=== PATIENT | male | born 1945 ===

== ENCOUNTER 2017-09-16 15:04 | Inpatient (IN) | payer MEDICARE, OTHER ==
--- NOTE | 2017-09-16 16:03 | C.PDOC ---
History Of Present Illness <Candy Gan - Last Filed: 09/16/17 19:55> <Aleksey Atkins DO - Last Filed: 09/16/17 21:03> CC: "I fell" HPI: 71 year old male with past medical history of HTN, HLD and CABG who present to the ED status post fall. Patient states he was walking out of work and felt his hands were trembling and he fell facing forward. He states he hit his head. He denies losing consciousness and states his co-workers witnessed the fall. He states he normally takes Valium everyday but has not taken it for about 4-5 days because he forgot to take it. He states he currently has a headache and would like Valium and would like to sleep. He denies dizziness, lightheadedness, nausea, vomiting, chest pain, or palpitations. PMD: Dr. 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; denies smoking; denies illicit drug use; states he stopped drinking scotch 5 years ago (Candy Gan) - HPI History Per: Patient History/Exam Limitations: clinical condition (patient having difficulty speaking ) Onset/Duration Of Symptoms: Hrs Injury Occurred (Timing): Just Before Arrival - Fall Fall:Prior To Injury: Lost Balance <Candy Gan - Last Filed: 09/16/17 19:55> <Aleksey Atkins DO - Last Filed: 09/16/17 21:03> - HPI Chief Complaint (Nursing): Trauma Past Medical History - Medical History PMH: HTN Surgical History: Back Surgery ( PER PATIENT) Family History: States: No Known Family Hx - Social History Hx Alcohol Use: No Hx Substance Use: No - Immunization History Hx Tetanus Toxoid Vaccination: No Hx Influenza Vaccination: No Hx Pneumococcal Vaccination: No <Candy Gan - Last Filed: 09/16/17 19:55> Vital Signs: Last Vital Signs Temp 97.1 F L 09/16/17 15:17 Pulse 71 09/16/17 20:54 Resp 16 09/16/17 20:54 BP 138/52 L 09/16/17 20:54 Pulse Ox 100 09/16/17 20:54 Review Of Systems Constitutional: Negative for: Fever, Chills Eyes: Negative for: Vision Change Cardiovascular: Negative for: Chest Pain, Palpitations, Edema, Light Headedness Gastrointestinal: Negative for: Nausea, Vomiting, Diarrhea, Constipation Genitourinary: Negative for: Dysuria Neurological: Positive for: Headache. Negative for: Weakness, Numbness, Dizziness <Candy Gan - Last Filed: 09/16/17 19:55> Physical Exam - Physical Exam Appears: No Acute Distress Skin: Normal Color Head: Abrasion Eye(s): bilateral: Normal Inspection, PERRL, EOMI Oral Mucosa: Moist Cardiovascular: Rhythm Regular, No Murmur Respiratory: Normal Breath Sounds, No Decreased Breath Sounds, No Stridor, No Wheezing Gastrointestinal/Abdominal: Normal Exam, Bowel Sounds, Soft, No Tenderness Extremity: No Tenderness, No Pedal Edema, No Calf Tenderness, Other (abrasion on the left knee ) Neurological/Psych: Oriented x3, Normal Speech, Normal Cognition, Normal Cranial Nerves, Other (tremor upper extremity bilateral ) <Candy Gan - Last Filed: 09/16/17 19:55> ED Course And Treatment - Laboratory Results Result Diagrams: 09/16/17 16:35 09/16/17 16:35 O2 Sat by Pulse Oximetry: 98 <Candy Gan - Last Filed: 09/16/17 19:55> - Laboratory Results Result Diagrams: 09/16/17 16:35 09/16/17 16:35 <Aleksey Atkins DO - Last Filed: 09/16/17 21:03> Medical Decision Making <Candy Gan - Last Filed: 09/16/17 19:55> <Aleksey Atkins DO - Last Filed: 09/16/17 21:03> Medical Decision Making: Head Trauma s/p fall - head CT w/o contrast: no acute intracranial hemorrhage. Mild localized scalp contusion/soft tissue swelling superior frontal scalp. There also appears to be a tiny radiopaque foreign body possibly representing glass or gravel within the right parasagittal frontal scalp just inferior to the constusion. - alcohol serum level: <10 - UDS: + Benzodiazepines - cmp: WNL - cbc: WNL - troponin: <0.0120 - UA: negative - urine culture - f/u chest xray - f/u EKG - Paged patient's PMD Dr. Cordova pending return phone call. - Spoke with Dr. Cordova who wants the patient to be admitted to the hospital - Called the medicine physican building performance consultant Dr. Tovar who accepts the patient. - per Dr. Tovar wants neurology consult - Spoke with Dr. Leary who would like the following ordered - f/u lipid panel, A1c - f/u MRA of head and neck - f/u MRI of brain w/o contrast (Candy Gan) Disposition Discussed With : Aleksey Atkins DO Doctor Will See Patient In The: ED - Disposition Disposition Time: 19:57 <Candy Gan - Last Filed: 09/16/17 19:55> - Disposition Disposition Time: 19:20 <Aleksey Atkins DO - Last Filed: 09/16/17 21:03> - Disposition Disposition: HOSPITALIZED Condition: IMPROVED - Clinical Impression Clinical Impression: Syncope Critical Care Time - PA / PASTRY BAKER / Resident Statement ALIREZA has reviewed & agrees with the documentation as recorded. ALIREZA has examined the patient and agrees with the treatment plan. <Candy Gan - Last Filed: 09/16/17 19:55>
[2017-09-16 16:41] LABS: BASO % 0.6 % (0.0-2.0); EOS # 0.2 K/uL (0.0-0.7); EOS % 2.3 % (0.0-4.0); HEMOGLOBIN 9.4 g/dL (12.0-18.0); LYMPH # 1.2 K/uL (1.0-4.3); LYMPH % 15.2 % (20.0-40.0); MEAN CELL VOLUME 87.1 fL (80.0-94.0); MEAN CORPUSCULAR HEMOGLOBIN 29.5 pg (27.0-31.0); MEAN CORPUSCULAR HGB CONC 33.9 g/dL (33.0-37.0); MEAN PLATELET VOLUME 8.8 fL (7.2-11.7); MONO # 0.5 K/uL (0.0-0.8); MONO % 6.9 % (0.0-10.0); NEUT # 5.8 K/uL (1.8-7.0); NRBC % 0.1 % (0.0-2.0); RBC 3.2 Mil/uL (4.40-5.90); RED CELL DISTRIBUTION WIDTH 14.3 % (11.5-14.5); WHITE BLOOD COUNT 7.8 K/uL (4.8-10.8)
[2017-09-16 16:54] LABS: ALB/GLOB RATIO 1.2 (1.0-2.1); ALBUMIN 3.6 g/dL (3.5-5.0); ALT/SGPT 18 U/L (21-72); AST/SGOT 14 U/L (17-59); BLOOD UREA NITROGEN 32 mg/dL (9-20); CALCIUM 8.7 mg/dl (8.6-10.4); GFR AFRICAN-AMERICAN > 60; GFR NON-AFRICAN AMERICAN 59
--- NOTE | 2017-09-16 17:07 | CT ---
PROCEDURE: CT CT scan of the brain dated 09/16/2017 HISTORY: Status post fall. Rule out acute intracranial hemorrhage or fracture. COMPARISON: Comparison made with prior CT scan of the brain dated 08/02/2012. TECHNIQUE: Contiguous helical/ transaxial ial computed tomography images were obtained through the head/brain without intravenous contrast. Radiation dose: Total exam DLP = 1141.1 mGy-cm. This CT exam was performed using one or more of the following dose reduction techniques: Automated exposure control, adjustment of the mA and/or kV according to patient size, and/or use of iterative reconstruction technique. FINDINGS: HEMORRHAGE: No acute parenchymal, subarachnoid or extra-axial hemorrhage. BRAIN: Re- demonstrated are moderate to fairly significant diffuse/confluent chronic white matter ischemic changes seen extending peripherally into the deep and subcortical white matter both cerebral hemispheres. Moderate to significant atrophy. Dense vascular calcifications of the carotid siphons. Vascular calcifications both vertebral arteries left greater than right. VENTRICLES: No obstructive hydrocephalus. CALVARIUM: No acute calvarial fractures so far as can be seen. Note made of small area of localized soft tissue swelling/scalp contusion mid superior frontal scalp apparently associated with a small laceration. . Additionally, there is a very tiny approximately 2 mm somewhat triangular-shaped radiopaque density within the right parasagittal frontal skin surface that could represent small focal area of glass or gravel best seen on axial series 3 and series 4 image number 43 (just inferior to the aforementioned scalp contusion) PARANASAL SINUSES: Mild mucosal thickening seen within the ethmoid air complex extending superiorly into the inferior margin of the frontal sinus. There is also minimal mucosal thickening in the sphenoid sinus. MASTOID AIR CELLS: Unremarkable as visualized. No inflammatory changes. OTHER FINDINGS: None. IMPRESSION: No acute intracranial hemorrhage. Moderate to fairly significant diffuse/confluent chronic white matter ischemic changes extending peripherally into the deep and subcortical white matter both cerebral hemispheres. Moderate to significant atrophy. Mild localized scalp contusion/soft tissue swelling superior frontal scalp. There also appears to be a tiny radiopaque foreign body possibly representing glass or gravel within the right parasagittal frontal scalp just inferior to the contusion.
[2017-09-16 18:16] LABS: SQUAMOUS EPITHIAL < 1 /hpf (0-5); URINE BACTERIA RARE (<OCC); URINE BILIRUBIN NEGATIVE (NEGATIVE); URINE BLOOD NEGATIVE (NEGATIVE); URINE CLARITY Clear (Clear); URINE COLOR Amber (YELLOW); URINE GLUCOSE (UA) 1+ mg/dL (Normal); URINE LEUKOCYTE ESTERASE NEG Leu/uL (Negative); URINE NITRATE NEGATIVE (NEGATIVE); URINE PROTEIN 1+ mg/dL (NEGATIVE); URINE UROBILINOGEN NORMAL mg/dL (0.2-1.0)
[2017-09-16 18:25] LABS: BARBITURATES, UR NEGATIVE (NEGATIVE); OPIATES, UR NEGATIVE (NEGATIVE); PHENCYCLIDINE, UR NEGATIVE (NEGATIVE)
[2017-09-16 18:40] LABS: BENZODIAZEPINES, UR POSITIVE (NEGATIVE)
[2017-09-16] MEDS ORDERED: Sodium Chloride 0.9% 1,000 ML IV SCH (20:00)
[2017-09-16 20:20] LABS: HDL CHOLESTEROL 45 mg/dL (30-70)
[2017-09-16 20:31] LABS: LDL CHOLESTEROL 46 mg/dL (0-129)
--- NOTE | 2017-09-17 08:29 | RAD ---
HISTORY: r/o infiltrate COMPARISON: No prior. FINDINGS: LUNGS: No evidence of focal infiltrate or consolidation in the lungs. PLEURA: No significant pleural effusion identified, no pneumothorax apparent. CARDIOVASCULAR: Normal. OSSEOUS STRUCTURES: No significant abnormalities. VISUALIZED UPPER ABDOMEN: Normal. OTHER FINDINGS: None. IMPRESSION: No active disease.
[2017-09-17 08:51] LABS: BLOOD UREA NITROGEN 23 mg/dL (9-20); CALCIUM 8.4 mg/dl (8.6-10.4); GFR AFRICAN-AMERICAN > 60; GFR NON-AFRICAN AMERICAN > 60
[2017-09-17 09:13] LABS: BASO % 0.4 % (0.0-2.0); EOS # 0.3 K/uL (0.0-0.7); EOS % 2.8 % (0.0-4.0); HEMOGLOBIN 10.2 g/dL (12.0-18.0); LYMPH # 1.7 K/uL (1.0-4.3); MEAN CELL VOLUME 86.5 fL (80.0-94.0); MEAN CORPUSCULAR HEMOGLOBIN 29.7 pg (27.0-31.0); MEAN CORPUSCULAR HGB CONC 34.3 g/dL (33.0-37.0); MEAN PLATELET VOLUME 8.8 fL (7.2-11.7); MONO # 0.6 K/uL (0.0-0.8); NEUT # 6.3 K/uL (1.8-7.0); NEUT % 70.8 % (50.0-75.0); RBC 3.44 Mil/uL (4.40-5.90); WHITE BLOOD COUNT 8.9 K/uL (4.8-10.8)
[2017-09-17] MEDS ORDERED: Influenza Vaccine 60 mcg/0.5 mL SYR (4YR UP) IM ONE (10:00)
[2017-09-17] MEDS ORDERED: Pneumococcal 23-Valent Vaccine IM ONE (10:00)
[2017-09-17] MEDS: Ranolazine 500 mg Extended Release Tablets PO SCH ×2 (10:40→18:15)
[2017-09-17] MEDS: Enoxaparin 40 mg Syringe SC SCH (10:41)
--- NOTE | 2017-09-17 12:25 | MRI ---
PROCEDURE: Magnetic Resonance Angiography Brain HISTORY: syncope COMPARISON: None available. TECHNIQUE: 3D time of flight MR angiography of the intracranial arteries was performed. Rotating maximum intensity projection images were generated. FINDINGS: INTERNAL CAROTID ARTERIES: The distal portio right internal carotid artery including the petrous and supraclinoid and terminus portions are not visualized. The distal portion of the left internal carotid artery is patent in has a normal caliber. ANTERIOR CEREBRAL ARTERIES: Unremarkable. A1 and A2 segments are widely patent. The left A1 is larger than the right. Smaller distal branches unremarkable, as visualized. MIDDLE CEREBRAL ARTERIES: There is a reconstitution of the right internal terminus / bifurcation. The right midgrade cerebral artery is smaller than the left. POSTERIOR CIRCULATION: Basilar Artery: Unremarkable. Distal Vertebral Arteries: The left distal vertebral artery is larger than the right. Unremarkable. Posterior Cerebral Arteries: Unremarkable. Posterior Inferior Cerebellar Arteries: Unremarkable. ANEURYSM/ VASCULAR MALFORMATIONS: None. OTHER FINDINGS: None. 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 The right middle cerebral artery and right A1 are smaller than the left. The distal left vertebral artery is larger than the right.
--- NOTE | 2017-09-17 12:35 | MRI ---
PROCEDURE: MRI BRAIN WITHOUT CONTRAST HISTORY: syncope COMPARISON: None. TECHNIQUE: Multiplanar, multisequence MR images of the brain were obtained without intravenous contrast enhancement. FINDINGS: HEMORRHAGE: None DWI: Suspicious for 5 millimeter focal diffusion restriction at the medial aspect of the left thalamus image 49 series 3 may represent lacunar infarction. BRAIN PARENCHYMA: No mass effect or edema. Moderate volume loss is noted. Moderate white matter changes are also noted suggestive of chronic microvascular ischemic disease. There is a small focal encephalomalacia at the left occipital lobe likely represent old small infarction. VENTRICLES: Unremarkable. No hydrocephalus. CRANIUM: Unremarkable. ORBITS: Grossly unremarkable. PARANASAL SINUSES/MASTOIDS: Clear VASCULAR SYSTEM: Skull base flow voids intact. OTHER FINDINGS: None. IMPRESSION: 5 millimeter diffusion restriction at the medial aspect of the left thalamus suspicious for acute lacunar infarction. Moderate atrophy and moderate white matter changes likely represent chronic microvascular ischemic disease.
--- NOTE | 2017-09-17 13:32 | MRI ---
PROCEDURE: MR Angiography of the neck without contrast HISTORY: syncope COMPARISON: None available. TECHNIQUE: 3D [id number] angiography of the neck was performed. Rotating maximum intensity projection images of the cervical carotid and vertebral arteries were generated. The origins of the common carotid arteries were not visualized, which is a limitation inherent to the non-contrast time of flight technique. FINDINGS: RIGHT CAROTID ARTERIES: Common Carotid Artery: The right common carotid artery is smaller than the left Carotid Bifurcation: Normal. Internal Carotid Artery:There is occlusion of the right internal carotid artery shortly after its origin External Carotid Artery (proximal branches): Normal. LEFT CAROTID ARTERIES: Common Carotid Artery: Normal. Carotid Bifurcation: Normal. Internal Carotid Artery:There is approximately 50 percent stenosis at the origin and proximal left internal carotid artery External Carotid Artery (proximal branches): Normal. VERTEBRAL ARTERIES: Right Vertebral Artery: The right vertebral artery is smaller than the left Normal. Left Vertebral Artery: Normal. OTHER FINDINGS: None. 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 50 percent focal stenosis at the origin and proximal left internal carotid artery.
--- NOTE | 2017-09-17 14:42 | CP.PCM.CON ---
History of Present Illness - History of Present Illness History of Present Illness: Neurology Consult Note: Mr. Simpson is a 71-year-old man with a past medical history of HTN, HLD and CABG who presented to the ED after having a witnessed fall. He was walking out of work and felt tremulous, his legs gave out and he fell face forward. There was no loss of consciousness, urinary/bowel incontinence, or any tongue biting. The patient uses Valium daily for headaches/insomnia, but has not taken it in 4 days because he forgot. CT scan showed the hematoma of the scalp and forehead with a possible glass/ gravel foreign body. MRI of the brain was suspicious for a 5 mm lacunar infarct in the left thalamus. There was also significant white matter disease. MRA of the head/neck showed multi-vessel stenosis in the intracranial and extra-cranial vessels, including complete occlusion of the right carotid artery. Clinically, the patient did not have any complaints except for head pain at the injury site. He is on aspirin, Plavix and Crestor for risk factor control and treatment of co-morbid medical conditions. Review of Systems - Review of Systems All systems: reviewed and no additional remarkable complaints except Past Patient History - Past Medical History & Family History Past Medical History?: Yes - Past Social History Smoking Status: Never Smoked - CARDIAC Hx Cardiac Disorders: Yes Hx Heart Attack: Yes Hx Hypertension: Yes Other/Comment: CAD - PULMONARY Hx Respiratory Disorders: No - NEUROLOGICAL Hx Neurological Disorder: No - HEENT Hx HEENT Problems: No - RENAL Hx Chronic Kidney Disease: No - ENDOCRINE/METABOLIC Hx Endocrine Disorders: Yes Hx Diabetes Mellitus Type 1: Yes - HEMATOLOGICAL/ONCOLOGICAL Hx Blood Disorders: No - INTEGUMENTARY Hx Dermatological Problems: No - MUSCULOSKELETAL/RHEUMATOLOGICAL Hx Musculoskeletal Disorders: Yes Hx Back Pain: Yes Hx Falls: Yes Hx Herniated Disk: Yes - GASTROINTESTINAL Hx Gastrointestinal Disorders: No - GENITOURINARY/GYNECOLOGICAL Hx Genitourinary Disorders: No - PSYCHIATRIC Hx Psychophysiologic Disorder: No Hx Substance Use: No - SURGICAL HISTORY Hx Surgeries: Yes Hx Coronary Artery Bypass Graft: Yes (2003) Hx Musculoskeletal Surgery: Yes (L4-L5 w/ "guillermo" 05/2017) - ANESTHESIA Hx Anesthesia: Yes Hx Anesthesia Reactions: No Hx Malignant Hyperthermia: No Has any member of the family had a problem w/ anesthesia?: No Meds Allergies/Adverse Reactions: Allergies Allergy/AdvReac Type Severity Reaction Status Date / Time No Known Allergies Allergy Verified 09/16/17 15:16 - Medications Medications: Current Medications Aspirin (Ecotrin) 81 mg PO DAILY [facility] Last Admin: 09/17/17 10:39 Dose: 81 mg Atenolol (Tenormin) 100 mg PO DAILY [facility] Last Admin: 09/17/17 10:40 Dose: 100 mg Clopidogrel Bisulfate (Plavix) 75 mg PO DAILY [facility] Last Admin: 09/17/17 10:39 Dose: 75 mg Diazepam (Valium) 5 mg PO HS [facility] Last Admin: 09/17/17 00:02 Dose: 5 mg Enoxaparin Sodium (Lovenox) 40 mg SC DAILY [facility] Last Admin: 09/17/17 10:41 Dose: 40 mg Gabapentin (Neurontin) 300 mg PO BID [facility] Last Admin: 09/17/17 10:42 Dose: 300 mg Hydralazine HCl (Apresoline) 10 mg IVP Q6 PRN PRN Reason: for SBP >180, hold if SBP <110 Sodium Chloride (Sodium Chloride 0.9%) 1,000 mls @ 60 mls/hr IV .[id number] [facility] Last Admin: 09/16/17 20:15 Dose: 60 mls/hr Sodium Chloride (Sodium Chloride 0.9%) 1,000 mls @ 80 mls/hr IV .[id number] [facility] Isosorbide Mononitrate (Imdur) 60 mg PO DAILY [facility] Metformin HCl (Glucophage) 500 mg PO BID [facility] Last Admin: 09/17/17 10:39 Dose: 500 mg Ranolazine (Ranexa) 1,000 mg PO BID [facility] Last Admin: 09/17/17 10:40 Dose: 1,000 mg Rosuvastatin Calcium (Crestor) 5 mg PO [facility] Sitagliptin Phosphate (Januvia) 100 mg PO DAILY [facility] Last Admin: 09/17/17 10:40 Dose: 100 mg Physical Exam - Constitutional Appears: Well - Head Exam Head Exam: ATRAUMATIC, NORMAL INSPECTION, NORMOCEPHALIC Additional comments: Dressing over frontal aspect of forehead, moderately saturated with blood. - Eye Exam Eye Exam: EOMI, Normal appearance, PERRL - ENT Exam ENT Exam: Mucous Membranes Moist, Normal Exam - Respiratory Exam Respiratory Exam: Clear to Auscultation Bilateral, NORMAL BREATHING PATTERN - Cardiovascular Exam Cardiovascular Exam: REGULAR RHYTHM, +S1, +S2 - GI/Abdominal Exam GI & Abdominal Exam: Normal Bowel Sounds, Soft. absent: Tenderness - Rectal Exam Rectal Exam: Deferred - Neurological Exam Neurological exam: Alert, CN II-XII Intact, Normal Gait, Oriented x3, Reflexes Normal Additional comments: Slight right side pronator drift in RUE. - Psychiatric Exam Psychiatric exam: Normal Affect, Normal Mood Results - Vital Signs Recent Vital Signs: Last Vital Signs Temp 97.7 F 09/17/17 08:17 Pulse 76 09/17/17 08:25 Resp 20 09/17/17 08:25 BP 165/72 H 09/17/17 08:25 Pulse Ox 98 09/17/17 08:17 - Labs Result Diagrams: 09/17/17 09:07 09/17/17 08:16 Labs: Laboratory Results - last 24 hr 09/16/17 09/16/17 09/16/17 16:35 16:35 18:05 WBC 7.8 RBC 3.20 L Hgb 9.4 L Hct 27.9 L MCV 87.1 MCH 29.5 MCHC 33.9 RDW 14.3 Plt Count 217 MPV 8.8 Neut % (Auto) 75.0 Lymph % (Auto) 15.2 L Banks % (Auto) 6.9 Eos % (Auto) 2.3 Baso % (Auto) 0.6 Neut # (Auto) 5.8 Lymph # (Auto) 1.2 Banks # (Auto) 0.5 Eos # (Auto) 0.2 Baso # (Auto) 0.0 Sodium 137 Potassium 4.5 Chloride 100 Carbon Dioxide 28 Anion Gap 14 BUN 32 H Creatinine 1.2 Est GFR ( Amer) > 60 Est GFR (Non-Af Amer) 59 POC Glucose (mg/dL) Random Glucose 126 H Hemoglobin A1c Calcium 8.7 Total Bilirubin 0.3 AST 14 L ALT 18 L Alkaline Phosphatase 53 Troponin I < 0.0120 Total Protein 6.5 Albumin 3.6 Globulin 2.9 Albumin/Globulin Ratio 1.2 Triglycerides Cholesterol LDL Cholesterol Direct HDL Cholesterol TSH 3rd Generation Urine Color Urine Clarity Urine pH Ur Specific [place] Urine Protein Urine Glucose (UA) Urine Ketones Urine Blood Urine Nitrate Urine Bilirubin Urine Urobilinogen Ur Leukocyte Esterase Urine WBC (Auto) Urine RBC (Auto) Ur Squamous Epith Cells Urine Bacteria Hyaline Casts Urine Opiates Screen Negative Urine Methadone Screen Negative Ur Barbiturates Screen Negative Ur Phencyclidine Scrn Negative Ur Amphetamines Screen Negative U Benzodiazepines Scrn Positive U Oth Cocaine Metabols Negative U Cannabinoids Screen Negative Alcohol, Quantitative < 10 09/16/17 09/16/17 09/16/17 18:05 20:10 20:10 WBC RBC Hgb Hct MCV MCH MCHC RDW Plt Count MPV Neut % (Auto) Lymph % (Auto) Banks % (Auto) Eos % (Auto) Baso % (Auto) Neut # (Auto) Lymph # (Auto) Banks # (Auto) Eos # (Auto) Baso # (Auto) Sodium Potassium Chloride Carbon Dioxide Anion Gap BUN Creatinine Est GFR ( Amer) Est GFR (Non-Af Amer) POC Glucose (mg/dL) Random Glucose Hemoglobin A1c 6.3 Calcium Total Bilirubin AST ALT Alkaline Phosphatase Troponin I Total Protein Albumin Globulin Albumin/Globulin Ratio Triglycerides 79 Cholesterol 109 LDL Cholesterol Direct 46 HDL Cholesterol 45 TSH 3rd Generation Urine Color [place] Urine Clarity Clear Urine pH 5.0 Ur Specific [place] 1.020 Urine Protein 1+ H Urine Glucose (UA) 1+ H Urine Ketones Negative Urine Blood Negative Urine Nitrate Negative Urine Bilirubin Negative Urine Urobilinogen Normal Ur Leukocyte Esterase Neg Urine WBC (Auto) 1 Urine RBC (Auto) 3 Ur Squamous Epith Cells < 1 Urine Bacteria Rare Hyaline Casts 6-10 H Urine Opiates Screen Urine Methadone Screen Ur Barbiturates Screen Ur Phencyclidine Scrn Ur Amphetamines Screen U Benzodiazepines Scrn U Oth Cocaine Metabols U Cannabinoids Screen Alcohol, Quantitative 09/17/17 09/17/17 09/17/17 01:49 08:16 08:16 WBC RBC Hgb Hct MCV MCH MCHC RDW Plt Count MPV Neut % (Auto) Lymph % (Auto) Banks % (Auto) Eos % (Auto) Baso % (Auto) Neut # (Auto) Lymph # (Auto) Banks # (Auto) Eos # (Auto) Baso # (Auto) Sodium 136 Potassium 4.2 Chloride 105 Carbon Dioxide 22 Anion Gap 13 BUN 23 H Creatinine 1.0 Est GFR ( Amer) > 60 Est GFR (Non-Af Amer) > 60 POC Glucose (mg/dL) Random Glucose 106 Hemoglobin A1c Calcium 8.4 L Total Bilirubin AST ALT Alkaline Phosphatase Troponin I < 0.0120 < 0.0120 Total Protein Albumin Globulin Albumin/Globulin Ratio Triglycerides Cholesterol LDL Cholesterol Direct HDL Cholesterol TSH 3rd Generation 1.26 Urine Color Urine Clarity Urine pH Ur Specific [place] Urine Protein Urine Glucose (UA) Urine Ketones Urine Blood Urine Nitrate Urine Bilirubin Urine Urobilinogen Ur Leukocyte Esterase Urine WBC (Auto) Urine RBC (Auto) Ur Squamous Epith Cells Urine Bacteria Hyaline Casts Urine Opiates Screen Urine Methadone Screen Ur Barbiturates Screen Ur Phencyclidine Scrn Ur Amphetamines Screen U Benzodiazepines Scrn U Oth Cocaine Metabols U Cannabinoids Screen Alcohol, Quantitative 09/17/17 09/17/17 09/17/17 09:07 09:07 11:20 WBC 8.9 RBC 3.44 L Hgb 10.2 L Hct 29.7 L MCV 86.5 MCH 29.7 MCHC 34.3 RDW 14.0 Plt Count 241 MPV 8.8 Neut % (Auto) 70.8 Lymph % (Auto) 19.0 L Banks % (Auto) 7.0 Eos % (Auto) 2.8 Baso % (Auto) 0.4 Neut # (Auto) 6.3 Lymph # (Auto) 1.7 Banks # (Auto) 0.6 Eos # (Auto) 0.3 Baso # (Auto) 0.0 Sodium Potassium Chloride Carbon Dioxide Anion Gap BUN Creatinine Est GFR ( Amer) Est GFR (Non-Af Amer) POC Glucose (mg/dL) 191 H Random Glucose Hemoglobin A1c 6.3 Calcium Total Bilirubin AST ALT Alkaline Phosphatase Troponin I Total Protein Albumin Globulin Albumin/Globulin Ratio Triglycerides Cholesterol LDL Cholesterol Direct HDL Cholesterol TSH 3rd Generation Urine Color Urine Clarity Urine pH Ur Specific [place] Urine Protein Urine Glucose (UA) Urine Ketones Urine Blood Urine Nitrate Urine Bilirubin Urine Urobilinogen Ur Leukocyte Esterase Urine WBC (Auto) Urine RBC (Auto) Ur Squamous Epith Cells Urine Bacteria Hyaline Casts Urine Opiates Screen Urine Methadone Screen Ur Barbiturates Screen Ur Phencyclidine Scrn Ur Amphetamines Screen U Benzodiazepines Scrn U Oth Cocaine Metabols U Cannabinoids Screen Alcohol, Quantitative Assessment & Plan (1) Ischemic stroke Assessment and Plan: The patient has multiple risk factors for stroke, and is on the appropriate medications. The infarct is likely small vessel due to chronic diabetes and hypertension. I recommend the followin. Telemetry 2. Echocardiogram with bubble study 3. PT/OT eval and treat 4. Fluids with NS at 100 mL/hr 5. Continue Aspirin/Plavix and Crestor 6. 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 Case management consult 9. Follow up with outpatient neurology Thank you for this consultation. Status: Acute
[2017-09-17] MEDS: Sodium Chloride 0.9% 1,000 ML IV SCH (21:22)
[2017-09-17] MEDS: (Novolog) Insulin Aspart, Recombinant 100 u/ml 10 ml vial SC SCH (21:50)
--- NOTE | 2017-09-18 01:02 | CP.PCM.HP ---
Past Patient History - Past Medical History & Family History Past Medical History?: Yes - Past Social History Smoking Status: Never Smoked - CARDIAC Hx Cardiac Disorders: Yes Hx Heart Attack: Yes Hx Hypertension: Yes Other/Comment: CAD - PULMONARY Hx Respiratory Disorders: No - NEUROLOGICAL Hx Neurological Disorder: No - HEENT Hx HEENT Problems: No - RENAL Hx Chronic Kidney Disease: No - ENDOCRINE/METABOLIC Hx Endocrine Disorders: Yes Hx Diabetes Mellitus Type 1: Yes - HEMATOLOGICAL/ONCOLOGICAL Hx Blood Disorders: No - INTEGUMENTARY Hx Dermatological Problems: No - MUSCULOSKELETAL/RHEUMATOLOGICAL Hx Musculoskeletal Disorders: Yes Hx Back Pain: Yes Hx Falls: Yes Hx Herniated Disk: Yes - GASTROINTESTINAL Hx Gastrointestinal Disorders: No - GENITOURINARY/GYNECOLOGICAL Hx Genitourinary Disorders: No - PSYCHIATRIC Hx Psychophysiologic Disorder: No Hx Substance Use: No - SURGICAL HISTORY Hx Surgeries: Yes Hx Coronary Artery Bypass Graft: Yes (2003) Hx Musculoskeletal Surgery: Yes (L4-L5 w/ "guillermo" 05/2017) - ANESTHESIA Hx Anesthesia: Yes Hx Anesthesia Reactions: No Hx Malignant Hyperthermia: No Has any member of the family had a problem w/ anesthesia?: No Meds Allergies/Adverse Reactions: Allergies Allergy/AdvReac Type Severity Reaction Status Date / Time No Known Allergies Allergy Verified 09/16/17 15:16 Results - Vital Signs Recent Vital Signs: Last Vital Signs Temp 98.3 F 09/17/17 23:27 Pulse 69 09/17/17 23:27 Resp 20 09/17/17 23:27 BP 129/53 L 09/17/17 23:27 Pulse Ox 96 09/17/17 23:27 - Labs Result Diagrams: 09/17/17 09:07 09/17/17 08:16 Labs: Laboratory Results - last 24 hr 09/17/17 09/17/17 09/17/17 01:49 08:16 08:16 WBC RBC Hgb Hct MCV MCH MCHC RDW Plt Count MPV Neut % (Auto) Lymph % (Auto) [place] % (Auto) Eos % (Auto) Baso % (Auto) Neut # (Auto) Lymph # (Auto) [place] # (Auto) Eos # (Auto) Baso # (Auto) Sodium 136 Potassium 4.2 Chloride 105 Carbon Dioxide 22 Anion Gap 13 BUN 23 H Creatinine 1.0 Est GFR ( Amer) > 60 Est GFR (Non-Af Amer) > 60 POC Glucose (mg/dL) Random Glucose 106 Hemoglobin A1c Calcium 8.4 L Troponin I < 0.0120 < 0.0120 TSH 3rd Generation 1.26 09/17/17 09/17/17 09/17/17 09:07 09:07 11:20 WBC 8.9 RBC 3.44 L Hgb 10.2 L Hct 29.7 L MCV 86.5 MCH 29.7 MCHC 34.3 RDW 14.0 Plt Count 241 MPV 8.8 Neut % (Auto) 70.8 Lymph % (Auto) 19.0 L [place] % (Auto) 7.0 Eos % (Auto) 2.8 Baso % (Auto) 0.4 Neut # (Auto) 6.3 Lymph # (Auto) 1.7 [place] # (Auto) 0.6 Eos # (Auto) 0.3 Baso # (Auto) 0.0 Sodium Potassium Chloride Carbon Dioxide Anion Gap BUN Creatinine Est GFR ( Amer) Est GFR (Non-Af Amer) POC Glucose (mg/dL) 191 H Random Glucose Hemoglobin A1c 6.3 Calcium Troponin I TSH 3rd Generation 09/17/17 09/17/17 16:43 21:30 WBC RBC Hgb Hct MCV MCH MCHC RDW Plt Count MPV Neut % (Auto) Lymph % (Auto) [place] % (Auto) Eos % (Auto) Baso % (Auto) Neut # (Auto) Lymph # (Auto) [place] # (Auto) Eos # (Auto) Baso # (Auto) Sodium Potassium Chloride Carbon Dioxide Anion Gap BUN Creatinine Est GFR ( Amer) Est GFR (Non-Af Amer) POC Glucose (mg/dL) 104 187 H Random Glucose Hemoglobin A1c Calcium Troponin I TSH 3rd Generation
[2017-09-18] MEDS: Sodium Chloride 0.9% 1,000 ML IV SCH ×4 (03:37→23:15)
[2017-09-18] MEDS: (Novolog) Insulin Aspart, Recombinant 100 u/ml 10 ml vial SC SCH ×4 (07:50→22:21)
--- NOTE | 2017-09-18 09:23 | CP.PCM.PN ---
Subjective - Date & Time of Evaluation Date of Evaluation: 09/18/17 Time of Evaluation: 09:00 Objective - Vital Signs/Intake and Output Vital Signs (last 24 hours): Temp Pulse Resp BP Pulse Ox 98.0 F 102 H 20 169/70 H 98 09/18/17 08:00 09/18/17 08:00 09/18/17 08:00 09/18/17 08:00 09/18/17 08:00 Intake and Output: 09/18/17 09/18/17 06:59 18:59 Intake Total 1520 Balance 1520 - Medications Medications: Current Medications Aspirin (Ecotrin) 81 mg PO DAILY [facility] Last Admin: 09/17/17 10:39 Dose: 81 mg Aspirin (Aspirin) 325 mg PO DAILY [facility] Atenolol (Tenormin) 100 mg PO DAILY [facility] Last Admin: 09/17/17 10:40 Dose: 100 mg Clopidogrel Bisulfate (Plavix) 75 mg PO DAILY [facility] Last Admin: 09/17/17 10:39 Dose: 75 mg Diazepam (Valium) 10 mg PO HS [facility] Last Admin: 09/17/17 21:17 Dose: 10 mg Enoxaparin Sodium (Lovenox) 40 mg SC DAILY [facility] Last Admin: 09/17/17 10:41 Dose: 40 mg Gabapentin (Neurontin) 300 mg PO BID [facility] Last Admin: 09/17/17 18:14 Dose: 300 mg Hydralazine HCl (Apresoline) 10 mg IVP Q6 PRN PRN Reason: for SBP >180, hold if SBP <110 Sodium Chloride (Sodium Chloride 0.9%) 1,000 mls @ 60 mls/hr IV .[id number] [facility] Last Admin: 09/16/17 20:15 Dose: 60 mls/hr Sodium Chloride (Sodium Chloride 0.9%) 1,000 mls @ 80 mls/hr IV .[id number] [facility] Last Admin: 09/18/17 03:37 Dose: 80 mls/hr Insulin Aspart (Novolog) 0 unit SC ACHS [facility] PRN Reason: Protocol Last Admin: 09/17/17 21:50 Dose: Not Given Isosorbide Mononitrate (Imdur) 60 mg PO DAILY [facility] Last Admin: 09/17/17 10:40 Dose: 60 mg Metformin HCl (Glucophage) 500 mg PO BID [facility] Last Admin: 09/17/17 18:14 Dose: 500 mg Ranolazine (Ranexa) 1,000 mg PO BID [facility] Last Admin: 09/17/17 18:15 Dose: 1,000 mg Rosuvastatin Calcium (Crestor) 5 mg PO HS [facility] Last Admin: 09/17/17 21:17 Dose: 5 mg Sitagliptin Phosphate (Januvia) 100 mg PO DAILY [facility] Last Admin: 09/17/17 10:40 Dose: 100 mg - Labs Labs: 09/17/17 09:07 09/17/17 08:16
[2017-09-18] MEDS: Ranolazine 500 mg Extended Release Tablets PO SCH ×2 (10:05→18:30)
[2017-09-18] MEDS: Enoxaparin 40 mg Syringe SC SCH (10:10)
--- NOTE | 2017-09-18 11:32 | CP.PCM.PN ---
Subjective - Date & Time of Evaluation Date of Evaluation: 09/18/17 Time of Evaluation: 11:29 - Subjective Subjective: Mr. Simpson was seen and examined at the bedside. He is alert, oriented in all spheres. He denies any headache, dizziness, lightheadedness, blurred vision, nausea, diplopia, or vomiting. He has the dry dressing on his forehead. He is able to follow simple commands. He is currently receiving IVF. There was no untoward events overnight. Objective - Vital Signs/Intake and Output Vital Signs (last 24 hours): Temp Pulse Resp BP Pulse Ox 98.0 F 67 20 169/70 H 98 09/18/17 08:00 09/18/17 08:00 09/18/17 08:00 09/18/17 08:00 09/18/17 08:00 Intake and Output: 09/18/17 09/18/17 06:59 18:59 Intake Total 1520 Balance 1520 - Medications Medications: Current Medications Aspirin (Ecotrin) 81 mg PO DAILY [facility] Last Admin: 09/17/17 10:39 Dose: 81 mg Aspirin (Aspirin) 325 mg PO DAILY [facility] Last Admin: 09/18/17 10:09 Dose: 325 mg Atenolol (Tenormin) 100 mg PO DAILY [facility] Last Admin: 09/18/17 10:09 Dose: 100 mg Clopidogrel Bisulfate (Plavix) 75 mg PO DAILY [facility] Last Admin: 09/18/17 10:09 Dose: 75 mg Diazepam (Valium) 10 mg PO HS [facility] Last Admin: 09/17/17 21:17 Dose: 10 mg Enoxaparin Sodium (Lovenox) 40 mg SC DAILY [facility] Last Admin: 09/18/17 10:10 Dose: 40 mg Gabapentin (Neurontin) 300 mg PO BID [facility] Last Admin: 09/18/17 10:10 Dose: 300 mg Hydralazine HCl (Apresoline) 10 mg IVP Q6 PRN PRN Reason: for SBP >180, hold if SBP <110 Sodium Chloride (Sodium Chloride 0.9%) 1,000 mls @ 60 mls/hr IV .[id number] [facility] Last Admin: 09/16/17 20:15 Dose: 60 mls/hr Sodium Chloride (Sodium Chloride 0.9%) 1,000 mls @ 80 mls/hr IV .[id number] [facility] Last Admin: 09/18/17 03:37 Dose: 80 mls/hr Insulin Aspart (Novolog) 0 unit SC ACHS [facility] PRN Reason: Protocol Last Admin: 09/18/17 07:50 Dose: Not Given Isosorbide Mononitrate (Imdur) 60 mg PO DAILY [facility] Last Admin: 09/18/17 10:09 Dose: 60 mg Metformin HCl (Glucophage) 500 mg PO BID [facility] Last Admin: 09/18/17 10:09 Dose: 500 mg Ranolazine (Ranexa) 1,000 mg PO BID [facility] Last Admin: 09/18/17 10:05 Dose: 1,000 mg Rosuvastatin Calcium (Crestor) 5 mg PO HS [facility] Last Admin: 09/17/17 21:17 Dose: 5 mg Sitagliptin Phosphate (Januvia) 100 mg PO DAILY [facility] Last Admin: 09/18/17 10:10 Dose: 100 mg - Labs Labs: 09/17/17 09:07 09/17/17 08:16 - Constitutional Appears: No Acute Distress - Head Exam Head Exam: NORMAL INSPECTION - Neurological Exam Neurological Exam: Alert, Awake, Oriented x3 Neuro motor strength exam: Left Upper Extremity: 5, Right Upper Extremity: 5, Left Lower Extremity: 5, Right Lower Extremity: 5 Additional comments: He is alert, oriented x 3. He is able to follow simple commands. Sensations remains intact. Assessment and Plan (1) Ischemic stroke Assessment & Plan: Case discussed with Dr. Leary, continue all current medical, physical, occupational therapies. Pending echocardiogram with bubble study and carotid ultrasound.Recommend blood pressure control and blood sugar control. Status: Acute
--- NOTE | 2017-09-18 12:29 | CP.PCM.CON ---
History of Present Illness - History of Present Illness History of Present Illness: Vascular Surgery Dr. Renee 71 y/o M w/ PMHx of HTN, HLD, CAD, DM2 presented to the after syncopal episode. Pt denies having similar episodes in the past. Per the pt, he suddenly became very lightheaded, dropped his briefcase and fell to the ground, hitting his R knee and head. Imaging done on admission revealed R ICA occlusion w/ distal revascularization and L ICA w/ 50% stenosis. Currently, pt denies headache, lightheadedness, dizziness, changes in vision, palpitations, CP, SOB. Vascular surgery consulted for possible intervention. PMhx: see above Meds: reviewed in chart NKDA PSHx: CABG, back surgery SHx: denies tobacco, EtOH, drug use FHx: noncontributory Review of Systems - Review of Systems All systems: reviewed and no additional remarkable complaints except (see HPI) Past Patient History - Past Medical History & Family History Past Medical History?: Yes - Past Social History Smoking Status: Never Smoked - CARDIAC Hx Cardiac Disorders: Yes Hx Heart Attack: Yes Hx Hypertension: Yes Other/Comment: CAD - PULMONARY Hx Respiratory Disorders: No - NEUROLOGICAL Hx Neurological Disorder: No - HEENT Hx HEENT Problems: No - RENAL Hx Chronic Kidney Disease: No - ENDOCRINE/METABOLIC Hx Endocrine Disorders: Yes Hx Diabetes Mellitus Type 1: Yes - HEMATOLOGICAL/ONCOLOGICAL Hx Blood Disorders: No - INTEGUMENTARY Hx Dermatological Problems: No - MUSCULOSKELETAL/RHEUMATOLOGICAL Hx Musculoskeletal Disorders: Yes Hx Back Pain: Yes Hx Falls: Yes Hx Herniated Disk: Yes - GASTROINTESTINAL Hx Gastrointestinal Disorders: No - GENITOURINARY/GYNECOLOGICAL Hx Genitourinary Disorders: No - PSYCHIATRIC Hx Psychophysiologic Disorder: No Hx Substance Use: No - SURGICAL HISTORY Hx Surgeries: Yes Hx Coronary Artery Bypass Graft: Yes (2003) Hx Musculoskeletal Surgery: Yes (L4-L5 w/ "guillermo" 05/2017) - ANESTHESIA Hx Anesthesia: Yes Hx Anesthesia Reactions: No Hx Malignant Hyperthermia: No Has any member of the family had a problem w/ anesthesia?: No Meds Allergies/Adverse Reactions: Allergies Allergy/AdvReac Type Severity Reaction Status Date / Time No Known Allergies Allergy Verified 09/16/17 15:16 - Medications Medications: Current Medications Aspirin (Ecotrin) 81 mg PO DAILY [facility] Last Admin: 09/17/17 10:39 Dose: 81 mg Aspirin (Aspirin) 325 mg PO DAILY [facility] Last Admin: 09/18/17 10:09 Dose: 325 mg Atenolol (Tenormin) 100 mg PO DAILY [facility] Last Admin: 09/18/17 10:09 Dose: 100 mg Clopidogrel Bisulfate (Plavix) 75 mg PO DAILY [facility] Last Admin: 09/18/17 10:09 Dose: 75 mg Diazepam (Valium) 10 mg PO HS [facility] Last Admin: 09/17/17 21:17 Dose: 10 mg Enoxaparin Sodium (Lovenox) 40 mg SC DAILY [facility] Last Admin: 09/18/17 10:10 Dose: 40 mg Gabapentin (Neurontin) 300 mg PO BID [facility] Last Admin: 09/18/17 10:10 Dose: 300 mg Hydralazine HCl (Apresoline) 10 mg IVP Q6 PRN PRN Reason: for SBP >180, hold if SBP <110 Sodium Chloride (Sodium Chloride 0.9%) 1,000 mls @ 60 mls/hr IV .[id number] [facility] Last Admin: 09/16/17 20:15 Dose: 60 mls/hr Sodium Chloride (Sodium Chloride 0.9%) 1,000 mls @ 80 mls/hr IV .[id number] [facility] Last Admin: 09/18/17 03:37 Dose: 80 mls/hr Insulin Aspart (Novolog) 0 unit SC ACHS [facility] PRN Reason: Protocol Last Admin: 09/18/17 07:50 Dose: Not Given Isosorbide Mononitrate (Imdur) 60 mg PO DAILY [facility] Last Admin: 09/18/17 10:09 Dose: 60 mg Metformin HCl (Glucophage) 500 mg PO BID [facility] Last Admin: 09/18/17 10:09 Dose: 500 mg Ranolazine (Ranexa) 1,000 mg PO BID [facility] Last Admin: 09/18/17 10:05 Dose: 1,000 mg Rosuvastatin Calcium (Crestor) 5 mg PO HS [facility] Last Admin: 09/17/17 21:17 Dose: 5 mg Sitagliptin Phosphate (Januvia) 100 mg PO DAILY [facility] Last Admin: 09/18/17 10:10 Dose: 100 mg Physical Exam - Constitutional Appears: Non-toxic, No Acute Distress - Head Exam Head Exam: absent: ATRAUMATIC Additional comments: dressing c/d/i - Eye Exam Eye Exam: Normal appearance - ENT Exam ENT Exam: Mucous Membranes Moist Additional comments: abrasion of nasal bridge - Respiratory Exam Respiratory Exam: NORMAL BREATHING PATTERN. absent: Accessory Muscle Use, Respiratory Distress - GI/Abdominal Exam GI & Abdominal Exam: Soft. absent: Distended - Extremities Exam Extremities exam: Positive for: normal inspection - Neurological Exam Neurological exam: Alert, Oriented x3 - Psychiatric Exam Psychiatric exam: Normal Affect, Normal Mood - Skin Skin Exam: Dry, Warm Results - Vital Signs Recent Vital Signs: Last Vital Signs Temp 98.0 F 09/18/17 08:00 Pulse 67 09/18/17 08:00 Resp 20 09/18/17 08:00 BP 169/70 H 09/18/17 08:00 Pulse Ox 98 09/18/17 08:00 - Labs Result Diagrams: 09/17/17 09:07 09/17/17 08:16 Labs: Laboratory Results - last 24 hr 09/17/17 09/17/17 09/18/17 16:43 21:30 06:21 POC Glucose (mg/dL) 104 187 H 94 - Imaging and Cardiology MRI - head Status: Image reviewed by me, Report reviewed by me Assessment & Plan - Assessment and Plan (Free Text) Assessment: 71 y/o M s/p syncopal episode w/ 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 Thelma Marquez DO PGY2
[2017-09-19] MEDS: Sodium Chloride 0.9% 1,000 ML IV SCH (03:00)
[2017-09-19] MEDS: (Novolog) Insulin Aspart, Recombinant 100 u/ml 10 ml vial SC SCH (08:22)
--- NOTE | 2017-09-19 08:40 | CP.PCM.PN ---
Subjective - Date & Time of Evaluation Date of Evaluation: 09/19/17 Time of Evaluation: 08:37 - Subjective Subjective: Mr. Simpson was seen and examined at the bedside. He is alert, oriented. He denies any headache, dizziness, lightheadedness, blurred vision, diplopia, nause , or vomiting. He is able to ambulate within his room in steady gait. He remains with dry dressing in his forehead. There is noted swelling of the right periorbital area with ecchymosis. He is able to follow simple commands. There was no untoward events overnight. Objective - Vital Signs/Intake and Output Vital Signs (last 24 hours): Temp Pulse Resp BP Pulse Ox 97.8 F 70 18 176/72 H 100 09/18/17 23:15 09/19/17 04:00 09/18/17 23:15 09/18/17 23:15 09/18/17 23:15 Intake and Output: 09/19/17 09/19/17 06:59 18:59 Intake Total 1630 Output Total 450 Balance 1180 - Medications Medications: Current Medications Aspirin (Aspirin) 325 mg PO DAILY [facility] Last Admin: 09/18/17 10:09 Dose: 325 mg Atenolol (Tenormin) 100 mg PO DAILY [facility] Last Admin: 09/18/17 10:09 Dose: 100 mg Clopidogrel Bisulfate (Plavix) 75 mg PO DAILY [facility] Last Admin: 09/18/17 10:09 Dose: 75 mg Diazepam (Valium) 10 mg PO HS [facility] Last Admin: 09/18/17 21:02 Dose: 10 mg Enoxaparin Sodium (Lovenox) 40 mg SC DAILY [facility] Gabapentin (Neurontin) 300 mg PO BID [facility] Last Admin: 09/18/17 18:30 Dose: 300 mg Hydralazine HCl (Apresoline) 10 mg IVP Q6 PRN PRN Reason: for SBP >180, hold if SBP <110 Sodium Chloride (Sodium Chloride 0.9%) 1,000 mls @ 60 mls/hr IV .[id number] [facility] Last Admin: 09/16/17 20:15 Dose: 60 mls/hr Sodium Chloride (Sodium Chloride 0.9%) 1,000 mls @ 80 mls/hr IV .[id number] [facility] Last Admin: 09/19/17 03:00 Dose: Not Given Insulin Aspart (Novolog) 0 unit SC ACHS [facility] PRN Reason: Protocol Last Admin: 09/19/17 08:22 Dose: Not Given Isosorbide Mononitrate (Imdur) 60 mg PO DAILY [facility] Last Admin: 09/18/17 10:09 Dose: 60 mg Metformin HCl (Glucophage) 500 mg PO BID [facility] Last Admin: 09/18/17 18:30 Dose: 500 mg Ranolazine (Ranexa) 1,000 mg PO BID [facility] Last Admin: 09/18/17 18:30 Dose: 1,000 mg Rosuvastatin Calcium (Crestor) 5 mg PO HS [facility] Last Admin: 09/18/17 21:02 Dose: 5 mg Sitagliptin Phosphate (Januvia) 100 mg PO DAILY [facility] Last Admin: 09/18/17 10:10 Dose: 100 mg - Labs Labs: 09/17/17 09:07 09/17/17 08:16 - Constitutional Appears: No Acute Distress - Head Exam Head Exam: NORMAL INSPECTION - Eye Exam Pupil Exam: PERRL Additional comments: swelling and ecchymosis around his right periorbital area. - Neurological Exam Neurological Exam: Alert, Awake, Oriented x3 Neuro motor strength exam: Left Upper Extremity: 4, Right Upper Extremity: 4, Left Lower Extremity: 4, Right Lower Extremity: 4 Additional comments: Neurological unchanged from previous examination. Assessment and Plan (1) Ischemic stroke Assessment & Plan: Case discussed with Dr. Marti, continue all current medical, physical, and occupational therapies. Pending echocardiogram with bubble study. Recommend to repeat CT of the head with the new onset of ecchymosis and swelling of the right periorbital. Status: Acute
[2017-09-19 08:47] VITALS: RESP 20
--- NOTE | 2017-09-19 09:44 | CP.PCM.PN ---
Subjective - Date & Time of Evaluation Date of Evaluation: 09/19/17 Time of Evaluation: 06:20 - Subjective Subjective: Vascular Surgery- Dr. Renee patient seen and examined at bedside this AM. no acute events overnight. No new complaints. nursing notes reviewed. Upper and lower extremiety strength 5/5 follows all commands GSC 15. Denies new weakness, slurred speech, numbness/ tinling in extremiteis, nausea, vomiting, diarrhea. Objective - Vital Signs/Intake and Output Vital Signs (last 24 hours): Temp Pulse Resp BP Pulse Ox 98.2 F 73 20 171/72 H 97 09/19/17 08:45 09/19/17 08:45 09/19/17 08:45 09/19/17 08:45 09/19/17 08:45 Intake and Output: 09/19/17 09/19/17 06:59 18:59 Intake Total 1630 Output Total 450 Balance 1180 - Medications Medications: Current Medications Aspirin (Aspirin) 325 mg PO DAILY [facility] Last Admin: 09/18/17 10:09 Dose: 325 mg Atenolol (Tenormin) 100 mg PO DAILY [facility] Last Admin: 09/18/17 10:09 Dose: 100 mg Clopidogrel Bisulfate (Plavix) 75 mg PO DAILY [facility] Last Admin: 09/18/17 10:09 Dose: 75 mg Diazepam (Valium) 10 mg PO HS [facility] Last Admin: 09/18/17 21:02 Dose: 10 mg Enoxaparin Sodium (Lovenox) 40 mg SC DAILY [facility] Gabapentin (Neurontin) 300 mg PO BID [facility] Last Admin: 09/18/17 18:30 Dose: 300 mg Hydralazine HCl (Apresoline) 10 mg IVP Q6 PRN PRN Reason: for SBP >180, hold if SBP <110 Sodium Chloride (Sodium Chloride 0.9%) 1,000 mls @ 60 mls/hr IV .[id number] [facility] Last Admin: 09/16/17 20:15 Dose: 60 mls/hr Sodium Chloride (Sodium Chloride 0.9%) 1,000 mls @ 80 mls/hr IV .[id number] [facility] Last Admin: 09/19/17 03:00 Dose: Not Given Insulin Aspart (Novolog) 0 unit SC ACHS [facility] PRN Reason: Protocol Last Admin: 09/19/17 08:22 Dose: Not Given Isosorbide Mononitrate (Imdur) 60 mg PO DAILY [facility] Last Admin: 09/18/17 10:09 Dose: 60 mg Metformin HCl (Glucophage) 500 mg PO BID [facility] Last Admin: 09/18/17 18:30 Dose: 500 mg Ranolazine (Ranexa) 1,000 mg PO BID [facility] Last Admin: 09/18/17 18:30 Dose: 1,000 mg Rosuvastatin Calcium (Crestor) 5 mg PO HS [facility] Last Admin: 09/18/17 21:02 Dose: 5 mg Sitagliptin Phosphate (Januvia) 100 mg PO DAILY [facility] Last Admin: 09/18/17 10:10 Dose: 100 mg - Labs Labs: 09/17/17 09:07 09/17/17 08:16 - Constitutional Appears: Non-toxic, No Acute Distress - Head Exam Head Exam: ATRAUMATIC - Eye Exam Eye Exam: EOMI. absent: Scleral icterus - ENT Exam ENT Exam: Mucous Membranes Moist - Respiratory Exam Respiratory Exam: NORMAL BREATHING PATTERN. absent: Accessory Muscle Use, Respiratory Distress - Cardiovascular Exam Cardiovascular Exam: +S1, +S2. absent: Bradycardia, Tachycardia - GI/Abdominal Exam GI & Abdominal Exam: Soft. absent: Distended, Firm, Guarding, Rigid, Tenderness - Extremities Exam Extremities Exam: Normal Inspection. absent: Calf Tenderness - Neurological Exam Neurological Exam: Alert, Awake, Oriented x3 Neuro motor strength exam: Left Upper Extremity: 5, Right Upper Extremity: 5, Left Lower Extremity: 5, Right Lower Extremity: 5 - Psychiatric Exam Psychiatric exam: Normal Affect - Skin Skin Exam: Warm. 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 Renee surgical attending PGY1
[2017-09-19] MEDS ORDERED: Enoxaparin 60 mg Syringe SC SCH (10:00)
--- NOTE | 2017-09-19 11:24 | CT ---
PROCEDURE: CT scan brain dated 09/19/2017. HISTORY: Swelling right periorbital area. COMPARISON: Comparison made with MRI of the brain dated 09/15/2017 TECHNIQUE: Axial computed tomography images were obtained through the head/brain without intravenous contrast. Radiation dose: Total exam DLP = 876.63 mGy-cm. This CT exam was performed using one or more of the following dose reduction techniques: Automated exposure control, adjustment of the mA and/or kV according to patient size, and/or use of iterative reconstruction technique. FINDINGS: HEMORRHAGE: No acute parenchymal, subarachnoid nor extra-axial hemorrhage. BRAIN: Previously described suspected acute tiny left thalamic infarct is not appreciated on this study Moderate to fairly significant diffuse/ confluent chronic white matter ischemic changes seen extending peripherally into the deep and subcortical white matter both cerebral hemispheres. There are a more discrete chronic appearing ischemic changes scattered about the deep and subcortical white matter. Multiple chronic bilateral basal nuclei lacunar type infarcts also felt be present. Note that the possibility of a hyperacute infarct not completely excluded on this study. Clinical correlation recommended. Moderate - significant volume loss. Vascular calcifications both carotid siphons. VENTRICLES: No obstructive hydrocephalus. CALVARIUM: There are no acute calvarial fractures. PARANASAL SINUSES: Minimal mucosal thickening noted within the ethmoid air complex extending superiorly into frontal sinus. There is also minimal mucosal thickening left both maxillary antra and sphenoid sinus. MASTOID AIR CELLS: Unremarkable as visualized. No inflammatory changes. OTHER FINDINGS: Changes of right cataract surgery again noted. IMPRESSION: No acute intracranial hemorrhage. Previously described suspected acute tiny left thalamic infarct is not appreciated on this study Moderate to fairly significant chronic white matter and basal nuclei ischemic changes. Moderate - significant volume loss
[2017-09-19] MEDS: Ranolazine 500 mg Extended Release Tablets PO SCH (12:02)
--- NOTE | 2017-09-19 12:51 | CARD ---
APPROVED REPORT EKG Measurement Heart [id number] <Conclusion> Sinus bradycardia Nonspecific T wave abnormality Abnormal ECG
[2017-09-19 17:20] VITALS: BP 190/86; PULSE 65; TEMP 98; O2SAT 99
--- NOTE | 2017-09-19 17:35 | CARD ---
APPROVED REPORT EXAM: Two-dimensional and M-mode echocardiogram with Doppler and color Doppler. Other Information Quality : GoodRhythm : INDICATION CVA/TIA Cardiac Disease: CAD Syncope Surgery/Intervention CABG: Date: 2003 RISK FACTORS Hypertension Diabetes 2D DIMENSIONS IVSd0.9 (0.7-1.1cm)LVDd4.8 (3.9-5.9cm) PWd0.9 (0.7-1.1cm)LVDs3.0 (2.5-4.0cm) FS (%) 37.7 %LVEF (%)67.8 (>50%) M-Mode DIMENSIONS Left Atrium (MM)3.13 (2.5-4.0cm)Aortic Root3.08 (2.2-3.7cm) Aortic Cusp Exc.1.80 (1.5-2.0cm) Mitral Valve MV E Ydbduomp584.4cm/sMV A Tyszqhay10.1cm/sE/A ratio2.4 TDI E/Lateral E'0.0E/Medial E'0.0 Tricuspid Valve TR Peak [id number]/sTR Peak Gr.[id number] LEFT VENTRICLE The left ventricle is normal size. There is normal left ventricular wall thickness. The left ventricular systolic function is normal. The left ventricular ejection fraction is within the normal range. There is borderline to mild hypokinesis in the basal anteroseptal wall. Elevated left atrial pressure by Tissue Doppler. RIGHT VENTRICLE The right ventricle is normal size. The right ventricular systolic function is normal. ATRIA The left atrial index is moderately increased. The right atrium size is normal. AORTIC VALVE The aortic valve is normal in structure. There is trace aortic regurgitation. MITRAL VALVE The mitral valve is normal in structure. Mild mitral regurgitation. TRICUSPID VALVE The tricuspid valve is normal in structure. There is moderate tricuspid regurgitation. Right ventricular systolic pressure is estimated at - 58 mmHg. There is moderate pulmonary hypertension. PULMONIC VALVE The pulmonary valve is normal in structure. GREAT VESSELS The aortic root is normal in size. The IVC is normal in size and collapses >50% with inspiration. PERICARDIAL EFFUSION There is no pericardial effusion. <Conclusion> The left ventricular systolic function is normal. There is borderline to mild hypokinesis in the basal anteroseptal wall. Elevated left atrial pressure by Tissue Doppler. The right ventricular systolic function is normal. The left atrial index is moderately increased. Mild mitral regurgitation. Moderate pulmonary hypertension. Right ventricular systolic pressure is estimated at - 58 mmHg. There is no pericardial effusion.
[2017-09-20] MEDS ORDERED: Enoxaparin 40 mg Syringe SC SCH (10:00)
--- NOTE | 2017-09-20 11:07 | VASCLAB ---
PROCEDURE: HISTORY: Acute CVA and Carotid stenosis COMPARISON: None available. TECHNIQUE: Grayscale and duplex Doppler evaluation of the cervical carotid and vertebral arteries were performed. The common carotid, carotid bifurcations and cervical Internal Carotid Artery (ICA) and proximal External Carotid Artery (ECA) were evaluated. The vertebral arteries were evaluated for gross patency and flow direction. Report prepared by KRISTEN Lacey FINDINGS: RIGHT CAROTID ARTERIES: 1. Common Carotid Artery: No significant focal plaque formation of the right common carotid artery. Maximum Peak Systolic velocity: 58 cm/sec: End-diastolic velocity 0 cm/sec. 2. Carotid Bifurcation: plaque formation. Maximum Peak Systolic velocity: 44 cm/sec: End-diastolic velocity 0 cm/sec. 3. Internal Carotid Artery: Plaque description: 3.1. Proximal Segment: Peak systolic velocity 0 cm/sec: End-diastolic velocity 0 cm/sec - % stenosis 3.2. Middle Segment: Unable to image further, narrow vessel 3.3. Distal Segment: 4. External Carotid Artery: No significant focal plaque formation. Peak systolic velocity 121 cm/sec 5. ICA/CCA Ratio: 1.3 LEFT CAROTID ARTERIES: 1. Common Carotid Artery: No significant focal plaque formation of the left common carotid artery. Maximum Peak Systolic velocity: 78 cm/sec: End-diastolic velocity 19 cm/sec. 2. Carotid Bifurcation: plaque formation. Maximum Peak Systolic velocity: 68 cm/sec: End-diastolic velocity 16 cm/sec. 3. Internal Carotid Artery: Plaque description: Calcific 3.1. Proximal Segment: Peak systolic velocity 94 cm/sec: End-diastolic velocity 18 cm/sec - % stenosis 3.2. Middle Segment: Peak systolic velocity 225 cm/sec: End-diastolic velocity 55 cm/sec - % stenosis 60-70% 3.3. Distal Segment: Peak systolic velocity 77 cm/sec: End-diastolic velocity 24 cm/sec - % stenosis 4. External Carotid Artery: No significant focal plaque formation. Peak systolic velocity 85 cm/sec 5. ICA/CCA Ratio: 3.7 VERTEBRAL ARTERIES: 1. Right Vertebral Artery: The right vertebral artery flow direction is antegrade. 2. Left Vertebral Artery: The left vertebral artery flow direction is antegrade. OTHER FINDINGS: 1. Right Brachial Blood pressure: 160 mmHg. 2. Left Brachial Blood pressure: 160 mmHg. IMPRESSION: RIGHT: Occluded right internal carotid artery. LEFT: 60-70% stenosis at the left mid internal carotid artery. Findings were reported by the ocular care technologist to Froilan Gutierrez at 10:23 a.m.
--- NOTE | 2017-09-21 12:15 | CP.PCM.DIS ---
Provider - Provider Date of Admission: 09/16/17 19:37 Attending physician: Gerber Tovar MD Time Spent in preparation of Discharge (in minutes): 25 Hospital Course - Lab Results Lab Results: Micro Results 09/16/17 17:57 Urine,Catheterized Urine Culture - Final No Growth (<1,000 CFU/ML) Most Recent Lab Values WBC 8.9 K/uL (4.8-10.8) 09/17/17 09:07 RBC 3.44 Mil/uL (4.40-5.90) L 09/17/17 09:07 Hgb 10.2 g/dL (12.0-18.0) L 09/17/17 09:07 Hct 29.7 % (35.0-51.0) L 09/17/17 09:07 MCV 86.5 fL (80.0-94.0) 09/17/17 09:07 MCH 29.7 pg (27.0-31.0) 09/17/17 09:07 MCHC 34.3 g/dL (33.0-37.0) 09/17/17 09:07 RDW 14.0 % (11.5-14.5) 09/17/17 09:07 Plt Count 241 K/uL (130-400) 09/17/17 09:07 MPV 8.8 fL (7.2-11.7) 09/17/17 09:07 Neut % (Auto) 70.8 % (50.0-75.0) 09/17/17 09:07 Lymph % (Auto) 19.0 % (20.0-40.0) L 09/17/17 09:07 Dimmit % (Auto) 7.0 % (0.0-10.0) 09/17/17 09:07 Eos % (Auto) 2.8 % (0.0-4.0) 09/17/17 09:07 Baso % (Auto) 0.4 % (0.0-2.0) 09/17/17 09:07 Neut # (Auto) 6.3 K/uL (1.8-7.0) 09/17/17 09:07 Lymph # (Auto) 1.7 K/uL (1.0-4.3) 09/17/17 09:07 Dimmit # (Auto) 0.6 K/uL (0.0-0.8) 09/17/17 09:07 Eos # (Auto) 0.3 K/uL (0.0-0.7) 09/17/17 09:07 Baso # (Auto) 0.0 K/uL (0.0-0.2) 09/17/17 09:07 Sodium 136 mmol/L (132-148) 09/17/17 08:16 Potassium 4.2 mmol/L (3.6-5.2) 09/17/17 08:16 Chloride 105 mmol/L (98-107) 09/17/17 08:16 Carbon Dioxide 22 mmol/L (22-30) 09/17/17 08:16 Anion Gap 13 (10-20) 09/17/17 08:16 BUN 23 mg/dL (9-20) H 09/17/17 08:16 Creatinine 1.0 mg/dL (0.8-1.5) 09/17/17 08:16 Est GFR ( Amer) > 60 09/17/17 08:16 Est GFR (Non-Af Amer) > 60 09/17/17 08:16 POC Glucose (mg/dL) 128 mg/dL (65-110) H 09/19/17 17:23 Random Glucose 106 mg/dL (75-110) 09/17/17 08:16 Hemoglobin A1c 6.3 % (4.2-6.5) 09/17/17 09:07 Calcium 8.4 mg/dl (8.6-10.4) L 09/17/17 08:16 Total Bilirubin 0.3 mg/dL (0.2-1.3) 09/16/17 16:35 AST 14 U/L (17-59) L 09/16/17 16:35 ALT 18 U/L (21-72) L 09/16/17 16:35 Alkaline Phosphatase 53 U/L (38-126) 09/16/17 16:35 Troponin I < 0.0120 ng/mL (0.00-0.120) 09/17/17 08:16 Total Protein 6.5 g/dL (6.3-8.3) 09/16/17 16:35 Albumin 3.6 g/dL (3.5-5.0) 09/16/17 16:35 Globulin 2.9 gm/dL (2.2-3.9) 09/16/17 16:35 Albumin/Globulin Ratio 1.2 (1.0-2.1) 09/16/17 16:35 Triglycerides 79 mg/dL (0-149) 09/16/17 20:10 Cholesterol 109 mg/dL (0-199) 09/16/17 20:10 LDL Cholesterol Direct 46 mg/dL (0-129) 09/16/17 20:10 HDL Cholesterol 45 mg/dL (30-70) 09/16/17 20:10 TSH 3rd Generation 1.26 mIU/L (0.46-4.68) 09/17/17 08:16 Urine Color Sulma (YELLOW) 09/16/17 18:05 Urine Clarity Clear (Clear) 09/16/17 18:05 Urine pH 5.0 (5.0-8.0) 09/16/17 18:05 Ur Specific Corwith 1.020 (1.003-1.030) 09/16/17 18:05 Urine Protein 1+ mg/dL (NEGATIVE) H 09/16/17 18:05 Urine Glucose (UA) 1+ mg/dL (Normal) H 09/16/17 18:05 Urine Ketones Negative mg/dL (NEGATIVE) 09/16/17 18:05 Urine Blood Negative (NEGATIVE) 09/16/17 18:05 Urine Nitrate Negative (NEGATIVE) 09/16/17 18:05 Urine Bilirubin Negative (NEGATIVE) 09/16/17 18:05 Urine Urobilinogen Normal mg/dL (0.2-1.0) 09/16/17 18:05 Ur Leukocyte Esterase Neg Monie/uL (Negative) 09/16/17 18:05 Urine WBC (Auto) 1 /hpf (0-5) 09/16/17 18:05 Urine RBC (Auto) 3 /hpf (0-3) 09/16/17 18:05 Ur Squamous Epith Cells < 1 /hpf (0-5) 09/16/17 18:05 Urine Bacteria Rare (<OCC) 09/16/17 18:05 Hyaline Casts 6-10 /lpf (0-2) H 09/16/17 18:05 Urine Opiates Screen Negative (NEGATIVE) 09/16/17 18:05 Urine Methadone Screen Negative (NEGATIVE) 09/16/17 18:05 Ur Barbiturates Screen Negative (NEGATIVE) 09/16/17 18:05 Ur Phencyclidine Scrn Negative (NEGATIVE) 09/16/17 18:05 Ur Amphetamines Screen Negative (NEGATIVE) 09/16/17 18:05 U Benzodiazepines Scrn Positive (NEGATIVE) 09/16/17 18:05 U Oth Cocaine Metabols Negative (NEGATIVE) 09/16/17 18:05 U Cannabinoids Screen Negative (NEGATIVE) 09/16/17 18:05 Alcohol, Quantitative < 10 mg/dl (0-10) 09/16/17 16:35 Discharge Exam - Head Exam Head Exam: ATRAUMATIC Discharge Plan - Follow Up Plan Condition: IMPROVED Disposition: HOME/ ROUTINE Instructions: Heart Healthy Diet, Stroke (DC), Syncope (Fainting) (DC) Referrals: Terell Leary MD [Staff Provider] - Gerber Tovar MD [Medical Doctor] -
== END 2017-09-19 17:55 | disposition home or self-care (01) | DRG 312 ==
LOC: C.ER 15:04 → C.9E 19:37 → C.6T 19:37
PROVIDERS: ADMIT Internal Medicine; ATTEND Internal Medicine
DX: R55 Syncope and collapse (principal); I65.21 Occlusion and stenosis of right carotid artery; E10.9 Type 1 diabetes mellitus without complications; S00.03XA Contusion of scalp, initial encounter; I10 Essential (primary) hypertension; I25.10 Atherosclerotic heart disease of native coronary artery without angina pectoris; W19.XXXA Unspecified fall, initial encounter; E78.5 Hyperlipidemia, unspecified; G47.00 Insomnia, unspecified; I25.2 Old myocardial infarction; Z79.02 Long term (current) use of antithrombotics/antiplatelets; Z79.4 Long term (current) use of insulin; Z79.82 Long term (current) use of aspirin; Z95.1 Presence of aortocoronary bypass graft

== ENCOUNTER 2017-09-25 14:38 | Inpatient (IN) | payer MEDICARE ==
[2017-09-25] MEDS ORDERED: Sodium Chloride 0.9% 1,000 ML IV ONE (15:24)
[2017-09-25 15:42] LABS: BASO % 0.3 % (0.0-2.0); EOS # 0.3 K/uL (0.0-0.7); EOS % 4.3 % (0.0-4.0); HEMOGLOBIN 8.7 g/dL (12.0-18.0); LYMPH # 1.9 K/uL (1.0-4.3); LYMPH % 27.1 % (20.0-40.0); MEAN CELL VOLUME 89.1 fL (80.0-94.0); MEAN CORPUSCULAR HEMOGLOBIN 29.8 pg (27.0-31.0); MEAN CORPUSCULAR HGB CONC 33.4 g/dL (33.0-37.0); MEAN PLATELET VOLUME 8.7 fL (7.2-11.7); MONO # 0.5 K/uL (0.0-0.8); MONO % 6.7 % (0.0-10.0); NEUT # 4.4 K/uL (1.8-7.0); NEUT % 61.6 % (50.0-75.0); RBC 2.91 Mil/uL (4.40-5.90); RED CELL DISTRIBUTION WIDTH 14.5 % (11.5-14.5); WHITE BLOOD COUNT 7.1 K/uL (4.8-10.8)
[2017-09-25 15:49] LABS: INR 1.2
--- NOTE | 2017-09-25 15:50 | RAD ---
Chest x-ray single frontal view History: Altered mental status. Comparison: None available. Findings: Mild venous congestion. Tortuous aorta with calcification at the aortic knob. Mild cardiomegaly. Degenerative changes in the spine. Impression: Mild venous congestion.
[2017-09-25 16:00] LABS: ALB/GLOB RATIO 1.2 (1.0-2.1); ALBUMIN 3.5 g/dL (3.5-5.0); ALT/SGPT 21 U/L (21-72); AST/SGOT 15 U/L (17-59); BLOOD UREA NITROGEN 27 mg/dL (9-20); CALCIUM 8.6 mg/dl (8.6-10.4); GFR AFRICAN-AMERICAN > 60; GFR NON-AFRICAN AMERICAN 50
--- NOTE | 2017-09-25 16:41 | C.PDOC ---
History Of Present Illness Patient is a 71 y/o male who presents to the ED with brother s/p syncopal episode with brief shaking at the store. Syncopal episode occurred without tonic -clonic seizure. In triage, patient was bradycardic, near-syncopal, prostrate, with brief shaking. Patient has a Hx of being admitted from 09/16 - 09/[address] 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 Patient was prescribed anticoagulants and was cleared by neurology, but not evaluated by cardiology. Patient also had a recent stress test that was negative. Hx of CABG in [place], unknown number of vessels. Patient is not compliant with medication due to many medications and is out of town. No other physical complaints at this time. 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 Tovar) Recent travel outside of the [place]: No Past Medical History Reviewed: Historical Data, Nursing Documentation, Vital Signs Vital Signs: Last Vital Signs Temp 98.2 F 09/26/17 20:00 Pulse 81 09/26/17 23:20 Resp 7 L 09/26/17 23:20 BP 141/51 L 09/26/17 23:15 Pulse Ox 100 09/26/17 23:20 - Medical History PMH: HTN Denies: Chronic Kidney Disease Surgical History: Back Surgery ( PER PATIENT), CABG (2003) Family History: States: No Known Family Hx - Social History Hx Tobacco Use: No Hx Alcohol Use: No Hx Substance Use: No - Immunization History Hx Tetanus Toxoid Vaccination: No Hx Influenza Vaccination: No Hx Pneumococcal Vaccination: No Review Of Systems Neurological: Positive for: Other (syncopal episode). Negative for: Seizures ( negative tonic-clonic ) Physical Exam - Physical Exam Appears: Other (obtunded) Skin: Normal Color, Warm, Dry Head: Atraumatic, Normacephalic Eye(s): bilateral: Normal Inspection, PERRL, EOMI Oral Mucosa: Moist Chest: Symmetrical, Other (midline sternotomy scar) Cardiovascular: Rhythm Regular, No Murmur, No JVD Respiratory: Normal Breath Sounds, No Rales, No Rhonchi, No Wheezing Extremity: No Pedal Edema, No Swelling ED Course And Treatment - Laboratory Results Result Diagrams: 09/26/17 06:30 09/26/17 06:31 ECG: Interpreted By Me, Viewed By Me ECG Rhythm: Sinus Rhythm Rate From EC (bpm) O2 Sat by Pulse Oximetry: 88 - Radiology CXR: Interpreted by Me, Viewed By Me CXR Interpretation: Yes: No Acute Disease, Other (mild venous congestion) - CT Scan/US CTA Other Rad Studies (CT/US): Interpreted By Me, Read By Radiologist CT/US Interpretation: IMPRESSION: Pneumonia with partial consolidation right upper, right middle and right lower lobes. with less extensive airspace disease in the left lower lobe and minimal left upper lobe airspace. disease; mild cardiomegaly and atherosclerotic disease, no aortic dissection or pulmonary embolus. Additional nonemergent findings as described above. Progress Note: Blood owkr, EKG, and UA ordered. Aspirin, plavix, lovenox, BiPAP , duoneb, novolin, vancomycin, and IV dluids administered. Heart rate initially noted at 43 bpm; improved to 60s. Blood pressure also improved. Initial finger stick at 134. Patient regained mental status back to baseline per brother at bedside. Former radiologist and patient's nephew Dr. Alvarez Simpson confirmed. Dr. Garrido at bedside at 5:00pm and agrees with BiPAP, ordering CTA and admission to ICU. Case discussed with Dr. Velasquez from pulmonology at 5: 00pm. Will consult. 1830: pt electively intubated by Dr. Perez. Pt stabilized in ED Reevaluation Time: 19:00 Reassessment Condition: Improved - Physician Consult Information Time Consulting Physician Contacted: 17:15 Physician Contacted: Gerber Tovar Outcome Of Conversation: agrees to admit patient to ICU. Recommends cardiology electrophysiology with Dr. Kiran. Disposition Doctor Will See Patient In The: Hospital Counseled Patient/Family Regarding: Studies Performed, Diagnosis - Disposition Disposition: HOSPITALIZED Disposition Time: 19:00 Condition: CRITICAL - Clinical Impression Clinical Impression: Pneumonia, Respiratory failure requiring intubation - Scribe Statement The provider has reviewed the documentation as recorded by the Scribe Alexsandra Hernandez All medical record entries made by the Scribe were at my direction and personally dictated by me. I have reviewed the chart and agree that the record accurately reflects my personal performance of the history, physical exam, medical decision making, and the department course for this patient. I have also personally directed, reviewed, and agree with the discharge instructions and disposition.
[2017-09-25 17:07] LABS: ABG ALLEN TEST POS; ARTERIAL BLOOD GAS HCO3 20.8 mmol/L (21-28); ARTERIAL BLOOD GAS O2 SAT 89.8 % (95-98); ARTERIAL BLOOD GAS PCO2 52 mm/Hg (35-45); ARTERIAL BLOOD GAS PH 7.25 (7.35-7.45); ARTERIAL BLOOD GAS PO2 59 mm/Hg (80-100); ARTERIAL BLOOD GAS TCO2 24.4 mmol/L (22-28)
[2017-09-25] MEDS ORDERED: Iodixanol 320 MG/ML 100 ML BOTTLE IV ONE (17:39)
[2017-09-25] MEDS ORDERED: Furosemide 100 MG in Sodium Chloride 0.9% 90 ML IVP SCH ×2 (18:00→19:30)
[2017-09-25] MEDS ORDERED: Vancomycin 1 gm/NS 200 ml 1 GM/200 ML BAG IVPB STA (18:10)
--- NOTE | 2017-09-25 18:20 | CP.PCM.CON ---
History of Present Illness - History of Present Illness History of Present Illness: Chief complaint: Shortness of breath HPI: 71-year-old male recently was hospitalized with a syncopal attack, evaluated recently Patient also had a fall at that time. Patient was brought to the emergency room by the family members after he was found to have a syncopal attack at home associated with the tonic-clonic seizure activities. Patient become bradycardic while he was evaluated in the triage, and also near syncopal attack noted. Patient was also having some shaking, and brought to the main emergency room. Patient was noted to have hypoxia. Patient is a very increasing weakness noted. He is also having some shortness of breath, complaining of no chest pain. Denies any nausea. No fever or chills noted. Patient was placed on BiPAP, and oxygenation slightly improved after that. Patient underwent a CT of the chest, showing evidence of diffuse infiltrative changes in the right lower lung, also in the left lower lung. Past medical history: Hypertension, coronary artery disease, heart surgery in the past. Allergies: No known drug allergies Personal history: Nonsmoker nonalcoholic Review of system: Currently on BiPAP. Patient is moving all 4 extremities. Some discomfort noted with the BiPAP. Vital signs reviewed No neck vein distention noted Diffuse bilateral rales noted CVS regular heart sound, no murmur noted Abdomen soft, nontender. 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 Mild elevation of the esophagus noted Hemoglobin 8.7, normal PT/PTT Blood gas analysis showing evidence of significant hypoxia. The chemistries nonspecific influenza negative Chest x-ray showing nonspecific changes, but a CT of the chest is showing evidence of diffuse bilateral infiltration Assessment and recognition: 70-year-old male now with a history of hypertension and diabetes heart disease. Admitted with a syncopal attack, secondary to possibly hypoxia. Patient is having significant pneumonia bilateral, probably aspiration pneumonitis, hospital-acquired pneumonia possible. We'll start the patient on vancomycin and Zosyn. Patient may need ventilatory support is very invasive, our noninvasive ventilation. DVT prophylaxis. Patient will need hemodynamic support. ICU care. Discussed with the patient's family members will follow the patient. Past Patient History - Infectious Disease Hx of Infectious Diseases: None - Past Medical History & Family History Past Medical History?: Yes - Past Social History Smoking Status: Never Smoked - CARDIAC Hx Hypertension: Yes - PULMONARY Hx Respiratory Disorders: No - NEUROLOGICAL Hx Neurological Disorder: No - HEENT Hx HEENT Problems: No - RENAL Hx Chronic Kidney Disease: No - ENDOCRINE/METABOLIC Hx Diabetes Mellitus Type 1: Yes - HEMATOLOGICAL/ONCOLOGICAL Hx Blood Disorders: No - INTEGUMENTARY Hx Dermatological Problems: No - MUSCULOSKELETAL/RHEUMATOLOGICAL Hx Musculoskeletal Disorders: Yes Hx Back Pain: Yes Hx Falls: Yes Hx Herniated Disk: Yes - GASTROINTESTINAL Hx Gastrointestinal Disorders: No - GENITOURINARY/GYNECOLOGICAL Hx Genitourinary Disorders: No - PSYCHIATRIC Hx Substance Use: No - SURGICAL HISTORY Hx Coronary Artery Bypass Graft: Yes (2003) - ANESTHESIA Hx Anesthesia: Yes Hx Anesthesia Reactions: No Hx Malignant Hyperthermia: No Meds Allergies/Adverse Reactions: Allergies Allergy/AdvReac Type Severity Reaction Status Date / Time No Known Allergies Allergy Verified 09/16/17 15:16 - Medications Medications: Current Medications Albuterol/Ipratropium (Duoneb 3 Mg/0.5 Mg (3 Ml) Ud) 3 ml INH RQ6 [facility] Aspirin (Aspirin) 325 mg PO DAILY [facility] Clopidogrel Bisulfate (Plavix) 75 mg PO DAILY [facility] Enoxaparin Sodium (Lovenox) 40 mg SC DAILY [facility] Furosemide 100 mg/ Sodium (Chloride) 100 mls @ 5 mls/hr IVP .Q20H [place] PRN Reason: 5 MG/HR Piperacillin Sod/Tazobactam Sod (Zosyn 2.25 Gm Iv Premix) 2.25 gm in 50 mls @ 100 mls/hr IVPB Q6H [place] Vancomycin HCl 1 gm/ Sodium (Chloride) 250 mls @ 166.7 mls/hr IVPB STAT STA Stop: 09/25/17 19:39 Insulin Human Regular (Novolin R) 0 unit SC ACHS [place] PRN Reason: Protocol Pantoprazole Sodium (Protonix Inj) 40 mg IVP DAILY [place] Results - Vital Signs Recent Vital Signs: Last Vital Signs Temp 98.1 F 09/25/17 15:03 Pulse 67 09/25/17 15:47 Resp 26 H 09/25/17 15:47 BP 113/53 L 09/25/17 15:47 Pulse Ox 88 L 09/25/17 17:38 - Labs Result Diagrams: 09/25/17 15:35 09/25/17 15:35 Labs: Laboratory Results - last 24 hr 09/25/17 09/25/17 09/25/17 15:23 15:35 15:35 WBC 7.1 RBC 2.91 L Hgb 8.7 L Hct 25.9 L MCV 89.1 D MCH 29.8 MCHC 33.4 RDW 14.5 Plt Count 220 MPV 8.7 Neut % (Auto) 61.6 Lymph % (Auto) 27.1 Armstrong % (Auto) 6.7 Eos % (Auto) 4.3 H Baso % (Auto) 0.3 Neut # (Auto) 4.4 Lymph # (Auto) 1.9 Armstrong # (Auto) 0.5 Eos # (Auto) 0.3 Baso # (Auto) 0.0 PT 13.0 H INR 1.2 APTT 33 Puncture Site pCO2 pO2 HCO3 ABG pH ABG Total CO2 ABG O2 Saturation ABG Base Excess Tre Test ABG Potassium A-a O2 Difference Respiratory Index Glucose Lactate FiO2 Sodium Potassium Chloride Carbon Dioxide Anion Gap BUN Creatinine Est GFR ( Amer) Est GFR (Non-Af Amer) POC Glucose (mg/dL) 134 H Random Glucose Calcium Total Bilirubin AST ALT Alkaline Phosphatase Total Protein Albumin Globulin Albumin/Globulin Ratio Arterial Blood Potassium Alcohol, Quantitative Influenza Typ A,B (EIA) 09/25/17 09/25/17 09/25/17 15:35 16:37 17:00 WBC RBC Hgb Hct MCV MCH MCHC RDW Plt Count MPV Neut % (Auto) Lymph % (Auto) Armstrong % (Auto) Eos % (Auto) Baso % (Auto) Neut # (Auto) Lymph # (Auto) Armstrong # (Auto) Eos # (Auto) Baso # (Auto) PT INR APTT Puncture Site Rradial pCO2 52 H pO2 59 L HCO3 20.8 L ABG pH 7.25 L ABG Total CO2 24.4 ABG O2 Saturation 89.8 L ABG Base Excess -4.9 L Tre Test Pos ABG Potassium 4.8 A-a O2 Difference 589.0 Respiratory Index 10.0 Glucose 163 H Lactate 1.4 FiO2 100.0 Sodium 138 136.0 Potassium 4.5 Chloride 100 106.0 Carbon Dioxide 23 Anion Gap 20 BUN 27 H Creatinine 1.4 Est GFR ( Amer) > 60 Est GFR (Non-Af Amer) 50 POC Glucose (mg/dL) Random Glucose 143 H Calcium 8.6 Total Bilirubin 0.3 AST 15 L ALT 21 Alkaline Phosphatase 51 Total Protein 6.5 Albumin 3.5 Globulin 3.0 Albumin/Globulin Ratio 1.2 Arterial Blood Potassium 4.8 Alcohol, Quantitative < 10 Influenza Typ A,B (EIA) Negative for flu a/b
--- NOTE | 2017-09-25 18:36 | CT ---
EXAM: CT Angiography Chest With Intravenous Contrast EXAM DATE/TIME: 09/25/2017 5:08 PM CLINICAL HISTORY: 71 years old, male; Condition or disease; Lung condition and disease; Respiratory distress; Additional info: Pe TECHNIQUE: Axial computed tomographic angiography images of the chest with intravenous contrast using pulmonary embolism protocol. All CT scans at this facility use one or more dose reduction techniques, viz.: automated exposure control; ma/kV adjustment per patient size (including targeted exams where dose is matched to indication; i.e. head); or iterative reconstruction technique. MIP reconstructed images were created and reviewed. Coronal and sagittal reformatted images were created and reviewed. CONTRAST: 100 mL of VISIPAQUE 320 administered intravenously. COMPARISON: There are no prior studies for comparison. FINDINGS: Artifacts: Motion artifact degrades image quality. Pulmonary arteries: The heart is enlarged. There is reflux of contrast into hepatic veins and in her vena cava. There are coronary artery calcifications. Aorta is normal in caliber. There calcifications in the arch and great vessels. There is calcified and noncalcified plaque in the aortic arch. Main pulmonary artery is normal in caliber.There are no pulmonary emboli. Lungs and pleural spaces: Trachea and main bronchi are patent. There is patchy airspace disease in the right upper lobe. There is consolidation in the posterior aspect of the right upper lobe. There is consolidation of almost the entire right lower lobe. There is partial consolidation of the right middle lobe. There are air bronchograms. There is less extensive consolidation in the posterior medial aspect of the left lower lobe. There is patchy airspace disease left upper lobe. There is a small right effusion. There is no left effusion. Thyroid: Thyroid is not optimally demonstrated. Bones/joints: Bony structures are osteopenic. There are degenerative changes. Soft tissues: unremarkable Mediastinum: The esophagus is unremarkable. There are mildly prominent mediastinal and left hilar nodes. Parenchymal lung disease limits evaluation of the right hilum. Upper abdomen: There are no acute abnormalities in the visualized portion of the abdomen. IMPRESSION: Pneumonia with partial consolidation right upper, right middle and right lower lobes with less extensive airspace disease in the left lower lobe and minimal left upper lobe airspace disease; mild cardiomegaly and atherosclerotic disease, no aortic dissection or pulmonary embolus Additional nonemergent findings as described above.
[2017-09-25] MEDS ORDERED: Propofol 10 mg/ml 1,000 MG/100 ML VIAL ONE (18:54)
[2017-09-25] MEDS: Propofol 10 mg/ml 1,000 MG/100 ML VIAL IV PRN (19:00)
[2017-09-25] MEDS ORDERED: Etomidate 20 mg/10ml Inj IV ONE (19:01)
[2017-09-25] MEDS ORDERED: Sodium Chloride 0.9% 500 ML IV ONE (19:01)
[2017-09-25] MEDS ORDERED: Sodium Chloride 0.9% 1,000 ML IV SCH ×3 (19:15→22:45)
[2017-09-25] MEDS: Piperacill/Tazo 2.25gm in Dex 2.25 GM/50 ML BAG IVPB SCH (20:12)
[2017-09-25 20:35] LABS: URINE BACTERIA RARE (<OCC); URINE BILIRUBIN NEGATIVE (NEGATIVE); URINE BLOOD NEGATIVE (NEGATIVE); URINE CLARITY Clear (Clear); URINE COLOR Amber (YELLOW); URINE GLUCOSE (UA) 1+ mg/dL (Normal); URINE LEUKOCYTE ESTERASE NEG Leu/uL (Negative); URINE PROTEIN 1+ mg/dL (NEGATIVE); URINE UROBILINOGEN NORMAL mg/dL (0.2-1.0)
[2017-09-25 20:51] LABS: BARBITURATES, UR NEGATIVE (NEGATIVE); OPIATES, UR NEGATIVE (NEGATIVE); PHENCYCLIDINE, UR NEGATIVE (NEGATIVE)
[2017-09-25 20:52] LABS: BENZODIAZEPINES, UR POSITIVE (NEGATIVE)
[2017-09-25] MEDS ORDERED: Enoxaparin 40 mg Syringe SC SCH (22:00)
[2017-09-25] MEDS ORDERED: (Novolin R) Insulin Human Regular 100 units/ml vial SC SCH (22:00)
[2017-09-25 22:02] LABS: ARTERIAL BLOOD GAS HCO3 20.2 mmol/L (21-28); ARTERIAL BLOOD GAS PCO2 42 mm/Hg (35-45); ARTERIAL BLOOD GAS PH 7.29 (7.35-7.45); ARTERIAL BLOOD GAS PO2 116 mm/Hg (80-100); ARTERIAL BLOOD GAS TCO2 21.5 mmol/L (22-28)
[2017-09-25 22:05] LABS: BASO % 0.5 % (0.0-2.0); EOS % 0.4 % (0.0-4.0); HEMOGLOBIN 9.6 g/dL (12.0-18.0); LYMPH # 0.9 K/uL (1.0-4.3); LYMPH % 14.3 % (20.0-40.0); MEAN CORPUSCULAR HGB CONC 33.8 g/dL (33.0-37.0); MEAN PLATELET VOLUME 8.7 fL (7.2-11.7); MONO # 0.2 K/uL (0.0-0.8); MONO % 2.5 % (0.0-10.0); NEUT # 5.3 K/uL (1.8-7.0); NEUT % 82.3 % (50.0-75.0); RBC 3.21 Mil/uL (4.40-5.90); RED CELL DISTRIBUTION WIDTH 14.3 % (11.5-14.5); WHITE BLOOD COUNT 6.5 K/uL (4.8-10.8)
[2017-09-25 22:19] LABS: ALBUMIN 3.3 g/dL (3.5-5.0); ALT/SGPT 29 U/L (21-72); AST/SGOT 22 U/L (17-59); BLOOD UREA NITROGEN 29 mg/dL (9-20); CALCIUM 7.7 mg/dl (8.6-10.4); GFR AFRICAN-AMERICAN > 60; GFR NON-AFRICAN AMERICAN 54
[2017-09-25] MEDS ORDERED: Furosemide 100 MG in Sodium Chloride 0.9% 90 ML IV SCH (22:45)
[2017-09-26] MEDS: Piperacill/Tazo 2.25gm in Dex 2.25 GM/50 ML BAG IVPB SCH (01:00)
[2017-09-26] MEDS: Albuterol-Ipratrop 3 mg / 0.5 (3 ml) UD INH SCH ×4 (01:18→20:38)
[2017-09-26] MEDS: Propofol 10 mg/ml 1,000 MG/100 ML VIAL IV PRN ×2 (01:40→18:09)
[2017-09-26 05:11] LABS: ARTERIAL BLOOD GAS HEMOGLOBIN 8.9 g/dL (11.7-17.4); ARTERIAL BLOOD GAS O2 SAT 97.3 % (95-98); ARTERIAL BLOOD GAS PCO2 39 mm/Hg (35-45); ARTERIAL BLOOD GAS PH 7.37 (7.35-7.45); ARTERIAL BLOOD GAS PO2 82 mm/Hg (80-100); ARTERIAL BLOOD GAS TCO2 23.7 mmol/L (22-28)
[2017-09-26] MEDS: (Novolin R) Insulin Human Regular 100 units/ml vial SC SCH ×4 (06:00→18:00)
[2017-09-26 06:39] LABS: BASO % 0.1 % (0.0-2.0); EOS % 0.1 % (0.0-4.0); HEMOGLOBIN 8.6 g/dL (12.0-18.0); LYMPH # 0.8 K/uL (1.0-4.3); MEAN CELL VOLUME 87.8 fL (80.0-94.0); MEAN CORPUSCULAR HEMOGLOBIN 29.4 pg (27.0-31.0); MEAN CORPUSCULAR HGB CONC 33.5 g/dL (33.0-37.0); MEAN PLATELET VOLUME 8.7 fL (7.2-11.7); MONO # 0.6 K/uL (0.0-0.8); NEUT % 73.8 % (50.0-75.0); NRBC % 0.1 % (0.0-2.0); RBC 2.93 Mil/uL (4.40-5.90); RED CELL DISTRIBUTION WIDTH 14.2 % (11.5-14.5); WHITE BLOOD COUNT 5.4 K/uL (4.8-10.8)
--- NOTE | 2017-09-26 08:24 | RAD ---
HISTORY: intubation COMPARISON: 09/25/2017. FINDINGS: The endotracheal tube terminates 1.5 cm proximal to the gian. The nasogastric tube terminates in the stomach. LUNGS: The lungs are well inflated. There is interval development of right perihilar opacity. There is persistent mild pulmonary venous congestion. PLEURA: Suspect right pleural effusion, no pneumothorax apparent. CARDIOVASCULAR: Normal. OSSEOUS STRUCTURES: No significant abnormalities. VISUALIZED UPPER ABDOMEN: Normal. OTHER FINDINGS: None. IMPRESSION: Endotracheal tube terminates 1.5 cm proximal to the gian. Interval development of right perihilar consolidation versus pulmonary edema and right pleural effusion.
--- NOTE | 2017-09-26 08:30 | RAD ---
Chest x-ray single frontal view History: Pulmonary infiltrates. Comparison: 09/25/2017 Findings: Lines and tubes in stable position. Prominent ill-defined consolidative opacity seen throughout the right lung most prominent in the right mid to lower lung zone. Additional milder consolidative changes at the left lung base. Scattered nodular densities in both lungs. Cardiomegaly. Calcification at the aortic knob. Degenerative changes in the spine and shoulders. Impression: Lines and tubes in stable position. Prominent ill-defined consolidative opacity seen throughout the right lung most prominent in the right mid to lower lung zone. Additional milder consolidative changes at the left lung base. Scattered nodular densities in both lungs. Cardiomegaly. Calcification at the aortic knob.
[2017-09-26 08:34] LABS: ALB/GLOB RATIO 1.1 (1.0-2.1); ALBUMIN 2.9 g/dL (3.5-5.0); BILIRUBIN,DIRECT 0.5 mg/dL (0.0-0.4)
[2017-09-26] MEDS ORDERED: Acetaminophen 650mg/20.3ml solution UD PO ONE (09:00)
[2017-09-26] MEDS ORDERED: Sodium Phosphate 15 MMOLE in Sodium Chloride 0.9% 250 ML IVPB ONE (09:30)
[2017-09-26] MEDS: Enoxaparin 40 mg Syringe SC SCH (09:47)
[2017-09-26] MEDS: Sodium Chloride 0.9% 1,000 ML IV SCH (10:57)
--- NOTE | 2017-09-26 11:37 | CP.CCUPN ---
<Aleksey Waterman - Last Filed: 09/26/17 11:33> CCU Subjective - Physician Review Subjective (Free Text): 09/26/17 11:33 Patient seen and examined at bedside intubated, sedated strong reflexes Tube feeds to be started cardio consult for rowan Xray improving cont IV Abx CCU Objective - Vital Signs / Intake & Output Vital Signs (Last 4 hours): Vital Signs Temp Pulse Ox 09/26/17 09:01 100.9 F H 09/26/17 08:00 100.9 F H 100 Intake and Output (Last 8hrs): Intake & Output 09/25/17 09/26/17 09/26/17 22:59 06:59 14:59 Intake Total 228.8 429.3 67.6 Output Total 0 0 550 Balance 228.8 429.3 -482.4 Weight 150 lb 160 lb Intake: IV 15 85 Intake, IV Amount 213.8 344.3 67.6 Right Antecubital 5 40 10 Right Wrist 8.8 94.3 17.6 rt.AC side poirt 200 210 40 Output: Gastric Amount 400 Stomach 400 Urine 150 Urethral (Swift) 150 Stool 0 0 0 Other: Voiding Method Indwelling Catheter - Physical Exam Physical Exam Limitations: Positive for: Other (intubated sedated) Head: Positive for: Atraumatic, Normocephalic Mouth: Positive for: Moist Mucous Membranes Nose (Internal): Positive for: No Active Bleeding Neck: Negative for: Meningeal Signs, MIDLINE TENDERNESS Respiratory/Chest: Positive for: Good Air Exchange, Other (intubated). Negative for: Accessory Muscle Use Cardiovascular: Positive for: Regular Rate and Rhythm Abdomen: Positive for: Normal Bowel Sounds. Negative for: Tenderness, Distention, Peritoneal Signs - Medications Active Medications: Active Medications Generic Name Dose Route Start Last Admin Trade Name Freq PRN Reason Stop Dose Admin Albuterol/Ipratropium 3 ml 09/25/17 20:00 09/26/17 07:30 Duoneb 3 Mg/0.5 Mg (3 Ml) Ud INH 3 ml RQ6 DENTON Administration Aspirin 325 mg 09/26/17 10:00 09/26/17 09:46 Aspirin PO 325 mg DAILY DENTON Administration Clopidogrel Bisulfate 75 mg 09/26/17 10:00 09/26/17 09:46 Plavix PO 75 mg DAILY DENTON Administration Enoxaparin Sodium 40 mg 09/26/17 10:00 09/26/17 09:47 Lovenox SC 40 mg DAILY DENTON Administration Propofol 1,000 mg in 100 mls @ 2.041 mls/hr 09/25/17 19:01 09/26/17 01:40 Diprivan IV 32.08 mcg/kg/min .Q24H PRN 13.1 mls/hr TITRATE PER MD ORDER Administration Protocol 5 MCG/KG/MIN Furosemide 100 mg/ Sodium 100 mls @ 5 mls/hr 09/25/17 22:45 09/25/17 22:00 Chloride IV 5 mls/hr .Q20H DENTON Administration 5 MG/HR Piperacillin Sod/Tazobactam 100 mls @ 100 mls/hr 09/26/17 07:00 09/26/17 08: 40 Sod 2.25 gm/ Sodium Chloride IV 100 mls/hr Q6H D[facility] Administration Sodium Phosphate 15 mmole/ 255 mls @ 50 mls/hr 09/26/17 09:30 09/26/17 09:42 Sodium Chloride IVPB 09/26/17 14:35 50 mls/hr .Q5H6M ONE Administration Sodium Chloride 1,000 mls @ 75 mls/hr 09/26/17 10:57 Sodium Chloride 0.9% IV .[id number] [facility] Insulin Human Regular 0 unit 09/26/17 00:00 09/26/17 06:00 Novolin R SC Not Given Q6 [facility] Protocol Lorazepam 2 mg 09/25/17 19:19 09/26/17 02:17 Ativan IVP 2 mg Q6H PRN Administration Anxiety Pantoprazole Sodium 40 mg 09/26/17 10:00 09/26/17 09:46 Protonix Inj IVP 40 mg DAILY DENTON Administration - Patient Studies Lab Studies: Lab Studies 09/26/17 09/26/17 09/26/17 Range/Units 06:31 06:30 05:31 WBC 5.4 (4.8-10.8) K/uL RBC 2.93 L (4.40-5.90) Mil/uL Hgb 8.6 L (12.0-18.0) g/dL Hct 25.7 L (35.0-51.0) % MCV 87.8 (80.0-94.0) fL MCH 29.4 (27.0-31.0) pg MCHC 33.5 (33.0-37.0) g/dL RDW 14.2 (11.5-14.5) % Plt Count 199 (130-400) K/uL MPV 8.7 (7.2-11.7) fL Neut % (Auto) 73.8 (50.0-75.0) % Lymph % (Auto) 15.0 L (20.0-40.0) % [place] % (Auto) 11.0 H (0.0-10.0) % Eos % (Auto) 0.1 (0.0-4.0) % Baso % (Auto) 0.1 (0.0-2.0) % Neut # (Auto) 4.0 (1.8-7.0) K/uL Lymph # (Auto) 0.8 L (1.0-4.3) K/uL [place] # (Auto) 0.6 (0.0-0.8) K/uL Eos # (Auto) 0.0 (0.0-0.7) K/uL Baso # (Auto) 0.0 (0.0-0.2) K/uL PT (9.7-12.2) SECONDS INR APTT (21-34) SECONDS Puncture Site pCO2 (35-45) mm/Hg pO2 (80-100) mm/Hg HCO3 (21-28) mmol/L ABG pH (7.35-7.45) ABG Total CO2 (22-28) mmol/L ABG O2 Saturation (95-98) % ABG Base Excess (-2.0-3.0) mmol/L ABG Hemoglobin (11.7-17.4) g/dL ABG Carboxyhemoglobin (0.5-1.5) % POC ABG HHb (Measured) (0.0-5.0) % ABG Methemoglobin (0.0-3.0) % Tre Test ABG Potassium (3.6-5.2) mmol/L A-a O2 Difference mm/Hg Respiratory Index Hgb O2 Saturation (95.0-98.0) % Glucose (75-110) mg/dl Lactate (0.7-2.1) mmol/L Vent Mode Mechanical Rate FiO2 % Tidal Volume PEEP Sodium 134 (132-148) mmol/L Potassium 4.3 (3.6-5.2) mmol/L Chloride 102 (98-107) mmol/L Carbon Dioxide 23 (22-30) mmol/L Anion Gap 13 (10-20) BUN 34 H (9-20) mg/dL Creatinine 1.7 H (0.8-1.5) mg/dL Est GFR ( Amer) 48 Est GFR (Non-Af Amer) 40 POC Glucose (mg/dL) 122 H (65-110) mg/dL Random Glucose 115 H (75-110) mg/dL Calcium 8.0 L (8.6-10.4) mg/dl Phosphorus 2.2 L (2.5-4.5) mg/dL Magnesium 1.9 (1.6-2.3) mg/dL Total Bilirubin 0.5 (0.2-1.3) mg/dL Direct Bilirubin 0.5 H (0.0-0.4) mg/dL AST 22 (17-59) U/L ALT 25 (21-72) U/L Alkaline Phosphatase 40 (38-126) U/L Total Protein 5.5 L (6.3-8.3) g/dL Albumin 2.9 L (3.5-5.0) g/dL Globulin 2.6 (2.2-3.9) gm/dL Albumin/Globulin Ratio 1.1 (1.0-2.1) Arterial Blood Potassium (3.6-5.2) mmol/L Urine Color (YELLOW) Urine Clarity (Clear) Urine pH (5.0-8.0) Ur Specific [place] (1.003-1.030) Urine Protein (NEGATIVE) mg/dL Urine Glucose (UA) (Normal) mg/dL Urine Ketones (NEGATIVE) mg/dL Urine Blood (NEGATIVE) Urine Nitrate (NEGATIVE) Urine Bilirubin (NEGATIVE) Urine Urobilinogen (0.2-1.0) mg/dL Ur Leukocyte Esterase (Negative) Monie/uL Urine WBC (Auto) (0-5) /hpf Urine RBC (Auto) (0-3) /hpf Urine Bacteria (<OCC) Ur Yeast w Hyphae (NEGATIVE) /lpf Urine Opiates Screen (NEGATIVE) Urine Methadone Screen (NEGATIVE) Ur Barbiturates Screen (NEGATIVE) Ur Phencyclidine Scrn (NEGATIVE) Ur Amphetamines Screen (NEGATIVE) U Benzodiazepines Scrn (NEGATIVE) U Oth Cocaine Metabols (NEGATIVE) U Cannabinoids Screen (NEGATIVE) Alcohol, Quantitative (0-10) mg/dl Influenza Typ A,B (EIA) (NEGATIVE) 09/26/17 09/26/17 09/25/17 Range/Units 04:45 00:01 22:02 WBC (4.8-10.8) K/uL RBC (4.40-5.90) Mil/uL Hgb (12.0-18.0) g/dL Hct (35.0-51.0) % MCV (80.0-94.0) fL MCH (27.0-31.0) pg MCHC (33.0-37.0) g/dL RDW (11.5-14.5) % Plt Count (130-400) K/uL MPV (7.2-11.7) fL Neut % (Auto) (50.0-75.0) % Lymph % (Auto) (20.0-40.0) % [place] % (Auto) (0.0-10.0) % Eos % (Auto) (0.0-4.0) % Baso % (Auto) (0.0-2.0) % Neut # (Auto) (1.8-7.0) K/uL Lymph # (Auto) (1.0-4.3) K/uL [place] # (Auto) (0.0-0.8) K/uL Eos # (Auto) (0.0-0.7) K/uL Baso # (Auto) (0.0-0.2) K/uL PT (9.7-12.2) SECONDS INR APTT (21-34) SECONDS Puncture Site Lb pCO2 39 (35-45) mm/Hg pO2 82 (80-100) mm/Hg HCO3 23.0 (21-28) mmol/L ABG pH 7.37 (7.35-7.45) ABG Total CO2 23.7 (22-28) mmol/L ABG O2 Saturation 97.3 (95-98) % ABG Base Excess -2.5 L (-2.0-3.0) mmol/L ABG Hemoglobin 8.9 L (11.7-17.4) g/dL ABG Carboxyhemoglobin 1.3 (0.5-1.5) % POC ABG HHb (Measured) 2.7 (0.0-5.0) % ABG Methemoglobin 0.5 (0.0-3.0) % Tre Test Na ABG Potassium (3.6-5.2) mmol/L A-a O2 Difference 440.0 mm/Hg Respiratory Index 5.4 Hgb O2 Saturation 95.5 (95.0-98.0) % Glucose (75-110) mg/dl Lactate (0.7-2.1) mmol/L Vent Mode Prvc Mechanical Rate 20 FiO2 80.0 % Tidal Volume 400 PEEP 5 Sodium 135 (132-148) mmol/L Potassium 5.4 H (3.6-5.2) mmol/L Chloride 101 (98-107) mmol/L Carbon Dioxide 23 (22-30) mmol/L Anion Gap 17 (10-20) BUN 29 H (9-20) mg/dL Creatinine 1.3 (0.8-1.5) mg/dL Est GFR ( Amer) > 60 Est GFR (Non-Af Amer) 54 POC Glucose (mg/dL) 90 (65-110) mg/dL Random Glucose 133 H (75-110) mg/dL Calcium 7.7 L (8.6-10.4) mg/dl Phosphorus (2.5-4.5) mg/dL Magnesium (1.6-2.3) mg/dL Total Bilirubin 0.7 (0.2-1.3) mg/dL Direct Bilirubin (0.0-0.4) mg/dL AST 22 (17-59) U/L ALT 29 (21-72) U/L Alkaline Phosphatase 45 (38-126) U/L Total Protein 6.7 (6.3-8.3) g/dL Albumin 3.3 L (3.5-5.0) g/dL Globulin 3.3 (2.2-3.9) gm/dL Albumin/Globulin Ratio 1.0 (1.0-2.1) Arterial Blood Potassium (3.6-5.2) mmol/L Urine Color (YELLOW) Urine Clarity (Clear) Urine pH (5.0-8.0) Ur Specific [place] (1.003-1.030) Urine Protein (NEGATIVE) mg/dL Urine Glucose (UA) (Normal) mg/dL Urine Ketones (NEGATIVE) mg/dL Urine Blood (NEGATIVE) Urine Nitrate (NEGATIVE) Urine Bilirubin (NEGATIVE) Urine Urobilinogen (0.2-1.0) mg/dL Ur Leukocyte Esterase (Negative) Monie/uL Urine WBC (Auto) (0-5) /hpf Urine RBC (Auto) (0-3) /hpf Urine Bacteria (<OCC) Ur Yeast w Hyphae (NEGATIVE) /lpf Urine Opiates Screen (NEGATIVE) Urine Methadone Screen (NEGATIVE) Ur Barbiturates Screen (NEGATIVE) Ur Phencyclidine Scrn (NEGATIVE) Ur Amphetamines Screen (NEGATIVE) U Benzodiazepines Scrn (NEGATIVE) U Oth Cocaine Metabols (NEGATIVE) U Cannabinoids Screen (NEGATIVE) Alcohol, Quantitative (0-10) mg/dl Influenza Typ A,B (EIA) (NEGATIVE) 09/25/17 09/25/17 09/25/17 Range/Units 22:02 21:59 20:25 WBC 6.5 (4.8-10.8) K/uL RBC 3.21 L (4.40-5.90) Mil/uL Hgb 9.6 L (12.0-18.0) g/dL Hct 28.5 L (35.0-51.0) % MCV 89.0 (80.0-94.0) fL MCH 30.0 (27.0-31.0) pg MCHC 33.8 (33.0-37.0) g/dL RDW 14.3 (11.5-14.5) % Plt Count 247 (130-400) K/uL MPV 8.7 (7.2-11.7) fL Neut % (Auto) 82.3 H (50.0-75.0) % Lymph % (Auto) 14.3 L (20.0-40.0) % [place] % (Auto) 2.5 (0.0-10.0) % Eos % (Auto) 0.4 (0.0-4.0) % Baso % (Auto) 0.5 (0.0-2.0) % Neut # (Auto) 5.3 (1.8-7.0) K/uL Lymph # (Auto) 0.9 L (1.0-4.3) K/uL [place] # (Auto) 0.2 (0.0-0.8) K/uL Eos # (Auto) 0.0 (0.0-0.7) K/uL Baso # (Auto) 0.0 (0.0-0.2) K/uL PT (9.7-12.2) SECONDS INR APTT (21-34) SECONDS Puncture Site Lb pCO2 42 (35-45) mm/Hg pO2 116 H (80-100) mm/Hg HCO3 20.2 L (21-28) mmol/L ABG pH 7.29 L (7.35-7.45) ABG Total CO2 21.5 L (22-28) mmol/L ABG O2 Saturation 98.0 (95-98) % ABG Base Excess -6.1 L (-2.0-3.0) mmol/L ABG Hemoglobin (11.7-17.4) g/dL ABG Carboxyhemoglobin (0.5-1.5) % POC ABG HHb (Measured) (0.0-5.0) % ABG Methemoglobin (0.0-3.0) % Tre Test Na ABG Potassium 4.7 (3.6-5.2) mmol/L A-a O2 Difference 545.0 mm/Hg Respiratory Index 4.7 Hgb O2 Saturation (95.0-98.0) % Glucose 128 H (75-110) mg/dl Lactate 2.8 H (0.7-2.1) mmol/L Vent Mode Prvc Mechanical Rate 20 FiO2 100.0 % Tidal Volume 500 PEEP 5 Sodium 139.0 (132-148) mmol/L Potassium (3.6-5.2) mmol/L Chloride 108.0 H (98-107) mmol/L Carbon Dioxide (22-30) mmol/L Anion Gap (10-20) BUN (9-20) mg/dL Creatinine (0.8-1.5) mg/dL Est GFR ( Amer) Est GFR (Non-Af Amer) POC Glucose (mg/dL) (65-110) mg/dL Random Glucose (75-110) mg/dL Calcium (8.6-10.4) mg/dl Phosphorus (2.5-4.5) mg/dL Magnesium (1.6-2.3) mg/dL Total Bilirubin (0.2-1.3) mg/dL Direct Bilirubin (0.0-0.4) mg/dL AST (17-59) U/L ALT (21-72) U/L Alkaline Phosphatase (38-126) U/L Total Protein (6.3-8.3) g/dL Albumin (3.5-5.0) g/dL Globulin (2.2-3.9) gm/dL Albumin/Globulin Ratio (1.0-2.1) Arterial Blood Potassium 4.7 (3.6-5.2) mmol/L Urine Color (YELLOW) Urine Clarity (Clear) Urine pH (5.0-8.0) Ur Specific [place] (1.003-1.030) Urine Protein (NEGATIVE) mg/dL Urine Glucose (UA) (Normal) mg/dL Urine Ketones (NEGATIVE) mg/dL Urine Blood (NEGATIVE) Urine Nitrate (NEGATIVE) Urine Bilirubin (NEGATIVE) Urine Urobilinogen (0.2-1.0) mg/dL Ur Leukocyte Esterase (Negative) Monie/uL Urine WBC (Auto) (0-5) /hpf Urine RBC (Auto) (0-3) /hpf Urine Bacteria (<OCC) Ur Yeast w Hyphae (NEGATIVE) /lpf Urine Opiates Screen Negative (NEGATIVE) Urine Methadone Screen Negative (NEGATIVE) Ur Barbiturates Screen Negative (NEGATIVE) Ur Phencyclidine Scrn Negative (NEGATIVE) Ur Amphetamines Screen Negative (NEGATIVE) U Benzodiazepines Scrn Positive (NEGATIVE) U Oth Cocaine Metabols Negative (NEGATIVE) U Cannabinoids Screen Negative (NEGATIVE) Alcohol, Quantitative (0-10) mg/dl Influenza Typ A,B (EIA) (NEGATIVE) 09/25/17 09/25/17 09/25/17 Range/Units 20:25 17:00 16:37 WBC (4.8-10.8) K/uL RBC (4.40-5.90) Mil/uL Hgb (12.0-18.0) g/dL Hct (35.0-51.0) % MCV (80.0-94.0) fL MCH (27.0-31.0) pg MCHC (33.0-37.0) g/dL RDW (11.5-14.5) % Plt Count (130-400) K/uL MPV (7.2-11.7) fL Neut % (Auto) (50.0-75.0) % Lymph % (Auto) (20.0-40.0) % [place] % (Auto) (0.0-10.0) % Eos % (Auto) (0.0-4.0) % Baso % (Auto) (0.0-2.0) % Neut # (Auto) (1.8-7.0) K/uL Lymph # (Auto) (1.0-4.3) K/uL [place] # (Auto) (0.0-0.8) K/uL Eos # (Auto) (0.0-0.7) K/uL Baso # (Auto) (0.0-0.2) K/uL PT (9.7-12.2) SECONDS INR APTT (21-34) SECONDS Puncture Site Rradial pCO2 52 H (35-45) mm/Hg pO2 59 L (80-100) mm/Hg HCO3 20.8 L (21-28) mmol/L ABG pH 7.25 L (7.35-7.45) ABG Total CO2 24.4 (22-28) mmol/L ABG O2 Saturation 89.8 L (95-98) % ABG Base Excess -4.9 L (-2.0-3.0) mmol/L ABG Hemoglobin (11.7-17.4) g/dL ABG Carboxyhemoglobin (0.5-1.5) % POC ABG HHb (Measured) (0.0-5.0) % ABG Methemoglobin (0.0-3.0) % Tre Test Pos ABG Potassium 4.8 (3.6-5.2) mmol/L A-a O2 Difference 589.0 mm/Hg Respiratory Index 10.0 Hgb O2 Saturation (95.0-98.0) % Glucose 163 H (75-110) mg/dl Lactate 1.4 (0.7-2.1) mmol/L Vent Mode Mechanical Rate FiO2 100.0 % Tidal Volume PEEP Sodium 136.0 (132-148) mmol/L Potassium (3.6-5.2) mmol/L Chloride 106.0 (98-107) mmol/L Carbon Dioxide (22-30) mmol/L Anion Gap (10-20) BUN (9-20) mg/dL Creatinine (0.8-1.5) mg/dL Est GFR ( Amer) Est GFR (Non-Af Amer) POC Glucose (mg/dL) (65-110) mg/dL Random Glucose (75-110) mg/dL Calcium (8.6-10.4) mg/dl Phosphorus (2.5-4.5) mg/dL Magnesium (1.6-2.3) mg/dL Total Bilirubin (0.2-1.3) mg/dL Direct Bilirubin (0.0-0.4) mg/dL AST (17-59) U/L ALT (21-72) U/L Alkaline Phosphatase (38-126) U/L Total Protein (6.3-8.3) g/dL Albumin (3.5-5.0) g/dL Globulin (2.2-3.9) gm/dL Albumin/Globulin Ratio (1.0-2.1) Arterial Blood Potassium 4.8 (3.6-5.2) mmol/L Urine Color [place] (YELLOW) Urine Clarity Clear (Clear) Urine pH 5.0 (5.0-8.0) Ur Specific [place] 1.040 H (1.003-1.030) Urine Protein 1+ H (NEGATIVE) mg/dL Urine Glucose (UA) 1+ H (Normal) mg/dL Urine Ketones Negative (NEGATIVE) mg/dL Urine Blood Negative (NEGATIVE) Urine Nitrate Negative (NEGATIVE) Urine Bilirubin Negative (NEGATIVE) Urine Urobilinogen Normal (0.2-1.0) mg/dL Ur Leukocyte Esterase Neg (Negative) Monie/uL Urine WBC (Auto) 1 (0-5) /hpf Urine RBC (Auto) 1 (0-3) /hpf Urine Bacteria Rare (<OCC) Ur Yeast w Hyphae Rare H (NEGATIVE) /lpf Urine Opiates Screen (NEGATIVE) Urine Methadone Screen (NEGATIVE) Ur Barbiturates Screen (NEGATIVE) Ur Phencyclidine Scrn (NEGATIVE) Ur Amphetamines Screen (NEGATIVE) U Benzodiazepines Scrn (NEGATIVE) U Oth Cocaine Metabols (NEGATIVE) U Cannabinoids Screen (NEGATIVE) Alcohol, Quantitative (0-10) mg/dl Influenza Typ A,B (EIA) Negative for flu a/b (NEGATIVE) 09/25/17 09/25/17 09/25/17 Range/Units 15:35 15:35 15:35 WBC 7.1 (4.8-10.8) K/uL RBC 2.91 L (4.40-5.90) Mil/uL Hgb 8.7 L (12.0-18.0) g/dL Hct 25.9 L (35.0-51.0) % MCV 89.1 D (80.0-94.0) fL MCH 29.8 (27.0-31.0) pg MCHC 33.4 (33.0-37.0) g/dL RDW 14.5 (11.5-14.5) % Plt Count 220 (130-400) K/uL MPV 8.7 (7.2-11.7) fL Neut % (Auto) 61.6 (50.0-75.0) % Lymph % (Auto) 27.1 (20.0-40.0) % [place] % (Auto) 6.7 (0.0-10.0) % Eos % (Auto) 4.3 H (0.0-4.0) % Baso % (Auto) 0.3 (0.0-2.0) % Neut # (Auto) 4.4 (1.8-7.0) K/uL Lymph # (Auto) 1.9 (1.0-4.3) K/uL [place] # (Auto) 0.5 (0.0-0.8) K/uL Eos # (Auto) 0.3 (0.0-0.7) K/uL Baso # (Auto) 0.0 (0.0-0.2) K/uL PT 13.0 H (9.7-12.2) SECONDS INR 1.2 APTT 33 (21-34) SECONDS Puncture Site pCO2 (35-45) mm/Hg pO2 (80-100) mm/Hg HCO3 (21-28) mmol/L ABG pH (7.35-7.45) ABG Total CO2 (22-28) mmol/L ABG O2 Saturation (95-98) % ABG Base Excess (-2.0-3.0) mmol/L ABG Hemoglobin (11.7-17.4) g/dL ABG Carboxyhemoglobin (0.5-1.5) % POC ABG HHb (Measured) (0.0-5.0) % ABG Methemoglobin (0.0-3.0) % Tre Test ABG Potassium (3.6-5.2) mmol/L A-a O2 Difference mm/Hg Respiratory Index Hgb O2 Saturation (95.0-98.0) % Glucose (75-110) mg/dl Lactate (0.7-2.1) mmol/L Vent Mode Mechanical Rate FiO2 % Tidal Volume PEEP Sodium 138 (132-148) mmol/L Potassium 4.5 (3.6-5.2) mmol/L Chloride 100 (98-107) mmol/L Carbon Dioxide 23 (22-30) mmol/L Anion Gap 20 (10-20) BUN 27 H (9-20) mg/dL Creatinine 1.4 (0.8-1.5) mg/dL Est GFR ( Amer) > 60 Est GFR (Non-Af Amer) 50 POC Glucose (mg/dL) (65-110) mg/dL Random Glucose 143 H (75-110) mg/dL Calcium 8.6 (8.6-10.4) mg/dl Phosphorus (2.5-4.5) mg/dL Magnesium (1.6-2.3) mg/dL Total Bilirubin 0.3 (0.2-1.3) mg/dL Direct Bilirubin (0.0-0.4) mg/dL AST 15 L (17-59) U/L ALT 21 (21-72) U/L Alkaline Phosphatase 51 (38-126) U/L Total Protein 6.5 (6.3-8.3) g/dL Albumin 3.5 (3.5-5.0) g/dL Globulin 3.0 (2.2-3.9) gm/dL Albumin/Globulin Ratio 1.2 (1.0-2.1) Arterial Blood Potassium (3.6-5.2) mmol/L Urine Color (YELLOW) Urine Clarity (Clear) Urine pH (5.0-8.0) Ur Specific [place] (1.003-1.030) Urine Protein (NEGATIVE) mg/dL Urine Glucose (UA) (Normal) mg/dL Urine Ketones (NEGATIVE) mg/dL Urine Blood (NEGATIVE) Urine Nitrate (NEGATIVE) Urine Bilirubin (NEGATIVE) Urine Urobilinogen (0.2-1.0) mg/dL Ur Leukocyte Esterase (Negative) Monie/uL Urine WBC (Auto) (0-5) /hpf Urine RBC (Auto) (0-3) /hpf Urine Bacteria (<OCC) Ur Yeast w Hyphae (NEGATIVE) /lpf Urine Opiates Screen (NEGATIVE) Urine Methadone Screen (NEGATIVE) Ur Barbiturates Screen (NEGATIVE) Ur Phencyclidine Scrn (NEGATIVE) Ur Amphetamines Screen (NEGATIVE) U Benzodiazepines Scrn (NEGATIVE) U Oth Cocaine Metabols (NEGATIVE) U Cannabinoids Screen (NEGATIVE) Alcohol, Quantitative < 10 (0-10) mg/dl Influenza Typ A,B (EIA) (NEGATIVE) 09/25/17 Range/Units 15:23 WBC (4.8-10.8) K/uL RBC (4.40-5.90) Mil/uL Hgb (12.0-18.0) g/dL Hct (35.0-51.0) % MCV (80.0-94.0) fL MCH (27.0-31.0) pg MCHC (33.0-37.0) g/dL RDW (11.5-14.5) % Plt Count (130-400) K/uL MPV (7.2-11.7) fL Neut % (Auto) (50.0-75.0) % Lymph % (Auto) (20.0-40.0) % [place] % (Auto) (0.0-10.0) % Eos % (Auto) (0.0-4.0) % Baso % (Auto) (0.0-2.0) % Neut # (Auto) (1.8-7.0) K/uL Lymph # (Auto) (1.0-4.3) K/uL [place] # (Auto) (0.0-0.8) K/uL Eos # (Auto) (0.0-0.7) K/uL Baso # (Auto) (0.0-0.2) K/uL PT (9.7-12.2) SECONDS INR APTT (21-34) SECONDS Puncture Site pCO2 (35-45) mm/Hg pO2 (80-100) mm/Hg HCO3 (21-28) mmol/L ABG pH (7.35-7.45) ABG Total CO2 (22-28) mmol/L ABG O2 Saturation (95-98) % ABG Base Excess (-2.0-3.0) mmol/L ABG Hemoglobin (11.7-17.4) g/dL ABG Carboxyhemoglobin (0.5-1.5) % POC ABG HHb (Measured) (0.0-5.0) % ABG Methemoglobin (0.0-3.0) % Tre Test ABG Potassium (3.6-5.2) mmol/L A-a O2 Difference mm/Hg Respiratory Index Hgb O2 Saturation (95.0-98.0) % Glucose (75-110) mg/dl Lactate (0.7-2.1) mmol/L Vent Mode Mechanical Rate FiO2 % Tidal Volume PEEP Sodium (132-148) mmol/L Potassium (3.6-5.2) mmol/L Chloride (98-107) mmol/L Carbon Dioxide (22-30) mmol/L Anion Gap (10-20) BUN (9-20) mg/dL Creatinine (0.8-1.5) mg/dL Est GFR ( Amer) Est GFR (Non-Af Amer) POC Glucose (mg/dL) 134 H (65-110) mg/dL Random Glucose (75-110) mg/dL Calcium (8.6-10.4) mg/dl Phosphorus (2.5-4.5) mg/dL Magnesium (1.6-2.3) mg/dL Total Bilirubin (0.2-1.3) mg/dL Direct Bilirubin (0.0-0.4) mg/dL AST (17-59) U/L ALT (21-72) U/L Alkaline Phosphatase (38-126) U/L Total Protein (6.3-8.3) g/dL Albumin (3.5-5.0) g/dL Globulin (2.2-3.9) gm/dL Albumin/Globulin Ratio (1.0-2.1) Arterial Blood Potassium (3.6-5.2) mmol/L Urine Color (YELLOW) Urine Clarity (Clear) Urine pH (5.0-8.0) Ur Specific [place] (1.003-1.030) Urine Protein (NEGATIVE) mg/dL Urine Glucose (UA) (Normal) mg/dL Urine Ketones (NEGATIVE) mg/dL Urine Blood (NEGATIVE) Urine Nitrate (NEGATIVE) Urine Bilirubin (NEGATIVE) Urine Urobilinogen (0.2-1.0) mg/dL Ur Leukocyte Esterase (Negative) [place]/uL Urine WBC (Auto) (0-5) /hpf Urine RBC (Auto) (0-3) /hpf Urine Bacteria (<OCC) Ur Yeast w Hyphae (NEGATIVE) /lpf Urine Opiates Screen (NEGATIVE) Urine Methadone Screen (NEGATIVE) Ur Barbiturates Screen (NEGATIVE) Ur Phencyclidine Scrn (NEGATIVE) Ur Amphetamines Screen (NEGATIVE) U Benzodiazepines Scrn (NEGATIVE) U Oth Cocaine Metabols (NEGATIVE) U Cannabinoids Screen (NEGATIVE) Alcohol, Quantitative (0-10) mg/dl Influenza Typ A,B (EIA) (NEGATIVE) Laboratory Results - last 24 hr 09/25/17 09/25/17 09/25/17 15:23 15:35 15:35 WBC 7.1 RBC 2.91 L Hgb 8.7 L Hct 25.9 L MCV 89.1 D MCH 29.8 MCHC 33.4 RDW 14.5 Plt Count 220 MPV 8.7 Neut % (Auto) 61.6 Lymph % (Auto) 27.1 [place] % (Auto) 6.7 Eos % (Auto) 4.3 H Baso % (Auto) 0.3 Neut # (Auto) 4.4 Lymph # (Auto) 1.9 [place] # (Auto) 0.5 Eos # (Auto) 0.3 Baso # (Auto) 0.0 PT 13.0 H INR 1.2 APTT 33 Puncture Site pCO2 pO2 HCO3 ABG pH ABG Total CO2 ABG O2 Saturation ABG Base Excess ABG Hemoglobin ABG Carboxyhemoglobin POC ABG HHb (Measured) ABG Methemoglobin Tre Test ABG Potassium A-a O2 Difference Respiratory Index Hgb O2 Saturation Glucose Lactate Vent Mode Mechanical Rate FiO2 Tidal Volume PEEP Sodium Potassium Chloride Carbon Dioxide Anion Gap BUN Creatinine Est GFR ( Amer) Est GFR (Non-Af Amer) POC Glucose (mg/dL) 134 H Random Glucose Calcium Phosphorus Magnesium Total Bilirubin Direct Bilirubin AST ALT Alkaline Phosphatase Total Protein Albumin Globulin Albumin/Globulin Ratio Arterial Blood Potassium Urine Color Urine Clarity Urine pH Ur Specific [place] Urine Protein Urine Glucose (UA) Urine Ketones Urine Blood Urine Nitrate Urine Bilirubin Urine Urobilinogen Ur Leukocyte Esterase Urine WBC (Auto) Urine RBC (Auto) Urine Bacteria Ur Yeast w [place] Urine Opiates Screen Urine Methadone Screen Ur Barbiturates Screen Ur Phencyclidine Scrn Ur Amphetamines Screen U Benzodiazepines Scrn U Oth Cocaine Metabols U Cannabinoids Screen Alcohol, Quantitative Influenza Typ A,B (EIA) 09/25/17 09/25/17 09/25/17 15:35 16:37 17:00 WBC RBC Hgb Hct MCV MCH MCHC RDW Plt Count MPV Neut % (Auto) Lymph % (Auto) [place] % (Auto) Eos % (Auto) Baso % (Auto) Neut # (Auto) Lymph # (Auto) [place] # (Auto) Eos # (Auto) Baso # (Auto) PT INR APTT Puncture Site Rradial pCO2 52 H pO2 59 L HCO3 20.8 L ABG pH 7.25 L ABG Total CO2 24.4 ABG O2 Saturation 89.8 L ABG Base Excess -4.9 L ABG Hemoglobin ABG Carboxyhemoglobin POC ABG HHb (Measured) ABG Methemoglobin Tre Test Pos ABG Potassium 4.8 A-a O2 Difference 589.0 Respiratory Index 10.0 Hgb O2 Saturation Glucose 163 H Lactate 1.4 Vent Mode Mechanical Rate FiO2 100.0 Tidal Volume PEEP Sodium 138 136.0 Potassium 4.5 Chloride 100 106.0 Carbon Dioxide 23 Anion Gap 20 BUN 27 H Creatinine 1.4 Est GFR ( Amer) > 60 Est GFR (Non-Af Amer) 50 POC Glucose (mg/dL) Random Glucose 143 H Calcium 8.6 Phosphorus Magnesium Total Bilirubin 0.3 Direct Bilirubin AST 15 L ALT 21 Alkaline Phosphatase 51 Total Protein 6.5 Albumin 3.5 Globulin 3.0 Albumin/Globulin Ratio 1.2 Arterial Blood Potassium 4.8 Urine Color Urine Clarity Urine pH Ur Specific [place] Urine Protein Urine Glucose (UA) Urine Ketones Urine Blood Urine Nitrate Urine Bilirubin Urine Urobilinogen Ur Leukocyte Esterase Urine WBC (Auto) Urine RBC (Auto) Urine Bacteria Ur Yeast w [place] Urine Opiates Screen Urine Methadone Screen Ur Barbiturates Screen Ur Phencyclidine Scrn Ur Amphetamines Screen U Benzodiazepines Scrn U Oth Cocaine Metabols U Cannabinoids Screen Alcohol, Quantitative < 10 Influenza Typ A,B (EIA) Negative for flu a/b 09/25/17 09/25/17 09/25/17 20:25 20:25 21:59 WBC RBC Hgb Hct MCV MCH MCHC RDW Plt Count MPV Neut % (Auto) Lymph % (Auto) [place] % (Auto) Eos % (Auto) Baso % (Auto) Neut # (Auto) Lymph # (Auto) [place] # (Auto) Eos # (Auto) Baso # (Auto) PT INR APTT Puncture Site Lb pCO2 42 pO2 116 H HCO3 20.2 L ABG pH 7.29 L ABG Total CO2 21.5 L ABG O2 Saturation 98.0 ABG Base Excess -6.1 L ABG Hemoglobin ABG Carboxyhemoglobin POC ABG HHb (Measured) ABG Methemoglobin Tre Test Na ABG Potassium 4.7 A-a O2 Difference 545.0 Respiratory Index 4.7 Hgb O2 Saturation Glucose 128 H Lactate 2.8 H Vent Mode Prvc Mechanical Rate 20 FiO2 100.0 Tidal Volume 500 PEEP 5 Sodium 139.0 Potassium Chloride 108.0 H Carbon Dioxide Anion Gap BUN Creatinine Est GFR ( Amer) Est GFR (Non-Af Amer) POC Glucose (mg/dL) Random Glucose Calcium Phosphorus Magnesium Total Bilirubin Direct Bilirubin AST ALT Alkaline Phosphatase Total Protein Albumin Globulin Albumin/Globulin Ratio Arterial Blood Potassium 4.7 Urine Color [place] Urine Clarity Clear Urine pH 5.0 Ur Specific [place] 1.040 H Urine Protein 1+ H Urine Glucose (UA) 1+ H Urine Ketones Negative Urine Blood Negative Urine Nitrate Negative Urine Bilirubin Negative Urine Urobilinogen Normal Ur Leukocyte Esterase Neg Urine WBC (Auto) 1 Urine RBC (Auto) 1 Urine Bacteria Rare Ur Yeast w [place] Rare H Urine Opiates Screen Negative Urine Methadone Screen Negative Ur Barbiturates Screen Negative Ur Phencyclidine Scrn Negative Ur Amphetamines Screen Negative U Benzodiazepines Scrn Positive U Oth Cocaine Metabols Negative U Cannabinoids Screen Negative Alcohol, Quantitative Influenza Typ A,B (EIA) 09/25/17 09/25/17 09/26/17 22:02 22:02 00:01 WBC 6.5 RBC 3.21 L Hgb 9.6 L Hct 28.5 L MCV 89.0 MCH 30.0 MCHC 33.8 RDW 14.3 Plt Count 247 MPV 8.7 Neut % (Auto) 82.3 H Lymph % (Auto) 14.3 L [place] % (Auto) 2.5 Eos % (Auto) 0.4 Baso % (Auto) 0.5 Neut # (Auto) 5.3 Lymph # (Auto) 0.9 L [place] # (Auto) 0.2 Eos # (Auto) 0.0 Baso # (Auto) 0.0 PT INR APTT Puncture Site pCO2 pO2 HCO3 ABG pH ABG Total CO2 ABG O2 Saturation ABG Base Excess ABG Hemoglobin ABG Carboxyhemoglobin POC ABG HHb (Measured) ABG Methemoglobin Tre Test ABG Potassium A-a O2 Difference Respiratory Index Hgb O2 Saturation Glucose Lactate Vent Mode Mechanical Rate FiO2 Tidal Volume PEEP Sodium 135 Potassium 5.4 H Chloride 101 Carbon Dioxide 23 Anion Gap 17 BUN 29 H Creatinine 1.3 Est GFR ( Amer) > 60 Est GFR (Non-Af Amer) 54 POC Glucose (mg/dL) 90 Random Glucose 133 H Calcium 7.7 L Phosphorus Magnesium Total Bilirubin 0.7 Direct Bilirubin AST 22 ALT 29 Alkaline Phosphatase 45 Total Protein 6.7 Albumin 3.3 L Globulin 3.3 Albumin/Globulin Ratio 1.0 Arterial Blood Potassium Urine Color Urine Clarity Urine pH Ur Specific [place] Urine Protein Urine Glucose (UA) Urine Ketones Urine Blood Urine Nitrate Urine Bilirubin Urine Urobilinogen Ur Leukocyte Esterase Urine WBC (Auto) Urine RBC (Auto) Urine Bacteria Ur Yeast w [place]pha[place] Urine Opiates Screen Urine Methadone Screen Ur Barbiturates Screen Ur Phencyclidine Scrn Ur Amphetamines Screen U Benzodiazepines Scrn U Oth Cocaine Metabols U Cannabinoids Screen Alcohol, Quantitative Influenza Typ A,B (EIA) 09/26/17 09/26/17 09/26/17 04:45 05:31 06:30 WBC 5.4 RBC 2.93 L Hgb 8.6 L Hct 25.7 L MCV 87.8 MCH 29.4 MCHC 33.5 RDW 14.2 Plt Count 199 MPV 8.7 Neut % (Auto) 73.8 Lymph % (Auto) 15.0 L [place] % (Auto) 11.0 H Eos % (Auto) 0.1 Baso % (Auto) 0.1 Neut # (Auto) 4.0 Lymph # (Auto) 0.8 L [place] # (Auto) 0.6 Eos # (Auto) 0.0 Baso # (Auto) 0.0 PT INR APTT Puncture Site Lb pCO2 39 pO2 82 HCO3 23.0 ABG pH 7.37 ABG Total CO2 23.7 ABG O2 Saturation 97.3 ABG Base Excess -2.5 L ABG Hemoglobin 8.9 L ABG Carboxyhemoglobin 1.3 POC ABG HHb (Measured) 2.7 ABG Methemoglobin 0.5 Tre Test Na ABG Potassium A-a O2 Difference 440.0 Respiratory Index 5.4 Hgb O2 Saturation 95.5 Glucose Lactate Vent Mode Prvc Mechanical Rate 20 FiO2 80.0 Tidal Volume 400 PEEP 5 Sodium Potassium Chloride Carbon Dioxide Anion Gap BUN Creatinine Est GFR ( Amer) Est GFR (Non-Af Amer) POC Glucose (mg/dL) 122 H Random Glucose Calcium Phosphorus Magnesium Total Bilirubin Direct Bilirubin AST ALT Alkaline Phosphatase Total Protein Albumin Globulin Albumin/Globulin Ratio Arterial Blood Potassium Urine Color Urine Clarity Urine pH Ur Specific [place] Urine Protein Urine Glucose (UA) Urine Ketones Urine Blood Urine Nitrate Urine Bilirubin Urine Urobilinogen Ur Leukocyte Esterase Urine WBC (Auto) Urine RBC (Auto) Urine Bacteria Ur Yeast w [place] Urine Opiates Screen Urine Methadone Screen Ur Barbiturates Screen Ur Phencyclidine Scrn Ur Amphetamines Screen U Benzodiazepines Scrn U Oth Cocaine Metabols U Cannabinoids Screen Alcohol, Quantitative Influenza Typ A,B (EIA) 09/26/17 06:31 WBC RBC Hgb Hct MCV MCH MCHC RDW Plt Count MPV Neut % (Auto) Lymph % (Auto) [place] % (Auto) Eos % (Auto) Baso % (Auto) Neut # (Auto) Lymph # (Auto) [place] # (Auto) Eos # (Auto) Baso # (Auto) PT INR APTT Puncture Site pCO2 pO2 HCO3 ABG pH ABG Total CO2 ABG O2 Saturation ABG Base Excess ABG Hemoglobin ABG Carboxyhemoglobin POC ABG HHb (Measured) ABG Methemoglobin Tre Test ABG Potassium A-a O2 Difference Respiratory Index Hgb O2 Saturation Glucose Lactate Vent Mode Mechanical Rate FiO2 Tidal Volume PEEP Sodium 134 Potassium 4.3 Chloride 102 Carbon Dioxide 23 Anion Gap 13 BUN 34 H Creatinine 1.7 H Est GFR ( Amer) 48 Est GFR (Non-Af Amer) 40 POC Glucose (mg/dL) Random Glucose 115 H Calcium 8.0 L Phosphorus 2.2 L Magnesium 1.9 Total Bilirubin 0.5 Direct Bilirubin 0.5 H AST 22 ALT 25 Alkaline Phosphatase 40 Total Protein 5.5 L Albumin 2.9 L Globulin 2.6 Albumin/Globulin Ratio 1.1 Arterial Blood Potassium Urine Color Urine Clarity Urine pH Ur Specific [place] Urine Protein Urine Glucose (UA) Urine Ketones Urine Blood Urine Nitrate Urine Bilirubin Urine Urobilinogen Ur Leukocyte Esterase Urine WBC (Auto) Urine RBC (Auto) Urine Bacteria Ur Yeast w [place] Urine Opiates Screen Urine Methadone Screen Ur Barbiturates Screen Ur Phencyclidine Scrn Ur Amphetamines Screen U Benzodiazepines Scrn U Oth Cocaine Metabols U Cannabinoids Screen Alcohol, Quantitative Influenza Typ A,B (EIA) EKG/Cardiology Studies: Cardiology / EKG Studies 09/25/17 15:25 ELECTROCARDIOGRAM Stat Comment: Mode Of Transportation: BED Reason For Exam: AMS Fingerstick Blood Sugar Results: 122 Critical Care Progress Note - Nutrition Nutrition: Nutrition Category Date Time Status NPO Diet [DIET] Diets 09/25/17 Breakfast Active Assessment/Plan - Assessment and Plan (Free Text) Assessment: 71M Aspiration Pneumonia Plan: Neuro: decreased propofol 2/2 hypotension Cardio: bradycardia initially, syncope, Dr. Manzo on consult. Pulm: Aspiration pneumonia, Intubated, Vanco and Zosyn Renal: Cr rising likely secondary to angiography, Will give light hydration. If does not improve will renally dose antibiotics GI: No acute issues. Cont tube feeds Endo: accuchecks, ISS PPX: Protonix/lovenox <Kenny Garrido - Last Filed: 09/26/17 18:22> CCU Objective - Vital Signs / Intake & Output Vital Signs (Last 4 hours): Vital Signs Temp Pulse Ox 09/26/17 16:00 97.6 F 99 Intake and Output (Last 8hrs): Intake & Output 09/26/17 09/26/17 09/26/17 06:59 14:59 22:59 Intake Total 429.3 1861.5 446.4 Output Total 0 725 100 Balance 429.3 1136.5 346.4 Weight 160 lb Intake: IV 85 65 35 Intake, IV Amount 344.3 1736.5 351.4 Right Antecubital 40 260 100 Right Wrist 94.3 36.5 26.4 rt.AC side poirt 210 1440 225 Tube Feeding 60 60 Output: Gastric Amount 400 Stomach 400 Urine 325 100 Urethral (Swift) 325 100 Stool 0 0 0 - Medications Active Medications: Active Medications Generic Name Dose Route Start Last Admin Trade Name Freq PRN Reason Stop Dose Admin Albuterol/Ipratropium 3 ml 09/25/17 20:00 09/26/17 13:20 Duoneb 3 Mg/0.5 Mg (3 Ml) Ud INH 3 ml RQ6 DENTON Administration Aspirin 325 mg 09/26/17 10:00 09/26/17 09:46 Aspirin PO 325 mg DAILY DENTON Administration Clopidogrel Bisulfate 75 mg 09/26/17 10:00 09/26/17 09:46 Plavix PO 75 mg DAILY DENTON Administration Enoxaparin Sodium 40 mg 09/26/17 10:00 09/26/17 09:47 Lovenox SC 40 mg DAILY DENTON Administration Propofol 1,000 mg in 100 mls @ 2.041 mls/hr 09/25/17 19:01 09/26/17 18:09 Diprivan IV 20.82 mcg/kg/min .Q24H PRN 8.499 mls/hr TITRATE PER MD ORDER Administration Protocol 5 MCG/KG/MIN Piperacillin Sod/Tazobactam 100 mls @ 100 mls/hr 09/26/17 07:00 09/26/17 18: 02 Sod 2.25 gm/ Sodium Chloride IV 100 mls/hr Q6H DENTON Administration Sodium Chloride 1,000 mls @ 75 mls/hr 09/26/17 10:57 09/26/17 10:57 Sodium Chloride 0.9% IV 75 mls/hr .[id number] DENTON Administration Insulin Human Regular 0 unit 09/26/17 00:00 09/26/17 12:00 Novolin R SC Not Given Q6 DENTON Protocol Lorazepam 2 mg 09/25/17 19:19 09/26/17 15:06 Ativan IVP 2 mg Q6H PRN Administration Anxiety Pantoprazole Sodium 40 mg 09/26/17 10:00 09/26/17 09:46 Protonix Inj IVP 40 mg DAILY DENTON Administration - Patient Studies Lab Studies: Lab Studies 09/26/17 09/26/17 09/26/17 Range/Units 17:42 12:25 06:31 WBC (4.8-10.8) K/uL RBC (4.40-5.90) Mil/uL Hgb (12.0-18.0) g/dL Hct (35.0-51.0) % MCV (80.0-94.0) fL MCH (27.0-31.0) pg MCHC (33.0-37.0) g/dL RDW (11.5-14.5) % Plt Count (130-400) K/uL MPV (7.2-11.7) fL Neut % (Auto) (50.0-75.0) % Lymph % (Auto) (20.0-40.0) % [place] % (Auto) (0.0-10.0) % Eos % (Auto) (0.0-4.0) % Baso % (Auto) (0.0-2.0) % Neut # (Auto) (1.8-7.0) K/uL Lymph # (Auto) (1.0-4.3) K/uL [place] # (Auto) (0.0-0.8) K/uL Eos # (Auto) (0.0-0.7) K/uL Baso # (Auto) (0.0-0.2) K/uL Puncture Site pCO2 (35-45) mm/Hg pO2 (80-100) mm/Hg HCO3 (21-28) mmol/L ABG pH (7.35-7.45) ABG Total CO2 (22-28) mmol/L ABG O2 Saturation (95-98) % ABG Base Excess (-2.0-3.0) mmol/L ABG Hemoglobin (11.7-17.4) g/dL ABG Carboxyhemoglobin (0.5-1.5) % POC ABG HHb (Measured) (0.0-5.0) % ABG Methemoglobin (0.0-3.0) % Tre Test ABG Potassium (3.6-5.2) mmol/L A-a O2 Difference mm/Hg Respiratory Index Hgb O2 Saturation (95.0-98.0) % Sodium 134 (132-148) mmol/l Chloride 102 (98-107) mmol/L Glucose (75-110) mg/dl Lactate (0.7-2.1) mmol/L Vent Mode Mechanical Rate FiO2 % Tidal Volume PEEP Potassium 4.3 (3.6-5.2) mmol/L Carbon Dioxide 23 (22-30) mmol/L Anion Gap 13 (10-20) BUN 34 H (9-20) mg/dL Creatinine 1.7 H (0.8-1.5) mg/dL Est GFR ( Amer) 48 Est GFR (Non-Af Amer) 40 POC Glucose (mg/dL) 133 H 145 H (65-110) mg/dL Random Glucose 115 H (75-110) mg/dL Calcium 8.0 L (8.6-10.4) mg/dl Phosphorus 2.2 L (2.5-4.5) mg/dL Magnesium 1.9 (1.6-2.3) mg/dL Total Bilirubin 0.5 (0.2-1.3) mg/dL Direct Bilirubin 0.5 H (0.0-0.4) mg/dL AST 22 (17-59) U/L ALT 25 (21-72) U/L Alkaline Phosphatase 40 (38-126) U/L Total Protein 5.5 L (6.3-8.3) g/dL Albumin 2.9 L (3.5-5.0) g/dL Globulin 2.6 (2.2-3.9) gm/dL Albumin/Globulin Ratio 1.1 (1.0-2.1) Arterial Blood Potassium (3.6-5.2) mmol/L Urine Color (YELLOW) Urine Clarity (Clear) Urine pH (5.0-8.0) Ur Specific [place] (1.003-1.030) Urine Protein (NEGATIVE) mg/dL Urine Glucose (UA) (Normal) mg/dL Urine Ketones (NEGATIVE) mg/dL Urine Blood (NEGATIVE) Urine Nitrate (NEGATIVE) Urine Bilirubin (NEGATIVE) Urine Urobilinogen (0.2-1.0) mg/dL Ur Leukocyte Esterase (Negative) [place]/uL Urine WBC (Auto) (0-5) /hpf Urine RBC (Auto) (0-3) /hpf Urine Bacteria (<OCC) Ur Yeast w Hyphae (NEGATIVE) /lpf Urine Opiates Screen (NEGATIVE) Urine Methadone Screen (NEGATIVE) Ur Barbiturates Screen (NEGATIVE) Ur Phencyclidine Scrn (NEGATIVE) Ur Amphetamines Screen (NEGATIVE) U Benzodiazepines Scrn (NEGATIVE) U Oth Cocaine Metabols (NEGATIVE) U Cannabinoids Screen (NEGATIVE) 09/26/17 09/26/17 09/26/17 Range/Units 06:30 05:31 04:45 WBC 5.4 (4.8-10.8) K/uL RBC 2.93 L (4.40-5.90) Mil/uL Hgb 8.6 L (12.0-18.0) g/dL Hct 25.7 L (35.0-51.0) % MCV 87.8 (80.0-94.0) fL MCH 29.4 (27.0-31.0) pg MCHC 33.5 (33.0-37.0) g/dL RDW 14.2 (11.5-14.5) % Plt Count 199 (130-400) K/uL MPV 8.7 (7.2-11.7) fL Neut % (Auto) 73.8 (50.0-75.0) % Lymph % (Auto) 15.0 L (20.0-40.0) % [place] % (Auto) 11.0 H (0.0-10.0) % Eos % (Auto) 0.1 (0.0-4.0) % Baso % (Auto) 0.1 (0.0-2.0) % Neut # (Auto) 4.0 (1.8-7.0) K/uL Lymph # (Auto) 0.8 L (1.0-4.3) K/uL [place] # (Auto) 0.6 (0.0-0.8) K/uL Eos # (Auto) 0.0 (0.0-0.7) K/uL Baso # (Auto) 0.0 (0.0-0.2) K/uL Puncture Site Lb pCO2 39 (35-45) mm/Hg pO2 82 (80-100) mm/Hg HCO3 23.0 (21-28) mmol/L ABG pH 7.37 (7.35-7.45) ABG Total CO2 23.7 (22-28) mmol/L ABG O2 Saturation 97.3 (95-98) % ABG Base Excess -2.5 L (-2.0-3.0) mmol/L ABG Hemoglobin 8.9 L (11.7-17.4) g/dL ABG Carboxyhemoglobin 1.3 (0.5-1.5) % POC ABG HHb (Measured) 2.7 (0.0-5.0) % ABG Methemoglobin 0.5 (0.0-3.0) % Tre Test Na ABG Potassium (3.6-5.2) mmol/L A-a O2 Difference 440.0 mm/Hg Respiratory Index 5.4 Hgb O2 Saturation 95.5 (95.0-98.0) % Sodium (132-148) mmol/l Chloride (98-107) mmol/L Glucose (75-110) mg/dl Lactate (0.7-2.1) mmol/L Vent Mode Prvc Mechanical Rate 20 FiO2 80.0 % Tidal Volume 400 PEEP 5 Potassium (3.6-5.2) mmol/L Carbon Dioxide (22-30) mmol/L Anion Gap (10-20) BUN (9-20) mg/dL Creatinine (0.8-1.5) mg/dL Est GFR ( Amer) Est GFR (Non-Af Amer) POC Glucose (mg/dL) 122 H (65-110) mg/dL Random Glucose (75-110) mg/dL Calcium (8.6-10.4) mg/dl Phosphorus (2.5-4.5) mg/dL Magnesium (1.6-2.3) mg/dL Total Bilirubin (0.2-1.3) mg/dL Direct Bilirubin (0.0-0.4) mg/dL AST (17-59) U/L ALT (21-72) U/L Alkaline Phosphatase (38-126) U/L Total Protein (6.3-8.3) g/dL Albumin (3.5-5.0) g/dL Globulin (2.2-3.9) gm/dL Albumin/Globulin Ratio (1.0-2.1) Arterial Blood Potassium (3.6-5.2) mmol/L Urine Color (YELLOW) Urine Clarity (Clear) Urine pH (5.0-8.0) Ur Specific [place] (1.003-1.030) Urine Protein (NEGATIVE) mg/dL Urine Glucose (UA) (Normal) mg/dL Urine Ketones (NEGATIVE) mg/dL Urine Blood (NEGATIVE) Urine Nitrate (NEGATIVE) Urine Bilirubin (NEGATIVE) Urine Urobilinogen (0.2-1.0) mg/dL Ur Leukocyte Esterase (Negative) [place]/uL Urine WBC (Auto) (0-5) /hpf Urine RBC (Auto) (0-3) /hpf Urine Bacteria (<OCC) Ur Yeast w Hyphae (NEGATIVE) /lpf Urine Opiates Screen (NEGATIVE) Urine Methadone Screen (NEGATIVE) Ur Barbiturates Screen (NEGATIVE) Ur Phencyclidine Scrn (NEGATIVE) Ur Amphetamines Screen (NEGATIVE) U Benzodiazepines Scrn (NEGATIVE) U Oth Cocaine Metabols (NEGATIVE) U Cannabinoids Screen (NEGATIVE) 09/26/17 09/25/17 09/25/17 Range/Units 00:01 22:02 22:02 WBC 6.5 (4.8-10.8) K/uL RBC 3.21 L (4.40-5.90) Mil/uL Hgb 9.6 L (12.0-18.0) g/dL Hct 28.5 L (35.0-51.0) % MCV 89.0 (80.0-94.0) fL MCH 30.0 (27.0-31.0) pg MCHC 33.8 (33.0-37.0) g/dL RDW 14.3 (11.5-14.5) % Plt Count 247 (130-400) K/uL MPV 8.7 (7.2-11.7) fL Neut % (Auto) 82.3 H (50.0-75.0) % Lymph % (Auto) 14.3 L (20.0-40.0) % [place] % (Auto) 2.5 (0.0-10.0) % Eos % (Auto) 0.4 (0.0-4.0) % Baso % (Auto) 0.5 (0.0-2.0) % Neut # (Auto) 5.3 (1.8-7.0) K/uL Lymph # (Auto) 0.9 L (1.0-4.3) K/uL [place] # (Auto) 0.2 (0.0-0.8) K/uL Eos # (Auto) 0.0 (0.0-0.7) K/uL Baso # (Auto) 0.0 (0.0-0.2) K/uL Puncture Site pCO2 (35-45) mm/Hg pO2 (80-100) mm/Hg HCO3 (21-28) mmol/L ABG pH (7.35-7.45) ABG Total CO2 (22-28) mmol/L ABG O2 Saturation (95-98) % ABG Base Excess (-2.0-3.0) mmol/L ABG Hemoglobin (11.7-17.4) g/dL ABG Carboxyhemoglobin (0.5-1.5) % POC ABG HHb (Measured) (0.0-5.0) % ABG Methemoglobin (0.0-3.0) % Tre Test ABG Potassium (3.6-5.2) mmol/L A-a O2 Difference mm/Hg Respiratory Index Hgb O2 Saturation (95.0-98.0) % Sodium 135 (132-148) mmol/l Chloride 101 (98-107) mmol/L Glucose (75-110) mg/dl Lactate (0.7-2.1) mmol/L Vent Mode Mechanical Rate FiO2 % Tidal Volume PEEP Potassium 5.4 H (3.6-5.2) mmol/L Carbon Dioxide 23 (22-30) mmol/L Anion Gap 17 (10-20) BUN 29 H (9-20) mg/dL Creatinine 1.3 (0.8-1.5) mg/dL Est GFR ( Amer) > 60 Est GFR (Non-Af Amer) 54 POC Glucose (mg/dL) 90 (65-110) mg/dL Random Glucose 133 H (75-110) mg/dL Calcium 7.7 L (8.6-10.4) mg/dl Phosphorus (2.5-4.5) mg/dL Magnesium (1.6-2.3) mg/dL Total Bilirubin 0.7 (0.2-1.3) mg/dL Direct Bilirubin (0.0-0.4) mg/dL AST 22 (17-59) U/L ALT 29 (21-72) U/L Alkaline Phosphatase 45 (38-126) U/L Total Protein 6.7 (6.3-8.3) g/dL Albumin 3.3 L (3.5-5.0) g/dL Globulin 3.3 (2.2-3.9) gm/dL Albumin/Globulin Ratio 1.0 (1.0-2.1) Arterial Blood Potassium (3.6-5.2) mmol/L Urine Color (YELLOW) Urine Clarity (Clear) Urine pH (5.0-8.0) Ur Specific [place] (1.003-1.030) Urine Protein (NEGATIVE) mg/dL Urine Glucose (UA) (Normal) mg/dL Urine Ketones (NEGATIVE) mg/dL Urine Blood (NEGATIVE) Urine Nitrate (NEGATIVE) Urine Bilirubin (NEGATIVE) Urine Urobilinogen (0.2-1.0) mg/dL Ur Leukocyte Esterase (Negative) Monie/uL Urine WBC (Auto) (0-5) /hpf Urine RBC (Auto) (0-3) /hpf Urine Bacteria (<OCC) Ur Yeast w Hyphae (NEGATIVE) /lpf Urine Opiates Screen (NEGATIVE) Urine Methadone Screen (NEGATIVE) Ur Barbiturates Screen (NEGATIVE) Ur Phencyclidine Scrn (NEGATIVE) Ur Amphetamines Screen (NEGATIVE) U Benzodiazepines Scrn (NEGATIVE) U Oth Cocaine Metabols (NEGATIVE) U Cannabinoids Screen (NEGATIVE) 09/25/17 09/25/17 09/25/17 Range/Units 21:59 20:25 20:25 WBC (4.8-10.8) K/uL RBC (4.40-5.90) Mil/uL Hgb (12.0-18.0) g/dL Hct (35.0-51.0) % MCV (80.0-94.0) fL MCH (27.0-31.0) pg MCHC (33.0-37.0) g/dL RDW (11.5-14.5) % Plt Count (130-400) K/uL MPV (7.2-11.7) fL Neut % (Auto) (50.0-75.0) % Lymph % (Auto) (20.0-40.0) % [place] % (Auto) (0.0-10.0) % Eos % (Auto) (0.0-4.0) % Baso % (Auto) (0.0-2.0) % Neut # (Auto) (1.8-7.0) K/uL Lymph # (Auto) (1.0-4.3) K/uL [place] # (Auto) (0.0-0.8) K/uL Eos # (Auto) (0.0-0.7) K/uL Baso # (Auto) (0.0-0.2) K/uL Puncture Site Lb pCO2 42 (35-45) mm/Hg pO2 116 H (80-100) mm/Hg HCO3 20.2 L (21-28) mmol/L ABG pH 7.29 L (7.35-7.45) ABG Total CO2 21.5 L (22-28) mmol/L ABG O2 Saturation 98.0 (95-98) % ABG Base Excess -6.1 L (-2.0-3.0) mmol/L ABG Hemoglobin (11.7-17.4) g/dL ABG Carboxyhemoglobin (0.5-1.5) % POC ABG HHb (Measured) (0.0-5.0) % ABG Methemoglobin (0.0-3.0) % Tre Test Na ABG Potassium 4.7 (3.6-5.2) mmol/L A-a O2 Difference 545.0 mm/Hg Respiratory Index 4.7 Hgb O2 Saturation (95.0-98.0) % Sodium 139.0 (132-148) mmol/l Chloride 108.0 H (98-107) mmol/L Glucose 128 H (75-110) mg/dl Lactate 2.8 H (0.7-2.1) mmol/L Vent Mode Prvc Mechanical Rate 20 FiO2 100.0 % Tidal Volume 500 PEEP 5 Potassium (3.6-5.2) mmol/L Carbon Dioxide (22-30) mmol/L Anion Gap (10-20) BUN (9-20) mg/dL Creatinine (0.8-1.5) mg/dL Est GFR ( Amer) Est GFR (Non-Af Amer) POC Glucose (mg/dL) (65-110) mg/dL Random Glucose (75-110) mg/dL Calcium (8.6-10.4) mg/dl Phosphorus (2.5-4.5) mg/dL Magnesium (1.6-2.3) mg/dL Total Bilirubin (0.2-1.3) mg/dL Direct Bilirubin (0.0-0.4) mg/dL AST (17-59) U/L ALT (21-72) U/L Alkaline Phosphatase (38-126) U/L Total Protein (6.3-8.3) g/dL Albumin (3.5-5.0) g/dL Globulin (2.2-3.9) gm/dL Albumin/Globulin Ratio (1.0-2.1) Arterial Blood Potassium 4.7 (3.6-5.2) mmol/L Urine Color [place] (YELLOW) Urine Clarity Clear (Clear) Urine pH 5.0 (5.0-8.0) Ur Specific [place] 1.040 H (1.003-1.030) Urine Protein 1+ H (NEGATIVE) mg/dL Urine Glucose (UA) 1+ H (Normal) mg/dL Urine Ketones Negative (NEGATIVE) mg/dL Urine Blood Negative (NEGATIVE) Urine Nitrate Negative (NEGATIVE) Urine Bilirubin Negative (NEGATIVE) Urine Urobilinogen Normal (0.2-1.0) mg/dL Ur Leukocyte Esterase Neg (Negative) Monie/uL Urine WBC (Auto) 1 (0-5) /hpf Urine RBC (Auto) 1 (0-3) /hpf Urine Bacteria Rare (<OCC) Ur Yeast w Hyphae Rare H (NEGATIVE) /lpf Urine Opiates Screen Negative (NEGATIVE) Urine Methadone Screen Negative (NEGATIVE) Ur Barbiturates Screen Negative (NEGATIVE) Ur Phencyclidine Scrn Negative (NEGATIVE) Ur Amphetamines Screen Negative (NEGATIVE) U Benzodiazepines Scrn Positive (NEGATIVE) U Oth Cocaine Metabols Negative (NEGATIVE) U Cannabinoids Screen Negative (NEGATIVE) Laboratory Results - last 24 hr 09/25/17 09/25/17 09/25/17 20:25 20:25 21:59 WBC RBC Hgb Hct MCV MCH MCHC RDW Plt Count MPV Neut % (Auto) Lymph % (Auto) [place] % (Auto) Eos % (Auto) Baso % (Auto) Neut # (Auto) Lymph # (Auto) [place] # (Auto) Eos # (Auto) Baso # (Auto) Puncture Site Lb pCO2 42 pO2 116 H HCO3 20.2 L ABG pH 7.29 L ABG Total CO2 21.5 L ABG O2 Saturation 98.0 ABG Base Excess -6.1 L ABG Hemoglobin ABG Carboxyhemoglobin POC ABG HHb (Measured) ABG Methemoglobin Tre Test Na ABG Potassium 4.7 A-a O2 Difference 545.0 Respiratory Index 4.7 Hgb O2 Saturation Sodium 139.0 Chloride 108.0 H Glucose 128 H Lactate 2.8 H Vent Mode Prvc Mechanical Rate 20 FiO2 100.0 Tidal Volume 500 PEEP 5 Potassium Carbon Dioxide Anion Gap BUN Creatinine Est GFR ( Amer) Est GFR (Non-Af Amer) POC Glucose (mg/dL) Random Glucose Calcium Phosphorus Magnesium Total Bilirubin Direct Bilirubin AST ALT Alkaline Phosphatase Total Protein Albumin Globulin Albumin/Globulin Ratio Arterial Blood Potassium 4.7 Urine Color [place] Urine Clarity Clear Urine pH 5.0 Ur Specific [place] 1.040 H Urine Protein 1+ H Urine Glucose (UA) 1+ H Urine Ketones Negative Urine Blood Negative Urine Nitrate Negative Urine Bilirubin Negative Urine Urobilinogen Normal Ur Leukocyte Esterase Neg Urine WBC (Auto) 1 Urine RBC (Auto) 1 Urine Bacteria Rare Ur Yeast w Hyphae Rare H Urine Opiates Screen Negative Urine Methadone Screen Negative Ur Barbiturates Screen Negative Ur Phencyclidine Scrn Negative Ur Amphetamines Screen Negative U Benzodiazepines Scrn Positive U Oth Cocaine Metabols Negative U Cannabinoids Screen Negative 09/25/17 09/25/17 09/26/17 22:02 22:02 00:01 WBC 6.5 RBC 3.21 L Hgb 9.6 L Hct 28.5 L MCV 89.0 MCH 30.0 MCHC 33.8 RDW 14.3 Plt Count 247 MPV 8.7 Neut % (Auto) 82.3 H Lymph % (Auto) 14.3 L [place] % (Auto) 2.5 Eos % (Auto) 0.4 Baso % (Auto) 0.5 Neut # (Auto) 5.3 Lymph # (Auto) 0.9 L [place] # (Auto) 0.2 Eos # (Auto) 0.0 Baso # (Auto) 0.0 Puncture Site pCO2 pO2 HCO3 ABG pH ABG Total CO2 ABG O2 Saturation ABG Base Excess ABG Hemoglobin ABG Carboxyhemoglobin POC ABG HHb (Measured) ABG Methemoglobin Tre Test ABG Potassium A-a O2 Difference Respiratory Index Hgb O2 Saturation Sodium 135 Chloride 101 Glucose Lactate Vent Mode Mechanical Rate FiO2 Tidal Volume PEEP Potassium 5.4 H Carbon Dioxide 23 Anion Gap 17 BUN 29 H Creatinine 1.3 Est GFR ( Amer) > 60 Est GFR (Non-Af Amer) 54 POC Glucose (mg/dL) 90 Random Glucose 133 H Calcium 7.7 L Phosphorus Magnesium Total Bilirubin 0.7 Direct Bilirubin AST 22 ALT 29 Alkaline Phosphatase 45 Total Protein 6.7 Albumin 3.3 L Globulin 3.3 Albumin/Globulin Ratio 1.0 Arterial Blood Potassium Urine Color Urine Clarity Urine pH Ur Specific [place] Urine Protein Urine Glucose (UA) Urine Ketones Urine Blood Urine Nitrate Urine Bilirubin Urine Urobilinogen Ur Leukocyte Esterase Urine WBC (Auto) Urine RBC (Auto) Urine Bacteria Ur Yeast w [place] Urine Opiates Screen Urine Methadone Screen Ur Barbiturates Screen Ur Phencyclidine Scrn Ur Amphetamines Screen U Benzodiazepines Scrn U Oth Cocaine Metabols U Cannabinoids Screen 09/26/17 09/26/17 09/26/17 04:45 05:31 06:30 WBC 5.4 RBC 2.93 L Hgb 8.6 L Hct 25.7 L MCV 87.8 MCH 29.4 MCHC 33.5 RDW 14.2 Plt Count 199 MPV 8.7 Neut % (Auto) 73.8 Lymph % (Auto) 15.0 L [place] % (Auto) 11.0 H Eos % (Auto) 0.1 Baso % (Auto) 0.1 Neut # (Auto) 4.0 Lymph # (Auto) 0.8 L [place] # (Auto) 0.6 Eos # (Auto) 0.0 Baso # (Auto) 0.0 Puncture Site Lb pCO2 39 pO2 82 HCO3 23.0 ABG pH 7.37 ABG Total CO2 23.7 ABG O2 Saturation 97.3 ABG Base Excess -2.5 L ABG Hemoglobin 8.9 L ABG Carboxyhemoglobin 1.3 POC ABG HHb (Measured) 2.7 ABG Methemoglobin 0.5 Tre Test Na ABG Potassium A-a O2 Difference 440.0 Respiratory Index 5.4 Hgb O2 Saturation 95.5 Sodium Chloride Glucose Lactate Vent Mode Prvc Mechanical Rate 20 FiO2 80.0 Tidal Volume 400 PEEP 5 Potassium Carbon Dioxide Anion Gap BUN Creatinine Est GFR ( Amer) Est GFR (Non-Af Amer) POC Glucose (mg/dL) 122 H Random Glucose Calcium Phosphorus Magnesium Total Bilirubin Direct Bilirubin AST ALT Alkaline Phosphatase Total Protein Albumin Globulin Albumin/Globulin Ratio Arterial Blood Potassium Urine Color Urine Clarity Urine pH Ur Specific [place] Urine Protein Urine Glucose (UA) Urine Ketones Urine Blood Urine Nitrate Urine Bilirubin Urine Urobilinogen Ur Leukocyte Esterase Urine WBC (Auto) Urine RBC (Auto) Urine Bacteria Ur Yeast w [place] Urine Opiates Screen Urine Methadone Screen Ur Barbiturates Screen Ur Phencyclidine Scrn Ur Amphetamines Screen U Benzodiazepines Scrn U Oth Cocaine Metabols U Cannabinoids Screen 09/26/17 09/26/17 09/26/17 06:31 12:25 17:42 WBC RBC Hgb Hct MCV MCH MCHC RDW Plt Count MPV Neut % (Auto) Lymph % (Auto) [place] % (Auto) Eos % (Auto) Baso % (Auto) Neut # (Auto) Lymph # (Auto) [place] # (Auto) Eos # (Auto) Baso # (Auto) Puncture Site pCO2 pO2 HCO3 ABG pH ABG Total CO2 ABG O2 Saturation ABG Base Excess ABG Hemoglobin ABG Carboxyhemoglobin POC ABG HHb (Measured) ABG Methemoglobin Tre Test ABG Potassium A-a O2 Difference Respiratory Index Hgb O2 Saturation Sodium 134 Chloride 102 Glucose Lactate Vent Mode Mechanical Rate FiO2 Tidal Volume PEEP Potassium 4.3 Carbon Dioxide 23 Anion Gap 13 BUN 34 H Creatinine 1.7 H Est GFR ( Amer) 48 Est GFR (Non-Af Amer) 40 POC Glucose (mg/dL) 145 H 133 H Random Glucose 115 H Calcium 8.0 L Phosphorus 2.2 L Magnesium 1.9 Total Bilirubin 0.5 Direct Bilirubin 0.5 H AST 22 ALT 25 Alkaline Phosphatase 40 Total Protein 5.5 L Albumin 2.9 L Globulin 2.6 Albumin/Globulin Ratio 1.1 Arterial Blood Potassium Urine Color Urine Clarity Urine pH Ur Specific [place] Urine Protein Urine Glucose (UA) Urine Ketones Urine Blood Urine Nitrate Urine Bilirubin Urine Urobilinogen Ur Leukocyte Esterase Urine WBC (Auto) Urine RBC (Auto) Urine Bacteria Ur Yeast w [place] Urine Opiates Screen Urine Methadone Screen Ur Barbiturates Screen Ur Phencyclidine Scrn Ur Amphetamines Screen U Benzodiazepines Scrn U Oth Cocaine Metabols U Cannabinoids Screen Critical Care Progress Note - Nutrition Nutrition: Nutrition Category Date Time Status NPO Diet [DIET] Diets 09/25/17 Breakfast Active Attending/Attestation - Attestation I have personally seen and examined this patient.: Yes I have fully participated in the care of the patient.: Yes I have reviewed all pertinent clinical information: Yes Notes (Text): 09/26/17 18:21 Patient is currently on ventilator. Currently on FiO2 of 50%. Saturating well. Chest x-ray showing improvement in infiltration. Continue the IV hydration, renal follow-up. Real-time CPAP trial in the morning, IV hydration. Antibiotic P We'll follow the patient
[2017-09-26] MEDS ORDERED: Influenza Vaccine 60 mcg/0.5 mL SYR (4YR UP) IM ONE (14:37)
[2017-09-26] MEDS ORDERED: Pneumococcal 23-Valent Vaccine IM ONE (16:00)
[2017-09-26] MEDS ORDERED: Albumin Human 25% (12.5 gm/50 ml) IV ONE (18:45)
--- NOTE | 2017-09-26 23:11 | CP.PCM.CON ---
History of Present Illness - History of Present Illness History of Present Illness: 71 Male admiited for syncope Check ECHO, EKG and Carotids Patient is a 71 y/o male who presents to the ED with brother s/p syncopal episode with brief shaking at the store. Syncopal episode occurred without tonic -clonic seizure. In triage, patient was bradycardic, near-syncopal, prostrate, with brief shaking. Patient has a Hx of being admitted from 09/16 - 09/[address] 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 Patient was prescribed anticoagulants and was cleared by neurology. Patient also had a recent stress test that was negative. Hx of CABG in [place], unknown number of vessels. Patient is not compliant with medication due to many medications and is out of town. No other physical complaints at this time. Review Of Systems Neurological: Positive for: Other (syncopal episode). Negative for: Seizures ( negative tonic-clonic ) Physical Exam - Physical Exam Intubated Skin: Normal Color, Warm, Dry Head: Atraumatic, Normacephalic Eye(s): bilateral: Normal Inspection, PERRL, EOMI Oral Mucosa: Moist Chest: Symmetrical, Other (midline sternotomy scar) Cardiovascular: Rhythm Regular, No Murmur, No JVD Respiratory: Normal Breath Sounds, No Rales, No Rhonchi, No Wheezing Extremity: No Pedal Edema, No Swelling Past Patient History - Infectious Disease Hx of Infectious Diseases: None - Past Medical History & Family History Past Medical History?: Yes - Past Social History Smoking Status: unable to - CARDIAC Hx Cardiac Disorders: Yes Hx Hypertension: Yes - PULMONARY Hx Respiratory Disorders: No - NEUROLOGICAL Hx Neurological Disorder: Yes HX Cerebrovascular Accident: Yes (thalamic infarct) - HEENT Hx HEENT Problems: No - RENAL Hx Chronic Kidney Disease: No - ENDOCRINE/METABOLIC Hx Endocrine Disorders: Yes Hx Diabetes Mellitus Type 1: Yes - HEMATOLOGICAL/ONCOLOGICAL Hx Blood Disorders: No - INTEGUMENTARY Hx Dermatological Problems: No - MUSCULOSKELETAL/RHEUMATOLOGICAL Hx Falls: Yes - GASTROINTESTINAL Hx Gastrointestinal Disorders: No - GENITOURINARY/GYNECOLOGICAL Hx Genitourinary Disorders: No - PSYCHIATRIC Hx Psychophysiologic Disorder: No Hx Substance Use: No - SURGICAL HISTORY Hx Surgeries: Yes Hx Coronary Artery Bypass Graft: Yes (2003) - ANESTHESIA Hx Anesthesia: Yes Hx Anesthesia Reactions: No Hx Malignant Hyperthermia: No Meds Allergies/Adverse Reactions: Allergies Allergy/AdvReac Type Severity Reaction Status Date / Time No Known Allergies Allergy Verified 09/16/17 15:16 - Medications Medications: Current Medications Albuterol/Ipratropium (Duoneb 3 Mg/0.5 Mg (3 Ml) Ud) 3 ml INH RQ6 [facility] Last Admin: 09/26/17 20:38 Dose: 3 ml Aspirin (Aspirin) 325 mg PO DAILY [facility] Last Admin: 09/26/17 09:46 Dose: 325 mg Clopidogrel Bisulfate (Plavix) 75 mg PO DAILY [facility] Last Admin: 09/26/17 09:46 Dose: 75 mg Enoxaparin Sodium (Lovenox) 40 mg SC DAILY [facility] Last Admin: 09/26/17 09:47 Dose: 40 mg Propofol (Diprivan) 1,000 mg in 100 mls @ 2.041 mls/hr IV .Q24H PRN; Protocol; 5 MCG/KG/MIN PRN Reason: TITRATE PER MD ORDER Last Titration: 09/26/17 18:30 Dose: 31.84 mcg/kg/min, 13 mls/hr Piperacillin Sod/Tazobactam (Sod 2.25 gm/ Sodium Chloride) 100 mls @ 100 mls/ hr IV Q6H [facility] Last Admin: 09/26/17 18:02 Dose: 100 mls/hr Sodium Chloride (Sodium Chloride 0.9%) 1,000 mls @ 75 mls/hr IV .[id number] [facility] Last Admin: 09/26/17 10:57 Dose: 75 mls/hr Insulin Human Regular (Novolin R) 0 unit SC Q6 [facility] PRN Reason: Protocol Last Admin: 09/26/17 18:00 Dose: Not Given Lorazepam (Ativan) 2 mg IVP Q6H PRN PRN Reason: Anxiety Last Admin: 09/26/17 15:06 Dose: 2 mg Pantoprazole Sodium (Protonix Inj) 40 mg IVP DAILY [facility] Last Admin: 09/26/17 09:46 Dose: 40 mg Results - Vital Signs Recent Vital Signs: Last Vital Signs Temp 97.6 F 09/26/17 16:00 Pulse 76 09/26/17 04:00 Resp 18 09/26/17 04:00 BP 94/43 L 09/26/17 04:00 Pulse Ox 99 09/26/17 16:00 - Labs Result Diagrams: 09/29/17 18:00 09/29/17 06:28 Labs: Laboratory Results - last 24 hr 09/26/17 09/26/17 09/26/17 00:01 04:45 05:31 WBC RBC Hgb Hct MCV MCH MCHC RDW Plt Count MPV Neut % (Auto) Lymph % (Auto) [place] % (Auto) Eos % (Auto) Baso % (Auto) Neut # (Auto) Lymph # (Auto) [place] # (Auto) Eos # (Auto) Baso # (Auto) Puncture Site Lb pCO2 39 pO2 82 HCO3 23.0 ABG pH 7.37 ABG Total CO2 23.7 ABG O2 Saturation 97.3 ABG Base Excess -2.5 L ABG Hemoglobin 8.9 L ABG Carboxyhemoglobin 1.3 POC ABG HHb (Measured) 2.7 ABG Methemoglobin 0.5 Tre Test Na A-a O2 Difference 440.0 Respiratory Index 5.4 Hgb O2 Saturation 95.5 Vent Mode Prvc Mechanical Rate 20 FiO2 80.0 Tidal Volume 400 PEEP 5 Sodium Potassium Chloride Carbon Dioxide Anion Gap BUN Creatinine Est GFR ( Amer) Est GFR (Non-Af Amer) POC Glucose (mg/dL) 90 122 H Random Glucose Calcium Phosphorus Magnesium Total Bilirubin Direct Bilirubin AST ALT Alkaline Phosphatase Total Protein Albumin Globulin Albumin/Globulin Ratio 09/26/17 09/26/17 09/26/17 06:30 06:31 12:25 WBC 5.4 RBC 2.93 L Hgb 8.6 L Hct 25.7 L MCV 87.8 MCH 29.4 MCHC 33.5 RDW 14.2 Plt Count 199 MPV 8.7 Neut % (Auto) 73.8 Lymph % (Auto) 15.0 L [place] % (Auto) 11.0 H Eos % (Auto) 0.1 Baso % (Auto) 0.1 Neut # (Auto) 4.0 Lymph # (Auto) 0.8 L [place] # (Auto) 0.6 Eos # (Auto) 0.0 Baso # (Auto) 0.0 Puncture Site pCO2 pO2 HCO3 ABG pH ABG Total CO2 ABG O2 Saturation ABG Base Excess ABG Hemoglobin ABG Carboxyhemoglobin POC ABG HHb (Measured) ABG Methemoglobin Tre Test A-a O2 Difference Respiratory Index Hgb O2 Saturation Vent Mode Mechanical Rate FiO2 Tidal Volume PEEP Sodium 134 Potassium 4.3 Chloride 102 Carbon Dioxide 23 Anion Gap 13 BUN 34 H Creatinine 1.7 H Est GFR ( Amer) 48 Est GFR (Non-Af Amer) 40 POC Glucose (mg/dL) 145 H Random Glucose 115 H Calcium 8.0 L Phosphorus 2.2 L Magnesium 1.9 Total Bilirubin 0.5 Direct Bilirubin 0.5 H AST 22 ALT 25 Alkaline Phosphatase 40 Total Protein 5.5 L Albumin 2.9 L Globulin 2.6 Albumin/Globulin Ratio 1.1 09/26/17 17:42 WBC RBC Hgb Hct MCV MCH MCHC RDW Plt Count MPV Neut % (Auto) Lymph % (Auto) [place] % (Auto) Eos % (Auto) Baso % (Auto) Neut # (Auto) Lymph # (Auto) [place] # (Auto) Eos # (Auto) Baso # (Auto) Puncture Site pCO2 pO2 HCO3 ABG pH ABG Total CO2 ABG O2 Saturation ABG Base Excess ABG Hemoglobin ABG Carboxyhemoglobin POC ABG HHb (Measured) ABG Methemoglobin Tre Test A-a O2 Difference Respiratory Index Hgb O2 Saturation Vent Mode Mechanical Rate FiO2 Tidal Volume PEEP Sodium Potassium Chloride Carbon Dioxide Anion Gap BUN Creatinine Est GFR ( Amer) Est GFR (Non-Af Amer) POC Glucose (mg/dL) 133 H Random Glucose Calcium Phosphorus Magnesium Total Bilirubin Direct Bilirubin AST ALT Alkaline Phosphatase Total Protein Albumin Globulin Albumin/Globulin Ratio Assessment & Plan - Assessment and Plan (Free Text) Assessment: 1. Pneumonia 2. Diastolic CHF 3. HTN 4. Respiratory failure Antibiotics Lasix as needed Ventilator support
[2017-09-27] MEDS: (Novolin R) Insulin Human Regular 100 units/ml vial SC SCH ×4 (00:16→18:02)
[2017-09-27] MEDS: Sodium Chloride 0.9% 1,000 ML IV SCH (00:17)
[2017-09-27] MEDS: Propofol 10 mg/ml 1,000 MG/100 ML VIAL IV PRN ×3 (00:17→21:10)
[2017-09-27] MEDS: Albuterol-Ipratrop 3 mg / 0.5 (3 ml) UD INH SCH ×4 (03:07→19:15)
[2017-09-27 05:51] LABS: ARTERIAL BLOOD GAS HCO3 23.2 mmol/L (21-28); ARTERIAL BLOOD GAS PCO2 32 mm/Hg (35-45); ARTERIAL BLOOD GAS PH 7.43 (7.35-7.45); ARTERIAL BLOOD GAS PO2 123 mm/Hg (80-100); ARTERIAL BLOOD GAS TCO2 22.2 mmol/L (22-28)
[2017-09-27 06:35] LABS: BASO % 0.2 % (0.0-2.0); EOS # 0.2 K/uL (0.0-0.7); EOS % 2.1 % (0.0-4.0); HEMOGLOBIN 8.3 g/dL (12.0-18.0); LYMPH # 1.3 K/uL (1.0-4.3); LYMPH % 13.8 % (20.0-40.0); MEAN CELL VOLUME 87.5 fL (80.0-94.0); MEAN CORPUSCULAR HGB CONC 34.3 g/dL (33.0-37.0); MEAN PLATELET VOLUME 9.1 fL (7.2-11.7); MONO # 0.6 K/uL (0.0-0.8); MONO % 6.6 % (0.0-10.0); NEUT % 77.3 % (50.0-75.0); RBC 2.75 Mil/uL (4.40-5.90); RED CELL DISTRIBUTION WIDTH 14.7 % (11.5-14.5); WHITE BLOOD COUNT 9.1 K/uL (4.8-10.8)
[2017-09-27 06:53] LABS: ALBUMIN 2.8 g/dL (3.5-5.0); CALCIUM 7.6 mg/dl (8.6-10.4)
--- NOTE | 2017-09-27 08:44 | RAD ---
HISTORY: SOB COMPARISON: 09/26/2017 FINDINGS: Endotracheal tube terminates 3.5 cm proximal to the gian. The nasogastric tube terminates in the stomach. LUNGS: There is redemonstration of multifocal airspace disease in the right lung and left lower lobe. PLEURA: Small right pleural effusion, no pneumothorax apparent. CARDIOVASCULAR: Normal. OSSEOUS STRUCTURES: No significant abnormalities. VISUALIZED UPPER ABDOMEN: Normal. OTHER FINDINGS: None. IMPRESSION: Stable position of endotracheal and nasogastric tubes. No change in multifocal right lower lobe consolidation and airspace disease in the left lower lobe.
[2017-09-27] MEDS: Enoxaparin 40 mg Syringe SC SCH (09:34)
[2017-09-27] MEDS ORDERED: guaiFENesin-Codeine 100-10mg/5ml Syrup (10ml) UD PO PRN (12:29)
--- NOTE | 2017-09-27 13:05 | CP.CCUPN ---
<Aleksey Waterman - Last Filed: 09/27/17 13:02> CCU Subjective - Physician Review Subjective (Free Text): 09/26/17 11:33 Patient seen and examined at bedside intubated, sedated Tube feeds to be started cardio consult for rowan 09/27/17 13:02 Patient seen and examined at bedside CPAP trial today, tolerated for 3.5 hours CCU Objective - Vital Signs / Intake & Output Vital Signs (Last 4 hours): Vital Signs Pulse Resp BP Pulse Ox 09/27/17 11:15 100 H 21 127/64 98 09/27/17 10:15 104 H 34 H 156/71 H 99 09/27/17 09:23 108 H 10 L 150/69 97 Intake and Output (Last 8hrs): Intake & Output 09/26/17 09/27/17 09/27/17 22:59 06:59 14:59 Intake Total 1051.4 1072 352.6 Output Total 340 450 430 Balance 711.4 622 -77.4 Weight 136 lb 1.6 oz Intake: IV 40 168 22 Intake, IV Amount 791.4 704 180.6 Right Antecubital 100 Right Wrist 91.4 104 30.6 rt.AC side poirt 600 600 150 Tube Feeding 160 200 150 Other 60 Output: Urine 340 450 430 Urethral (Switf) 340 450 430 Stool 0 Other: # Bowel Movements 0 0 0 - Physical Exam Head: Positive for: Atraumatic, Normocephalic Mouth: Positive for: Moist Mucous Membranes Nose (Internal): Positive for: No Active Bleeding Neck: Negative for: Meningeal Signs, MIDLINE TENDERNESS Respiratory/Chest: Positive for: Good Air Exchange, Other (intubated). Negative for: Accessory Muscle Use Cardiovascular: Positive for: Regular Rate and Rhythm Abdomen: Positive for: Normal Bowel Sounds. Negative for: Tenderness, Distention, Peritoneal Signs - Medications Active Medications: Active Medications Generic Name Dose Route Start Last Admin Trade Name Freq PRN Reason Stop Dose Admin Albuterol/Ipratropium 3 ml 09/25/17 20:00 09/27/17 08:01 Duoneb 3 Mg/0.5 Mg (3 Ml) Ud INH 3 ml RQ6 [facility] Administration Aspirin 325 mg 09/26/17 10:00 09/27/17 09:34 Aspirin PO 325 mg DAILY [facility] Administration Clopidogrel Bisulfate 75 mg 09/26/17 10:00 09/27/17 09:34 Plavix PO 75 mg DAILY [facility] Administration Docusate Sodium 100 mg 09/27/17 14:00 Colace PO TID [facility] Enoxaparin Sodium 40 mg 09/26/17 10:00 09/27/17 09:34 Lovenox SC 40 mg DAILY [facility] Administration Guaifenesin/Codeine Phosphate 10 ml 09/27/17 18:00 Guaifenesin/Codeine PO Q6 [facility] Propofol 1,000 mg in 100 mls @ 2.041 mls/hr 09/25/17 19:01 09/27/17 08:09 Diprivan IV 10.77 mcg/kg/min .Q24H PRN 4.4 mls/hr TITRATE PER MD ORDER Titration Protocol 5 MCG/KG/MIN Piperacillin Sod/Tazobactam 100 mls @ 100 mls/hr 09/26/17 07:00 09/27/17 05: 59 Sod 2.25 gm/ Sodium Chloride IV 100 mls/hr Q6H [facility] Administration Potassium Chloride 20 meq in 100 mls @ 50 mls/hr 09/27/17 13:00 Potassium Chloride 20 Meq/100 Ml IVPB 09/27/17 16:59 Q2H [facility] Insulin Human Regular 0 unit 09/26/17 00:00 09/27/17 05:58 Novolin R SC Not Given Q6 [facility] Protocol Lorazepam 2 mg 09/25/17 19:19 09/26/17 15:06 Ativan IVP 2 mg Q6H PRN Administration Anxiety Pantoprazole Sodium 40 mg 09/26/17 10:00 09/27/17 09:33 Protonix Inj IVP 40 mg DAILY [facility] Administration - Patient Studies Lab Studies: Microbiology Studies 09/25/17 18:10 Blood Culture - Preliminary Blood-Venous NO GROWTH AFTER 24 HOURS 09/25/17 18:10 Blood Culture - Preliminary Blood-Venous NO GROWTH AFTER 24 HOURS Lab Studies 09/27/17 09/27/17 09/27/17 Range/Units 11:41 06:22 06:21 WBC 9.1 D (4.8-10.8) K/uL RBC 2.75 L (4.40-5.90) Mil/uL Hgb 8.3 L (12.0-18.0) g/dL Hct 24.1 L (35.0-51.0) % MCV 87.5 (80.0-94.0) fL MCH 30.0 (27.0-31.0) pg MCHC 34.3 (33.0-37.0) g/dL RDW 14.7 H (11.5-14.5) % Plt Count 187 (130-400) K/uL MPV 9.1 (7.2-11.7) fL Neut % (Auto) 77.3 H (50.0-75.0) % Lymph % (Auto) 13.8 L (20.0-40.0) % Weber % (Auto) 6.6 (0.0-10.0) % Eos % (Auto) 2.1 (0.0-4.0) % Baso % (Auto) 0.2 (0.0-2.0) % Neut # (Auto) 7.0 (1.8-7.0) K/uL Lymph # (Auto) 1.3 (1.0-4.3) K/uL Weber # (Auto) 0.6 (0.0-0.8) K/uL Eos # (Auto) 0.2 (0.0-0.7) K/uL Baso # (Auto) 0.0 (0.0-0.2) K/uL Puncture Site pCO2 (35-45) mm/Hg pO2 (80-100) mm/Hg HCO3 (21-28) mmol/L ABG pH (7.35-7.45) ABG Total CO2 (22-28) mmol/L ABG O2 Saturation (95-98) % ABG Base Excess (-2.0-3.0) mmol/L Tre Test ABG Potassium (3.6-5.2) mmol/L A-a O2 Difference mm/Hg Respiratory Index Sodium 140 (132-148) mmol/l Chloride 107 (98-107) mmol/L Glucose (75-110) mg/dl Lactate (0.7-2.1) mmol/L Vent Mode Mechanical Rate FiO2 % Tidal Volume PEEP Potassium 3.5 L (3.6-5.2) mmol/L Carbon Dioxide 22 (22-30) mmol/L Anion Gap 15 (10-20) BUN 36 H (9-20) mg/dL Creatinine 1.6 H (0.8-1.5) mg/dL Est GFR ( Amer) 52 Est GFR (Non-Af Amer) 43 POC Glucose (mg/dL) 166 H (65-110) mg/dL Random Glucose 130 H (75-110) mg/dL Calcium 7.6 L (8.6-10.4) mg/dl Phosphorus 3.3 (2.5-4.5) mg/dL Magnesium 2.0 (1.6-2.3) mg/dL Total Bilirubin 0.5 (0.2-1.3) mg/dL AST 27 (17-59) U/L ALT 27 (21-72) U/L Alkaline Phosphatase 33 L (38-126) U/L Total Protein 5.7 L (6.3-8.3) g/dL Albumin 2.8 L (3.5-5.0) g/dL Globulin 2.8 (2.2-3.9) gm/dL Albumin/Globulin Ratio 1.0 (1.0-2.1) Arterial Blood Potassium (3.6-5.2) mmol/L 09/27/17 09/27/17 09/27/17 Range/Units 05:51 05:22 00:14 WBC (4.8-10.8) K/uL RBC (4.40-5.90) Mil/uL Hgb (12.0-18.0) g/dL Hct (35.0-51.0) % MCV (80.0-94.0) fL MCH (27.0-31.0) pg MCHC (33.0-37.0) g/dL RDW (11.5-14.5) % Plt Count (130-400) K/uL MPV (7.2-11.7) fL Neut % (Auto) (50.0-75.0) % Lymph % (Auto) (20.0-40.0) % Weber % (Auto) (0.0-10.0) % Eos % (Auto) (0.0-4.0) % Baso % (Auto) (0.0-2.0) % Neut # (Auto) (1.8-7.0) K/uL Lymph # (Auto) (1.0-4.3) K/uL Weber # (Auto) (0.0-0.8) K/uL Eos # (Auto) (0.0-0.7) K/uL Baso # (Auto) (0.0-0.2) K/uL Puncture Site Lb pCO2 32 L (35-45) mm/Hg pO2 123 H (80-100) mm/Hg HCO3 23.2 (21-28) mmol/L ABG pH 7.43 (7.35-7.45) ABG Total CO2 22.2 (22-28) mmol/L ABG O2 Saturation 98.0 (95-98) % ABG Base Excess -2.3 L (-2.0-3.0) mmol/L Tre Test Na ABG Potassium 3.4 L (3.6-5.2) mmol/L A-a O2 Difference 194.0 mm/Hg Respiratory Index 1.6 Sodium 139.0 (132-148) mmol/l Chloride 110.0 H (98-107) mmol/L Glucose 147 H (75-110) mg/dl Lactate 0.8 (0.7-2.1) mmol/L Vent Mode Prvc Mechanical Rate 20 FiO2 50.0 % Tidal Volume 450 PEEP 5 Potassium (3.6-5.2) mmol/L Carbon Dioxide (22-30) mmol/L Anion Gap (10-20) BUN (9-20) mg/dL Creatinine (0.8-1.5) mg/dL Est GFR ( Amer) Est GFR (Non-Af Amer) POC Glucose (mg/dL) 91 125 H (65-110) mg/dL Random Glucose (75-110) mg/dL Calcium (8.6-10.4) mg/dl Phosphorus (2.5-4.5) mg/dL Magnesium (1.6-2.3) mg/dL Total Bilirubin (0.2-1.3) mg/dL AST (17-59) U/L ALT (21-72) U/L Alkaline Phosphatase (38-126) U/L Total Protein (6.3-8.3) g/dL Albumin (3.5-5.0) g/dL Globulin (2.2-3.9) gm/dL Albumin/Globulin Ratio (1.0-2.1) Arterial Blood Potassium 3.4 L (3.6-5.2) mmol/L 09/26/17 Range/Units 17:42 WBC (4.8-10.8) K/uL RBC (4.40-5.90) Mil/uL Hgb (12.0-18.0) g/dL Hct (35.0-51.0) % MCV (80.0-94.0) fL MCH (27.0-31.0) pg MCHC (33.0-37.0) g/dL RDW (11.5-14.5) % Plt Count (130-400) K/uL MPV (7.2-11.7) fL Neut % (Auto) (50.0-75.0) % Lymph % (Auto) (20.0-40.0) % Weber % (Auto) (0.0-10.0) % Eos % (Auto) (0.0-4.0) % Baso % (Auto) (0.0-2.0) % Neut # (Auto) (1.8-7.0) K/uL Lymph # (Auto) (1.0-4.3) K/uL Weber # (Auto) (0.0-0.8) K/uL Eos # (Auto) (0.0-0.7) K/uL Baso # (Auto) (0.0-0.2) K/uL Puncture Site pCO2 (35-45) mm/Hg pO2 (80-100) mm/Hg HCO3 (21-28) mmol/L ABG pH (7.35-7.45) ABG Total CO2 (22-28) mmol/L ABG O2 Saturation (95-98) % ABG Base Excess (-2.0-3.0) mmol/L Tre Test ABG Potassium (3.6-5.2) mmol/L A-a O2 Difference mm/Hg Respiratory Index Sodium (132-148) mmol/l Chloride (98-107) mmol/L Glucose (75-110) mg/dl Lactate (0.7-2.1) mmol/L Vent Mode Mechanical Rate FiO2 % Tidal Volume PEEP Potassium (3.6-5.2) mmol/L Carbon Dioxide (22-30) mmol/L Anion Gap (10-20) BUN (9-20) mg/dL Creatinine (0.8-1.5) mg/dL Est GFR ( Amer) Est GFR (Non-Af Amer) POC Glucose (mg/dL) 133 H (65-110) mg/dL Random Glucose (75-110) mg/dL Calcium (8.6-10.4) mg/dl Phosphorus (2.5-4.5) mg/dL Magnesium (1.6-2.3) mg/dL Total Bilirubin (0.2-1.3) mg/dL AST (17-59) U/L ALT (21-72) U/L Alkaline Phosphatase (38-126) U/L Total Protein (6.3-8.3) g/dL Albumin (3.5-5.0) g/dL Globulin (2.2-3.9) gm/dL Albumin/Globulin Ratio (1.0-2.1) Arterial Blood Potassium (3.6-5.2) mmol/L Laboratory Results - last 24 hr 09/26/17 09/27/17 09/27/17 17:42 00:14 05:22 WBC RBC Hgb Hct MCV MCH MCHC RDW Plt Count MPV Neut % (Auto) Lymph % (Auto) Weber % (Auto) Eos % (Auto) Baso % (Auto) Neut # (Auto) Lymph # (Auto) Weber # (Auto) Eos # (Auto) Baso # (Auto) Puncture Site Lb pCO2 32 L pO2 123 H HCO3 23.2 ABG pH 7.43 ABG Total CO2 22.2 ABG O2 Saturation 98.0 ABG Base Excess -2.3 L Tre Test Na ABG Potassium 3.4 L A-a O2 Difference 194.0 Respiratory Index 1.6 Sodium 139.0 Chloride 110.0 H Glucose 147 H Lactate 0.8 Vent Mode Prvc Mechanical Rate 20 FiO2 50.0 Tidal Volume 450 PEEP 5 Potassium Carbon Dioxide Anion Gap BUN Creatinine Est GFR ( Amer) Est GFR (Non-Af Amer) POC Glucose (mg/dL) 133 H 125 H Random Glucose Calcium Phosphorus Magnesium Total Bilirubin AST ALT Alkaline Phosphatase Total Protein Albumin Globulin Albumin/Globulin Ratio Arterial Blood Potassium 3.4 L 09/27/17 09/27/17 09/27/17 05:51 06:21 06:22 WBC 9.1 D RBC 2.75 L Hgb 8.3 L Hct 24.1 L MCV 87.5 MCH 30.0 MCHC 34.3 RDW 14.7 H Plt Count 187 MPV 9.1 Neut % (Auto) 77.3 H Lymph % (Auto) 13.8 L Weber % (Auto) 6.6 Eos % (Auto) 2.1 Baso % (Auto) 0.2 Neut # (Auto) 7.0 Lymph # (Auto) 1.3 Weber # (Auto) 0.6 Eos # (Auto) 0.2 Baso # (Auto) 0.0 Puncture Site pCO2 pO2 HCO3 ABG pH ABG Total CO2 ABG O2 Saturation ABG Base Excess Tre Test ABG Potassium A-a O2 Difference Respiratory Index Sodium 140 Chloride 107 Glucose Lactate Vent Mode Mechanical Rate FiO2 Tidal Volume PEEP Potassium 3.5 L Carbon Dioxide 22 Anion Gap 15 BUN 36 H Creatinine 1.6 H Est GFR ( Amer) 52 Est GFR (Non-Af Amer) 43 POC Glucose (mg/dL) 91 Random Glucose 130 H Calcium 7.6 L Phosphorus 3.3 Magnesium 2.0 Total Bilirubin 0.5 AST 27 ALT 27 Alkaline Phosphatase 33 L Total Protein 5.7 L Albumin 2.8 L Globulin 2.8 Albumin/Globulin Ratio 1.0 Arterial Blood Potassium 09/27/17 11:41 WBC RBC Hgb Hct MCV MCH MCHC RDW Plt Count MPV Neut % (Auto) Lymph % (Auto) Weber % (Auto) Eos % (Auto) Baso % (Auto) Neut # (Auto) Lymph # (Auto) Weber # (Auto) Eos # (Auto) Baso # (Auto) Puncture Site pCO2 pO2 HCO3 ABG pH ABG Total CO2 ABG O2 Saturation ABG Base Excess Tre Test ABG Potassium A-a O2 Difference Respiratory Index Sodium Chloride Glucose Lactate Vent Mode Mechanical Rate FiO2 Tidal Volume PEEP Potassium Carbon Dioxide Anion Gap BUN Creatinine Est GFR ( Amer) Est GFR (Non-Af Amer) POC Glucose (mg/dL) 166 H Random Glucose Calcium Phosphorus Magnesium Total Bilirubin AST ALT Alkaline Phosphatase Total Protein Albumin Globulin Albumin/Globulin Ratio Arterial Blood Potassium Fingerstick Blood Sugar Results: 91 Critical Care Progress Note - Nutrition Nutrition: Nutrition Category Date Time Status NPO Diet [DIET] Diets 09/25/17 Breakfast Active Assessment/Plan - Assessment and Plan (Free Text) Assessment: 71M Aspiration Pneumonia, Bradycardia with episodes of syncope Plan: Neuro: decreased propofol in preperation for CPAP Cardio: bradycardia initially, syncope, Dr. Manzo on consult. Carotid US, echo Pulm: Aspiration pneumonia, Intubated, Zosyn renally adjusted, d/c vanco due to Cr climbing Renal: Cr decreasing now from 1.7-1.6. Zosyn renally adjusted, d/c vanco GI: No acute issues. Cont tube feeds Endo: accuchecks, ISS PPX: Protonix/lovenox <Charan Rao - Last Filed: 09/27/17 17:49> CCU Objective - Vital Signs / Intake & Output Vital Signs (Last 4 hours): Vital Signs Temp Pulse Resp BP Pulse Ox 09/27/17 16:14 83 0 L 120/58 L 100 09/27/17 15:14 83 16 127/65 100 09/27/17 14:14 86 117/57 L 100 09/27/17 14:00 99.0 F 100 Intake and Output (Last 8hrs): Intake & Output 09/27/17 09/27/17 09/27/17 06:59 14:59 22:59 Intake Total 1072 599.2 201.2 Output Total 450 655 225 Balance 622 -55.8 -23.8 Weight 136 lb 1.6 oz Intake: IV 168 33 Intake, IV Amount 704 311.2 126.2 Right Wrist 104 61.2 26.2 rt.AC side poirt 600 250 100 Tube Feeding 200 255 75 Output: Urine 450 655 225 Urethral (Swift) 450 655 225 Other: # Bowel Movements 0 0 0 - Medications Active Medications: Active Medications Generic Name Dose Route Start Last Admin Trade Name Freq PRN Reason Stop Dose Admin Albuterol/Ipratropium 3 ml 09/25/17 20:00 09/27/17 13:17 Duoneb 3 Mg/0.5 Mg (3 Ml) Ud INH 3 ml RQ6 [facility] Administration Aspirin 325 mg 09/26/17 10:00 09/27/17 09:34 Aspirin PO 325 mg DAILY [facility] Administration Clopidogrel Bisulfate 75 mg 09/26/17 10:00 09/27/17 09:34 Plavix PO 75 mg DAILY [facility] Administration Docusate Sodium 100 mg 09/27/17 14:00 09/27/17 13:24 Colace PO 100 mg TID [facility] Administration Enoxaparin Sodium 40 mg 09/26/17 10:00 09/27/17 09:34 Lovenox SC 40 mg DAILY [facility] Administration Guaifenesin 200 mg 09/27/17 18:00 Robitussin PO Q6 [facility] Propofol 1,000 mg in 100 mls @ 2.041 mls/hr 09/25/17 19:01 09/27/17 13:25 Diprivan IV 30 mcg/kg/min .Q24H PRN 12.247 mls/hr TITRATE PER MD ORDER Titration Protocol 5 MCG/KG/MIN Piperacillin Sod/Tazobactam 100 mls @ 100 mls/hr 09/26/17 07:00 09/27/17 13: 25 Sod 2.25 gm/ Sodium Chloride IV 100 mls/hr Q6H [facility] Administration Insulin Human Regular 0 unit 09/26/17 00:00 09/27/17 13:14 Novolin R SC 2 unit Q6 [facility] Administration Protocol Lorazepam 2 mg 09/25/17 19:19 09/26/17 15:06 Ativan IVP 2 mg Q6H PRN Administration Anxiety Pantoprazole Sodium 40 mg 09/26/17 10:00 09/27/17 09:33 Protonix Inj IVP 40 mg DAILY [facility] Administration - Patient Studies Lab Studies: Microbiology Studies 09/25/17 18:10 Blood Culture - Preliminary Blood-Venous NO GROWTH AFTER 24 HOURS 09/25/17 18:10 Blood Culture - Preliminary Blood-Venous NO GROWTH AFTER 24 HOURS Lab Studies 09/27/17 09/27/17 09/27/17 Range/Units 11:41 06:22 06:21 WBC 9.1 D (4.8-10.8) K/uL RBC 2.75 L (4.40-5.90) Mil/uL Hgb 8.3 L (12.0-18.0) g/dL Hct 24.1 L (35.0-51.0) % MCV 87.5 (80.0-94.0) fL MCH 30.0 (27.0-31.0) pg MCHC 34.3 (33.0-37.0) g/dL RDW 14.7 H (11.5-14.5) % Plt Count 187 (130-400) K/uL MPV 9.1 (7.2-11.7) fL Neut % (Auto) 77.3 H (50.0-75.0) % Lymph % (Auto) 13.8 L (20.0-40.0) % Weber % (Auto) 6.6 (0.0-10.0) % Eos % (Auto) 2.1 (0.0-4.0) % Baso % (Auto) 0.2 (0.0-2.0) % Neut # (Auto) 7.0 (1.8-7.0) K/uL Lymph # (Auto) 1.3 (1.0-4.3) K/uL Weber # (Auto) 0.6 (0.0-0.8) K/uL Eos # (Auto) 0.2 (0.0-0.7) K/uL Baso # (Auto) 0.0 (0.0-0.2) K/uL Puncture Site pCO2 (35-45) mm/Hg pO2 (80-100) mm/Hg HCO3 (21-28) mmol/L ABG pH (7.35-7.45) ABG Total CO2 (22-28) mmol/L ABG O2 Saturation (95-98) % ABG Base Excess (-2.0-3.0) mmol/L Tre Test ABG Potassium (3.6-5.2) mmol/L A-a O2 Difference mm/Hg Respiratory Index Sodium 140 (132-148) mmol/l Chloride 107 (98-107) mmol/L Glucose (75-110) mg/dl Lactate (0.7-2.1) mmol/L Vent Mode Mechanical Rate FiO2 % Tidal Volume PEEP Potassium 3.5 L (3.6-5.2) mmol/L Carbon Dioxide 22 (22-30) mmol/L Anion Gap 15 (10-20) BUN 36 H (9-20) mg/dL Creatinine 1.6 H (0.8-1.5) mg/dL Est GFR ( Amer) 52 Est GFR (Non-Af Amer) 43 POC Glucose (mg/dL) 166 H (65-110) mg/dL Random Glucose 130 H (75-110) mg/dL Calcium 7.6 L (8.6-10.4) mg/dl Phosphorus 3.3 (2.5-4.5) mg/dL Magnesium 2.0 (1.6-2.3) mg/dL Total Bilirubin 0.5 (0.2-1.3) mg/dL AST 27 (17-59) U/L ALT 27 (21-72) U/L Alkaline Phosphatase 33 L (38-126) U/L Total Protein 5.7 L (6.3-8.3) g/dL Albumin 2.8 L (3.5-5.0) g/dL Globulin 2.8 (2.2-3.9) gm/dL Albumin/Globulin Ratio 1.0 (1.0-2.1) Arterial Blood Potassium (3.6-5.2) mmol/L 09/27/17 09/27/17 09/27/17 Range/Units 05:51 05:22 00:14 WBC (4.8-10.8) K/uL RBC (4.40-5.90) Mil/uL Hgb (12.0-18.0) g/dL Hct (35.0-51.0) % MCV (80.0-94.0) fL MCH (27.0-31.0) pg MCHC (33.0-37.0) g/dL RDW (11.5-14.5) % Plt Count (130-400) K/uL MPV (7.2-11.7) fL Neut % (Auto) (50.0-75.0) % Lymph % (Auto) (20.0-40.0) % Weber % (Auto) (0.0-10.0) % Eos % (Auto) (0.0-4.0) % Baso % (Auto) (0.0-2.0) % Neut # (Auto) (1.8-7.0) K/uL Lymph # (Auto) (1.0-4.3) K/uL Weber # (Auto) (0.0-0.8) K/uL Eos # (Auto) (0.0-0.7) K/uL Baso # (Auto) (0.0-0.2) K/uL Puncture Site Lb pCO2 32 L (35-45) mm/Hg pO2 123 H (80-100) mm/Hg HCO3 23.2 (21-28) mmol/L ABG pH 7.43 (7.35-7.45) ABG Total CO2 22.2 (22-28) mmol/L ABG O2 Saturation 98.0 (95-98) % ABG Base Excess -2.3 L (-2.0-3.0) mmol/L Tre Test Na ABG Potassium 3.4 L (3.6-5.2) mmol/L A-a O2 Difference 194.0 mm/Hg Respiratory Index 1.6 Sodium 139.0 (132-148) mmol/l Chloride 110.0 H (98-107) mmol/L Glucose 147 H (75-110) mg/dl Lactate 0.8 (0.7-2.1) mmol/L Vent Mode Prvc Mechanical Rate 20 FiO2 50.0 % Tidal Volume 450 PEEP 5 Potassium (3.6-5.2) mmol/L Carbon Dioxide (22-30) mmol/L Anion Gap (10-20) BUN (9-20) mg/dL Creatinine (0.8-1.5) mg/dL Est GFR ( Amer) Est GFR (Non-Af Amer) POC Glucose (mg/dL) 91 125 H (65-110) mg/dL Random Glucose (75-110) mg/dL Calcium (8.6-10.4) mg/dl Phosphorus (2.5-4.5) mg/dL Magnesium (1.6-2.3) mg/dL Total Bilirubin (0.2-1.3) mg/dL AST (17-59) U/L ALT (21-72) U/L Alkaline Phosphatase (38-126) U/L Total Protein (6.3-8.3) g/dL Albumin (3.5-5.0) g/dL Globulin (2.2-3.9) gm/dL Albumin/Globulin Ratio (1.0-2.1) Arterial Blood Potassium 3.4 L (3.6-5.2) mmol/L Laboratory Results - last 24 hr 09/27/17 09/27/17 09/27/17 00:14 05:22 05:51 WBC RBC Hgb Hct MCV MCH MCHC RDW Plt Count MPV Neut % (Auto) Lymph % (Auto) Weber % (Auto) Eos % (Auto) Baso % (Auto) Neut # (Auto) Lymph # (Auto) Weber # (Auto) Eos # (Auto) Baso # (Auto) Puncture Site Lb pCO2 32 L pO2 123 H HCO3 23.2 ABG pH 7.43 ABG Total CO2 22.2 ABG O2 Saturation 98.0 ABG Base Excess -2.3 L Tre Test Na ABG Potassium 3.4 L A-a O2 Difference 194.0 Respiratory Index 1.6 Sodium 139.0 Chloride 110.0 H Glucose 147 H Lactate 0.8 Vent Mode Prvc Mechanical Rate 20 FiO2 50.0 Tidal Volume 450 PEEP 5 Potassium Carbon Dioxide Anion Gap BUN Creatinine Est GFR ( Amer) Est GFR (Non-Af Amer) POC Glucose (mg/dL) 125 H 91 Random Glucose Calcium Phosphorus Magnesium Total Bilirubin AST ALT Alkaline Phosphatase Total Protein Albumin Globulin Albumin/Globulin Ratio Arterial Blood Potassium 3.4 L 09/27/17 09/27/17 09/27/17 06:21 06:22 11:41 WBC 9.1 D RBC 2.75 L Hgb 8.3 L Hct 24.1 L MCV 87.5 MCH 30.0 MCHC 34.3 RDW 14.7 H Plt Count 187 MPV 9.1 Neut % (Auto) 77.3 H Lymph % (Auto) 13.8 L Weber % (Auto) 6.6 Eos % (Auto) 2.1 Baso % (Auto) 0.2 Neut # (Auto) 7.0 Lymph # (Auto) 1.3 Weber # (Auto) 0.6 Eos # (Auto) 0.2 Baso # (Auto) 0.0 Puncture Site pCO2 pO2 HCO3 ABG pH ABG Total CO2 ABG O2 Saturation ABG Base Excess Tre Test ABG Potassium A-a O2 Difference Respiratory Index Sodium 140 Chloride 107 Glucose Lactate Vent Mode Mechanical Rate FiO2 Tidal Volume PEEP Potassium 3.5 L Carbon Dioxide 22 Anion Gap 15 BUN 36 H Creatinine 1.6 H Est GFR ( Amer) 52 Est GFR (Non-Af Amer) 43 POC Glucose (mg/dL) 166 H Random Glucose 130 H Calcium 7.6 L Phosphorus 3.3 Magnesium 2.0 Total Bilirubin 0.5 AST 27 ALT 27 Alkaline Phosphatase 33 L Total Protein 5.7 L Albumin 2.8 L Globulin 2.8 Albumin/Globulin Ratio 1.0 Arterial Blood Potassium Attending/Attestation - Attestation I have personally seen and examined this patient.: Yes I have fully participated in the care of the patient.: Yes I have reviewed all pertinent clinical information: Yes Notes (Text): 09/27/17 17:48 I have seen and examined the patient. Medical records, lab studies, and imaging were reviewed by me and a management plan was formulated on multidisciplinary rounds with resident Dr. Waterman. I agree with their documented assessment and plan. Patient is failing PS trials as pneumonia is not much improved. Continue duonebs, mucolytics, abx, chest pt. Critical Care Time 35 minutes. Multi-disciplinary rounds were performed with house staff, nursing, speech therapy, respiratory therapy, pharmacy and nutrition with integrated input from the primary team/attending and other consulting services. The documented time is cumulative and includes review of patient data/exams/labs/chart review and examination of the patient on rounds and throughout the day; time is exclusive of any procedures or teaching time.
--- NOTE | 2017-09-27 14:02 | CARD ---
APPROVED REPORT EKG Measurement Heart [id number] <Conclusion> Sinus rhythm with 1st degree AV block T wave abnormality, consider lateral ischemia Prolonged QT Abnormal ECG
[2017-09-27] MEDS ORDERED: guaiFENesin 200 mg/10 ml Syrup UD PO SCH (18:00)
[2017-09-27] MEDS: guaiFENesin 200 mg/10 ml Syrup UD PO SCH ×2 (18:03→23:28)
--- NOTE | 2017-09-27 22:57 | CP.PCM.PN ---
Subjective - Date & Time of Evaluation Date of Evaluation: 09/27/17 Time of Evaluation: 13:45 - Subjective Subjective: Patient seen and evaluated Intubated Pneumonia Physical Exam - Physical Exam Intubated Skin: Normal Color, Warm, Dry Head: Atraumatic, Normacephalic Eye(s): bilateral: Normal Inspection, PERRL, EOMI Oral Mucosa: Moist Chest: Symmetrical, Other (midline sternotomy scar) Cardiovascular: Rhythm Regular, No Murmur, No JVD Respiratory: Normal Breath Sounds, No Rales, No Rhonchi, No Wheezing Extremity: No Pedal Edema, No Swelling Objective - Vital Signs/Intake and Output Vital Signs (last 24 hours): Temp Pulse Resp BP Pulse Ox 98.3 F 87 17 129/66 100 09/27/17 16:00 09/27/17 18:15 09/27/17 18:15 09/27/17 18:15 09/27/17 18:15 Intake and Output: 09/27/17 09/28/17 18:59 06:59 Intake Total 1201.6 158.1 Output Total 560 40 Balance 641.6 118.1 - Medications Medications: Current Medications Albuterol/Ipratropium (Duoneb 3 Mg/0.5 Mg (3 Ml) Ud) 3 ml INH RQ6 [facility] Last Admin: 09/27/17 19:15 Dose: 3 ml Aspirin (Aspirin) 325 mg PO DAILY [facility] Last Admin: 09/27/17 09:34 Dose: 325 mg Clopidogrel Bisulfate (Plavix) 75 mg PO DAILY [facility] Last Admin: 09/27/17 09:34 Dose: 75 mg Docusate Sodium (Colace) 100 mg PO TID [facility] Last Admin: 09/27/17 17:58 Dose: 100 mg Enoxaparin Sodium (Lovenox) 40 mg SC DAILY [facility] Last Admin: 09/27/17 09:34 Dose: 40 mg Famotidine (Pepcid) 20 mg IVP Q12 [facility] Guaifenesin (Robitussin) 200 mg PO Q6 [facility] Last Admin: 09/27/17 18:03 Dose: 200 mg Propofol (Diprivan) 1,000 mg in 100 mls @ 2.041 mls/hr IV .Q24H PRN; Protocol; 5 MCG/KG/MIN PRN Reason: TITRATE PER MD ORDER Last Titration: 09/27/17 13:25 Dose: 30 mcg/kg/min, 12.247 mls/hr Piperacillin Sod/Tazobactam (Sod 2.25 gm/ Sodium Chloride) 100 mls @ 100 mls/ hr IV Q6H [facility] Last Admin: 09/27/17 19:03 Dose: 100 mls/hr Insulin Human Regular (Novolin R) 0 unit SC Q6 [facility] PRN Reason: Protocol Last Admin: 09/27/17 18:02 Dose: Not Given Lorazepam (Ativan) 2 mg IVP Q6H PRN PRN Reason: Anxiety Last Admin: 09/26/17 15:06 Dose: 2 mg - Labs Labs: 09/27/17 06:22 09/27/17 06:21 PT 13.0 SECONDS (9.7-12.2) H 09/25/17 15:35 INR 1.2 09/25/17 15:35 APTT 33 SECONDS (21-34) 09/25/17 15:35 Assessment and Plan - Assessment and Plan (Free Text) Assessment: 1. Pneumonia 2. Diastolic CHF 3. HTN 4. Respiratory failure Antibiotics Lasix as needed Ventilator support
--- NOTE | 2017-09-27 23:19 | CP.PCM.HP ---
History of Present Illness - History of Present Illness History of Present Illness: Chief complaint: Shortness of breath HPI: 71-year-old male recently was hospitalized with a syncopal attack, evaluated recently Patient also had a fall at that time. Patient was brought to the emergency room by the family members after he was found to have a syncopal attack at home associated with the tonic-clonic seizure activities. Patient become bradycardic while he was evaluated in the triage, and also near syncopal attack noted. Patient was also having some shaking, and brought to the main emergency room. Patient was noted to have hypoxia. Patient is a very increasing weakness noted. He is also having some shortness of breath, complaining of no chest pain. Denies any nausea. No fever or chills noted. Patient was placed on BiPAP, and oxygenation slightly improved after that. Patient underwent a CT of the chest, showing evidence of diffuse infiltrative changes in the right lower lung, also in the left lower lung. Past medical history: Hypertension, coronary artery disease, heart surgery in the past. Allergies: No known drug allergies Personal history: Nonsmoker nonalcoholic Review of system: Currently on BiPAP. Patient is moving all 4 extremities. Some discomfort noted with the BiPAP. Vital signs reviewed No neck vein distention noted Diffuse bilateral rales noted CVS regular heart sound, no murmur noted Abdomen soft, nontender. Pedal edema generalized noted [employer] alert awake oriented -3, no functional neurological deficit Present on Admission - Present on Admission Any Indicators Present on Admission: Yes Review of Systems - Review of Systems Systems not reviewed;Unavailable: Acuity of Condition - Constitutional Constitutional: Fatigue, Lethargy, Malaise - EENT Eyes: absent: As Per HPI, Blind Spots, Blurred Vision, Change in Vision, Decreased Night Vision, Diplopia, Discharge, Dry Eye, Exophthalmos, Floaters, Irritation, Itchy Eyes, Loss of Peripheral Vision, Pain, Photophobia, Requires Corrective Lenses, Sees Flashes, Spots in Vision, Tunnel Vision, Other Visual Disturbances, Loss of Vision, Other Nose/Mouth/Throat: absent: As Per HPI, Epistaxis, Nasal Congestion, Nasal Discharge, Nasal Obstruction, Nasal Trauma, Nose Pain, Post Nasal Drip, Sinus Pain, Sinus Pressure, Bleeding Gums, Change in Voice, Dental Pain, Dry Mouth, Dysphagia, Halitosis, Hoarsness, Lip Swelling, Mouth Lesions, Mouth Pain, Odynophagia, Sore Throat, Throat Swelling, Tongue Swelling, Facial Pain, Neck Pain, Neck Mass, Other - Cardiovascular Cardiovascular: Chest Pain, Dyspnea, Pedal Edema - Respiratory Respiratory: Cough - Musculoskeletal Musculoskeletal: Muscle Weakness, Myalgias - Integumentary Integumentary: Dry Skin - Neurological Neurological: Confusion, Dizziness, Numbness Past Patient History - Infectious Disease Hx of Infectious Diseases: None - Past Medical History & Family History Past Medical History?: Yes - Past Social History Smoking Status: unable to - CARDIAC Hx Hypertension: Yes - PULMONARY Hx Respiratory Disorders: No - NEUROLOGICAL Hx Neurological Disorder: Yes HX Cerebrovascular Accident: Yes (thalamic infarct) - HEENT Hx HEENT Problems: No - RENAL Hx Chronic Kidney Disease: No - ENDOCRINE/METABOLIC Hx Endocrine Disorders: Yes Hx Diabetes Mellitus Type 1: Yes - HEMATOLOGICAL/ONCOLOGICAL Hx Blood Disorders: No - INTEGUMENTARY Hx Dermatological Problems: No - MUSCULOSKELETAL/RHEUMATOLOGICAL Hx Falls: Yes - GASTROINTESTINAL Hx Gastrointestinal Disorders: No - GENITOURINARY/GYNECOLOGICAL Hx Genitourinary Disorders: No - PSYCHIATRIC Hx Substance Use: No - SURGICAL HISTORY Hx Coronary Artery Bypass Graft: Yes (2003) - ANESTHESIA Hx Anesthesia: Yes Hx Anesthesia Reactions: No Hx Malignant Hyperthermia: No Meds Allergies/Adverse Reactions: Allergies Allergy/AdvReac Type Severity Reaction Status Date / Time No Known Allergies Allergy Verified 09/16/17 15:16 Physical Exam - Constitutional Appears: No Acute Distress, Chronically Ill - Eye Exam Eye Exam: EOMI, Normal appearance, PERRL Pupil Exam: NORMAL ACCOMODATION, PERRL - Respiratory Exam Respiratory Exam: Decreased Breath Sounds, Rales, Rhonchi - Cardiovascular Exam Cardiovascular Exam: REGULAR RHYTHM - GI/Abdominal Exam GI & Abdominal Exam: Normal Bowel Sounds, Soft. absent: Tenderness Results - Vital Signs Recent Vital Signs: Last Vital Signs Temp 98.3 F 09/27/17 16:00 Pulse 87 09/27/17 18:15 Resp 17 09/27/17 18:15 BP 129/66 09/27/17 18:15 Pulse Ox 100 09/27/17 18:15 - Labs Result Diagrams: 09/27/17 06:22 09/27/17 06:21 Labs: Laboratory Results - last 24 hr 09/27/17 09/27/17 09/27/17 00:14 05:22 05:51 WBC RBC Hgb Hct MCV MCH MCHC RDW Plt Count MPV Neut % (Auto) Lymph % (Auto) Callahan % (Auto) Eos % (Auto) Baso % (Auto) Neut # (Auto) Lymph # (Auto) Callahan # (Auto) Eos # (Auto) Baso # (Auto) Puncture Site Lb pCO2 32 L pO2 123 H HCO3 23.2 ABG pH 7.43 ABG Total CO2 22.2 ABG O2 Saturation 98.0 ABG Base Excess -2.3 L Tre Test Na ABG Potassium 3.4 L A-a O2 Difference 194.0 Respiratory Index 1.6 Sodium 139.0 Chloride 110.0 H Glucose 147 H Lactate 0.8 Vent Mode Prvc Mechanical Rate 20 FiO2 50.0 Tidal Volume 450 PEEP 5 Potassium Carbon Dioxide Anion Gap BUN Creatinine Est GFR ( Amer) Est GFR (Non-Af Amer) POC Glucose (mg/dL) 125 H 91 Random Glucose Calcium Phosphorus Magnesium Total Bilirubin AST ALT Alkaline Phosphatase Total Protein Albumin Globulin Albumin/Globulin Ratio Arterial Blood Potassium 3.4 L 09/27/17 09/27/17 09/27/17 06:21 06:22 11:41 WBC 9.1 D RBC 2.75 L Hgb 8.3 L Hct 24.1 L MCV 87.5 MCH 30.0 MCHC 34.3 RDW 14.7 H Plt Count 187 MPV 9.1 Neut % (Auto) 77.3 H Lymph % (Auto) 13.8 L Callahan % (Auto) 6.6 Eos % (Auto) 2.1 Baso % (Auto) 0.2 Neut # (Auto) 7.0 Lymph # (Auto) 1.3 Callahan # (Auto) 0.6 Eos # (Auto) 0.2 Baso # (Auto) 0.0 Puncture Site pCO2 pO2 HCO3 ABG pH ABG Total CO2 ABG O2 Saturation ABG Base Excess Tre Test ABG Potassium A-a O2 Difference Respiratory Index Sodium 140 Chloride 107 Glucose Lactate Vent Mode Mechanical Rate FiO2 Tidal Volume PEEP Potassium 3.5 L Carbon Dioxide 22 Anion Gap 15 BUN 36 H Creatinine 1.6 H Est GFR ( Amer) 52 Est GFR (Non-Af Amer) 43 POC Glucose (mg/dL) 166 H Random Glucose 130 H Calcium 7.6 L Phosphorus 3.3 Magnesium 2.0 Total Bilirubin 0.5 AST 27 ALT 27 Alkaline Phosphatase 33 L Total Protein 5.7 L Albumin 2.8 L Globulin 2.8 Albumin/Globulin Ratio 1.0 Arterial Blood Potassium 09/27/17 18:00 WBC RBC Hgb Hct MCV MCH MCHC RDW Plt Count MPV Neut % (Auto) Lymph % (Auto) Callahan % (Auto) Eos % (Auto) Baso % (Auto) Neut # (Auto) Lymph # (Auto) Callahan # (Auto) Eos # (Auto) Baso # (Auto) Puncture Site pCO2 pO2 HCO3 ABG pH ABG Total CO2 ABG O2 Saturation ABG Base Excess Tre Test ABG Potassium A-a O2 Difference Respiratory Index Sodium Chloride Glucose Lactate Vent Mode Mechanical Rate FiO2 Tidal Volume PEEP Potassium Carbon Dioxide Anion Gap BUN Creatinine Est GFR ( Amer) Est GFR (Non-Af Amer) POC Glucose (mg/dL) 123 H Random Glucose Calcium Phosphorus Magnesium Total Bilirubin AST ALT Alkaline Phosphatase Total Protein Albumin Globulin Albumin/Globulin Ratio Arterial Blood Potassium Assessment & Plan (1) Pneumonia Assessment and Plan: rule out pnemonia Chest x-ray showing nonspecific changes, but a CT of the chest is showing evidence of diffuse bilateral infiltration Status: Acute (2) Respiratory failure requiring intubation Assessment and Plan: Labs reviewed WBC is normal. Mild elevation of the esophagus noted Hemoglobin 8.7, normal PT/PTT Blood gas analysis showing evidence of significant hypoxia. The chemistries nonspecific influenza negative Assessment and recognition: 70-year-old male now with a history of hypertension and diabetes heart disease. Admitted with a syncopal attack, secondary to possibly hypoxia. Patient is having significant pneumonia bilateral, probably aspiration pneumonitis, hospital-acquired pneumonia possible. We'll start the patient on vancomycin and Zosyn. Patient may need ventilatory support is very invasive, our noninvasive ventilation. DVT prophylaxis. Patient will need hemodynamic support. ICU care. Discussed with the patient's family members will follow the patient. Status: Acute (3) Syncope Status: Acute
--- NOTE | 2017-09-27 23:20 | CP.PCM.PN ---
Subjective - Date & Time of Evaluation Date of Evaluation: 09/27/17 Time of Evaluation: 18:00 - Subjective Subjective: Patient seen and evaluated, pt has cough, congestion and sputum production, also seen by cardiology 40 % Fio2 , trial for CPAP Intubated now, sedation on hold and he is for extubation rule out Pneumonia Objective - Vital Signs/Intake and Output Vital Signs (last 24 hours): Temp Pulse Resp BP Pulse Ox 98.3 F 87 17 129/66 100 09/27/17 16:00 09/27/17 18:15 09/27/17 18:15 09/27/17 18:15 09/27/17 18:15 Intake and Output: 09/27/17 09/28/17 18:59 06:59 Intake Total 1201.6 267.1 Output Total 560 40 Balance 641.6 227.1 - Medications Medications: Current Medications Albuterol/Ipratropium (Duoneb 3 Mg/0.5 Mg (3 Ml) Ud) 3 ml INH RQ6 [facility] Last Admin: 09/27/17 19:15 Dose: 3 ml Aspirin (Aspirin) 325 mg PO DAILY [facility] Last Admin: 09/27/17 09:34 Dose: 325 mg Clopidogrel Bisulfate (Plavix) 75 mg PO DAILY [facility] Last Admin: 09/27/17 09:34 Dose: 75 mg Docusate Sodium (Colace) 100 mg PO TID [facility] Last Admin: 09/27/17 17:58 Dose: 100 mg Enoxaparin Sodium (Lovenox) 40 mg SC DAILY [facility] Last Admin: 09/27/17 09:34 Dose: 40 mg Famotidine (Pepcid) 20 mg IVP Q12 [facility] Last Admin: 09/27/17 22:30 Dose: 20 mg Guaifenesin (Robitussin) 200 mg PO Q6 [facility] Last Admin: 09/27/17 18:03 Dose: 200 mg Propofol (Diprivan) 1,000 mg in 100 mls @ 2.041 mls/hr IV .Q24H PRN; Protocol; 5 MCG/KG/MIN PRN Reason: TITRATE PER MD ORDER Last Titration: 09/27/17 22:00 Dose: 50 mcg/kg/min, 20.412 mls/hr Piperacillin Sod/Tazobactam (Sod 2.25 gm/ Sodium Chloride) 100 mls @ 100 mls/ hr IV Q6H [facility] Last Admin: 09/27/17 19:03 Dose: 100 mls/hr Insulin Human Regular (Novolin R) 0 unit SC Q6 [place] PRN Reason: Protocol Last Admin: 09/27/17 18:02 Dose: Not Given Lorazepam (Ativan) 2 mg IVP Q6H PRN PRN Reason: Anxiety Last Admin: 09/26/17 15:06 Dose: 2 mg - Labs Labs: 09/27/17 06:22 09/27/17 06:21 PT 13.0 SECONDS (9.7-12.2) H 09/25/17 15:35 INR 1.2 09/25/17 15:35 APTT 33 SECONDS (21-34) 09/25/17 15:35 - Constitutional Appears: No Acute Distress - Head Exam Head Exam: ATRAUMATIC, NORMAL INSPECTION, NORMOCEPHALIC - Eye Exam Eye Exam: EOMI, Normal appearance, PERRL Pupil Exam: NORMAL ACCOMODATION, PERRL - Respiratory Exam Respiratory Exam: Rales, Rhonchi - Cardiovascular Exam Cardiovascular Exam: REGULAR RHYTHM, +S1, +S2. absent: Murmur - GI/Abdominal Exam GI & Abdominal Exam: Soft, Normal Bowel Sounds. absent: Tenderness Assessment and Plan (1) Pneumonia Status: Acute (2) Respiratory failure requiring intubation Status: Acute (3) Syncope Status: Acute
[2017-09-28] MEDS: Albuterol-Ipratrop 3 mg / 0.5 (3 ml) UD INH SCH ×4 (01:36→19:29)
[2017-09-28] MEDS: (Novolin R) Insulin Human Regular 100 units/ml vial SC SCH ×5 (01:46→21:30)
[2017-09-28] MEDS: Propofol 10 mg/ml 1,000 MG/100 ML VIAL IV PRN ×3 (02:15→19:04)
[2017-09-28 06:06] LABS: ABG ALLEN TEST POS; ARTERIAL BLOOD GAS HCO3 24.3 mmol/L (21-28); ARTERIAL BLOOD GAS O2 SAT 98.7 % (95-98); ARTERIAL BLOOD GAS PCO2 31 mm/Hg (35-45); ARTERIAL BLOOD GAS PH 7.46 (7.35-7.45); ARTERIAL BLOOD GAS PO2 139 mm/Hg (80-100)
[2017-09-28] MEDS: guaiFENesin 200 mg/10 ml Syrup UD PO SCH (06:33)
[2017-09-28 06:41] LABS: BASO % 0.2 % (0.0-2.0); EOS # 0.1 K/uL (0.0-0.7); EOS % 1.9 % (0.0-4.0); LYMPH % 13.4 % (20.0-40.0); MEAN CELL VOLUME 87.1 fL (80.0-94.0); MEAN CORPUSCULAR HGB CONC 34.4 g/dL (33.0-37.0); MEAN PLATELET VOLUME 9.3 fL (7.2-11.7); MONO # 0.4 K/uL (0.0-0.8); MONO % 5.1 % (0.0-10.0); NEUT # 5.9 K/uL (1.8-7.0); NEUT % 79.4 % (50.0-75.0); RBC 2.34 Mil/uL (4.40-5.90); RED CELL DISTRIBUTION WIDTH 14.3 % (11.5-14.5); WHITE BLOOD COUNT 7.4 K/uL (4.8-10.8)
[2017-09-28 06:59] LABS: ALB/GLOB RATIO 0.9 (1.0-2.1); ALBUMIN 2.7 g/dL (3.5-5.0); ALT/SGPT 32 U/L (21-72); AST/SGOT 17 U/L (17-59); BLOOD UREA NITROGEN 30 mg/dL (9-20); CALCIUM 7.7 mg/dl (8.6-10.4); GFR AFRICAN-AMERICAN > 60; GFR NON-AFRICAN AMERICAN 54
--- NOTE | 2017-09-28 08:33 | RAD ---
HISTORY: Inutbated, F/U infiltrate COMPARISON: 09/27/2017. FINDINGS: The endotracheal tube terminates 2.3 cm proximal to the gian. The nasogastric tube terminates in the stomach. LUNGS: There is interval improved aeration in the right upper lobe, worsening consolidation in the right lower lobe and stable airspace disease in the left retrocardiac region. PLEURA: Suspect small pleural effusions, larger on the right. No pneumothorax apparent. CARDIOVASCULAR: Normal. OSSEOUS STRUCTURES: No significant abnormalities. VISUALIZED UPPER ABDOMEN: Normal. OTHER FINDINGS: None. IMPRESSION: Worsening right lower lobe consolidation, mild improved aeration in the right upper lobe and persistent left lower lobe airspace disease. Suspect small pleural effusions.
[2017-09-28] MEDS: Enoxaparin 40 mg Syringe SC SCH (09:20)
[2017-09-28 10:26] LABS: BASO % 0.3 % (0.0-2.0); EOS # 0.1 K/uL (0.0-0.7); EOS % 1.7 % (0.0-4.0); HEMOGLOBIN 7.8 g/dL (12.0-18.0); LYMPH # 0.9 K/uL (1.0-4.3); LYMPH % 10.2 % (20.0-40.0); MEAN CELL VOLUME 87.1 fL (80.0-94.0); MEAN CORPUSCULAR HEMOGLOBIN 29.9 pg (27.0-31.0); MEAN CORPUSCULAR HGB CONC 34.3 g/dL (33.0-37.0); MONO # 0.4 K/uL (0.0-0.8); MONO % 5.3 % (0.0-10.0); NEUT % 82.5 % (50.0-75.0); RBC 2.6 Mil/uL (4.40-5.90); RED CELL DISTRIBUTION WIDTH 14.4 % (11.5-14.5); WHITE BLOOD COUNT 8.4 K/uL (4.8-10.8)
[2017-09-28] MEDS: guaiFENesin 100 mg/5 ml Syrup UD PO SCH ×2 (12:16→17:04)
[2017-09-28] MEDS: Vancomycin 1 gm/NS 200 ml 1 GM/200 ML BAG IVPB SCH (13:22)
--- NOTE | 2017-09-28 13:56 | CP.CCUPN ---
<Aleksey Waterman - Last Filed: 09/28/17 13:57> CCU Subjective - Physician Review Subjective (Free Text): 09/26/17 11:33 Patient seen and examined at bedside intubated, sedated Tube feeds to be started cardio consult for rowan 09/27/17 13:02 Patient seen and examined at bedside CPAP trial today, tolerated for 3.5 hours 09/28/17 13:55 CPAP trial today for over 6 hours today. Pneumonia on CXR not resolving Consulted ID and added Merrem and Vanco CCU Objective - Vital Signs / Intake & Output Intake and Output (Last 8hrs): Intake & Output 09/27/17 09/28/17 09/28/17 22:59 06:59 14:59 Intake Total 781.4 702.6 98.1 Output Total 380 355 45 Balance 401.4 347.6 53.1 Weight 162 lb Intake: IV 109 185 40 Intake, IV Amount 322.4 157.6 13.1 Right Wrist 122.4 157.6 13.1 rt.AC side poirt 200 Tube Feeding 350 360 45 Output: Urine 380 355 45 Urethral (Swift) 380 355 45 Other: # Bowel Movements 0 0 - Physical Exam Head: Positive for: Atraumatic, Normocephalic Mouth: Positive for: Moist Mucous Membranes Nose (Internal): Positive for: No Active Bleeding Neck: Negative for: Meningeal Signs, MIDLINE TENDERNESS Respiratory/Chest: Positive for: Good Air Exchange, Other (intubated). Negative for: Accessory Muscle Use Cardiovascular: Positive for: Regular Rate and Rhythm Abdomen: Positive for: Normal Bowel Sounds. Negative for: Tenderness, Distention, Peritoneal Signs - Medications Active Medications: Active Medications Generic Name Dose Route Start Last Admin Trade Name Freq PRN Reason Stop Dose Admin Albuterol/Ipratropium 3 ml 09/25/17 20:00 09/28/17 13:27 Duoneb 3 Mg/0.5 Mg (3 Ml) Ud INH 3 ml RQ6 [facility] Administration Aspirin 325 mg 09/26/17 10:00 09/28/17 09:17 Aspirin PO 325 mg DAILY [facility] Administration Clopidogrel Bisulfate 75 mg 09/26/17 10:00 09/28/17 09:20 Plavix PO 75 mg DAILY [facility] Administration Docusate Sodium 100 mg 09/27/17 14:00 09/28/17 13:26 Colace PO 100 mg TID [facility] Administration Enoxaparin Sodium 40 mg 09/26/17 10:00 09/28/17 09:20 Lovenox SC 40 mg DAILY [facility] Administration Famotidine 20 mg 09/27/17 22:00 09/28/17 09:20 Pepcid IVP 20 mg Q12 [facility] Administration Guaifenesin 200 mg 09/28/17 12:00 09/28/17 12:16 Robitussin PO 200 mg Q6 [facility] Administration Propofol 1,000 mg in 100 mls @ 2.041 mls/hr 09/25/17 19:01 09/28/17 07:50 Diprivan IV 0 mcg/kg/min .Q24H PRN 0 mls/hr TITRATE PER MD ORDER Titration Protocol 5 MCG/KG/MIN Piperacillin Sod/Tazobactam Sod 2.25 gm in 50 mls @ 100 mls/hr 09/28/17 19:00 Zosyn 2.25 Gm Iv Premix IVPB Q6H [facility] Meropenem 500 mg/ Sodium 100 mls @ 100 mls/hr 09/28/17 14:00 Chloride IVPB Q8 [facility] Vancomycin/Sodium Chloride 1 gm in 200 mls @ 133.333 mls/hr 09/28/17 13:00 13:22 Vancomycin 1 Gm/Ns 200 Ml IVPB 10/03/17 13:01 133.333 mls/hr Q24H [facility] Administration Insulin Human Regular 0 unit 09/26/17 00:00 09/28/17 12:12 Novolin R SC 2 unit Q6 [facility] Administration Protocol Lorazepam 2 mg 09/25/17 19:19 09/26/17 15:06 Ativan IVP 2 mg Q6H PRN Administration Anxiety - Patient Studies Lab Studies: Microbiology Studies 09/25/17 18:10 Blood Culture - Preliminary Blood-Venous NO GROWTH AFTER 48 HOURS 09/25/17 18:10 Blood Culture - Preliminary Blood-Venous NO GROWTH AFTER 48 HOURS 09/25/17 21:29 MRSA Culture (Admit) - Final Nose MRSA NOT DETECTED Lab Studies 09/28/17 09/28/17 09/28/17 Range/Units 11:26 10:18 06:30 WBC 8.4 (4.8-10.8) K/uL RBC 2.60 L (4.40-5.90) Mil/uL Hgb 7.8 L (12.0-18.0) g/dL Hct 22.6 L (35.0-51.0) % MCV 87.1 (80.0-94.0) fL MCH 29.9 (27.0-31.0) pg MCHC 34.3 (33.0-37.0) g/dL RDW 14.4 (11.5-14.5) % Plt Count 171 (130-400) K/uL MPV 9.0 (7.2-11.7) fL Neut % (Auto) 82.5 H (50.0-75.0) % Lymph % (Auto) 10.2 L (20.0-40.0) % [place] % (Auto) 5.3 (0.0-10.0) % Eos % (Auto) 1.7 (0.0-4.0) % Baso % (Auto) 0.3 (0.0-2.0) % Neut # (Auto) 7.0 (1.8-7.0) K/uL Lymph # (Auto) 0.9 L (1.0-4.3) K/uL [place] # (Auto) 0.4 (0.0-0.8) K/uL Eos # (Auto) 0.1 (0.0-0.7) K/uL Baso # (Auto) 0.0 (0.0-0.2) K/uL Puncture Site pCO2 (35-45) mm/Hg pO2 (80-100) mm/Hg HCO3 (21-28) mmol/L ABG pH (7.35-7.45) ABG Total CO2 (22-28) mmol/L ABG O2 Saturation (95-98) % ABG Base Excess (-2.0-3.0) mmol/L Tre Test ABG Potassium (3.6-5.2) mmol/L A-a O2 Difference mm/Hg Respiratory Index Sodium 142 (132-148) mmol/l Chloride 109 H (98-107) mmol/L Glucose (75-110) mg/dl Lactate (0.7-2.1) mmol/L Vent Mode Mechanical Rate FiO2 % Tidal Volume PEEP Potassium 3.5 L (3.6-5.2) mmol/L Carbon Dioxide 22 (22-30) mmol/L Anion Gap 14 (10-20) BUN 30 H (9-20) mg/dL Creatinine 1.3 (0.8-1.5) mg/dL Est GFR ( Amer) > 60 Est GFR (Non-Af Amer) 54 POC Glucose (mg/dL) 183 H (65-110) mg/dL Random Glucose 172 H (75-110) mg/dL Calcium 7.7 L (8.6-10.4) mg/dl Phosphorus 2.4 L (2.5-4.5) mg/dL Magnesium 2.2 (1.6-2.3) mg/dL Total Bilirubin 0.6 (0.2-1.3) mg/dL AST 17 D (17-59) U/L ALT 32 (21-72) U/L Alkaline Phosphatase 49 (38-126) U/L Total Protein 5.7 L (6.3-8.3) g/dL Albumin 2.7 L (3.5-5.0) g/dL Globulin 3.0 (2.2-3.9) gm/dL Albumin/Globulin Ratio 0.9 L (1.0-2.1) Arterial Blood Potassium (3.6-5.2) mmol/L 09/28/17 09/28/17 09/28/17 Range/Units 06:30 06:13 05:15 WBC 7.4 (4.8-10.8) K/uL RBC 2.34 L (4.40-5.90) Mil/uL Hgb 7.0 L (12.0-18.0) g/dL Hct 20.4 L (35.0-51.0) % MCV 87.1 (80.0-94.0) fL MCH 30.0 (27.0-31.0) pg MCHC 34.4 (33.0-37.0) g/dL RDW 14.3 (11.5-14.5) % Plt Count 161 (130-400) K/uL MPV 9.3 (7.2-11.7) fL Neut % (Auto) 79.4 H (50.0-75.0) % Lymph % (Auto) 13.4 L (20.0-40.0) % [place] % (Auto) 5.1 (0.0-10.0) % Eos % (Auto) 1.9 (0.0-4.0) % Baso % (Auto) 0.2 (0.0-2.0) % Neut # (Auto) 5.9 (1.8-7.0) K/uL Lymph # (Auto) 1.0 (1.0-4.3) K/uL [place] # (Auto) 0.4 (0.0-0.8) K/uL Eos # (Auto) 0.1 (0.0-0.7) K/uL Baso # (Auto) 0.0 (0.0-0.2) K/uL Puncture Site Lr pCO2 31 L (35-45) mm/Hg pO2 139 H (80-100) mm/Hg HCO3 24.3 (21-28) mmol/L ABG pH 7.46 H (7.35-7.45) ABG Total CO2 23.0 (22-28) mmol/L ABG O2 Saturation 98.7 H (95-98) % ABG Base Excess -0.9 (-2.0-3.0) mmol/L Tre Test Pos ABG Potassium 3.5 L (3.6-5.2) mmol/L A-a O2 Difference 107.0 mm/Hg Respiratory Index 0.8 Sodium 141.0 (132-148) mmol/l Chloride 112.0 H (98-107) mmol/L Glucose 180 H (75-110) mg/dl Lactate 0.8 (0.7-2.1) mmol/L Vent Mode Prvc Mechanical Rate 20 FiO2 40.0 % Tidal Volume 450 PEEP 5 Potassium (3.6-5.2) mmol/L Carbon Dioxide (22-30) mmol/L Anion Gap (10-20) BUN (9-20) mg/dL Creatinine (0.8-1.5) mg/dL Est GFR ( Amer) Est GFR (Non-Af Amer) POC Glucose (mg/dL) 172 H (65-110) mg/dL Random Glucose (75-110) mg/dL Calcium (8.6-10.4) mg/dl Phosphorus (2.5-4.5) mg/dL Magnesium (1.6-2.3) mg/dL Total Bilirubin (0.2-1.3) mg/dL AST (17-59) U/L ALT (21-72) U/L Alkaline Phosphatase (38-126) U/L Total Protein (6.3-8.3) g/dL Albumin (3.5-5.0) g/dL Globulin (2.2-3.9) gm/dL Albumin/Globulin Ratio (1.0-2.1) Arterial Blood Potassium 3.5 L (3.6-5.2) mmol/L 09/27/17 09/27/17 Range/Units 23:38 18:00 WBC (4.8-10.8) K/uL RBC (4.40-5.90) Mil/uL Hgb (12.0-18.0) g/dL Hct (35.0-51.0) % MCV (80.0-94.0) fL MCH (27.0-31.0) pg MCHC (33.0-37.0) g/dL RDW (11.5-14.5) % Plt Count (130-400) K/uL MPV (7.2-11.7) fL Neut % (Auto) (50.0-75.0) % Lymph % (Auto) (20.0-40.0) % [place] % (Auto) (0.0-10.0) % Eos % (Auto) (0.0-4.0) % Baso % (Auto) (0.0-2.0) % Neut # (Auto) (1.8-7.0) K/uL Lymph # (Auto) (1.0-4.3) K/uL [place] # (Auto) (0.0-0.8) K/uL Eos # (Auto) (0.0-0.7) K/uL Baso # (Auto) (0.0-0.2) K/uL Puncture Site pCO2 (35-45) mm/Hg pO2 (80-100) mm/Hg HCO3 (21-28) mmol/L ABG pH (7.35-7.45) ABG Total CO2 (22-28) mmol/L ABG O2 Saturation (95-98) % ABG Base Excess (-2.0-3.0) mmol/L Tre Test ABG Potassium (3.6-5.2) mmol/L A-a O2 Difference mm/Hg Respiratory Index Sodium (132-148) mmol/l Chloride (98-107) mmol/L Glucose (75-110) mg/dl Lactate (0.7-2.1) mmol/L Vent Mode Mechanical Rate FiO2 % Tidal Volume PEEP Potassium (3.6-5.2) mmol/L Carbon Dioxide (22-30) mmol/L Anion Gap (10-20) BUN (9-20) mg/dL Creatinine (0.8-1.5) mg/dL Est GFR ( Amer) Est GFR (Non-Af Amer) POC Glucose (mg/dL) 172 H 123 H (65-110) mg/dL Random Glucose (75-110) mg/dL Calcium (8.6-10.4) mg/dl Phosphorus (2.5-4.5) mg/dL Magnesium (1.6-2.3) mg/dL Total Bilirubin (0.2-1.3) mg/dL AST (17-59) U/L ALT (21-72) U/L Alkaline Phosphatase (38-126) U/L Total Protein (6.3-8.3) g/dL Albumin (3.5-5.0) g/dL Globulin (2.2-3.9) gm/dL Albumin/Globulin Ratio (1.0-2.1) Arterial Blood Potassium (3.6-5.2) mmol/L Laboratory Results - last 24 hr 09/27/17 09/27/17 09/28/17 18:00 23:38 05:15 WBC RBC Hgb Hct MCV MCH MCHC RDW Plt Count MPV Neut % (Auto) Lymph % (Auto) [place] % (Auto) Eos % (Auto) Baso % (Auto) Neut # (Auto) Lymph # (Auto) [place] # (Auto) Eos # (Auto) Baso # (Auto) Puncture Site Lr pCO2 31 L pO2 139 H HCO3 24.3 ABG pH 7.46 H ABG Total CO2 23.0 ABG O2 Saturation 98.7 H ABG Base Excess -0.9 Tre Test Pos ABG Potassium 3.5 L A-a O2 Difference 107.0 Respiratory Index 0.8 Sodium 141.0 Chloride 112.0 H Glucose 180 H Lactate 0.8 Vent Mode Prvc Mechanical Rate 20 FiO2 40.0 Tidal Volume 450 PEEP 5 Potassium Carbon Dioxide Anion Gap BUN Creatinine Est GFR ( Amer) Est GFR (Non-Af Amer) POC Glucose (mg/dL) 123 H 172 H Random Glucose Calcium Phosphorus Magnesium Total Bilirubin AST ALT Alkaline Phosphatase Total Protein Albumin Globulin Albumin/Globulin Ratio Arterial Blood Potassium 3.5 L 09/28/17 09/28/17 09/28/17 06:13 06:30 06:30 WBC 7.4 RBC 2.34 L Hgb 7.0 L Hct 20.4 L MCV 87.1 MCH 30.0 MCHC 34.4 RDW 14.3 Plt Count 161 MPV 9.3 Neut % (Auto) 79.4 H Lymph % (Auto) 13.4 L [place] % (Auto) 5.1 Eos % (Auto) 1.9 Baso % (Auto) 0.2 Neut # (Auto) 5.9 Lymph # (Auto) 1.0 [place] # (Auto) 0.4 Eos # (Auto) 0.1 Baso # (Auto) 0.0 Puncture Site pCO2 pO2 HCO3 ABG pH ABG Total CO2 ABG O2 Saturation ABG Base Excess Tre Test ABG Potassium A-a O2 Difference Respiratory Index Sodium 142 Chloride 109 H Glucose Lactate Vent Mode Mechanical Rate FiO2 Tidal Volume PEEP Potassium 3.5 L Carbon Dioxide 22 Anion Gap 14 BUN 30 H Creatinine 1.3 Est GFR ( Amer) > 60 Est GFR (Non-Af Amer) 54 POC Glucose (mg/dL) 172 H Random Glucose 172 H Calcium 7.7 L Phosphorus 2.4 L Magnesium 2.2 Total Bilirubin 0.6 AST 17 D ALT 32 Alkaline Phosphatase 49 Total Protein 5.7 L Albumin 2.7 L Globulin 3.0 Albumin/Globulin Ratio 0.9 L Arterial Blood Potassium 09/28/17 09/28/17 10:18 11:26 WBC 8.4 RBC 2.60 L Hgb 7.8 L Hct 22.6 L MCV 87.1 MCH 29.9 MCHC 34.3 RDW 14.4 Plt Count 171 MPV 9.0 Neut % (Auto) 82.5 H Lymph % (Auto) 10.2 L [place] % (Auto) 5.3 Eos % (Auto) 1.7 Baso % (Auto) 0.3 Neut # (Auto) 7.0 Lymph # (Auto) 0.9 L [place] # (Auto) 0.4 Eos # (Auto) 0.1 Baso # (Auto) 0.0 Puncture Site pCO2 pO2 HCO3 ABG pH ABG Total CO2 ABG O2 Saturation ABG Base Excess Tre Test ABG Potassium A-a O2 Difference Respiratory Index Sodium Chloride Glucose Lactate Vent Mode Mechanical Rate FiO2 Tidal Volume PEEP Potassium Carbon Dioxide Anion Gap BUN Creatinine Est GFR ( Amer) Est GFR (Non-Af Amer) POC Glucose (mg/dL) 183 H Random Glucose Calcium Phosphorus Magnesium Total Bilirubin AST ALT Alkaline Phosphatase Total Protein Albumin Globulin Albumin/Globulin Ratio Arterial Blood Potassium Fingerstick Blood Sugar Results: 183 Assessment/Plan - Assessment and Plan (Free Text) Assessment: 71M Aspiration Pneumonia, Bradycardia with episodes of syncope Plan: Neuro: Very light sedation, decreased agitation decreased RR. Cardio: bradycardia initially, syncope, Dr. Manzo on consult. echo Pulm: Aspiration pneumonia, Merrem and vanco, ID (Mangia), CPAP tolerated today. Renal: Cr decreasing now from 1.7-1.6. GI: No acute issues. Cont tube feeds Endo: accuchecks, ISS PPX: Protonix/lovenox <Charan Rao - Last Filed: 09/28/17 17:30> CCU Objective - Vital Signs / Intake & Output Intake and Output (Last 8hrs): Intake & Output 09/28/17 09/28/17 09/28/17 06:59 14:59 22:59 Intake Total 702.6 717.5 58.1 Output Total 355 465 65 Balance 347.6 252.5 -6.9 Weight 162 lb Intake: IV 185 40 Intake, IV Amount 157.6 317.5 13.1 Right Antecubital 300 Right Wrist 157.6 17.5 13.1 Tube Feeding 360 360 45 Output: Urine 355 465 65 Urethral (Swift) 355 465 65 Other: # Bowel Movements 0 - Medications Active Medications: Active Medications Generic Name Dose Route Start Last Admin Trade Name Freq PRN Reason Stop Dose Admin Albuterol/Ipratropium 3 ml 09/25/17 20:00 09/28/17 13:27 Duoneb 3 Mg/0.5 Mg (3 Ml) Ud INH 3 ml RQ6 [facility] Administration Aspirin 325 mg 09/26/17 10:09/28/17 09:17 Aspirin PO 325 mg DAILY [facility] Administration Clopidogrel Bisulfate 75 mg 09/26/17 10:00 09/28/17 09:20 Plavix PO 75 mg DAILY [facility] Administration Docusate Sodium 100 mg 09/27/17 14:00 09/28/17 17:04 Colace PO 100 mg TID [facility] Administration Enoxaparin Sodium 40 mg 09/26/17 10:00 09/28/17 09:20 Lovenox SC 40 mg DAILY [facility] Administration Famotidine 20 mg 09/27/17 22:00 09/28/17 09:20 Pepcid IVP 20 mg Q12 [facility] Administration Guaifenesin 200 mg 09/28/17 12:00 09/28/17 17:04 Robitussin PO 200 mg Q6 [facility] Administration Guaifenesin 200 mg 09/28/17 14:35 Robitussin PO Q4H PRN Cough and congestion Propofol 1,000 mg in 100 mls @ 2.041 mls/hr 09/25/17 19:01 09/28/17 14:00 Diprivan IV 30 mcg/kg/min .Q24H PRN 12.247 mls/hr TITRATE PER MD ORDER Titration Protocol 5 MCG/KG/MIN Piperacillin Sod/Tazobactam Sod 2.25 gm in 50 mls @ 100 mls/hr 09/28/17 19:00 Zosyn 2.25 Gm Iv Premix IVPB Q6H [facility] Meropenem 500 mg/ Sodium 100 mls @ 100 mls/hr 09/28/17 14:00 09/28/17 14:00 Chloride IVPB 100 mls/hr Q8 [facility] Administration Vancomycin/Sodium Chloride 1 gm in 200 mls @ 133.333 mls/hr 09/28/17 13:00 13:22 Vancomycin 1 Gm/Ns 200 Ml IVPB 10/03/17 13:01 133.333 mls/hr Q24H [facility] Administration Insulin Human Regular 0 unit 09/26/17 00:00 09/28/17 12:12 Novolin R SC 2 unit Q6 [facility] Administration Protocol Lorazepam 2 mg 09/25/17 19:19 09/26/17 15:06 Ativan IVP 2 mg Q6H PRN Administration Anxiety - Patient Studies Lab Studies: Microbiology Studies 09/25/17 18:10 Blood Culture - Preliminary Blood-Venous NO GROWTH AFTER 48 HOURS 09/25/17 18:10 Blood Culture - Preliminary Blood-Venous NO GROWTH AFTER 48 HOURS 09/25/17 21:29 MRSA Culture (Admit) - Final Nose MRSA NOT DETECTED Lab Studies 09/28/17 09/28/17 09/28/17 Range/Units 11:26 10:18 06:30 WBC 8.4 (4.8-10.8) K/uL RBC 2.60 L (4.40-5.90) Mil/uL Hgb 7.8 L (12.0-18.0) g/dL Hct 22.6 L (35.0-51.0) % MCV 87.1 (80.0-94.0) fL MCH 29.9 (27.0-31.0) pg MCHC 34.3 (33.0-37.0) g/dL RDW 14.4 (11.5-14.5) % Plt Count 171 (130-400) K/uL MPV 9.0 (7.2-11.7) fL Neut % (Auto) 82.5 H (50.0-75.0) % Lymph % (Auto) 10.2 L (20.0-40.0) % [place] % (Auto) 5.3 (0.0-10.0) % Eos % (Auto) 1.7 (0.0-4.0) % Baso % (Auto) 0.3 (0.0-2.0) % Neut # (Auto) 7.0 (1.8-7.0) K/uL Lymph # (Auto) 0.9 L (1.0-4.3) K/uL [place] # (Auto) 0.4 (0.0-0.8) K/uL Eos # (Auto) 0.1 (0.0-0.7) K/uL Baso # (Auto) 0.0 (0.0-0.2) K/uL Puncture Site pCO2 (35-45) mm/Hg pO2 (80-100) mm/Hg HCO3 (21-28) mmol/L ABG pH (7.35-7.45) ABG Total CO2 (22-28) mmol/L ABG O2 Saturation (95-98) % ABG Base Excess (-2.0-3.0) mmol/L Tre Test ABG Potassium (3.6-5.2) mmol/L A-a O2 Difference mm/Hg Respiratory Index Sodium 142 (132-148) mmol/l Chloride 109 H (98-107) mmol/L Glucose (75-110) mg/dl Lactate (0.7-2.1) mmol/L Vent Mode Mechanical Rate FiO2 % Tidal Volume PEEP Potassium 3.5 L (3.6-5.2) mmol/L Carbon Dioxide 22 (22-30) mmol/L Anion Gap 14 (10-20) BUN 30 H (9-20) mg/dL Creatinine 1.3 (0.8-1.5) mg/dL Est GFR ( Amer) > 60 Est GFR (Non-Af Amer) 54 POC Glucose (mg/dL) 183 H (65-110) mg/dL Random Glucose 172 H (75-110) mg/dL Calcium 7.7 L (8.6-10.4) mg/dl Phosphorus 2.4 L (2.5-4.5) mg/dL Magnesium 2.2 (1.6-2.3) mg/dL Total Bilirubin 0.6 (0.2-1.3) mg/dL AST 17 D (17-59) U/L ALT 32 (21-72) U/L Alkaline Phosphatase 49 (38-126) U/L Total Protein 5.7 L (6.3-8.3) g/dL Albumin 2.7 L (3.5-5.0) g/dL Globulin 3.0 (2.2-3.9) gm/dL Albumin/Globulin Ratio 0.9 L (1.0-2.1) Arterial Blood Potassium (3.6-5.2) mmol/L 09/28/17 09/28/17 09/28/17 Range/Units 06:30 06:13 05:15 WBC 7.4 (4.8-10.8) K/uL RBC 2.34 L (4.40-5.90) Mil/uL Hgb 7.0 L (12.0-18.0) g/dL Hct 20.4 L (35.0-51.0) % MCV 87.1 (80.0-94.0) fL MCH 30.0 (27.0-31.0) pg MCHC 34.4 (33.0-37.0) g/dL RDW 14.3 (11.5-14.5) % Plt Count 161 (130-400) K/uL MPV 9.3 (7.2-11.7) fL Neut % (Auto) 79.4 H (50.0-75.0) % Lymph % (Auto) 13.4 L (20.0-40.0) % [place] % (Auto) 5.1 (0.0-10.0) % Eos % (Auto) 1.9 (0.0-4.0) % Baso % (Auto) 0.2 (0.0-2.0) % Neut # (Auto) 5.9 (1.8-7.0) K/uL Lymph # (Auto) 1.0 (1.0-4.3) K/uL [place] # (Auto) 0.4 (0.0-0.8) K/uL Eos # (Auto) 0.1 (0.0-0.7) K/uL Baso # (Auto) 0.0 (0.0-0.2) K/uL Puncture Site Lr pCO2 31 L (35-45) mm/Hg pO2 139 H (80-100) mm/Hg HCO3 24.3 (21-28) mmol/L ABG pH 7.46 H (7.35-7.45) ABG Total CO2 23.0 (22-28) mmol/L ABG O2 Saturation 98.7 H (95-98) % ABG Base Excess -0.9 (-2.0-3.0) mmol/L Tre Test Pos ABG Potassium 3.5 L (3.6-5.2) mmol/L A-a O2 Difference 107.0 mm/Hg Respiratory Index 0.8 Sodium 141.0 (132-148) mmol/l Chloride 112.0 H (98-107) mmol/L Glucose 180 H (75-110) mg/dl Lactate 0.8 (0.7-2.1) mmol/L Vent Mode Prvc Mechanical Rate 20 FiO2 40.0 % Tidal Volume 450 PEEP 5 Potassium (3.6-5.2) mmol/L Carbon Dioxide (22-30) mmol/L Anion Gap (10-20) BUN (9-20) mg/dL Creatinine (0.8-1.5) mg/dL Est GFR ( Amer) Est GFR (Non-Af Amer) POC Glucose (mg/dL) 172 H (65-110) mg/dL Random Glucose (75-110) mg/dL Calcium (8.6-10.4) mg/dl Phosphorus (2.5-4.5) mg/dL Magnesium (1.6-2.3) mg/dL Total Bilirubin (0.2-1.3) mg/dL AST (17-59) U/L ALT (21-72) U/L Alkaline Phosphatase (38-126) U/L Total Protein (6.3-8.3) g/dL Albumin (3.5-5.0) g/dL Globulin (2.2-3.9) gm/dL Albumin/Globulin Ratio (1.0-2.1) Arterial Blood Potassium 3.5 L (3.6-5.2) mmol/L 09/27/17 09/27/17 Range/Units 23:38 18:00 WBC (4.8-10.8) K/uL RBC (4.40-5.90) Mil/uL Hgb (12.0-18.0) g/dL Hct (35.0-51.0) % MCV (80.0-94.0) fL MCH (27.0-31.0) pg MCHC (33.0-37.0) g/dL RDW (11.5-14.5) % Plt Count (130-400) K/uL MPV (7.2-11.7) fL Neut % (Auto) (50.0-75.0) % Lymph % (Auto) (20.0-40.0) % [place] % (Auto) (0.0-10.0) % Eos % (Auto) (0.0-4.0) % Baso % (Auto) (0.0-2.0) % Neut # (Auto) (1.8-7.0) K/uL Lymph # (Auto) (1.0-4.3) K/uL [place] # (Auto) (0.0-0.8) K/uL Eos # (Auto) (0.0-0.7) K/uL Baso # (Auto) (0.0-0.2) K/uL Puncture Site pCO2 (35-45) mm/Hg pO2 (80-100) mm/Hg HCO3 (21-28) mmol/L ABG pH (7.35-7.45) ABG Total CO2 (22-28) mmol/L ABG O2 Saturation (95-98) % ABG Base Excess (-2.0-3.0) mmol/L Tre Test ABG Potassium (3.6-5.2) mmol/L A-a O2 Difference mm/Hg Respiratory Index Sodium (132-148) mmol/l Chloride (98-107) mmol/L Glucose (75-110) mg/dl Lactate (0.7-2.1) mmol/L Vent Mode Mechanical Rate FiO2 % Tidal Volume PEEP Potassium (3.6-5.2) mmol/L Carbon Dioxide (22-30) mmol/L Anion Gap (10-20) BUN (9-20) mg/dL Creatinine (0.8-1.5) mg/dL Est GFR ( Amer) Est GFR (Non-Af Amer) POC Glucose (mg/dL) 172 H 123 H (65-110) mg/dL Random Glucose (75-110) mg/dL Calcium (8.6-10.4) mg/dl Phosphorus (2.5-4.5) mg/dL Magnesium (1.6-2.3) mg/dL Total Bilirubin (0.2-1.3) mg/dL AST (17-59) U/L ALT (21-72) U/L Alkaline Phosphatase (38-126) U/L Total Protein (6.3-8.3) g/dL Albumin (3.5-5.0) g/dL Globulin (2.2-3.9) gm/dL Albumin/Globulin Ratio (1.0-2.1) Arterial Blood Potassium (3.6-5.2) mmol/L Laboratory Results - last 24 hr 09/27/17 09/27/17 09/28/17 18:00 23:38 05:15 WBC RBC Hgb Hct MCV MCH MCHC RDW Plt Count MPV Neut % (Auto) Lymph % (Auto) [place] % (Auto) Eos % (Auto) Baso % (Auto) Neut # (Auto) Lymph # (Auto) [place] # (Auto) Eos # (Auto) Baso # (Auto) Puncture Site Lr pCO2 31 L pO2 139 H HCO3 24.3 ABG pH 7.46 H ABG Total CO2 23.0 ABG O2 Saturation 98.7 H ABG Base Excess -0.9 Tre Test Pos ABG Potassium 3.5 L A-a O2 Difference 107.0 Respiratory Index 0.8 Sodium 141.0 Chloride 112.0 H Glucose 180 H Lactate 0.8 Vent Mode Prvc Mechanical Rate 20 FiO2 40.0 Tidal Volume 450 PEEP 5 Potassium Carbon Dioxide Anion Gap BUN Creatinine Est GFR ( Amer) Est GFR (Non-Af Amer) POC Glucose (mg/dL) 123 H 172 H Random Glucose Calcium Phosphorus Magnesium Total Bilirubin AST ALT Alkaline Phosphatase Total Protein Albumin Globulin Albumin/Globulin Ratio Arterial Blood Potassium 3.5 L 09/28/17 09/28/17 09/28/17 06:13 06:30 06:30 WBC 7.4 RBC 2.34 L Hgb 7.0 L Hct 20.4 L MCV 87.1 MCH 30.0 MCHC 34.4 RDW 14.3 Plt Count 161 MPV 9.3 Neut % (Auto) 79.4 H Lymph % (Auto) 13.4 L [place] % (Auto) 5.1 Eos % (Auto) 1.9 Baso % (Auto) 0.2 Neut # (Auto) 5.9 Lymph # (Auto) 1.0 [place] # (Auto) 0.4 Eos # (Auto) 0.1 Baso # (Auto) 0.0 Puncture Site pCO2 pO2 HCO3 ABG pH ABG Total CO2 ABG O2 Saturation ABG Base Excess Tre Test ABG Potassium A-a O2 Difference Respiratory Index Sodium 142 Chloride 109 H Glucose Lactate Vent Mode Mechanical Rate FiO2 Tidal Volume PEEP Potassium 3.5 L Carbon Dioxide 22 Anion Gap 14 BUN 30 H Creatinine 1.3 Est GFR ( Amer) > 60 Est GFR (Non-Af Amer) 54 POC Glucose (mg/dL) 172 H Random Glucose 172 H Calcium 7.7 L Phosphorus 2.4 L Magnesium 2.2 Total Bilirubin 0.6 AST 17 D ALT 32 Alkaline Phosphatase 49 Total Protein 5.7 L Albumin 2.7 L Globulin 3.0 Albumin/Globulin Ratio 0.9 L Arterial Blood Potassium 09/28/17 09/28/17 10:18 11:26 WBC 8.4 RBC 2.60 L Hgb 7.8 L Hct 22.6 L MCV 87.1 MCH 29.9 MCHC 34.3 RDW 14.4 Plt Count 171 MPV 9.0 Neut % (Auto) 82.5 H Lymph % (Auto) 10.2 L [place] % (Auto) 5.3 Eos % (Auto) 1.7 Baso % (Auto) 0.3 Neut # (Auto) 7.0 Lymph # (Auto) 0.9 L [place] # (Auto) 0.4 Eos # (Auto) 0.1 Baso # (Auto) 0.0 Puncture Site pCO2 pO2 HCO3 ABG pH ABG Total CO2 ABG O2 Saturation ABG Base Excess Tre Test ABG Potassium A-a O2 Difference Respiratory Index Sodium Chloride Glucose Lactate Vent Mode Mechanical Rate FiO2 Tidal Volume PEEP Potassium Carbon Dioxide Anion Gap BUN Creatinine Est GFR ( Amer) Est GFR (Non-Af Amer) POC Glucose (mg/dL) 183 H Random Glucose Calcium Phosphorus Magnesium Total Bilirubin AST ALT Alkaline Phosphatase Total Protein Albumin Globulin Albumin/Globulin Ratio Arterial Blood Potassium Attending/Attestation - Attestation I have personally seen and examined this patient.: Yes I have fully participated in the care of the patient.: Yes I have reviewed all pertinent clinical information: Yes Notes (Text): 09/28/17 17:28 I have seen and examined the patient. Medical records, lab studies, and imaging were reviewed by me and a management plan was formulated on multidisciplinary rounds with resident Dr. Waterman. I agree with their documented assessment and plan. Patient tolerating PS trials. CXR is still significantly bad. Patient should be extubatable soon. adding Vancomycin, switching to Meropenem. Critical Care Time 35 minutes. Multi-disciplinary rounds were performed with house staff, nursing, speech therapy, respiratory therapy, pharmacy and nutrition with integrated input from the primary team/attending and other consulting services. The documented time is cumulative and includes review of patient data/exams/labs/chart review and examination of the patient on rounds and throughout the day; time is exclusive of any procedures or teaching time. 09/28/17 17:30
[2017-09-28] MEDS: Meropenem 500 MG in Sodium Chloride 0.9% 100 ML IVPB SCH ×2 (14:00→21:30)
--- NOTE | 2017-09-28 17:49 | CP.PCM.CON ---
History of Present Illness - History of Present Illness History of Present Illness: 71 y/o male who presents to the ED with brother s/p syncopal episode . Syncopal episode occurred without tonic-clonic seizure. In triage, patient was bradycardic, near-syncopal, prostrate, with brief shaking. Referred for ID eval because of persistent infiltrates and leukocytosis despite IV sntibiotics Patient has a Hx of being admitted from 09/16 - 09/[address] 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 Patient was prescribed anticoagulants and was cleared by neurology, but not evaluated by cardiology. Patient also had a recent stress test that was negative. Hx of CABG in [place], unknown number of vessels. Patient is not compliant with medication due to many medications and is out of town. No other physical complaints at this time. - Medical History PMH: HTN CAD HNP Denies: Chronic Kidney Disease Surgical History: Back Surgery ( PER PATIENT), CABG (2003) Family History: States: No Known Family Hx Review of Systems - Review of Systems Systems not reviewed;Unavailable: Altered Mental Status, Intubated - Constitutional Constitutional: As Per HPI - EENT Eyes: absent: As Per HPI, Blind Spots, Blurred Vision, Change in Vision, Decreased Night Vision, Diplopia, Discharge, Dry Eye, Exophthalmos, Floaters, Irritation, Itchy Eyes, Loss of Peripheral Vision, Pain, Photophobia, Requires Corrective Lenses, Sees Flashes, Spots in Vision, Tunnel Vision, Other Visual Disturbances, Loss of Vision, Other Ears: absent: As Per HPI, Decreased Hearing, Ear Discharge, Ear Pain, Tinnitus, Abnormal Hearing, Disequilibrium, Dizziness, Other Nose/Mouth/Throat: absent: As Per HPI, Epistaxis, Nasal Congestion, Nasal Discharge, Nasal Obstruction, Nasal Trauma, Nose Pain, Post Nasal Drip, Sinus Pain, Sinus Pressure, Bleeding Gums, Change in Voice, Dental Pain, Dry Mouth, Dysphagia, Halitosis, Hoarsness, Lip Swelling, Mouth Lesions, Mouth Pain, Odynophagia, Sore Throat, Throat Swelling, Tongue Swelling, Facial Pain, Neck Pain, Neck Mass, Other - Cardiovascular Cardiovascular: absent: As Per HPI, Acrocyanosis, Chest Pain, Chest Pain at Rest , Chest Pain with Activity, Claudication, Diaphoresis, Dyspnea, Dyspnea on Exertion, Edema, Irregular Heart Rhythm, Pain Radiating to Arm/Neck/Jaw, Leg Edema, Leg Ulcers, Lightheadedness, Orthopnea, Palpitations, Paroxysmal Nocturnal Dyspnea, Pedal Edema, Radiating Pain, Rapid Heart Rate, Slow Heart Rate, Syncope, Other - Respiratory Respiratory: As Per HPI - Gastrointestinal Gastrointestinal: absent: As Per HPI, Abdominal Pain, Belching, Bloating, Change in Bowel Habits, Change in Stool Character, Coffee Ground Emesis, Constipation, Cramping, Diarrhea, Dyspepsia, Dysphagia, Early Satiety, Excessive Flatus, Fecal Incontinence, Heartburn, Hematemesis, Hematochezia, Loose Stools, Melena, Nausea, Odynophagia, Temesmus, Vomiting, Other - Genitourinary Genitourinary: absent: As Per HPI, Change in Urinary Stream, Difficulty Urinating, Dysuria, Flank Pain, Hematuria, Pyuria, Nocturia, Urinary Incontinence, Urinary Frequency, Urinary Hesitance, Urinary Urgency, Voiding Freq/Small Amts, Freq UTI, Hx Renal/Bladder Calculi, Hx /Renal Surgery, Bladder Distension, Other - Musculoskeletal Musculoskeletal: absent: As Per HPI, Abnormal Gait, Arthralgias, Atrophy, Back Pain, Deformity, Joint Swelling, Limited Range of Motion, Loss of Height, Muscle Cramps, Muscle Weakness, Myalgias, Neck Pain, Numbness, Radiating Pain into Limb, Stiffness, Tingling, Other - Integumentary Integumentary: absent: As Per HPI, Acne, Alopecia, Bleeding Lesions, Change in Hair, Change in Nails, Change in Pigmentation, Changing Lesions, Dry Skin, Erythema, Furuncle, Hirsutism, Lesions, New Lesions, Non-Healing Lesions, Photosensitivity, Pruritus, Rash, Skin Pain, Skin Ulcer, Sores, Striae, Swelling , Unusual Bruising, Wounds, Jaundice, Other - Neurological Neurological: As Per HPI - Psychiatric Psychiatric: absent: As Per HPI, Abnormal Sleep Pattern, Anhedonia, Anxiety, Auditory Hallucinations, Behavioral Changes, Change in Appetite, Change in Libido, Confusion, Depression, Difficulty Concentrating, Hallucinations, Homicidal Ideation, Hopelessness, Irritability, Memory Loss, Mood Swings, Panic Attacks, Paranoia, Suicidal Ideation, Visual Hallucinations, Tactile Hallucinations, Other - Endocrine Endocrine: absent: As Per HPI, Change in Body Appearance, Change in Libido, Cold Intolorance, Deepening of Voice, Excessive Sweating, Fatigue, Flushing, Heat Intolorance, Increase in Ring/Shoe/Hat Size, Palpitations, Polydipsia, Polyphagia, Polyuria, Other - Hematologic/Lymphatic Hematologic: absent: As Per HPI, Easy Bleeding, Easy Bruising, Lymphadenopathy, Other Past Patient History - Infectious Disease Hx of Infectious Diseases: None - Past Medical History & Family History Past Medical History?: Yes - Past Social History Smoking Status: unable to - CARDIAC Hx Hypertension: Yes - PULMONARY Hx Respiratory Disorders: No - NEUROLOGICAL Hx Neurological Disorder: Yes HX Cerebrovascular Accident: Yes (thalamic infarct) - HEENT Hx HEENT Problems: No - RENAL Hx Chronic Kidney Disease: No - ENDOCRINE/METABOLIC Hx Endocrine Disorders: Yes Hx Diabetes Mellitus Type 1: Yes - HEMATOLOGICAL/ONCOLOGICAL Hx Blood Disorders: No - INTEGUMENTARY Hx Dermatological Problems: No - MUSCULOSKELETAL/RHEUMATOLOGICAL Hx Falls: Yes - GASTROINTESTINAL Hx Gastrointestinal Disorders: No - GENITOURINARY/GYNECOLOGICAL Hx Genitourinary Disorders: No - PSYCHIATRIC Hx Substance Use: No - SURGICAL HISTORY Hx Coronary Artery Bypass Graft: Yes (2003) - ANESTHESIA Hx Anesthesia: Yes Hx Anesthesia Reactions: No Hx Malignant Hyperthermia: No Meds Allergies/Adverse Reactions: Allergies Allergy/AdvReac Type Severity Reaction Status Date / Time No Known Allergies Allergy Verified 09/16/17 15:16 - Medications Medications: Current Medications Albuterol/Ipratropium (Duoneb 3 Mg/0.5 Mg (3 Ml) Ud) 3 ml INH RQ6 [facility] Last Admin: 09/28/17 13:27 Dose: 3 ml Aspirin (Aspirin) 325 mg PO DAILY [facility] Last Admin: 09/28/17 09:17 Dose: 325 mg Clopidogrel Bisulfate (Plavix) 75 mg PO DAILY [facility] Last Admin: 09/28/17 09:20 Dose: 75 mg Docusate Sodium (Colace) 100 mg PO TID [facility] Last Admin: 09/28/17 17:04 Dose: 100 mg Enoxaparin Sodium (Lovenox) 40 mg SC DAILY [facility] Last Admin: 09/28/17 09:20 Dose: 40 mg Famotidine (Pepcid) 20 mg IVP Q12 [facility] Last Admin: 09/28/17 09:20 Dose: 20 mg Guaifenesin (Robitussin) 200 mg PO Q6 [facility] Last Admin: 09/28/17 17:04 Dose: 200 mg Guaifenesin (Robitussin) 200 mg PO Q4H PRN PRN Reason: Cough and congestion Propofol (Diprivan) 1,000 mg in 100 mls @ 2.041 mls/hr IV .Q24H PRN; Protocol; 5 MCG/KG/MIN PRN Reason: TITRATE PER MD ORDER Last Titration: 09/28/17 14:00 Dose: 30 mcg/kg/min, 12.247 mls/hr Piperacillin Sod/Tazobactam Sod (Zosyn 2.25 Gm Iv Premix) 2.25 gm in 50 mls @ 100 mls/hr IVPB Q6H [facility] Meropenem 500 mg/ Sodium (Chloride) 100 mls @ 100 mls/hr IVPB Q8 [facility] Last Admin: 09/28/17 14:00 Dose: 100 mls/hr Vancomycin/Sodium Chloride (Vancomycin 1 Gm/Ns 200 Ml) 1 gm in 200 mls @ 133.333 mls/hr IVPB Q24H [facility] Stop: 10/03/17 13:01 Last Admin: 09/28/17 13:22 Dose: 133.333 mls/hr Insulin Human Regular (Novolin R) 0 unit SC Q6 [facility] PRN Reason: Protocol Last Admin: 09/28/17 12:12 Dose: 2 unit Lorazepam (Ativan) 2 mg IVP Q6H PRN PRN Reason: Anxiety Last Admin: 09/26/17 15:06 Dose: 2 mg Physical Exam - Constitutional Appears: No Acute Distress, Confused, Chronically Ill - Head Exam Head Exam: NORMOCEPHALIC - Eye Exam Eye Exam: absent: Scleral icterus - ENT Exam ENT Exam: Mucous Membranes Dry, Normal External Ear Exam - Neck Exam Neck exam: Negative for: Lymphadenopathy - Respiratory Exam Respiratory Exam: Decreased Breath Sounds, Rhonchi - Cardiovascular Exam Cardiovascular Exam: Tachycardia, REGULAR RHYTHM, +S1, +S2 - GI/Abdominal Exam GI & Abdominal Exam: Diminished Bowel Sounds, Soft. absent: Normal Bowel Sounds , Tenderness - Rectal Exam Rectal Exam: Deferred - Exam Exam: NORMAL INSPECTION - Extremities Exam Extremities exam: Positive for: pedal pulses present. Negative for: calf tenderness, joint swelling, pedal edema, tenderness - Back Exam Back exam: absent: CVA tenderness (L), CVA tenderness (R), paraspinal tenderness - Neurological Exam Neurological exam: Altered Additional comments: sedated - Psychiatric Exam Psychiatric exam: Depressed - Skin Skin Exam: Dry, Intact Results - Vital Signs Recent Vital Signs: Last Vital Signs Temp 99.9 F H 09/28/17 04:00 Pulse 84 09/28/17 07:00 Resp 0 L 09/28/17 07:00 BP 134/59 L 09/28/17 06:15 Pulse Ox 100 09/28/17 07:00 - Labs Result Diagrams: 09/28/17 10:18 09/28/17 06:30 Labs: Laboratory Results - last 24 hr 09/27/17 09/27/17 09/28/17 18:00 23:38 05:15 WBC RBC Hgb Hct MCV MCH MCHC RDW Plt Count MPV Neut % (Auto) Lymph % (Auto) [place] % (Auto) Eos % (Auto) Baso % (Auto) Neut # (Auto) Lymph # (Auto) [place] # (Auto) Eos # (Auto) Baso # (Auto) Puncture Site Lr pCO2 31 L pO2 139 H HCO3 24.3 ABG pH 7.46 H ABG Total CO2 23.0 ABG O2 Saturation 98.7 H ABG Base Excess -0.9 Tre Test Pos ABG Potassium 3.5 L A-a O2 Difference 107.0 Respiratory Index 0.8 Sodium 141.0 Chloride 112.0 H Glucose 180 H Lactate 0.8 Vent Mode Prvc Mechanical Rate 20 FiO2 40.0 Tidal Volume 450 PEEP 5 Potassium Carbon Dioxide Anion Gap BUN Creatinine Est GFR ( Amer) Est GFR (Non-Af Amer) POC Glucose (mg/dL) 123 H 172 H Random Glucose Calcium Phosphorus Magnesium Total Bilirubin AST ALT Alkaline Phosphatase Total Protein Albumin Globulin Albumin/Globulin Ratio Arterial Blood Potassium 3.5 L 09/28/17 09/28/17 09/28/17 06:13 06:30 06:30 WBC 7.4 RBC 2.34 L Hgb 7.0 L Hct 20.4 L MCV 87.1 MCH 30.0 MCHC 34.4 RDW 14.3 Plt Count 161 MPV 9.3 Neut % (Auto) 79.4 H Lymph % (Auto) 13.4 L [place] % (Auto) 5.1 Eos % (Auto) 1.9 Baso % (Auto) 0.2 Neut # (Auto) 5.9 Lymph # (Auto) 1.0 [place] # (Auto) 0.4 Eos # (Auto) 0.1 Baso # (Auto) 0.0 Puncture Site pCO2 pO2 HCO3 ABG pH ABG Total CO2 ABG O2 Saturation ABG Base Excess Tre Test ABG Potassium A-a O2 Difference Respiratory Index Sodium 142 Chloride 109 H Glucose Lactate Vent Mode Mechanical Rate FiO2 Tidal Volume PEEP Potassium 3.5 L Carbon Dioxide 22 Anion Gap 14 BUN 30 H Creatinine 1.3 Est GFR ( Amer) > 60 Est GFR (Non-Af Amer) 54 POC Glucose (mg/dL) 172 H Random Glucose 172 H Calcium 7.7 L Phosphorus 2.4 L Magnesium 2.2 Total Bilirubin 0.6 AST 17 D ALT 32 Alkaline Phosphatase 49 Total Protein 5.7 L Albumin 2.7 L Globulin 3.0 Albumin/Globulin Ratio 0.9 L Arterial Blood Potassium 09/28/17 09/28/17 10:18 11:26 WBC 8.4 RBC 2.60 L Hgb 7.8 L Hct 22.6 L MCV 87.1 MCH 29.9 MCHC 34.3 RDW 14.4 Plt Count 171 MPV 9.0 Neut % (Auto) 82.5 H Lymph % (Auto) 10.2 L [place] % (Auto) 5.3 Eos % (Auto) 1.7 Baso % (Auto) 0.3 Neut # (Auto) 7.0 Lymph # (Auto) 0.9 L [place] # (Auto) 0.4 Eos # (Auto) 0.1 Baso # (Auto) 0.0 Puncture Site pCO2 pO2 HCO3 ABG pH ABG Total CO2 ABG O2 Saturation ABG Base Excess Tre Test ABG Potassium A-a O2 Difference Respiratory Index Sodium Chloride Glucose Lactate Vent Mode Mechanical Rate FiO2 Tidal Volume PEEP Potassium Carbon Dioxide Anion Gap BUN Creatinine Est GFR ( Amer) Est GFR (Non-Af Amer) POC Glucose (mg/dL) 183 H Random Glucose Calcium Phosphorus Magnesium Total Bilirubin AST ALT Alkaline Phosphatase Total Protein Albumin Globulin Albumin/Globulin Ratio Arterial Blood Potassium Assessment & Plan (1) Pneumonia Status: Acute (2) Respiratory failure requiring intubation Status: Acute (3) Ischemic stroke Status: Acute (4) Syncope Status: Acute - Assessment and Plan (Free Text) Assessment: worsening pneumonia despite appropriate IV antibiotics concern for [facility] care [employer] pathogens prompting addition of Vanco/ Merrem Will add coverage for Atypicals/ Legionella
[2017-09-28] MEDS: Moxifloxacin IV 400mg/250ml NS 400 MG/250 ML BAG IVPB SCH (18:35)
[2017-09-28] MEDS ORDERED: Piperacill/Tazo 2.25gm in Dex 2.25 GM/50 ML BAG IVPB SCH (19:00)
--- NOTE | 2017-09-28 22:47 | CP.PCM.PN ---
Subjective - Date & Time of Evaluation Date of Evaluation: 09/28/17 Time of Evaluation: 07:15 - Subjective Subjective: Patient seen and evaluated Intubated Physical Exam - Physical Exam Intubated Skin: Normal Color, Warm, Dry Head: Atraumatic, Normacephalic Eye(s): bilateral: Normal Inspection, PERRL, EOMI Oral Mucosa: Moist Chest: Symmetrical, Other (midline sternotomy scar) Cardiovascular: Rhythm Regular, No Murmur, No JVD Respiratory: Normal Breath Sounds, No Rales, No Rhonchi, No Wheezing Extremity: No Pedal Edema, No Swelling Objective - Vital Signs/Intake and Output Vital Signs (last 24 hours): Temp Pulse Resp BP Pulse Ox 98.4 F 77 10 L 159/72 H 100 09/28/17 16:00 09/28/17 19:15 09/28/17 19:15 09/28/17 19:15 09/28/17 19:15 Intake and Output: 09/28/17 09/29/17 18:59 06:59 Intake Total 1116.9 151.1 Output Total 565 40 Balance 551.9 111.1 - Medications Medications: Current Medications Albuterol/Ipratropium (Duoneb 3 Mg/0.5 Mg (3 Ml) Ud) 3 ml INH RQ6 [facility] Last Admin: 09/28/17 19:29 Dose: 3 ml Aspirin (Aspirin) 325 mg PO DAILY [facility] Last Admin: 09/28/17 09:17 Dose: 325 mg Clopidogrel Bisulfate (Plavix) 75 mg PO DAILY [facility] Last Admin: 09/28/17 09:20 Dose: 75 mg Docusate Sodium (Colace) 100 mg PO TID [facility] Last Admin: 09/28/17 17:04 Dose: 100 mg Enoxaparin Sodium (Lovenox) 40 mg SC DAILY [facility] Last Admin: 09/28/17 09:20 Dose: 40 mg Famotidine (Pepcid) 20 mg IVP Q12 [facility] Last Admin: 09/28/17 09:20 Dose: 20 mg Guaifenesin (Robitussin) 200 mg PO Q6 [facility] Last Admin: 09/28/17 17:04 Dose: 200 mg Guaifenesin (Robitussin) 200 mg PO Q4H PRN PRN Reason: Cough and congestion Propofol (Diprivan) 1,000 mg in 100 mls @ 2.041 mls/hr IV .Q24H PRN; Protocol; 5 MCG/KG/MIN PRN Reason: TITRATE PER MD ORDER Last Admin: 09/28/17 19:04 Dose: 30 mcg/kg/min, 12.247 mls/hr Meropenem 500 mg/ Sodium (Chloride) 100 mls @ 100 mls/hr IVPB Q8 [facility] Last Admin: 09/28/17 14:00 Dose: 100 mls/hr Vancomycin/Sodium Chloride (Vancomycin 1 Gm/Ns 200 Ml) 1 gm in 200 mls @ 133.333 mls/hr IVPB Q24H [facility] Stop: 10/03/17 13:01 Last Admin: 09/28/17 13:22 Dose: 133.333 mls/hr Moxifloxacin HCl (Avelox Iv 400mg/250ml Ns) 400 mg in 250 mls @ 167 mls/hr IVPB Q24H [facility] Last Admin: 09/28/17 18:35 Dose: 167 mls/hr Insulin Human Regular (Novolin R) 0 unit SC Q6 [facility] PRN Reason: Protocol Last Admin: 09/28/17 18:05 Dose: 3 unit Lorazepam (Ativan) 2 mg IVP Q6H PRN PRN Reason: Anxiety Last Admin: 09/26/17 15:06 Dose: 2 mg - Labs Labs: 09/28/17 10:18 09/28/17 06:30 PT 13.0 SECONDS (9.7-12.2) H 09/25/17 15:35 INR 1.2 09/25/17 15:35 APTT 33 SECONDS (21-34) 09/25/17 15:35 Assessment and Plan - Assessment and Plan (Free Text) Assessment: 1. Pneumonia 2. Diastolic CHF 3. HTN 4. Respiratory failure Antibiotics Lasix as needed Ventilator support
--- NOTE | 2017-09-28 23:06 | CP.PCM.PN ---
Subjective - Date & Time of Evaluation Date of Evaluation: 09/28/17 Time of Evaluation: 18:35 - Subjective Subjective: Pt still is on FiO2 of 40%, afebrile, intibated, he is congested worsening pneumonia despite appropriate IV antibiotics, nebulizer concern for [employer] care [employer] pathogens prompting addition of Vanco/ Merrem also seen by ID , Will add coverage for Atypicals/ Legionella Objective - Vital Signs/Intake and Output Vital Signs (last 24 hours): Temp Pulse Resp BP Pulse Ox 98.4 F 77 10 L 159/72 H 100 09/28/17 16:00 09/28/17 19:15 09/28/17 19:15 09/28/17 19:15 09/28/17 19:15 Intake and Output: 09/28/17 09/29/17 18:59 06:59 Intake Total 1116.9 151.1 Output Total 565 40 Balance 551.9 111.1 - Medications Medications: Current Medications Albuterol/Ipratropium (Duoneb 3 Mg/0.5 Mg (3 Ml) Ud) 3 ml INH RQ6 [facility] Last Admin: 09/28/17 19:29 Dose: 3 ml Aspirin (Aspirin) 325 mg PO DAILY [facility] Last Admin: 09/28/17 09:17 Dose: 325 mg Clopidogrel Bisulfate (Plavix) 75 mg PO DAILY [facility] Last Admin: 09/28/17 09:20 Dose: 75 mg Docusate Sodium (Colace) 100 mg PO TID [facility] Last Admin: 09/28/17 17:04 Dose: 100 mg Enoxaparin Sodium (Lovenox) 40 mg SC DAILY [facility] Last Admin: 09/28/17 09:20 Dose: 40 mg Famotidine (Pepcid) 20 mg IVP Q12 [facility] Last Admin: 09/28/17 09:20 Dose: 20 mg Guaifenesin (Robitussin) 200 mg PO Q6 [facility] Last Admin: 09/28/17 17:04 Dose: 200 mg Guaifenesin (Robitussin) 200 mg PO Q4H PRN PRN Reason: Cough and congestion Propofol (Diprivan) 1,000 mg in 100 mls @ 2.041 mls/hr IV .Q24H PRN; Protocol; 5 MCG/KG/MIN PRN Reason: TITRATE PER MD ORDER Last Admin: 09/28/17 19:04 Dose: 30 mcg/kg/min, 12.247 mls/hr Meropenem 500 mg/ Sodium (Chloride) 100 mls @ 100 mls/hr IVPB Q8 [facility] Last Admin: 09/28/17 14:00 Dose: 100 mls/hr Vancomycin/Sodium Chloride (Vancomycin 1 Gm/Ns 200 Ml) 1 gm in 200 mls @ 133.333 mls/hr IVPB Q24H [facility] Stop: 10/03/17 13:01 Last Admin: 09/28/17 13:22 Dose: 133.333 mls/hr Moxifloxacin HCl (Avelox Iv 400mg/250ml Ns) 400 mg in 250 mls @ 167 mls/hr IVPB Q24H [facility] Last Admin: 09/28/17 18:35 Dose: 167 mls/hr Insulin Human Regular (Novolin R) 0 unit SC Q6 [facility] PRN Reason: Protocol Last Admin: 09/28/17 18:05 Dose: 3 unit Lorazepam (Ativan) 2 mg IVP Q6H PRN PRN Reason: Anxiety Last Admin: 09/26/17 15:06 Dose: 2 mg - Labs Labs: 09/28/17 10:18 09/28/17 06:30 PT 13.0 SECONDS (9.7-12.2) H 09/25/17 15:35 INR 1.2 09/25/17 15:35 APTT 33 SECONDS (21-34) 09/25/17 15:35 - Constitutional Appears: No Acute Distress, Chronically Ill - Head Exam Head Exam: ATRAUMATIC, NORMAL INSPECTION, NORMOCEPHALIC - Eye Exam Eye Exam: EOMI, Normal appearance, PERRL Pupil Exam: NORMAL ACCOMODATION, PERRL - Respiratory Exam Respiratory Exam: Decreased Breath Sounds, Rhonchi - Cardiovascular Exam Cardiovascular Exam: REGULAR RHYTHM, +S1, +S2. absent: Murmur - GI/Abdominal Exam GI & Abdominal Exam: Soft, Normal Bowel Sounds. absent: Tenderness Assessment and Plan (1) Pneumonia Status: Acute (2) Respiratory failure requiring intubation Status: Acute (3) Syncope Status: Acute
[2017-09-29] MEDS: guaiFENesin 200 mg/10 ml Syrup UD PO PRN ×2 (00:15→06:28)
[2017-09-29] MEDS: Albuterol-Ipratrop 3 mg / 0.5 (3 ml) UD INH SCH ×4 (01:56→20:45)
[2017-09-29] MEDS: guaiFENesin 100 mg/5 ml Syrup UD PO SCH ×2 (03:01→06:29)
[2017-09-29] MEDS: Propofol 10 mg/ml 1,000 MG/100 ML VIAL IV PRN ×2 (03:15→10:11)
[2017-09-29 05:22] LABS: ARTERIAL BLOOD GAS HCO3 24.2 mmol/L (21-28); ARTERIAL BLOOD GAS HEMOGLOBIN 6.6 g/dL (11.7-17.4); ARTERIAL BLOOD GAS PCO2 30 mm/Hg (35-45); ARTERIAL BLOOD GAS PH 7.48 (7.35-7.45); ARTERIAL BLOOD GAS PO2 127 mm/Hg (80-100); ARTERIAL BLOOD GAS TCO2 23.2 mmol/L (22-28)
[2017-09-29] MEDS: Meropenem 500 MG in Sodium Chloride 0.9% 100 ML IVPB SCH ×3 (06:00→22:22)
[2017-09-29] MEDS: (Novolin R) Insulin Human Regular 100 units/ml vial SC SCH ×3 (06:27→18:10)
[2017-09-29 06:48] LABS: BASO % 0.2 % (0.0-2.0); EOS # 0.2 K/uL (0.0-0.7); EOS % 2.7 % (0.0-4.0); HEMOGLOBIN 6.8 g/dL (12.0-18.0); LYMPH # 0.9 K/uL (1.0-4.3); LYMPH % 12.7 % (20.0-40.0); MEAN CELL VOLUME 87.4 fL (80.0-94.0); MEAN CORPUSCULAR HEMOGLOBIN 29.4 pg (27.0-31.0); MEAN CORPUSCULAR HGB CONC 33.6 g/dL (33.0-37.0); MEAN PLATELET VOLUME 9.2 fL (7.2-11.7); MONO # 0.4 K/uL (0.0-0.8); MONO % 5.5 % (0.0-10.0); NEUT # 5.6 K/uL (1.8-7.0); NEUT % 78.9 % (50.0-75.0); NRBC % 0.1 % (0.0-2.0); RBC 2.31 Mil/uL (4.40-5.90); RED CELL DISTRIBUTION WIDTH 14.2 % (11.5-14.5)
[2017-09-29 07:22] LABS: BLOOD UREA NITROGEN 24 mg/dL (9-20); GFR AFRICAN-AMERICAN > 60; GFR NON-AFRICAN AMERICAN > 60
[2017-09-29 07:23] LABS: ALB/GLOB RATIO 0.9 (1.0-2.1); ALBUMIN 2.8 g/dL (3.5-5.0); AST/SGOT 14 U/L (17-59); CALCIUM 7.7 mg/dl (8.6-10.4)
[2017-09-29 07:24] LABS: ALT/SGPT 25 U/L (21-72)
[2017-09-29] MEDS ORDERED: Potassium Phosphate 15 MMOLE in Dextrose 5% In Water 250 ML IVPB ONE (09:00)
--- NOTE | 2017-09-29 09:10 | RAD ---
Chest x-ray single frontal view History: Follow-up. Comparison: 09/28/2017 Findings: Lines and tubes in stable position. Nodular consolidative changes in the right mid to lower lung zone and to a lesser extent left lung base. Diffuse increased interstitial lung markings. Cardiomegaly. Degenerative changes in the spine. Tubing projects over upper abdomen. Impression: Lines and tubes in stable position. Nodular consolidative changes in the right mid to lower lung zone and to a lesser extent left lung base. Diffuse increased interstitial lung markings. Cardiomegaly.
[2017-09-29] MEDS: Enoxaparin 40 mg Syringe SC SCH (09:48)
[2017-09-29] MEDS ORDERED: Bisacodyl 5mg EC Tab PO ONE (10:00)
[2017-09-29] MEDS: Dexmedetomidine Hydrochloride 200 MCG in Sodium Chloride 0.9% 48 ML IV PRN ×3 (11:46→20:34)
[2017-09-29] MEDS ORDERED: Potassium Phosphate 15 MMOLE in Sodium Chloride 0.9% 250 ML IV ONE (12:00)
[2017-09-29 12:05] LABS: LEGIONELLA AG URINE NEGATIVE (NEGATIVE)
[2017-09-29] MEDS ORDERED: guaiFENesin 100 mg/5 ml Syrup UD PO PRN (12:15)
[2017-09-29 12:31] LABS: MYCOPLASMA PNEUMONIAE IGM NEGATIVE (NEGATIVE)
--- NOTE | 2017-09-29 13:18 | CT ---
CT chest, abdomen, and pelvis without IV contrast Indication: Source of bleed Technique: Contiguous axial images of the chest, abdomen, and pelvis without oral or IV contrast. Coronal and Sagittal reformats generated and reviewed. This CT exam was performed using 1 or more of the following dose reduction techniques: Automated exposure control, adjustment of the MAA and/or kV according to patient size, and/or use of iterative reconstruction technique. Radiation dose: Total exam DLP = 1203.58 MGy-cm. Comparison: CTA chest performed 09/25/17 Findings: Endotracheal tube terminates above the gian. Nasogastric tube extends expected location of the stomach. Limited visualized portions of the inferior thyroid gland appear unremarkable. The mediastinal and hilar vascular structures appear within normal limits. Cardiomegaly. Dense coronary artery calcifications. Atherosclerotic calcifications of the aorta. Mediastinal adenopathy measuring up to 10 mm in short axis (right pretracheal). Patchy airspace disease scattered bilaterally. Small bilateral pleural effusions and associated consolidations, right greater than left. No pneumothorax. 5 mm right upper lobe nodule (series 4, image 26). Coarse right hepatic lobe calcification, likely granuloma. Mild gallbladder wall thickening/pericholecystic edema. The noncontrast spleen, kidneys, pancreas, and adrenal glands appear unremarkable. The stomach is nondistended. Question recent oral contrast ingestion due to presumed oral contrast within the colon. The bowel loops appear within normal limits of caliber without evidence of intestinal obstruction. The appendix appears within normal limits of caliber. No secondary signs of acute appendicitis. There is no definite free air. Dense atherosclerotic calcifications of the abdominal aorta and branches. The prostate gland measures approximately 3.3 x 4.2 cm. Swift catheter within a decompressed urinary bladder. Air within the urinary bladder, likely due to recent instrumentation. Posterior lumbar fusion hardware, L4-L5. Multilevel degenerative changes. Impression: Endotracheal tube and nasogastric tube. Cardiomegaly. Dense coronary artery calcifications. Atherosclerotic calcifications of the aorta. Mediastinal adenopathy measuring up to 10 mm in short axis (right pretracheal). Patchy airspace disease scattered bilaterally. Small bilateral pleural effusions and associated consolidations, right greater than left. 5 mm right upper lobe nodule. According to 2017 Fleischner criteria, the patient is low risk, no routine follow-up is recommended. If the patient is high risk, an optional CT at 12 months is recommended. Mild gallbladder wall thickening/pericholecystic edema. Suggest right upper quadrant ultrasound for further evaluation if indicated. Question recent oral contrast ingestion due to presumed oral contrast within the colon. Swift catheter within a decompressed urinary bladder. Air within the urinary bladder, likely due to recent instrumentation. Additional findings as above.
--- NOTE | 2017-09-29 13:49 | CP.CCUPN ---
<Aleksey Waterman - Last Filed: 09/29/17 15:21> CCU Subjective - Physician Review Subjective (Free Text): 09/26/17 11:33 Patient seen and examined at bedside intubated, sedated Tube feeds to be started cardio consult for rowan 09/27/17 13:02 Patient seen and examined at bedside CPAP trial today, tolerated for 3.5 hours 09/28/17 13:55 CPAP trial today for over 6 hours today. Pneumonia on CXR not resolving, severe sepsis Consulted ID and added Merrem and Vanco 09/29/17 13:33 patient seen and examined at bedside added moxiflox 09/29/17 15:22 CCU Objective - Vital Signs / Intake & Output Vital Signs (Last 4 hours): Vital Signs Temp Pulse Resp BP Pulse Ox 09/29/17 13:15 84 24 139/60 99 09/29/17 13:12 98.7 F 84 21 139/60 09/29/17 12:58 86 21 140/61 99 09/29/17 12:57 98.6 F 86 24 140/61 09/29/17 12:43 91 H 23 148/62 97 09/29/17 12:42 98.4 F 91 H 23 148/62 09/29/17 12:33 99.2 F 101 H 23 170/78 H 09/29/17 12:15 110 H 23 170/78 H 97 09/29/17 11:32 95 H 21 151/70 H 100 09/29/17 10:15 95 H 0 L 159/69 H 98 Intake and Output (Last 8hrs): Intake & Output 09/28/17 09/29/17 09/29/17 22:59 06:59 14:59 Intake Total 824.8 600.0 389.7 Output Total 225 420 Balance 599.8 600.0 -30.3 Weight 170 lb Intake: IV 60 100 120 Intake, IV Amount 404.8 140.0 224.7 Right Antecubital 300 7.4 Right Wrist 104.8 140.0 117.3 rt.AC side poirt 100 Tube Feeding 360 360 45 Blood Product 0 Red Blood Cells Cpd As1 0 Lr Unit [id number] Output: Urine 225 420 Urethral (Swift) 225 420 - Physical Exam Head: Positive for: Atraumatic, Normocephalic Mouth: Positive for: Moist Mucous Membranes Nose (Internal): Positive for: No Active Bleeding Neck: Negative for: Meningeal Signs, MIDLINE TENDERNESS Respiratory/Chest: Positive for: Good Air Exchange, Other (intubated). Negative for: Accessory Muscle Use Cardiovascular: Positive for: Regular Rate and Rhythm Abdomen: Positive for: Normal Bowel Sounds. Negative for: Tenderness, Distention, Peritoneal Signs - Medications Active Medications: Active Medications Generic Name Dose Route Start Last Admin Trade Name Freq PRN Reason Stop Dose Admin Albuterol/Ipratropium 3 ml 09/25/17 20:00 09/29/17 13:15 Duoneb 3 Mg/0.5 Mg (3 Ml) Ud INH 3 ml RQ6 [facility] Administration Aspirin 325 mg 09/26/17 10:00 09/29/17 09:40 Aspirin PO Not Given DAILY [facility] Clopidogrel Bisulfate 75 mg 09/26/17 10:00 09/29/17 09:50 Plavix PO Not Given DAILY [facility] Docusate Sodium 100 mg 09/27/17 14:00 09/29/17 09:40 Colace PO 100 mg TID [facility] Administration Enoxaparin Sodium 40 mg 09/26/17 10:00 09/29/17 09:48 Lovenox SC Not Given DAILY [facility] Famotidine 20 mg 09/27/17 22:00 09/29/17 09:41 Pepcid IVP 20 mg Q12 [facility] Administration Guaifenesin 200 mg 09/29/17 12:15 Robitussin PO Q4H PRN Cough and congestion Propofol 1,000 mg in 100 mls @ 2.041 mls/hr 09/25/17 19:01 09/29/17 11:53 Diprivan IV 0 mcg/kg/min .Q24H PRN 0 mls/hr TITRATE PER MD ORDER Titration Protocol 5 MCG/KG/MIN Meropenem 500 mg/ Sodium 100 mls @ 100 mls/hr 09/28/17 14:00 09/29/17 06:00 Chloride IVPB 100 mls/hr Q8 [facility] Administration Vancomycin/Sodium Chloride 1 gm in 200 mls @ 133.333 mls/hr 09/28/17 13:00 13:22 Vancomycin 1 Gm/Ns 200 Ml IVPB 10/03/17 13:01 133.333 mls/hr Q24H [facility] Administration Moxifloxacin HCl 400 mg in 250 mls @ 167 mls/hr 09/28/17 17:00 09/28/17 18:35 Avelox Iv 400mg/250ml Ns IVPB 167 mls/hr Q24H [facility] Administration Potassium Phosphate 15 mmole/ 255 mls @ 42.5 mls/hr 09/29/17 09:00 09/29/17 11:47 Dextrose IVPB 09/29/17 14:59 Not Given ONCE ONE Dexmedetomidine HCl 200 mcg/ 50 mls @ 3.85 mls/hr 09/29/17 10:30 09/29/17 11: 46 Sodium Chloride IV 0.2 mcg/kg/hr TITR PRN 3.85 mls/hr Sedation Administration Protocol 0.2 MCG/KG/HR Potassium Phosphate 15 mmole/ 255 mls @ 63 mls/hr 09/29/17 12:00 09/29/17 11: 45 Sodium Chloride IV 09/29/17 16:02 63 mls/hr ONCE ONE Administration Insulin Human Regular 0 unit 09/26/17 00:00 09/29/17 12:44 Novolin R SC Not Given Q6 [facility] Protocol - Patient Studies Lab Studies: Microbiology Studies 09/25/17 18:10 Blood Culture - Preliminary Blood-Venous NO GROWTH AFTER 3 DAYS 09/25/17 18:10 Blood Culture - Preliminary Blood-Venous NO GROWTH AFTER 3 DAYS 09/28/17 11:57 Gram Stain - Final Trachasp Lab Studies 09/29/17 09/29/17 09/29/17 Range/Units 09:03 08:06 06:36 WBC 7.0 (4.8-10.8) K/uL RBC 2.31 L (4.40-5.90) Mil/uL Hgb 6.8 L (12.0-18.0) g/dL Hct 20.2 L (35.0-51.0) % MCV 87.4 (80.0-94.0) fL MCH 29.4 (27.0-31.0) pg MCHC 33.6 (33.0-37.0) g/dL RDW 14.2 (11.5-14.5) % Plt Count 178 (130-400) K/uL MPV 9.2 (7.2-11.7) fL Neut % (Auto) 78.9 H (50.0-75.0) % Lymph % (Auto) 12.7 L (20.0-40.0) % [place] % (Auto) 5.5 (0.0-10.0) % Eos % (Auto) 2.7 (0.0-4.0) % Baso % (Auto) 0.2 (0.0-2.0) % Neut # (Auto) 5.6 (1.8-7.0) K/uL Lymph # (Auto) 0.9 L (1.0-4.3) K/uL [place] # (Auto) 0.4 (0.0-0.8) K/uL Eos # (Auto) 0.2 (0.0-0.7) K/uL Baso # (Auto) 0.0 (0.0-0.2) K/uL Puncture Site pCO2 (35-45) mm/Hg pO2 (80-100) mm/Hg HCO3 (21-28) mmol/L ABG pH (7.35-7.45) ABG Total CO2 (22-28) mmol/L ABG O2 Saturation (95-98) % ABG Base Excess (-2.0-3.0) mmol/L ABG Hemoglobin (11.7-17.4) g/dL ABG Carboxyhemoglobin (0.5-1.5) % POC ABG HHb (Measured) (0.0-5.0) % ABG Methemoglobin (0.0-3.0) % Tre Test A-a O2 Difference mm/Hg Respiratory Index Hgb O2 Saturation (95.0-98.0) % Vent Mode Mechanical Rate FiO2 % Tidal Volume PEEP Sodium (132-148) mmol/L Potassium (3.6-5.2) mmol/L Chloride (98-107) mmol/L Carbon Dioxide (22-30) mmol/L Anion Gap (10-20) BUN (9-20) mg/dL Creatinine (0.8-1.5) mg/dL Est GFR ( Amer) Est GFR (Non-Af Amer) POC Glucose (mg/dL) (65-110) mg/dL Random Glucose (75-110) mg/dL Calcium (8.6-10.4) mg/dl Phosphorus (2.5-4.5) mg/dL Magnesium (1.6-2.3) mg/dL Total Bilirubin (0.2-1.3) mg/dL AST (17-59) U/L ALT (21-72) U/L Alkaline Phosphatase (38-126) U/L Total Protein (6.3-8.3) g/dL Albumin (3.5-5.0) g/dL Globulin (2.2-3.9) gm/dL Albumin/Globulin Ratio (1.0-2.1) Ur L.pneumophila Ag Negative (NEGATIVE) Mycoplasma pneumon IgM Negative (NEGATIVE) Blood Type B POSITIVE Blood Type Confirm B POSITIVE Antibody Screen Negative 09/29/17 09/29/17 09/29/17 Range/Units 06:28 06:04 05:12 WBC (4.8-10.8) K/uL RBC (4.40-5.90) Mil/uL Hgb (12.0-18.0) g/dL Hct (35.0-51.0) % MCV (80.0-94.0) fL MCH (27.0-31.0) pg MCHC (33.0-37.0) g/dL RDW (11.5-14.5) % Plt Count (130-400) K/uL MPV (7.2-11.7) fL Neut % (Auto) (50.0-75.0) % Lymph % (Auto) (20.0-40.0) % [place] % (Auto) (0.0-10.0) % Eos % (Auto) (0.0-4.0) % Baso % (Auto) (0.0-2.0) % Neut # (Auto) (1.8-7.0) K/uL Lymph # (Auto) (1.0-4.3) K/uL [place] # (Auto) (0.0-0.8) K/uL Eos # (Auto) (0.0-0.7) K/uL Baso # (Auto) (0.0-0.2) K/uL Puncture Site Lb pCO2 30 L (35-45) mm/Hg pO2 127 H (80-100) mm/Hg HCO3 24.2 (21-28) mmol/L ABG pH 7.48 H (7.35-7.45) ABG Total CO2 23.2 (22-28) mmol/L ABG O2 Saturation 98.0 (95-98) % ABG Base Excess -1.0 (-2.0-3.0) mmol/L ABG Hemoglobin 6.6 L (11.7-17.4) g/dL ABG Carboxyhemoglobin 0.9 (0.5-1.5) % POC ABG HHb (Measured) 2.0 (0.0-5.0) % ABG Methemoglobin 1.2 (0.0-3.0) % Tre Test Na A-a O2 Difference 121.0 mm/Hg Respiratory Index 1.0 Hgb O2 Saturation 95.9 (95.0-98.0) % Vent Mode Prvc Mechanical Rate 20 FiO2 40.0 % Tidal Volume 450 PEEP 5 Sodium 145 (132-148) mmol/L Potassium 3.9 (3.6-5.2) mmol/L Chloride 112 H (98-107) mmol/L Carbon Dioxide 23 (22-30) mmol/L Anion Gap 14 (10-20) BUN 24 H (9-20) mg/dL Creatinine 1.0 (0.8-1.5) mg/dL Est GFR ( Amer) > 60 Est GFR (Non-Af Amer) > 60 POC Glucose (mg/dL) 191 H (65-110) mg/dL Random Glucose 178 H (75-110) mg/dL Calcium 7.7 L (8.6-10.4) mg/dl Phosphorus 2.0 L (2.5-4.5) mg/dL Magnesium 2.2 (1.6-2.3) mg/dL Total Bilirubin 0.5 (0.2-1.3) mg/dL AST 14 L (17-59) U/L ALT 25 (21-72) U/L Alkaline Phosphatase 55 (38-126) U/L Total Protein 6.0 L (6.3-8.3) g/dL Albumin 2.8 L (3.5-5.0) g/dL Globulin 3.2 (2.2-3.9) gm/dL Albumin/Globulin Ratio 0.9 L (1.0-2.1) Ur L.pneumophila Ag (NEGATIVE) Mycoplasma pneumon IgM (NEGATIVE) Blood Type Blood Type Confirm Antibody Screen 09/28/17 09/28/17 Range/Units 23:54 17:46 WBC (4.8-10.8) K/uL RBC (4.40-5.90) Mil/uL Hgb (12.0-18.0) g/dL Hct (35.0-51.0) % MCV (80.0-94.0) fL MCH (27.0-31.0) pg MCHC (33.0-37.0) g/dL RDW (11.5-14.5) % Plt Count (130-400) K/uL MPV (7.2-11.7) fL Neut % (Auto) (50.0-75.0) % Lymph % (Auto) (20.0-40.0) % [place] % (Auto) (0.0-10.0) % Eos % (Auto) (0.0-4.0) % Baso % (Auto) (0.0-2.0) % Neut # (Auto) (1.8-7.0) K/uL Lymph # (Auto) (1.0-4.3) K/uL [place] # (Auto) (0.0-0.8) K/uL Eos # (Auto) (0.0-0.7) K/uL Baso # (Auto) (0.0-0.2) K/uL Puncture Site pCO2 (35-45) mm/Hg pO2 (80-100) mm/Hg HCO3 (21-28) mmol/L ABG pH (7.35-7.45) ABG Total CO2 (22-28) mmol/L ABG O2 Saturation (95-98) % ABG Base Excess (-2.0-3.0) mmol/L ABG Hemoglobin (11.7-17.4) g/dL ABG Carboxyhemoglobin (0.5-1.5) % POC ABG HHb (Measured) (0.0-5.0) % ABG Methemoglobin (0.0-3.0) % Tre Test A-a O2 Difference mm/Hg Respiratory Index Hgb O2 Saturation (95.0-98.0) % Vent Mode Mechanical Rate FiO2 % Tidal Volume PEEP Sodium (132-148) mmol/L Potassium (3.6-5.2) mmol/L Chloride (98-107) mmol/L Carbon Dioxide (22-30) mmol/L Anion Gap (10-20) BUN (9-20) mg/dL Creatinine (0.8-1.5) mg/dL Est GFR ( Amer) Est GFR (Non-Af Amer) POC Glucose (mg/dL) 160 H 213 H (65-110) mg/dL Random Glucose (75-110) mg/dL Calcium (8.6-10.4) mg/dl Phosphorus (2.5-4.5) mg/dL Magnesium (1.6-2.3) mg/dL Total Bilirubin (0.2-1.3) mg/dL AST (17-59) U/L ALT (21-72) U/L Alkaline Phosphatase (38-126) U/L Total Protein (6.3-8.3) g/dL Albumin (3.5-5.0) g/dL Globulin (2.2-3.9) gm/dL Albumin/Globulin Ratio (1.0-2.1) Ur L.pneumophila Ag (NEGATIVE) Mycoplasma pneumon IgM (NEGATIVE) Blood Type Blood Type Confirm Antibody Screen Laboratory Results - last 24 hr 09/28/17 09/28/17 09/29/17 17:46 23:54 05:12 WBC RBC Hgb Hct MCV MCH MCHC RDW Plt Count MPV Neut % (Auto) Lymph % (Auto) [place] % (Auto) Eos % (Auto) Baso % (Auto) Neut # (Auto) Lymph # (Auto) [place] # (Auto) Eos # (Auto) Baso # (Auto) Puncture Site Lb pCO2 30 L pO2 127 H HCO3 24.2 ABG pH 7.48 H ABG Total CO2 23.2 ABG O2 Saturation 98.0 ABG Base Excess -1.0 ABG Hemoglobin 6.6 L ABG Carboxyhemoglobin 0.9 POC ABG HHb (Measured) 2.0 ABG Methemoglobin 1.2 Tre Test Na A-a O2 Difference 121.0 Respiratory Index 1.0 Hgb O2 Saturation 95.9 Vent Mode Prvc Mechanical Rate 20 FiO2 40.0 Tidal Volume 450 PEEP 5 Sodium Potassium Chloride Carbon Dioxide Anion Gap BUN Creatinine Est GFR ( Amer) Est GFR (Non-Af Amer) POC Glucose (mg/dL) 213 H 160 H Random Glucose Calcium Phosphorus Magnesium Total Bilirubin AST ALT Alkaline Phosphatase Total Protein Albumin Globulin Albumin/Globulin Ratio Ur L.pneumophila Ag Mycoplasma pneumon IgM Blood Type Blood Type Confirm Antibody Screen 09/29/17 09/29/17 09/29/17 06:04 06:28 06:36 WBC 7.0 RBC 2.31 L Hgb 6.8 L Hct 20.2 L MCV 87.4 MCH 29.4 MCHC 33.6 RDW 14.2 Plt Count 178 MPV 9.2 Neut % (Auto) 78.9 H Lymph % (Auto) 12.7 L [place] % (Auto) 5.5 Eos % (Auto) 2.7 Baso % (Auto) 0.2 Neut # (Auto) 5.6 Lymph # (Auto) 0.9 L [place] # (Auto) 0.4 Eos # (Auto) 0.2 Baso # (Auto) 0.0 Puncture Site pCO2 pO2 HCO3 ABG pH ABG Total CO2 ABG O2 Saturation ABG Base Excess ABG Hemoglobin ABG Carboxyhemoglobin POC ABG HHb (Measured) ABG Methemoglobin Tre Test A-a O2 Difference Respiratory Index Hgb O2 Saturation Vent Mode Mechanical Rate FiO2 Tidal Volume PEEP Sodium 145 Potassium 3.9 Chloride 112 H Carbon Dioxide 23 Anion Gap 14 BUN 24 H Creatinine 1.0 Est GFR ( Amer) > 60 Est GFR (Non-Af Amer) > 60 POC Glucose (mg/dL) 191 H Random Glucose 178 H Calcium 7.7 L Phosphorus 2.0 L Magnesium 2.2 Total Bilirubin 0.5 AST 14 L ALT 25 Alkaline Phosphatase 55 Total Protein 6.0 L Albumin 2.8 L Globulin 3.2 Albumin/Globulin Ratio 0.9 L Ur L.pneumophila Ag Mycoplasma pneumon IgM Blood Type Blood Type Confirm Antibody Screen 09/29/17 09/29/17 08:06 09:03 WBC RBC Hgb Hct MCV MCH MCHC RDW Plt Count MPV Neut % (Auto) Lymph % (Auto) [place] % (Auto) Eos % (Auto) Baso % (Auto) Neut # (Auto) Lymph # (Auto) [place] # (Auto) Eos # (Auto) Baso # (Auto) Puncture Site pCO2 pO2 HCO3 ABG pH ABG Total CO2 ABG O2 Saturation ABG Base Excess ABG Hemoglobin ABG Carboxyhemoglobin POC ABG HHb (Measured) ABG Methemoglobin Tre Test A-a O2 Difference Respiratory Index Hgb O2 Saturation Vent Mode Mechanical Rate FiO2 Tidal Volume PEEP Sodium Potassium Chloride Carbon Dioxide Anion Gap BUN Creatinine Est GFR ( Amer) Est GFR (Non-Af Amer) POC Glucose (mg/dL) Random Glucose Calcium Phosphorus Magnesium Total Bilirubin AST ALT Alkaline Phosphatase Total Protein Albumin Globulin Albumin/Globulin Ratio Ur L.pneumophila Ag Negative Mycoplasma pneumon IgM Negative Blood Type B POSITIVE Blood Type Confirm B POSITIVE Antibody Screen Negative Fingerstick Blood Sugar Results: 160 Assessment/Plan - Assessment and Plan (Free Text) Assessment: 71M Aspiration Pneumonia, Bradycardia with episodes of syncope Plan: Neuro: Precedex, Very light sedation, decreased agitation decreased RR. Cardio: bradycardia initially, syncope, Dr. Manzo on consult. echo Pulm: Aspiration pneumonia, Merrem and vanco, moxiflox, ID (Mangia), CPAP tolerated today. Renal: Cr improving GI: No acute issues. Cont tube feeds Endo: accuchecks, ISS PPX: Protonix/lovenox <Prasanth Gold M - Last Filed: 09/30/17 17:07> CCU Objective - Vital Signs / Intake & Output Vital Signs (Last 4 hours): Vital Signs Pulse 09/30/17 13:37 105 H Intake and Output (Last 8hrs): Intake & Output 09/30/17 09/30/17 09/30/17 06:59 14:59 22:59 Intake Total 609.2 128.4 Output Total 275 202 Balance 334.2 -73.6 Weight 154 lb Intake: IV 100 Intake, IV Amount 104.2 38.4 Right Antecubital 104.2 38.4 Tube Feeding 405 90 Output: Urine 275 202 Urethral (Swift) 275 202 - Medications Active Medications: Active Medications Generic Name Dose Route Start Last Admin Trade Name Freq PRN Reason Stop Dose Admin Albuterol/Ipratropium 3 ml 09/25/17 20:00 09/30/17 13:36 Duoneb 3 Mg/0.5 Mg (3 Ml) Ud INH 3 ml RQ6 [facility] Administration Aspirin 81 mg 09/30/17 13:29 Aspirin Chewable PO DAILY [facility] Clopidogrel Bisulfate 75 mg 09/26/17 10:00 09/30/17 09:53 Plavix PO 75 mg DAILY [facility] Administration Docusate Sodium 100 mg 09/27/17 14:00 09/30/17 13:17 Colace PO Not Given TID [facility] Enoxaparin Sodium 40 mg 09/26/17 10:00 09/30/17 09:52 Lovenox SC 40 mg DAILY [facility] Administration Famotidine 20 mg 09/27/17 22:00 09/30/17 09:53 Pepcid IVP 20 mg Q12 [facility] Administration Guaifenesin 200 mg 09/29/17 12:15 Robitussin PO Q4H PRN Cough and congestion Hydralazine HCl 10 mg 09/30/17 14:19 Apresoline IVP Q6H PRN Systolic Blood Pressure Meropenem 500 mg/ Sodium 100 mls @ 100 mls/hr 09/28/17 14:00 09/30/17 14:25 Chloride IVPB 100 mls/hr Q8 [facility] Administration Vancomycin/Sodium Chloride 1 gm in 200 mls @ 133.333 mls/hr 09/28/17 13:00 13:09 Vancomycin 1 Gm/Ns 200 Ml IVPB 10/03/17 13:01 133.333 mls/hr Q24H [facility] Administration Moxifloxacin HCl 400 mg in 250 mls @ 167 mls/hr 09/28/17 17:00 09/29/17 17:49 Avelox Iv 400mg/250ml Ns IVPB 167 mls/hr Q24H [facility] Administration Verapamil HCl 40 mg/ Sodium 100 mls @ 12.5 mls/hr 09/30/17 14:00 09/30/17 14: 23 Chloride IV 12.5 mls/hr .Q8H [facility] Administration Protocol 5 MG/HR Insulin Human Regular 0 unit 09/26/17 00:00 09/30/17 12:59 Novolin R SC 3 unit Q6 [facility] Administration Protocol Methylprednisolone 40 mg 09/30/17 14:00 09/30/17 13:19 Solu-Medrol IVP 40 mg Q8 [facility] Administration Verapamil HCl 5 mg 09/30/17 12:44 Verapamil Inj IVP Q6H PRN Heart rate - Patient Studies Lab Studies: Microbiology Studies 09/28/17 11:57 Gram Stain - Final Trachasp Sputum Culture - Final Yeast Species 09/25/17 18:10 Blood Culture - Preliminary Blood-Venous NO GROWTH AFTER 4 DAYS 09/25/17 18:10 Blood Culture - Preliminary Blood-Venous NO GROWTH AFTER 4 DAYS 09/28/17 11:57 Urine Culture - Final Urine No Growth (<1,000 CFU/ML) 09/28/17 11:57 Blood Culture - Preliminary Blood NO GROWTH AFTER 24 HOURS 09/28/17 11:57 Blood Culture - Preliminary Blood NO GROWTH AFTER 24 HOURS Lab Studies 09/30/17 09/30/17 09/30/17 Range/Units 11:25 06:26 06:22 WBC (4.8-10.8) K/uL RBC (4.40-5.90) Mil/uL Hgb (12.0-18.0) g/dL Hct (35.0-51.0) % MCV (80.0-94.0) fL MCH (27.0-31.0) pg MCHC (33.0-37.0) g/dL RDW (11.5-14.5) % Plt Count (130-400) K/uL MPV (7.2-11.7) fL Neut % (Auto) (50.0-75.0) % Lymph % (Auto) (20.0-40.0) % [place] % (Auto) (0.0-10.0) % Eos % (Auto) (0.0-4.0) % Baso % (Auto) (0.0-2.0) % Neut # (Auto) (1.8-7.0) K/uL Lymph # (Auto) (1.0-4.3) K/uL [place] # (Auto) (0.0-0.8) K/uL Eos # (Auto) (0.0-0.7) K/uL Baso # (Auto) (0.0-0.2) K/uL Puncture Site pCO2 (35-45) mm/Hg pO2 (80-100) mm/Hg HCO3 (21-28) mmol/L ABG pH (7.35-7.45) ABG Total CO2 (22-28) mmol/L ABG O2 Saturation (95-98) % ABG Base Excess (-2.0-3.0) mmol/L Tre Test ABG Potassium (3.6-5.2) mmol/L A-a O2 Difference mm/Hg Respiratory Index Sodium 145 (132-148) mmol/l Chloride 115 H (98-107) mmol/L Glucose (75-110) mg/dl Lactate (0.7-2.1) mmol/L Vent Mode Mechanical Rate FiO2 % Tidal Volume PEEP Potassium 4.3 (3.6-5.2) mmol/L Carbon Dioxide 20 L (22-30) mmol/L Anion Gap 14 (10-20) BUN 25 H (9-20) mg/dL Creatinine 0.9 (0.8-1.5) mg/dL Est GFR ( Amer) > 60 Est GFR (Non-Af Amer) > 60 POC Glucose (mg/dL) 236 H (65-110) mg/dL Random Glucose 242 H (75-110) mg/dL Calcium 7.6 L (8.6-10.4) mg/dl Phosphorus 2.9 (2.5-4.5) mg/dL Magnesium 2.4 H (1.6-2.3) mg/dL Total Bilirubin 1.1 (0.2-1.3) mg/dL AST 25 (17-59) U/L ALT 21 (21-72) U/L Alkaline Phosphatase 44 (38-126) U/L Total Protein 6.3 (6.3-8.3) g/dL Albumin 2.9 L (3.5-5.0) g/dL Globulin 3.4 (2.2-3.9) gm/dL Albumin/Globulin Ratio 0.8 L (1.0-2.1) Arterial Blood Potassium (3.6-5.2) mmol/L Stool Occult Blood Negative (NEGATIVE) 09/30/17 09/30/17 09/30/17 Range/Units 06:22 05:38 05:10 WBC 6.4 (4.8-10.8) K/uL RBC 2.88 L (4.40-5.90) Mil/uL Hgb 8.4 L (12.0-18.0) g/dL Hct 25.1 L (35.0-51.0) % MCV 87.2 (80.0-94.0) fL MCH 29.3 (27.0-31.0) pg MCHC 33.6 (33.0-37.0) g/dL RDW 14.2 (11.5-14.5) % Plt Count 209 (130-400) K/uL MPV 9.8 (7.2-11.7) fL Neut % (Auto) 76.3 H (50.0-75.0) % Lymph % (Auto) 14.4 L (20.0-40.0) % [place] % (Auto) 6.9 (0.0-10.0) % Eos % (Auto) 2.0 (0.0-4.0) % Baso % (Auto) 0.4 (0.0-2.0) % Neut # (Auto) 4.9 (1.8-7.0) K/uL Lymph # (Auto) 0.9 L (1.0-4.3) K/uL [place] # (Auto) 0.4 (0.0-0.8) K/uL Eos # (Auto) 0.1 (0.0-0.7) K/uL Baso # (Auto) 0.0 (0.0-0.2) K/uL Puncture Site Lb pCO2 30 L (35-45) mm/Hg pO2 86 (80-100) mm/Hg HCO3 25.2 (21-28) mmol/L ABG pH 7.49 H (7.35-7.45) ABG Total CO2 23.8 (22-28) mmol/L ABG O2 Saturation 98.0 (95-98) % ABG Base Excess 0.4 (-2.0-3.0) mmol/L Tre Test Na ABG Potassium 3.9 (3.6-5.2) mmol/L A-a O2 Difference 90.0 mm/Hg Respiratory Index 1.0 Sodium 146.0 (132-148) mmol/l Chloride 116.0 H (98-107) mmol/L Glucose 292 H (75-110) mg/dl Lactate 0.9 (0.7-2.1) mmol/L Vent Mode Prvc Mechanical Rate 20 FiO2 30.0 % Tidal Volume 450 PEEP 5 Potassium (3.6-5.2) mmol/L Carbon Dioxide (22-30) mmol/L Anion Gap (10-20) BUN (9-20) mg/dL Creatinine (0.8-1.5) mg/dL Est GFR ( Amer) Est GFR (Non-Af Amer) POC Glucose (mg/dL) 254 H (65-110) mg/dL Random Glucose (75-110) mg/dL Calcium (8.6-10.4) mg/dl Phosphorus (2.5-4.5) mg/dL Magnesium (1.6-2.3) mg/dL Total Bilirubin (0.2-1.3) mg/dL AST (17-59) U/L ALT (21-72) U/L Alkaline Phosphatase (38-126) U/L Total Protein (6.3-8.3) g/dL Albumin (3.5-5.0) g/dL Globulin (2.2-3.9) gm/dL Albumin/Globulin Ratio (1.0-2.1) Arterial Blood Potassium 3.9 (3.6-5.2) mmol/L Stool Occult Blood (NEGATIVE) 09/30/17 09/29/17 09/29/17 Range/Units 00:01 18:00 17:34 WBC 7.6 (4.8-10.8) K/uL RBC 3.00 L (4.40-5.90) Mil/uL Hgb 8.9 L D (12.0-18.0) g/dL Hct 26.0 L (35.0-51.0) % MCV 86.9 (80.0-94.0) fL MCH 29.8 (27.0-31.0) pg MCHC 34.3 (33.0-37.0) g/dL RDW 14.0 (11.5-14.5) % Plt Count 195 (130-400) K/uL MPV 8.6 (7.2-11.7) fL Neut % (Auto) 79.5 H (50.0-75.0) % Lymph % (Auto) 11.9 L (20.0-40.0) % [place] % (Auto) 6.4 (0.0-10.0) % Eos % (Auto) 2.0 (0.0-4.0) % Baso % (Auto) 0.2 (0.0-2.0) % Neut # (Auto) 6.0 (1.8-7.0) K/uL Lymph # (Auto) 0.9 L (1.0-4.3) K/uL [place] # (Auto) 0.5 (0.0-0.8) K/uL Eos # (Auto) 0.2 (0.0-0.7) K/uL Baso # (Auto) 0.0 (0.0-0.2) K/uL Puncture Site pCO2 (35-45) mm/Hg pO2 (80-100) mm/Hg HCO3 (21-28) mmol/L ABG pH (7.35-7.45) ABG Total CO2 (22-28) mmol/L ABG O2 Saturation (95-98) % ABG Base Excess (-2.0-3.0) mmol/L Tre Test ABG Potassium (3.6-5.2) mmol/L A-a O2 Difference mm/Hg Respiratory Index Sodium (132-148) mmol/l Chloride (98-107) mmol/L Glucose (75-110) mg/dl Lactate (0.7-2.1) mmol/L Vent Mode Mechanical Rate FiO2 % Tidal Volume PEEP Potassium (3.6-5.2) mmol/L Carbon Dioxide (22-30) mmol/L Anion Gap (10-20) BUN (9-20) mg/dL Creatinine (0.8-1.5) mg/dL Est GFR ( Amer) Est GFR (Non-Af Amer) POC Glucose (mg/dL) 209 H 202 H (65-110) mg/dL Random Glucose (75-110) mg/dL Calcium (8.6-10.4) mg/dl Phosphorus (2.5-4.5) mg/dL Magnesium (1.6-2.3) mg/dL Total Bilirubin (0.2-1.3) mg/dL AST (17-59) U/L ALT (21-72) U/L Alkaline Phosphatase (38-126) U/L Total Protein (6.3-8.3) g/dL Albumin (3.5-5.0) g/dL Globulin (2.2-3.9) gm/dL Albumin/Globulin Ratio (1.0-2.1) Arterial Blood Potassium (3.6-5.2) mmol/L Stool Occult Blood (NEGATIVE) Laboratory Results - last 24 hr 09/29/17 09/29/17 09/30/17 17:34 18:00 00:01 WBC 7.6 RBC 3.00 L Hgb 8.9 L D Hct 26.0 L MCV 86.9 MCH 29.8 MCHC 34.3 RDW 14.0 Plt Count 195 MPV 8.6 Neut % (Auto) 79.5 H Lymph % (Auto) 11.9 L [place] % (Auto) 6.4 Eos % (Auto) 2.0 Baso % (Auto) 0.2 Neut # (Auto) 6.0 Lymph # (Auto) 0.9 L [place] # (Auto) 0.5 Eos # (Auto) 0.2 Baso # (Auto) 0.0 Puncture Site pCO2 pO2 HCO3 ABG pH ABG Total CO2 ABG O2 Saturation ABG Base Excess Tre Test ABG Potassium A-a O2 Difference Respiratory Index Sodium Chloride Glucose Lactate Vent Mode Mechanical Rate FiO2 Tidal Volume PEEP Potassium Carbon Dioxide Anion Gap BUN Creatinine Est GFR ( Amer) Est GFR (Non-Af Amer) POC Glucose (mg/dL) 202 H 209 H Random Glucose Calcium Phosphorus Magnesium Total Bilirubin AST ALT Alkaline Phosphatase Total Protein Albumin Globulin Albumin/Globulin Ratio Arterial Blood Potassium Stool Occult Blood 09/30/17 09/30/17 09/30/17 05:10 05:38 06:22 WBC 6.4 RBC 2.88 L Hgb 8.4 L Hct 25.1 L MCV 87.2 MCH 29.3 MCHC 33.6 RDW 14.2 Plt Count 209 MPV 9.8 Neut % (Auto) 76.3 H Lymph % (Auto) 14.4 L [place] % (Auto) 6.9 Eos % (Auto) 2.0 Baso % (Auto) 0.4 Neut # (Auto) 4.9 Lymph # (Auto) 0.9 L [place] # (Auto) 0.4 Eos # (Auto) 0.1 Baso # (Auto) 0.0 Puncture Site Lb pCO2 30 L pO2 86 HCO3 25.2 ABG pH 7.49 H ABG Total CO2 23.8 ABG O2 Saturation 98.0 ABG Base Excess 0.4 Tre Test Na ABG Potassium 3.9 A-a O2 Difference 90.0 Respiratory Index 1.0 Sodium 146.0 Chloride 116.0 H Glucose 292 H Lactate 0.9 Vent Mode Prvc Mechanical Rate 20 FiO2 30.0 Tidal Volume 450 PEEP 5 Potassium Carbon Dioxide Anion Gap BUN Creatinine Est GFR ( Amer) Est GFR (Non-Af Amer) POC Glucose (mg/dL) 254 H Random Glucose Calcium Phosphorus Magnesium Total Bilirubin AST ALT Alkaline Phosphatase Total Protein Albumin Globulin Albumin/Globulin Ratio Arterial Blood Potassium 3.9 Stool Occult Blood 09/30/17 09/30/17 09/30/17 06:22 06:26 11:25 WBC RBC Hgb Hct MCV MCH MCHC RDW Plt Count MPV Neut % (Auto) Lymph % (Auto) [place] % (Auto) Eos % (Auto) Baso % (Auto) Neut # (Auto) Lymph # (Auto) [place] # (Auto) Eos # (Auto) Baso # (Auto) Puncture Site pCO2 pO2 HCO3 ABG pH ABG Total CO2 ABG O2 Saturation ABG Base Excess Tre Test ABG Potassium A-a O2 Difference Respiratory Index Sodium 145 Chloride 115 H Glucose Lactate Vent Mode Mechanical Rate FiO2 Tidal Volume PEEP Potassium 4.3 Carbon Dioxide 20 L Anion Gap 14 BUN 25 H Creatinine 0.9 Est GFR ( Amer) > 60 Est GFR (Non-Af Amer) > 60 POC Glucose (mg/dL) 236 H Random Glucose 242 H Calcium 7.6 L Phosphorus 2.9 Magnesium 2.4 H Total Bilirubin 1.1 AST 25 ALT 21 Alkaline Phosphatase 44 Total Protein 6.3 Albumin 2.9 L Globulin 3.4 Albumin/Globulin Ratio 0.8 L Arterial Blood Potassium Stool Occult Blood Negative Critical Care Progress Note - Nutrition Nutrition: Nutrition Category Date Time Status Heart Healthy Diet [DIET] Diets 09/30/17 Dinner Active Assessment/Plan - Assessment and Plan (Free Text) Assessment: Above resident note reviewed and verified. Above note reflects managment of patient. -Hypoxic respiratory failure: tolerated CPAP, will continue bronchodialtrs -CAD: will benefit from asa, avnodal keo and statin -aspiration PNA: encourage pulmonary toilet and broad spctrum abx -continue ng tube feeds -continue dvt/pud ppx -Patient remains on ventilator with possible 1 unti PRBC tranfusion cc time 36 minutes - Date & Time Date: 09/29/17 Time: 16:00
[2017-09-29] MEDS ORDERED: Magnesium Citrate Oral SOL (300 ml) PO ONE (14:15)
[2017-09-29] MEDS: Vancomycin 1 gm/NS 200 ml 1 GM/200 ML BAG IVPB SCH (14:37)
[2017-09-29] MEDS: Moxifloxacin IV 400mg/250ml NS 400 MG/250 ML BAG IVPB SCH (17:49)
[2017-09-29 18:02] LABS: BASO % 0.2 % (0.0-2.0); HEMOGLOBIN 8.9 g/dL (12.0-18.0); LYMPH # 0.9 K/uL (1.0-4.3)
[2017-09-29 18:05] LABS: EOS # 0.2 K/uL (0.0-0.7); LYMPH % 11.9 % (20.0-40.0); MEAN CELL VOLUME 86.9 fL (80.0-94.0); MEAN CORPUSCULAR HEMOGLOBIN 29.8 pg (27.0-31.0); MEAN CORPUSCULAR HGB CONC 34.3 g/dL (33.0-37.0); MEAN PLATELET VOLUME 8.6 fL (7.2-11.7); MONO # 0.5 K/uL (0.0-0.8); MONO % 6.4 % (0.0-10.0); NEUT % 79.5 % (50.0-75.0); NRBC % 0.1 % (0.0-2.0); WHITE BLOOD COUNT 7.6 K/uL (4.8-10.8)
--- NOTE | 2017-09-29 20:50 | CP.PCM.PN ---
Subjective - Date & Time of Evaluation Date of Evaluation: 09/29/17 Time of Evaluation: 08:20 - Subjective Subjective: Patient seen and evaluated Intubated and sedated Objective - Vital Signs/Intake and Output Vital Signs (last 24 hours): Temp Pulse Resp BP Pulse Ox 99.0 F 71 20 153/70 H 100 09/29/17 16:47 09/29/17 20:15 09/29/17 20:15 09/29/17 20:15 09/29/17 20:15 Intake and Output: 09/29/17 09/30/17 18:59 06:59 Intake Total 2066.1 286.8 Output Total 670 40 Balance 1396.1 246.8 - Medications Medications: Current Medications Albuterol/Ipratropium (Duoneb 3 Mg/0.5 Mg (3 Ml) Ud) 3 ml INH RQ6 [facility] Last Admin: 09/29/17 20:45 Dose: 3 ml Aspirin (Aspirin) 325 mg PO DAILY [facility] Last Admin: 09/29/17 09:40 Dose: Not Given Clopidogrel Bisulfate (Plavix) 75 mg PO DAILY [facility] Last Admin: 09/29/17 09:50 Dose: Not Given Docusate Sodium (Colace) 100 mg PO TID [facility] Last Admin: 09/29/17 17:49 Dose: 100 mg Enoxaparin Sodium (Lovenox) 40 mg SC DAILY [facility] Last Admin: 09/29/17 09:48 Dose: Not Given Famotidine (Pepcid) 20 mg IVP Q12 [facility] Last Admin: 09/29/17 09:41 Dose: 20 mg Guaifenesin (Robitussin) 200 mg PO Q4H PRN PRN Reason: Cough and congestion Propofol (Diprivan) 1,000 mg in 100 mls @ 2.041 mls/hr IV .Q24H PRN; Protocol; 5 MCG/KG/MIN PRN Reason: TITRATE PER MD ORDER Last Titration: 09/29/17 11:53 Dose: 0 mcg/kg/min, 0 mls/hr Meropenem 500 mg/ Sodium (Chloride) 100 mls @ 100 mls/hr IVPB Q8 [facility] Last Admin: 09/29/17 14:51 Dose: 100 mls/hr Vancomycin/Sodium Chloride (Vancomycin 1 Gm/Ns 200 Ml) 1 gm in 200 mls @ 133.333 mls/hr IVPB Q24H [facility] Stop: 10/03/17 13:01 Last Admin: 09/29/17 14:37 Dose: 133.333 mls/hr Moxifloxacin HCl (Avelox Iv 400mg/250ml Ns) 400 mg in 250 mls @ 167 mls/hr IVPB Q24H [facility] Last Admin: 09/29/17 17:49 Dose: 167 mls/hr Dexmedetomidine HCl 200 mcg/ (Sodium Chloride) 50 mls @ 3.85 mls/hr IV TITR PRN ; Protocol; 0.2 MCG/KG/HR PRN Reason: Sedation Last Admin: 09/29/17 20:34 Dose: 0.7 mcg/kg/hr, 13.49 mls/hr Insulin Human Regular (Novolin R) 0 unit SC Q6 [facility] PRN Reason: Protocol Last Admin: 09/29/17 18:10 Dose: 3 unit - Labs Labs: 09/29/17 18:00 09/29/17 06:28 PT 13.0 SECONDS (9.7-12.2) H 09/25/17 15:35 INR 1.2 09/25/17 15:35 APTT 33 SECONDS (21-34) 09/25/17 15:35
--- NOTE | 2017-09-29 23:01 | CP.PCM.PN ---
Subjective - Date & Time of Evaluation Date of Evaluation: 09/29/17 Time of Evaluation: 17:00 - Subjective Subjective: Pt seen and examined today, pt is still on ventilator on CPAp mode more alert, breathing on his own Objective - Vital Signs/Intake and Output Vital Signs (last 24 hours): Temp Pulse Resp BP Pulse Ox 99.2 F 77 20 158/74 H 100 09/29/17 20:00 09/29/17 22:00 09/29/17 22:00 09/29/17 21:15 09/29/17 22:00 Intake and Output: 09/29/17 09/30/17 18:59 06:59 Intake Total 2066.1 286.8 Output Total 670 40 Balance 1396.1 246.8 - Medications Medications: Current Medications Albuterol/Ipratropium (Duoneb 3 Mg/0.5 Mg (3 Ml) Ud) 3 ml INH RQ6 [facility] Last Admin: 09/29/17 20:45 Dose: 3 ml Aspirin (Aspirin) 325 mg PO DAILY [facility] Last Admin: 09/29/17 09:40 Dose: Not Given Clopidogrel Bisulfate (Plavix) 75 mg PO DAILY [facility] Last Admin: 09/29/17 09:50 Dose: Not Given Docusate Sodium (Colace) 100 mg PO TID [facility] Last Admin: 09/29/17 17:49 Dose: 100 mg Enoxaparin Sodium (Lovenox) 40 mg SC DAILY [facility] Last Admin: 09/29/17 09:48 Dose: Not Given Famotidine (Pepcid) 20 mg IVP Q12 [facility] Last Admin: 09/29/17 22:22 Dose: 20 mg Guaifenesin (Robitussin) 200 mg PO Q4H PRN PRN Reason: Cough and congestion Propofol (Diprivan) 1,000 mg in 100 mls @ 2.041 mls/hr IV .Q24H PRN; Protocol; 5 MCG/KG/MIN PRN Reason: TITRATE PER MD ORDER Last Titration: 09/29/17 11:53 Dose: 0 mcg/kg/min, 0 mls/hr Meropenem 500 mg/ Sodium (Chloride) 100 mls @ 100 mls/hr IVPB Q8 [facility] Last Admin: 09/29/17 22:22 Dose: 100 mls/hr Vancomycin/Sodium Chloride (Vancomycin 1 Gm/Ns 200 Ml) 1 gm in 200 mls @ 133.333 mls/hr IVPB Q24H [facility] Stop: 10/03/17 13:01 Last Admin: 09/29/17 14:37 Dose: 133.333 mls/hr Moxifloxacin HCl (Avelox Iv 400mg/250ml Ns) 400 mg in 250 mls @ 167 mls/hr IVPB Q24H [facility] Last Admin: 09/29/17 17:49 Dose: 167 mls/hr Dexmedetomidine HCl 200 mcg/ (Sodium Chloride) 50 mls @ 3.85 mls/hr IV TITR PRN ; Protocol; 0.2 MCG/KG/HR PRN Reason: Sedation Last Admin: 09/29/17 20:34 Dose: 0.7 mcg/kg/hr, 13.49 mls/hr Insulin Human Regular (Novolin R) 0 unit SC Q6 [facility] PRN Reason: Protocol Last Admin: 09/29/17 18:10 Dose: 3 unit - Labs Labs: 09/29/17 18:00 09/29/17 06:28 PT 13.0 SECONDS (9.7-12.2) H 09/25/17 15:35 INR 1.2 09/25/17 15:35 APTT 33 SECONDS (21-34) 09/25/17 15:35 - Constitutional Appears: No Acute Distress - Head Exam Head Exam: ATRAUMATIC, NORMAL INSPECTION, NORMOCEPHALIC - Eye Exam Eye Exam: EOMI, Normal appearance, PERRL Pupil Exam: NORMAL ACCOMODATION, PERRL - ENT Exam ENT Exam: Mucous Membranes Moist - Respiratory Exam Respiratory Exam: Decreased Breath Sounds, Rales, Rhonchi, NORMAL BREATHING PATTERN - Cardiovascular Exam Cardiovascular Exam: REGULAR RHYTHM - GI/Abdominal Exam GI & Abdominal Exam: Soft, Normal Bowel Sounds. absent: Tenderness - Neurological Exam Neurological Exam: Alert, Awake, CN II-XII Intact, Normal Gait, Oriented x3 Assessment and Plan (1) Pneumonia Status: Acute (2) Respiratory failure requiring intubation Status: Acute (3) Syncope Status: Acute
[2017-09-30] MEDS: (Novolin R) Insulin Human Regular 100 units/ml vial SC SCH ×4 (00:42→17:47)
[2017-09-30] MEDS: Dexmedetomidine Hydrochloride 200 MCG in Sodium Chloride 0.9% 48 ML IV PRN ×2 (00:42→05:49)
[2017-09-30] MEDS: Albuterol-Ipratrop 3 mg / 0.5 (3 ml) UD INH SCH ×4 (01:30→20:43)
[2017-09-30 05:21] LABS: ARTERIAL BLOOD GAS HCO3 25.2 mmol/L (21-28); ARTERIAL BLOOD GAS PCO2 30 mm/Hg (35-45); ARTERIAL BLOOD GAS PH 7.49 (7.35-7.45); ARTERIAL BLOOD GAS PO2 86 mm/Hg (80-100); ARTERIAL BLOOD GAS TCO2 23.8 mmol/L (22-28)
[2017-09-30] MEDS: Meropenem 500 MG in Sodium Chloride 0.9% 100 ML IVPB SCH ×3 (05:23→21:00)
[2017-09-30 06:45] LABS: ALB/GLOB RATIO 0.8 (1.0-2.1); ALBUMIN 2.9 g/dL (3.5-5.0); ALT/SGPT 21 U/L (21-72); AST/SGOT 25 U/L (17-59); BLOOD UREA NITROGEN 25 mg/dL (9-20); CALCIUM 7.6 mg/dl (8.6-10.4); GFR AFRICAN-AMERICAN > 60; GFR NON-AFRICAN AMERICAN > 60
[2017-09-30 06:46] LABS: BASO % 0.4 % (0.0-2.0); EOS # 0.1 K/uL (0.0-0.7); HEMOGLOBIN 8.4 g/dL (12.0-18.0); LYMPH # 0.9 K/uL (1.0-4.3); LYMPH % 14.4 % (20.0-40.0); MEAN CELL VOLUME 87.2 fL (80.0-94.0); MEAN CORPUSCULAR HEMOGLOBIN 29.3 pg (27.0-31.0); MEAN CORPUSCULAR HGB CONC 33.6 g/dL (33.0-37.0); MEAN PLATELET VOLUME 9.8 fL (7.2-11.7); MONO # 0.4 K/uL (0.0-0.8); MONO % 6.9 % (0.0-10.0); NEUT # 4.9 K/uL (1.8-7.0); NEUT % 76.3 % (50.0-75.0); NRBC % 0.1 % (0.0-2.0); RBC 2.88 Mil/uL (4.40-5.90); RED CELL DISTRIBUTION WIDTH 14.2 % (11.5-14.5); WHITE BLOOD COUNT 6.4 K/uL (4.8-10.8)
--- NOTE | 2017-09-30 08:54 | RAD ---
Chest x-ray single frontal view History: Intubated. Comparison: 09/29/2017 Findings: Lines and tubes in stable position. Moderate to severe venous congestion. Prominent bibasilar airspace opacities. Biapical pleural thickening with upper lobe granulomatous changes. Calcification at the aortic knob. Top normal heart size. Degenerative changes in the spine and shoulders. Impression: Lines and tubes in stable position. Moderate to severe venous congestion. Prominent bibasilar airspace opacities. Biapical pleural thickening with upper lobe granulomatous changes. Calcification at the aortic knob.
[2017-09-30] MEDS: Enoxaparin 40 mg Syringe SC SCH (09:52)
[2017-09-30] MEDS ORDERED: Metoprolol 1 mg/ml Inj IVP ONE ×2 (11:52→13:45)
--- NOTE | 2017-09-30 12:59 | CP.CCUPN ---
<Aleksey Waterman - Last Filed: 09/30/17 12:43> CCU Subjective - Physician Review Subjective (Free Text): 09/26/17 11:33 Patient seen and examined at bedside intubated, sedated Tube feeds to be started cardio consult for rowan 09/27/17 13:02 Patient seen and examined at bedside CPAP trial today, tolerated for 3.5 hours 09/28/17 13:55 CPAP trial today for over 6 hours today. Pneumonia on CXR not resolving, severe sepsis Consulted ID and added Merrem and Vanco 09/29/17 13:33 patient seen and examined at bedside added moxiflox 09/30/17 12:43 Patient extubated went into SVT Controlled with verapamil On BiPAP CCU Objective - Vital Signs / Intake & Output Vital Signs (Last 4 hours): Vital Signs Pulse Resp BP Pulse Ox 09/30/17 11:15 81 9 L 150/57 L 97 09/30/17 10:15 86 29 H 133/63 98 09/30/17 09:15 81 9 L 167/79 H 100 Intake and Output (Last 8hrs): Intake & Output 09/29/17 09/30/17 09/30/17 22:59 06:59 14:59 Intake Total 1680.1 609.2 128.4 Output Total 320 275 202 Balance 1360.1 334.2 -73.6 Weight 154 lb Intake: IV 80 100 Intake, IV Amount 755.1 104.2 38.4 Right AC Distal 300 Right AC Y-Port 150 Right Antecubital 105.1 104.2 38.4 Right Wrist 200 Tube Feeding 270 405 90 Blood Product 325 Red Blood Cells Cpd As1 325 Lr Unit [id number] Other 250 Red Blood Cells Cpd As1 150 Lr Unit [id number] Output: Urine 320 275 202 Urethral (Swift) 320 275 202 Other: # Bowel Movements 1 - Physical Exam Head: Positive for: Atraumatic, Normocephalic Mouth: Positive for: Moist Mucous Membranes Nose (Internal): Positive for: No Active Bleeding Neck: Negative for: Meningeal Signs, MIDLINE TENDERNESS Respiratory/Chest: Positive for: Good Air Exchange, Other (intubated). Negative for: Accessory Muscle Use Cardiovascular: Positive for: Regular Rate and Rhythm Abdomen: Positive for: Normal Bowel Sounds. Negative for: Tenderness, Distention, Peritoneal Signs - Medications Active Medications: Active Medications Generic Name Dose Route Start Last Admin Trade Name Freq PRN Reason Stop Dose Admin Albuterol/Ipratropium 3 ml 09/25/17 20:00 09/30/17 07:16 Duoneb 3 Mg/0.5 Mg (3 Ml) Ud INH 3 ml RQ6 [facility] Administration Aspirin 325 mg 09/26/17 10:00 09/30/17 09:52 Aspirin PO 325 mg DAILY [facility] Administration Clopidogrel Bisulfate 75 mg 09/26/17 10:00 09/30/17 09:53 Plavix PO 75 mg DAILY [facility] Administration Diltiazem HCl 60 mg 09/30/17 12:30 Cardizem PO Q6 [facility] Diltiazem HCl 10 mg 09/30/17 12:29 Cardizem IVP Q6H PRN Heart rate Docusate Sodium 100 mg 09/27/17 14:00 09/30/17 09:52 Colace PO 100 mg TID [facility] Administration Enoxaparin Sodium 40 mg 09/26/17 10:00 09/30/17 09:52 Lovenox SC 40 mg DAILY [facility] Administration Famotidine 20 mg 09/27/17 22:00 09/30/17 09:53 Pepcid IVP 20 mg Q12 [facility] Administration Guaifenesin 200 mg 09/29/17 12:15 Robitussin PO Q4H PRN Cough and congestion Hydralazine HCl 10 mg 09/30/17 09:15 09/30/17 09:52 Apresoline IVP 10 mg Q6H [facility] Administration Meropenem 500 mg/ Sodium 100 mls @ 100 mls/hr 09/28/17 14:00 09/30/17 05:23 Chloride IVPB 100 mls/hr Q8 [facility] Administration Vancomycin/Sodium Chloride 1 gm in 200 mls @ 133.333 mls/hr 09/28/17 13:00 14:37 Vancomycin 1 Gm/Ns 200 Ml IVPB 10/03/17 13:01 133.333 mls/hr Q24H [facility] Administration Moxifloxacin HCl 400 mg in 250 mls @ 167 mls/hr 09/28/17 17:00 09/29/17 17:49 Avelox Iv 400mg/250ml Ns IVPB 167 mls/hr Q24H [facility] Administration Insulin Human Regular 0 unit 09/26/17 00:00 09/30/17 05:48 Novolin R SC 4 unit Q6 [facility] Administration Protocol Methylprednisolone 40 mg 09/30/17 14:00 Solu-Medrol IVP Q8 [facility] Verapamil HCl 5 mg 09/30/17 12:40 Verapamil Inj IVP 09/30/17 12:41 ONCE ONE - Patient Studies Lab Studies: Microbiology Studies 09/28/17 11:57 Gram Stain - Final Trachasp Sputum Culture - Final Yeast Species 09/25/17 18:10 Blood Culture - Preliminary Blood-Venous NO GROWTH AFTER 4 DAYS 09/25/17 18:10 Blood Culture - Preliminary Blood-Venous NO GROWTH AFTER 4 DAYS 09/28/17 11:57 Urine Culture - Final Urine No Growth (<1,000 CFU/ML) 09/28/17 11:57 Blood Culture - Preliminary Blood NO GROWTH AFTER 24 HOURS 09/28/17 11:57 Blood Culture - Preliminary Blood NO GROWTH AFTER 24 HOURS Lab Studies 09/30/17 09/30/17 09/30/17 Range/Units 11:25 06:26 06:22 WBC (4.8-10.8) K/uL RBC (4.40-5.90) Mil/uL Hgb (12.0-18.0) g/dL Hct (35.0-51.0) % MCV (80.0-94.0) fL MCH (27.0-31.0) pg MCHC (33.0-37.0) g/dL RDW (11.5-14.5) % Plt Count (130-400) K/uL MPV (7.2-11.7) fL Neut % (Auto) (50.0-75.0) % Lymph % (Auto) (20.0-40.0) % [place] % (Auto) (0.0-10.0) % Eos % (Auto) (0.0-4.0) % Baso % (Auto) (0.0-2.0) % Neut # (Auto) (1.8-7.0) K/uL Lymph # (Auto) (1.0-4.3) K/uL [place] # (Auto) (0.0-0.8) K/uL Eos # (Auto) (0.0-0.7) K/uL Baso # (Auto) (0.0-0.2) K/uL Puncture Site pCO2 (35-45) mm/Hg pO2 (80-100) mm/Hg HCO3 (21-28) mmol/L ABG pH (7.35-7.45) ABG Total CO2 (22-28) mmol/L ABG O2 Saturation (95-98) % ABG Base Excess (-2.0-3.0) mmol/L Tre Test ABG Potassium (3.6-5.2) mmol/L A-a O2 Difference mm/Hg Respiratory Index Sodium 145 (132-148) mmol/l Chloride 115 H (98-107) mmol/L Glucose (75-110) mg/dl Lactate (0.7-2.1) mmol/L Vent Mode Mechanical Rate FiO2 % Tidal Volume PEEP Potassium 4.3 (3.6-5.2) mmol/L Carbon Dioxide 20 L (22-30) mmol/L Anion Gap 14 (10-20) BUN 25 H (9-20) mg/dL Creatinine 0.9 (0.8-1.5) mg/dL Est GFR ( Amer) > 60 Est GFR (Non-Af Amer) > 60 POC Glucose (mg/dL) 236 H (65-110) mg/dL Random Glucose 242 H (75-110) mg/dL Calcium 7.6 L (8.6-10.4) mg/dl Phosphorus 2.9 (2.5-4.5) mg/dL Magnesium 2.4 H (1.6-2.3) mg/dL Total Bilirubin 1.1 (0.2-1.3) mg/dL AST 25 (17-59) U/L ALT 21 (21-72) U/L Alkaline Phosphatase 44 (38-126) U/L Total Protein 6.3 (6.3-8.3) g/dL Albumin 2.9 L (3.5-5.0) g/dL Globulin 3.4 (2.2-3.9) gm/dL Albumin/Globulin Ratio 0.8 L (1.0-2.1) Arterial Blood Potassium (3.6-5.2) mmol/L Stool Occult Blood Negative (NEGATIVE) 09/30/17 09/30/17 09/30/17 Range/Units 06:22 05:38 05:10 WBC 6.4 (4.8-10.8) K/uL RBC 2.88 L (4.40-5.90) Mil/uL Hgb 8.4 L (12.0-18.0) g/dL Hct 25.1 L (35.0-51.0) % MCV 87.2 (80.0-94.0) fL MCH 29.3 (27.0-31.0) pg MCHC 33.6 (33.0-37.0) g/dL RDW 14.2 (11.5-14.5) % Plt Count 209 (130-400) K/uL MPV 9.8 (7.2-11.7) fL Neut % (Auto) 76.3 H (50.0-75.0) % Lymph % (Auto) 14.4 L (20.0-40.0) % [place] % (Auto) 6.9 (0.0-10.0) % Eos % (Auto) 2.0 (0.0-4.0) % Baso % (Auto) 0.4 (0.0-2.0) % Neut # (Auto) 4.9 (1.8-7.0) K/uL Lymph # (Auto) 0.9 L (1.0-4.3) K/uL [place] # (Auto) 0.4 (0.0-0.8) K/uL Eos # (Auto) 0.1 (0.0-0.7) K/uL Baso # (Auto) 0.0 (0.0-0.2) K/uL Puncture Site Lb pCO2 30 L (35-45) mm/Hg pO2 86 (80-100) mm/Hg HCO3 25.2 (21-28) mmol/L ABG pH 7.49 H (7.35-7.45) ABG Total CO2 23.8 (22-28) mmol/L ABG O2 Saturation 98.0 (95-98) % ABG Base Excess 0.4 (-2.0-3.0) mmol/L Tre Test Na ABG Potassium 3.9 (3.6-5.2) mmol/L A-a O2 Difference 90.0 mm/Hg Respiratory Index 1.0 Sodium 146.0 (132-148) mmol/l Chloride 116.0 H (98-107) mmol/L Glucose 292 H (75-110) mg/dl Lactate 0.9 (0.7-2.1) mmol/L Vent Mode Prvc Mechanical Rate 20 FiO2 30.0 % Tidal Volume 450 PEEP 5 Potassium (3.6-5.2) mmol/L Carbon Dioxide (22-30) mmol/L Anion Gap (10-20) BUN (9-20) mg/dL Creatinine (0.8-1.5) mg/dL Est GFR ( Amer) Est GFR (Non-Af Amer) POC Glucose (mg/dL) 254 H (65-110) mg/dL Random Glucose (75-110) mg/dL Calcium (8.6-10.4) mg/dl Phosphorus (2.5-4.5) mg/dL Magnesium (1.6-2.3) mg/dL Total Bilirubin (0.2-1.3) mg/dL AST (17-59) U/L ALT (21-72) U/L Alkaline Phosphatase (38-126) U/L Total Protein (6.3-8.3) g/dL Albumin (3.5-5.0) g/dL Globulin (2.2-3.9) gm/dL Albumin/Globulin Ratio (1.0-2.1) Arterial Blood Potassium 3.9 (3.6-5.2) mmol/L Stool Occult Blood (NEGATIVE) 09/30/17 09/29/17 09/29/17 Range/Units 00:01 18:00 17:34 WBC 7.6 (4.8-10.8) K/uL RBC 3.00 L (4.40-5.90) Mil/uL Hgb 8.9 L D (12.0-18.0) g/dL Hct 26.0 L (35.0-51.0) % MCV 86.9 (80.0-94.0) fL MCH 29.8 (27.0-31.0) pg MCHC 34.3 (33.0-37.0) g/dL RDW 14.0 (11.5-14.5) % Plt Count 195 (130-400) K/uL MPV 8.6 (7.2-11.7) fL Neut % (Auto) 79.5 H (50.0-75.0) % Lymph % (Auto) 11.9 L (20.0-40.0) % [place] % (Auto) 6.4 (0.0-10.0) % Eos % (Auto) 2.0 (0.0-4.0) % Baso % (Auto) 0.2 (0.0-2.0) % Neut # (Auto) 6.0 (1.8-7.0) K/uL Lymph # (Auto) 0.9 L (1.0-4.3) K/uL [place] # (Auto) 0.5 (0.0-0.8) K/uL Eos # (Auto) 0.2 (0.0-0.7) K/uL Baso # (Auto) 0.0 (0.0-0.2) K/uL Puncture Site pCO2 (35-45) mm/Hg pO2 (80-100) mm/Hg HCO3 (21-28) mmol/L ABG pH (7.35-7.45) ABG Total CO2 (22-28) mmol/L ABG O2 Saturation (95-98) % ABG Base Excess (-2.0-3.0) mmol/L Tre Test ABG Potassium (3.6-5.2) mmol/L A-a O2 Difference mm/Hg Respiratory Index Sodium (132-148) mmol/l Chloride (98-107) mmol/L Glucose (75-110) mg/dl Lactate (0.7-2.1) mmol/L Vent Mode Mechanical Rate FiO2 % Tidal Volume PEEP Potassium (3.6-5.2) mmol/L Carbon Dioxide (22-30) mmol/L Anion Gap (10-20) BUN (9-20) mg/dL Creatinine (0.8-1.5) mg/dL Est GFR ( Amer) Est GFR (Non-Af Amer) POC Glucose (mg/dL) 209 H 202 H (65-110) mg/dL Random Glucose (75-110) mg/dL Calcium (8.6-10.4) mg/dl Phosphorus (2.5-4.5) mg/dL Magnesium (1.6-2.3) mg/dL Total Bilirubin (0.2-1.3) mg/dL AST (17-59) U/L ALT (21-72) U/L Alkaline Phosphatase (38-126) U/L Total Protein (6.3-8.3) g/dL Albumin (3.5-5.0) g/dL Globulin (2.2-3.9) gm/dL Albumin/Globulin Ratio (1.0-2.1) Arterial Blood Potassium (3.6-5.2) mmol/L Stool Occult Blood (NEGATIVE) Laboratory Results - last 24 hr 09/29/17 09/29/17 09/30/17 17:34 18:00 00:01 WBC 7.6 RBC 3.00 L Hgb 8.9 L D Hct 26.0 L MCV 86.9 MCH 29.8 MCHC 34.3 RDW 14.0 Plt Count 195 MPV 8.6 Neut % (Auto) 79.5 H Lymph % (Auto) 11.9 L [place] % (Auto) 6.4 Eos % (Auto) 2.0 Baso % (Auto) 0.2 Neut # (Auto) 6.0 Lymph # (Auto) 0.9 L [place] # (Auto) 0.5 Eos # (Auto) 0.2 Baso # (Auto) 0.0 Puncture Site pCO2 pO2 HCO3 ABG pH ABG Total CO2 ABG O2 Saturation ABG Base Excess Tre Test ABG Potassium A-a O2 Difference Respiratory Index Sodium Chloride Glucose Lactate Vent Mode Mechanical Rate FiO2 Tidal Volume PEEP Potassium Carbon Dioxide Anion Gap BUN Creatinine Est GFR ( Amer) Est GFR (Non-Af Amer) POC Glucose (mg/dL) 202 H 209 H Random Glucose Calcium Phosphorus Magnesium Total Bilirubin AST ALT Alkaline Phosphatase Total Protein Albumin Globulin Albumin/Globulin Ratio Arterial Blood Potassium Stool Occult Blood 09/30/17 09/30/17 09/30/17 05:10 05:38 06:22 WBC 6.4 RBC 2.88 L Hgb 8.4 L Hct 25.1 L MCV 87.2 MCH 29.3 MCHC 33.6 RDW 14.2 Plt Count 209 MPV 9.8 Neut % (Auto) 76.3 H Lymph % (Auto) 14.4 L [place] % (Auto) 6.9 Eos % (Auto) 2.0 Baso % (Auto) 0.4 Neut # (Auto) 4.9 Lymph # (Auto) 0.9 L [place] # (Auto) 0.4 Eos # (Auto) 0.1 Baso # (Auto) 0.0 Puncture Site Lb pCO2 30 L pO2 86 HCO3 25.2 ABG pH 7.49 H ABG Total CO2 23.8 ABG O2 Saturation 98.0 ABG Base Excess 0.4 Tre Test Na ABG Potassium 3.9 A-a O2 Difference 90.0 Respiratory Index 1.0 Sodium 146.0 Chloride 116.0 H Glucose 292 H Lactate 0.9 Vent Mode Prvc Mechanical Rate 20 FiO2 30.0 Tidal Volume 450 PEEP 5 Potassium Carbon Dioxide Anion Gap BUN Creatinine Est GFR ( Amer) Est GFR (Non-Af Amer) POC Glucose (mg/dL) 254 H Random Glucose Calcium Phosphorus Magnesium Total Bilirubin AST ALT Alkaline Phosphatase Total Protein Albumin Globulin Albumin/Globulin Ratio Arterial Blood Potassium 3.9 Stool Occult Blood 09/30/17 09/30/17 09/30/17 06:22 06:26 11:25 WBC RBC Hgb Hct MCV MCH MCHC RDW Plt Count MPV Neut % (Auto) Lymph % (Auto) [place] % (Auto) Eos % (Auto) Baso % (Auto) Neut # (Auto) Lymph # (Auto) [place] # (Auto) Eos # (Auto) Baso # (Auto) Puncture Site pCO2 pO2 HCO3 ABG pH ABG Total CO2 ABG O2 Saturation ABG Base Excess Tre Test ABG Potassium A-a O2 Difference Respiratory Index Sodium 145 Chloride 115 H Glucose Lactate Vent Mode Mechanical Rate FiO2 Tidal Volume PEEP Potassium 4.3 Carbon Dioxide 20 L Anion Gap 14 BUN 25 H Creatinine 0.9 Est GFR ( Amer) > 60 Est GFR (Non-Af Amer) > 60 POC Glucose (mg/dL) 236 H Random Glucose 242 H Calcium 7.6 L Phosphorus 2.9 Magnesium 2.4 H Total Bilirubin 1.1 AST 25 ALT 21 Alkaline Phosphatase 44 Total Protein 6.3 Albumin 2.9 L Globulin 3.4 Albumin/Globulin Ratio 0.8 L Arterial Blood Potassium Stool Occult Blood Negative Fingerstick Blood Sugar Results: 254 Assessment/Plan - Assessment and Plan (Free Text) Assessment: 71M Aspiration Pneumonia, Bradycardia with episodes of syncope Plan: Neuro: No sedation, no acute issues Cardio: SVT after extubation, controlled with verapamil. F/U Echo Pulm: Aspiration pneumonia, Merrem and vanco, moxiflox, ID ([place]angia). Extubated. Some wheezing. Gave duonebs Renal: No acute issues GI: No acute issues. HHD Endo: accuchecks, ISS PPX: Protonix/lovenox <Prasanth Gold M - Last Filed: 09/30/17 17:20> CCU Subjective - Physician Review Critical Care Time Spent (in minutes): 45 CCU Objective - Vital Signs / Intake & Output Vital Signs (Last 4 hours): Vital Signs Pulse 09/30/17 13:37 105 H Intake and Output (Last 8hrs): Intake & Output 09/30/17 09/30/17 09/30/17 06:59 14:59 22:59 Intake Total 609.2 128.4 Output Total 275 202 Balance 334.2 -73.6 Weight 154 lb Intake: IV 100 Intake, IV Amount 104.2 38.4 Right Antecubital 104.2 38.4 Tube Feeding 405 90 Output: Urine 275 202 Urethral (Swift) 275 202 - Medications Active Medications: Active Medications Generic Name Dose Route Start Last Admin Trade Name Freq PRN Reason Stop Dose Admin Albuterol/Ipratropium 3 ml 09/25/17 20:00 09/30/17 13:36 Duoneb 3 Mg/0.5 Mg (3 Ml) Ud INH 3 ml RQ6 [facility] Administration Aspirin 81 mg 09/30/17 13:29 Aspirin Chewable PO DAILY [facility] Clopidogrel Bisulfate 75 mg 09/26/17 10:00 09/30/17 09:53 Plavix PO 75 mg DAILY [facility] Administration Docusate Sodium 100 mg 09/27/17 14:00 09/30/17 13:17 Colace PO Not Given TID [facility] Enoxaparin Sodium 40 mg 09/26/17 10:00 09/30/17 09:52 Lovenox SC 40 mg DAILY [facility] Administration Famotidine 20 mg 09/27/17 22:00 09/30/17 09:53 Pepcid IVP 20 mg Q12 [facility] Administration Guaifenesin 200 mg 09/29/17 12:15 Robitussin PO Q4H PRN Cough and congestion Hydralazine HCl 10 mg 09/30/17 14:19 Apresoline IVP Q6H PRN Systolic Blood Pressure Meropenem 500 mg/ Sodium 100 mls @ 100 mls/hr 09/28/17 14:00 09/30/17 14:25 Chloride IVPB 100 mls/hr Q8 [facility] Administration Vancomycin/Sodium Chloride 1 gm in 200 mls @ 133.333 mls/hr 09/28/17 13:00 13:09 Vancomycin 1 Gm/Ns 200 Ml IVPB 10/03/17 13:01 133.333 mls/hr Q24H [facility] Administration Moxifloxacin HCl 400 mg in 250 mls @ 167 mls/hr 09/28/17 17:00 09/29/17 17:49 Avelox Iv 400mg/250ml Ns IVPB 167 mls/hr Q24H [facility] Administration Verapamil HCl 40 mg/ Sodium 100 mls @ 12.5 mls/hr 09/30/17 14:00 09/30/17 14: 23 Chloride IV 12.5 mls/hr .Q8H [facility] Administration Protocol 5 MG/HR Insulin Human Regular 0 unit 09/26/17 00:00 09/30/17 12:59 Novolin R SC 3 unit Q6 [facility] Administration Protocol Methylprednisolone 40 mg 09/30/17 14:00 09/30/17 13:19 Solu-Medrol IVP 40 mg Q8 [facility] Administration Verapamil HCl 5 mg 09/30/17 12:44 Verapamil Inj IVP Q6H PRN Heart rate - Patient Studies Lab Studies: Microbiology Studies 09/28/17 11:57 Gram Stain - Final Trachasp Sputum Culture - Final Yeast Species 09/25/17 18:10 Blood Culture - Preliminary Blood-Venous NO GROWTH AFTER 4 DAYS 09/25/17 18:10 Blood Culture - Preliminary Blood-Venous NO GROWTH AFTER 4 DAYS 09/28/17 11:57 Urine Culture - Final Urine No Growth (<1,000 CFU/ML) 09/28/17 11:57 Blood Culture - Preliminary Blood NO GROWTH AFTER 24 HOURS 09/28/17 11:57 Blood Culture - Preliminary Blood NO GROWTH AFTER 24 HOURS Lab Studies 09/30/17 09/30/17 09/30/17 Range/Units 11:25 06:26 06:22 WBC (4.8-10.8) K/uL RBC (4.40-5.90) Mil/uL Hgb (12.0-18.0) g/dL Hct (35.0-51.0) % MCV (80.0-94.0) fL MCH (27.0-31.0) pg MCHC (33.0-37.0) g/dL RDW (11.5-14.5) % Plt Count (130-400) K/uL MPV (7.2-11.7) fL Neut % (Auto) (50.0-75.0) % Lymph % (Auto) (20.0-40.0) % [place] % (Auto) (0.0-10.0) % Eos % (Auto) (0.0-4.0) % Baso % (Auto) (0.0-2.0) % Neut # (Auto) (1.8-7.0) K/uL Lymph # (Auto) (1.0-4.3) K/uL [place] # (Auto) (0.0-0.8) K/uL Eos # (Auto) (0.0-0.7) K/uL Baso # (Auto) (0.0-0.2) K/uL Puncture Site pCO2 (35-45) mm/Hg pO2 (80-100) mm/Hg HCO3 (21-28) mmol/L ABG pH (7.35-7.45) ABG Total CO2 (22-28) mmol/L ABG O2 Saturation (95-98) % ABG Base Excess (-2.0-3.0) mmol/L Tre Test ABG Potassium (3.6-5.2) mmol/L A-a O2 Difference mm/Hg Respiratory Index Sodium 145 (132-148) mmol/l Chloride 115 H (98-107) mmol/L Glucose (75-110) mg/dl Lactate (0.7-2.1) mmol/L Vent Mode Mechanical Rate FiO2 % Tidal Volume PEEP Potassium 4.3 (3.6-5.2) mmol/L Carbon Dioxide 20 L (22-30) mmol/L Anion Gap 14 (10-20) BUN 25 H (9-20) mg/dL Creatinine 0.9 (0.8-1.5) mg/dL Est GFR ( Amer) > 60 Est GFR (Non-Af Amer) > 60 POC Glucose (mg/dL) 236 H (65-110) mg/dL Random Glucose 242 H (75-110) mg/dL Calcium 7.6 L (8.6-10.4) mg/dl Phosphorus 2.9 (2.5-4.5) mg/dL Magnesium 2.4 H (1.6-2.3) mg/dL Total Bilirubin 1.1 (0.2-1.3) mg/dL AST 25 (17-59) U/L ALT 21 (21-72) U/L Alkaline Phosphatase 44 (38-126) U/L Total Protein 6.3 (6.3-8.3) g/dL Albumin 2.9 L (3.5-5.0) g/dL Globulin 3.4 (2.2-3.9) gm/dL Albumin/Globulin Ratio 0.8 L (1.0-2.1) Arterial Blood Potassium (3.6-5.2) mmol/L Stool Occult Blood Negative (NEGATIVE) 09/30/17 09/30/17 09/30/17 Range/Units 06:22 05:38 05:10 WBC 6.4 (4.8-10.8) K/uL RBC 2.88 L (4.40-5.90) Mil/uL Hgb 8.4 L (12.0-18.0) g/dL Hct 25.1 L (35.0-51.0) % MCV 87.2 (80.0-94.0) fL MCH 29.3 (27.0-31.0) pg MCHC 33.6 (33.0-37.0) g/dL RDW 14.2 (11.5-14.5) % Plt Count 209 (130-400) K/uL MPV 9.8 (7.2-11.7) fL Neut % (Auto) 76.3 H (50.0-75.0) % Lymph % (Auto) 14.4 L (20.0-40.0) % [place] % (Auto) 6.9 (0.0-10.0) % Eos % (Auto) 2.0 (0.0-4.0) % Baso % (Auto) 0.4 (0.0-2.0) % Neut # (Auto) 4.9 (1.8-7.0) K/uL Lymph # (Auto) 0.9 L (1.0-4.3) K/uL [place] # (Auto) 0.4 (0.0-0.8) K/uL Eos # (Auto) 0.1 (0.0-0.7) K/uL Baso # (Auto) 0.0 (0.0-0.2) K/uL Puncture Site Lb pCO2 30 L (35-45) mm/Hg pO2 86 (80-100) mm/Hg HCO3 25.2 (21-28) mmol/L ABG pH 7.49 H (7.35-7.45) ABG Total CO2 23.8 (22-28) mmol/L ABG O2 Saturation 98.0 (95-98) % ABG Base Excess 0.4 (-2.0-3.0) mmol/L Tre Test Na ABG Potassium 3.9 (3.6-5.2) mmol/L A-a O2 Difference 90.0 mm/Hg Respiratory Index 1.0 Sodium 146.0 (132-148) mmol/l Chloride 116.0 H (98-107) mmol/L Glucose 292 H (75-110) mg/dl Lactate 0.9 (0.7-2.1) mmol/L Vent Mode Prvc Mechanical Rate 20 FiO2 30.0 % Tidal Volume 450 PEEP 5 Potassium (3.6-5.2) mmol/L Carbon Dioxide (22-30) mmol/L Anion Gap (10-20) BUN (9-20) mg/dL Creatinine (0.8-1.5) mg/dL Est GFR ( Amer) Est GFR (Non-Af Amer) POC Glucose (mg/dL) 254 H (65-110) mg/dL Random Glucose (75-110) mg/dL Calcium (8.6-10.4) mg/dl Phosphorus (2.5-4.5) mg/dL Magnesium (1.6-2.3) mg/dL Total Bilirubin (0.2-1.3) mg/dL AST (17-59) U/L ALT (21-72) U/L Alkaline Phosphatase (38-126) U/L Total Protein (6.3-8.3) g/dL Albumin (3.5-5.0) g/dL Globulin (2.2-3.9) gm/dL Albumin/Globulin Ratio (1.0-2.1) Arterial Blood Potassium 3.9 (3.6-5.2) mmol/L Stool Occult Blood (NEGATIVE) 09/30/17 09/29/17 09/29/17 Range/Units 00:01 18:00 17:34 WBC 7.6 (4.8-10.8) K/uL RBC 3.00 L (4.40-5.90) Mil/uL Hgb 8.9 L D (12.0-18.0) g/dL Hct 26.0 L (35.0-51.0) % MCV 86.9 (80.0-94.0) fL MCH 29.8 (27.0-31.0) pg MCHC 34.3 (33.0-37.0) g/dL RDW 14.0 (11.5-14.5) % Plt Count 195 (130-400) K/uL MPV 8.6 (7.2-11.7) fL Neut % (Auto) 79.5 H (50.0-75.0) % Lymph % (Auto) 11.9 L (20.0-40.0) % [place] % (Auto) 6.4 (0.0-10.0) % Eos % (Auto) 2.0 (0.0-4.0) % Baso % (Auto) 0.2 (0.0-2.0) % Neut # (Auto) 6.0 (1.8-7.0) K/uL Lymph # (Auto) 0.9 L (1.0-4.3) K/uL [place] # (Auto) 0.5 (0.0-0.8) K/uL Eos # (Auto) 0.2 (0.0-0.7) K/uL Baso # (Auto) 0.0 (0.0-0.2) K/uL Puncture Site pCO2 (35-45) mm/Hg pO2 (80-100) mm/Hg HCO3 (21-28) mmol/L ABG pH (7.35-7.45) ABG Total CO2 (22-28) mmol/L ABG O2 Saturation (95-98) % ABG Base Excess (-2.0-3.0) mmol/L Tre Test ABG Potassium (3.6-5.2) mmol/L A-a O2 Difference mm/Hg Respiratory Index Sodium (132-148) mmol/l Chloride (98-107) mmol/L Glucose (75-110) mg/dl Lactate (0.7-2.1) mmol/L Vent Mode Mechanical Rate FiO2 % Tidal Volume PEEP Potassium (3.6-5.2) mmol/L Carbon Dioxide (22-30) mmol/L Anion Gap (10-20) BUN (9-20) mg/dL Creatinine (0.8-1.5) mg/dL Est GFR ( Amer) Est GFR (Non-Af Amer) POC Glucose (mg/dL) 209 H 202 H (65-110) mg/dL Random Glucose (75-110) mg/dL Calcium (8.6-10.4) mg/dl Phosphorus (2.5-4.5) mg/dL Magnesium (1.6-2.3) mg/dL Total Bilirubin (0.2-1.3) mg/dL AST (17-59) U/L ALT (21-72) U/L Alkaline Phosphatase (38-126) U/L Total Protein (6.3-8.3) g/dL Albumin (3.5-5.0) g/dL Globulin (2.2-3.9) gm/dL Albumin/Globulin Ratio (1.0-2.1) Arterial Blood Potassium (3.6-5.2) mmol/L Stool Occult Blood (NEGATIVE) Laboratory Results - last 24 hr 09/29/17 09/29/17 09/30/17 17:34 18:00 00:01 WBC 7.6 RBC 3.00 L Hgb 8.9 L D Hct 26.0 L MCV 86.9 MCH 29.8 MCHC 34.3 RDW 14.0 Plt Count 195 MPV 8.6 Neut % (Auto) 79.5 H Lymph % (Auto) 11.9 L [place] % (Auto) 6.4 Eos % (Auto) 2.0 Baso % (Auto) 0.2 Neut # (Auto) 6.0 Lymph # (Auto) 0.9 L [place] # (Auto) 0.5 Eos # (Auto) 0.2 Baso # (Auto) 0.0 Puncture Site pCO2 pO2 HCO3 ABG pH ABG Total CO2 ABG O2 Saturation ABG Base Excess Tre Test ABG Potassium A-a O2 Difference Respiratory Index Sodium Chloride Glucose Lactate Vent Mode Mechanical Rate FiO2 Tidal Volume PEEP Potassium Carbon Dioxide Anion Gap BUN Creatinine Est GFR ( Amer) Est GFR (Non-Af Amer) POC Glucose (mg/dL) 202 H 209 H Random Glucose Calcium Phosphorus Magnesium Total Bilirubin AST ALT Alkaline Phosphatase Total Protein Albumin Globulin Albumin/Globulin Ratio Arterial Blood Potassium Stool Occult Blood 09/30/17 09/30/17 09/30/17 05:10 05:38 06:22 WBC 6.4 RBC 2.88 L Hgb 8.4 L Hct 25.1 L MCV 87.2 MCH 29.3 MCHC 33.6 RDW 14.2 Plt Count 209 MPV 9.8 Neut % (Auto) 76.3 H Lymph % (Auto) 14.4 L [place] % (Auto) 6.9 Eos % (Auto) 2.0 Baso % (Auto) 0.4 Neut # (Auto) 4.9 Lymph # (Auto) 0.9 L [place] # (Auto) 0.4 Eos # (Auto) 0.1 Baso # (Auto) 0.0 Puncture Site Lb pCO2 30 L pO2 86 HCO3 25.2 ABG pH 7.49 H ABG Total CO2 23.8 ABG O2 Saturation 98.0 ABG Base Excess 0.4 Tre Test Na ABG Potassium 3.9 A-a O2 Difference 90.0 Respiratory Index 1.0 Sodium 146.0 Chloride 116.0 H Glucose 292 H Lactate 0.9 Vent Mode Prvc Mechanical Rate 20 FiO2 30.0 Tidal Volume 450 PEEP 5 Potassium Carbon Dioxide Anion Gap BUN Creatinine Est GFR ( Amer) Est GFR (Non-Af Amer) POC Glucose (mg/dL) 254 H Random Glucose Calcium Phosphorus Magnesium Total Bilirubin AST ALT Alkaline Phosphatase Total Protein Albumin Globulin Albumin/Globulin Ratio Arterial Blood Potassium 3.9 Stool Occult Blood 09/30/17 09/30/17 09/30/17 06:22 06:26 11:25 WBC RBC Hgb Hct MCV MCH MCHC RDW Plt Count MPV Neut % (Auto) Lymph % (Auto) [place] % (Auto) Eos % (Auto) Baso % (Auto) Neut # (Auto) Lymph # (Auto) [place] # (Auto) Eos # (Auto) Baso # (Auto) Puncture Site pCO2 pO2 HCO3 ABG pH ABG Total CO2 ABG O2 Saturation ABG Base Excess Tre Test ABG Potassium A-a O2 Difference Respiratory Index Sodium 145 Chloride 115 H Glucose Lactate Vent Mode Mechanical Rate FiO2 Tidal Volume PEEP Potassium 4.3 Carbon Dioxide 20 L Anion Gap 14 BUN 25 H Creatinine 0.9 Est GFR ( Amer) > 60 Est GFR (Non-Af Amer) > 60 POC Glucose (mg/dL) 236 H Random Glucose 242 H Calcium 7.6 L Phosphorus 2.9 Magnesium 2.4 H Total Bilirubin 1.1 AST 25 ALT 21 Alkaline Phosphatase 44 Total Protein 6.3 Albumin 2.9 L Globulin 3.4 Albumin/Globulin Ratio 0.8 L Arterial Blood Potassium Stool Occult Blood Negative Critical Care Progress Note - Nutrition Nutrition: Nutrition Category Date Time Status Heart Healthy Diet [DIET] Diets 09/30/17 Dinner Active Assessment/Plan - Assessment and Plan (Free Text) Assessment: Above patient seen and examiend at bedside. above resident note reviewed -Bronchistirs:continue bronchodialtros, (+)wheezing, add solumedrol -CAD/SVT: start verapamil as patient wheezing (taking lopressors at hoem), continue antiplatelets and statin -aspiration pneumonia: patient advised to stop taking sleeping p[ills, continue abx, encourage pulmonary toilet -pulmonary congestion: continue negative balance -continue dvt/pud ppx cc time 45 minutes - Date & Time Date: 09/30/17 Time: 19:00
[2017-09-30] MEDS: Vancomycin 1 gm/NS 200 ml 1 GM/200 ML BAG IVPB SCH (13:09)
[2017-09-30] MEDS: MethylPREDNISolone 40 mg Vial IVP SCH ×2 (13:19→22:30)
[2017-09-30] MEDS ORDERED: Verapamil 40 MG in Sodium Chloride 0.9% 84 ML IV SCH (14:00)
[2017-09-30] MEDS: Verapamil 40 MG in Sodium Chloride 0.9% 84 ML IV PRN ×2 (16:30→20:50)
[2017-09-30] MEDS ORDERED: Dexmedetomidine Hydrochloride 200 MCG in Sodium Chloride 0.9% 48 ML IV PRN (17:25)
--- NOTE | 2017-09-30 17:26 | CP.PCM.PN ---
Subjective - Date & Time of Evaluation Date of Evaluation: 09/30/17 Time of Evaluation: 07:00 - Subjective Subjective: extubated alert on BiPap NAD No fever + cough Objective - Vital Signs/Intake and Output Vital Signs (last 24 hours): Temp Pulse Resp BP Pulse Ox 97.7 F 105 H 9 L 150/57 L 97 09/30/17 03:59 09/30/17 13:37 09/30/17 11:15 09/30/17 11:15 09/30/17 11:15 Intake and Output: 09/30/17 09/30/17 06:59 18:59 Intake Total 1011.6 128.4 Output Total 395 202 Balance 616.6 -73.6 - Medications Medications: Current Medications Albuterol/Ipratropium (Duoneb 3 Mg/0.5 Mg (3 Ml) Ud) 3 ml INH RQ6 [facility] Last Admin: 09/30/17 13:36 Dose: 3 ml Aspirin (Aspirin Chewable) 81 mg PO DAILY [facility] Clopidogrel Bisulfate (Plavix) 75 mg PO DAILY [facility] [place] Last Admin: 09/30/17 09:53 Dose: 75 mg Docusate Sodium (Colace) 100 mg PO TID [facility] [place] Last Admin: 09/30/17 13:17 Dose: Not Given Enoxaparin Sodium (Lovenox) 40 mg SC DAILY [facility] [place] Last Admin: 09/30/17 09:52 Dose: 40 mg Famotidine (Pepcid) 20 mg IVP Q12 [facility] [place] Last Admin: 09/30/17 09:53 Dose: 20 mg Guaifenesin (Robitussin) 200 mg PO Q4H PRN PRN Reason: Cough and congestion Hydralazine HCl (Apresoline) 10 mg IVP Q6H PRN PRN Reason: Systolic Blood Pressure Meropenem 500 mg/ Sodium (Chloride) 100 mls @ 100 mls/hr IVPB Q8 [facility] [place] Last Admin: 09/30/17 14:25 Dose: 100 mls/hr Vancomycin/Sodium Chloride (Vancomycin 1 Gm/Ns 200 Ml) 1 gm in 200 mls @ 133.333 mls/hr IVPB Q24H [facility] [place] Stop: 10/03/17 13:01 Last Admin: 09/30/17 13:09 Dose: 133.333 mls/hr Moxifloxacin HCl (Avelox Iv 400mg/250ml Ns) 400 mg in 250 mls @ 167 mls/hr IVPB Q24H [facility] Last Admin: 09/29/17 17:49 Dose: 167 mls/hr Verapamil HCl 40 mg/ Sodium (Chloride) 100 mls @ 12.5 mls/hr IV .Q8H [facility]; 5 MG/ HR PRN Reason: Protocol Last Admin: 09/30/17 14:23 Dose: 12.5 mls/hr Insulin Human Regular (Novolin R) 0 unit SC Q6 [facility] PRN Reason: Protocol Last Admin: 09/30/17 12:59 Dose: 3 unit Methylprednisolone (Solu-Medrol) 40 mg IVP Q8 [facility] Last Admin: 09/30/17 13:19 Dose: 40 mg Verapamil HCl (Verapamil Inj) 5 mg IVP Q6H PRN PRN Reason: Heart rate - Labs Labs: 09/30/17 06:22 09/30/17 06:22 PT 13.0 SECONDS (9.7-12.2) H 09/25/17 15:35 INR 1.2 09/25/17 15:35 APTT 33 SECONDS (21-34) 09/25/17 15:35 - Constitutional Appears: Non-toxic, Chronically Ill - Head Exam Head Exam: NORMOCEPHALIC - Eye Exam Eye Exam: PERRL. absent: Scleral icterus - ENT Exam ENT Exam: Mucous Membranes Dry - Neck Exam Neck Exam: absent: Lymphadenopathy - Respiratory Exam Respiratory Exam: Decreased Breath Sounds - Cardiovascular Exam Cardiovascular Exam: REGULAR RHYTHM - GI/Abdominal Exam GI & Abdominal Exam: Distended, Soft - Rectal Exam Rectal Exam: Deferred - Exam Exam: NORMAL INSPECTION - Extremities Exam Extremities Exam: absent: Pedal Edema - Back Exam Back Exam: absent: CVA tenderness (L), CVA tenderness (R) - Neurological Exam Neurological Exam: Alert, Awake, Oriented x3 Neuro motor strength exam: Left Upper Extremity: 3, Right Upper Extremity: 3, Left Lower Extremity: 3, Right Lower Extremity: 3 - Psychiatric Exam Psychiatric exam: Depressed - Skin Skin Exam: Dry Assessment and Plan (1) Pneumonia Status: Acute (2) Respiratory failure requiring intubation Status: Acute (3) Ischemic stroke Status: Acute (4) Syncope Status: Acute - Assessment and Plan (Free Text) Assessment: cont iv antibiotics neuro re-eval prognosis guarded may need reintubation
[2017-09-30] MEDS: Moxifloxacin IV 400mg/250ml NS 400 MG/250 ML BAG IVPB SCH (17:32)
[2017-09-30] MEDS: Fluconazole IV 200mg/100 ml NS 100 ML IVPB SCH (20:31)
--- NOTE | 2017-09-30 23:09 | CP.PCM.PN ---
Subjective - Date & Time of Evaluation Date of Evaluation: 09/30/17 Time of Evaluation: 18:00 - Subjective Subjective: Patient seen and examined today, pt is extubated, on BIPAP, slightly tacpneac however pt is improving Objective - Vital Signs/Intake and Output Vital Signs (last 24 hours): Temp Pulse Resp BP Pulse Ox 98.6 F 72 27 H 125/69 99 09/30/17 16:00 09/30/17 22:46 09/30/17 20:50 09/30/17 20:50 09/30/17 20:50 Intake and Output: 09/30/17 10/01/17 18:59 06:59 Intake Total 744.7 55 Output Total 680 Balance 64.7 55 - Medications Medications: Current Medications Albuterol/Ipratropium (Duoneb 3 Mg/0.5 Mg (3 Ml) Ud) 3 ml INH RQ6 [facility] Last Admin: 09/30/17 20:43 Dose: 3 ml Aspirin (Aspirin Chewable) 81 mg PO DAILY [facility] Clopidogrel Bisulfate (Plavix) 75 mg PO DAILY [facility] Last Admin: 09/30/17 09:53 Dose: 75 mg Docusate Sodium (Colace) 100 mg PO TID [facility] Last Admin: 09/30/17 17:22 Dose: Not Given Enoxaparin Sodium (Lovenox) 40 mg SC DAILY [facility] Last Admin: 09/30/17 09:52 Dose: 40 mg Famotidine (Pepcid) 20 mg IVP Q12 [facility] Last Admin: 09/30/17 09:53 Dose: 20 mg Furosemide (Lasix) 20 mg IVP BID [facility] Last Admin: 09/30/17 20:49 Dose: 20 mg Guaifenesin (Robitussin) 200 mg PO Q4H PRN PRN Reason: Cough and congestion Hydralazine HCl (Apresoline) 10 mg IVP Q6H PRN PRN Reason: Systolic Blood Pressure Last Admin: 09/30/17 17:31 Dose: 10 mg Meropenem 500 mg/ Sodium (Chloride) 100 mls @ 100 mls/hr IVPB Q8 [facility] Last Admin: 09/30/17 14:25 Dose: 100 mls/hr Vancomycin/Sodium Chloride (Vancomycin 1 Gm/Ns 200 Ml) 1 gm in 200 mls @ 133.333 mls/hr IVPB Q24H [facility] Stop: 10/03/17 13:01 Last Admin: 09/30/17 13:09 Dose: 133.333 mls/hr Moxifloxacin HCl (Avelox Iv 400mg/250ml Ns) 400 mg in 250 mls @ 167 mls/hr IVPB Q24H [facility] Last Admin: 09/30/17 17:32 Dose: 167 mls/hr Dexmedetomidine HCl 200 mcg/ (Sodium Chloride) 50 mls @ 3.49 mls/hr IV TITR PRN ; Protocol; 0.2 MCG/KG/HR PRN Reason: Anxiety Last Titration: 09/30/17 17:58 Dose: 0.4 mcg/kg/hr, 6.98 mls/hr Fluconazole (Diflucan Iv 200 Mg/100 Ml Ns) 100 mls @ 100 mls/hr IVPB Q24H [facility] Last Admin: 09/30/17 20:31 Dose: 100 mls/hr Verapamil HCl 40 mg/ Sodium (Chloride) 100 mls @ 12.5 mls/hr IV .Q8H PRN; 5 MG/ HR PRN Reason: Protocol Last Admin: 09/30/17 20:50 Dose: 12.5 mls/hr Insulin Human Regular (Novolin R) 0 unit SC Q6 [facility] PRN Reason: Protocol Last Admin: 09/30/17 17:47 Dose: 6 unit Methylprednisolone (Solu-Medrol) 40 mg IVP Q8 [facility] Last Admin: 09/30/17 13:19 Dose: 40 mg Verapamil HCl (Verapamil Inj) 5 mg IVP Q6H PRN PRN Reason: Heart rate - Labs Labs: 09/30/17 06:22 09/30/17 06:22 PT 13.0 SECONDS (9.7-12.2) H 09/25/17 15:35 INR 1.2 09/25/17 15:35 APTT 33 SECONDS (21-34) 09/25/17 15:35 - Constitutional Appears: No Acute Distress, Chronically Ill - Head Exam Head Exam: ATRAUMATIC, NORMAL INSPECTION, NORMOCEPHALIC - Eye Exam Eye Exam: EOMI, Normal appearance, PERRL Pupil Exam: NORMAL ACCOMODATION, PERRL - Respiratory Exam Respiratory Exam: Decreased Breath Sounds, Rales - Cardiovascular Exam Cardiovascular Exam: Irregular Rhythm, +S1, +S2. absent: Murmur - GI/Abdominal Exam GI & Abdominal Exam: Soft, Normal Bowel Sounds. absent: Tenderness Assessment and Plan (1) Pneumonia Status: Acute (2) Respiratory failure requiring intubation Status: Acute (3) Syncope Status: Acute
--- NOTE | 2017-09-30 23:39 | CP.PCM.PN ---
Subjective - Date & Time of Evaluation Date of Evaluation: 09/30/17 Time of Evaluation: 16:35 - Subjective Subjective: Patient seen and evaluated Extubated on BiPAP Still has dyspnea and wheezing Add Lasix 20mg IV bid Objective - Vital Signs/Intake and Output Vital Signs (last 24 hours): Temp Pulse Resp BP Pulse Ox 98.6 F 72 27 H 125/69 99 09/30/17 16:00 09/30/17 22:46 09/30/17 20:50 09/30/17 20:50 09/30/17 20:50 Intake and Output: 09/30/17 10/01/17 18:59 06:59 Intake Total 744.7 55 Output Total 680 Balance 64.7 55 - Medications Medications: Current Medications Albuterol/Ipratropium (Duoneb 3 Mg/0.5 Mg (3 Ml) Ud) 3 ml INH RQ6 [facility] Last Admin: 09/30/17 20:43 Dose: 3 ml Aspirin (Aspirin Chewable) 81 mg PO DAILY [facility] Clopidogrel Bisulfate (Plavix) 75 mg PO DAILY [facility] Last Admin: 09/30/17 09:53 Dose: 75 mg Docusate Sodium (Colace) 100 mg PO TID [facility] Last Admin: 09/30/17 17:22 Dose: Not Given Enoxaparin Sodium (Lovenox) 40 mg SC DAILY [facility] Last Admin: 09/30/17 09:52 Dose: 40 mg Famotidine (Pepcid) 20 mg IVP Q12 [facility] Last Admin: 09/30/17 22:30 Dose: 20 mg Furosemide (Lasix) 20 mg IVP BID [facility] Last Admin: 09/30/17 20:49 Dose: 20 mg Guaifenesin (Robitussin) 200 mg PO Q4H PRN PRN Reason: Cough and congestion Hydralazine HCl (Apresoline) 10 mg IVP Q6H PRN PRN Reason: Systolic Blood Pressure Last Admin: 09/30/17 17:31 Dose: 10 mg Meropenem 500 mg/ Sodium (Chloride) 100 mls @ 100 mls/hr IVPB Q8 [facility] Last Admin: 09/30/17 21:00 Dose: 100 mls/hr Vancomycin/Sodium Chloride (Vancomycin 1 Gm/Ns 200 Ml) 1 gm in 200 mls @ 133.333 mls/hr IVPB Q24H [facility] Stop: 10/03/17 13:01 Last Admin: 09/30/17 13:09 Dose: 133.333 mls/hr Moxifloxacin HCl (Avelox Iv 400mg/250ml Ns) 400 mg in 250 mls @ 167 mls/hr IVPB Q24H [facility] Last Admin: 09/30/17 17:32 Dose: 167 mls/hr Dexmedetomidine HCl 200 mcg/ (Sodium Chloride) 50 mls @ 3.49 mls/hr IV TITR PRN ; Protocol; 0.2 MCG/KG/HR PRN Reason: Anxiety Last Titration: 09/30/17 17:58 Dose: 0.4 mcg/kg/hr, 6.98 mls/hr Fluconazole (Diflucan Iv 200 Mg/100 Ml Ns) 100 mls @ 100 mls/hr IVPB Q24H [facility] Last Admin: 09/30/17 20:31 Dose: 100 mls/hr Verapamil HCl 40 mg/ Sodium (Chloride) 100 mls @ 12.5 mls/hr IV .Q8H PRN; 5 MG/ HR PRN Reason: Protocol Last Admin: 09/30/17 20:50 Dose: 12.5 mls/hr Insulin Human Regular (Novolin R) 0 unit SC Q6 [facility] PRN Reason: Protocol Last Admin: 09/30/17 17:47 Dose: 6 unit Methylprednisolone (Solu-Medrol) 40 mg IVP Q8 [facility] Last Admin: 09/30/17 22:30 Dose: 40 mg Verapamil HCl (Verapamil Inj) 5 mg IVP Q6H PRN PRN Reason: Heart rate - Labs Labs: 09/30/17 06:22 09/30/17 06:22 PT 13.0 SECONDS (9.7-12.2) H 09/25/17 15:35 INR 1.2 09/25/17 15:35 APTT 33 SECONDS (21-34) 09/25/17 15:35
[2017-10-01] MEDS: (Novolin R) Insulin Human Regular 100 units/ml vial SC SCH ×2 (01:00→06:21)
[2017-10-01] MEDS: Albuterol-Ipratrop 3 mg / 0.5 (3 ml) UD INH SCH ×5 (02:07→20:16)
[2017-10-01] MEDS: Meropenem 500 MG in Sodium Chloride 0.9% 100 ML IVPB SCH ×3 (05:00→22:30)
[2017-10-01] MEDS: Verapamil 40 MG in Sodium Chloride 0.9% 84 ML IV PRN ×2 (06:00→22:45)
[2017-10-01] MEDS: MethylPREDNISolone 40 mg Vial IVP SCH ×4 (06:14→22:40)
[2017-10-01 06:44] LABS: ALB/GLOB RATIO 0.9 (1.0-2.1); ALBUMIN 3.1 g/dL (3.5-5.0); ALT/SGPT 25 U/L (21-72); AST/SGOT 17 U/L (17-59); BLOOD UREA NITROGEN 39 mg/dL (9-20); CALCIUM 8.6 mg/dl (8.6-10.4); GFR AFRICAN-AMERICAN > 60; GFR NON-AFRICAN AMERICAN > 60
[2017-10-01 06:48] LABS: B-TYPE NATRIURETIC PEPTIDE 17800 pg/mL (0-900)
[2017-10-01 07:44] LABS: BASO % 0.1 % (0.0-2.0); EOS % 0.2 % (0.0-4.0); HEMOGLOBIN 8.6 g/dL (12.0-18.0); LYMPH # 0.6 K/uL (1.0-4.3); LYMPH % 7.8 % (20.0-40.0); MEAN CELL VOLUME 88.3 fL (80.0-94.0); MEAN CORPUSCULAR HEMOGLOBIN 29.7 pg (27.0-31.0); MEAN CORPUSCULAR HGB CONC 33.6 g/dL (33.0-37.0); MEAN PLATELET VOLUME 9.5 fL (7.2-11.7); MONO # 0.2 K/uL (0.0-0.8); MONO % 2.8 % (0.0-10.0); NEUT # 6.9 K/uL (1.8-7.0); NEUT % 89.1 % (50.0-75.0); PLATELET COUNT 216 K/uL (130-400); RBC 2.88 Mil/uL (4.40-5.90); RED CELL DISTRIBUTION WIDTH 14.4 % (11.5-14.5); WHITE BLOOD COUNT 7.8 K/uL (4.8-10.8)
[2017-10-01 09:46] LABS: ANISOCYTOSIS SLIGHT; BANDS 1 % (0-2); BURR CELLS SLIGHT; LYMPHOCYTE 7 % (20-40); MONOCYTE 2 % (0-10); NEUTROPHIL 90 % (50-75); OVALOCYTES SLIGHT; PLATELET ESTIMATE NORMAL (NORMAL); TOTAL CELLS COUNTED 100
[2017-10-01] MEDS: Enoxaparin 40 mg Syringe SC SCH (10:44)
[2017-10-01] MEDS: Verapamil 180 mg ER Tab PO SCH ×2 (11:24→12:11)
[2017-10-01] MEDS: (Novolog) Insulin Aspart, Recombinant 100 u/ml 10 ml vial SC SCH ×4 (12:00→22:45)
--- NOTE | 2017-10-01 12:16 | RAD ---
HISTORY: eval RLL COMPARISON: Chest radiograph dated 09/30/2017. FINDINGS: LUNGS: Stable pulmonary vascular congestion. Right lower lobe atelectasis/consolidation. PLEURA: Small right pleural effusion. No pneumothorax apparent. CARDIOVASCULAR: Atherosclerotic aortic calcifications. Cardiomediastinal silhouette stably enlarged. OSSEOUS STRUCTURES: Unchanged. VISUALIZED UPPER ABDOMEN: Normal. OTHER FINDINGS: None. IMPRESSION: Small right pleural effusion. Right lower lobe atelectasis/consolidation
[2017-10-01] MEDS ORDERED: Nitroglycerin 50mg in D5W 50 MG/250 ML BOTTLE IV SCH (13:30)
[2017-10-01] MEDS: Vancomycin 1 gm/NS 200 ml 1 GM/200 ML BAG IVPB SCH (13:56)
--- NOTE | 2017-10-01 14:39 | CP.CCUPN ---
CCU Subjective - Physician Review Subjective (Free Text): Patient tolerated extubation yesterday, and was on bi-pap. Wheezing resolved. SVT controlled Critical Care Time Spent (in minutes): 34 CCU Objective - Vital Signs / Intake & Output Vital Signs (Last 4 hours): Vital Signs Pulse Resp BP Pulse Ox 10/01/17 14:27 117 H 33 H 186/86 H 97 10/01/17 12:30 75 10/01/17 10:42 169/77 H Intake and Output (Last 8hrs): Intake & Output 09/30/17 10/01/17 10/01/17 22:59 06:59 14:59 Intake Total 558.0 84.0 52.0 Output Total 440 800 100 Balance 118.0 -716.0 -48.0 Weight 165 lb Intake: IV 30 10 Intake, IV Amount 528.0 84.0 42.0 Right AC Distal 35 Right AC Y-Port 400 Right Antecubital 93.0 84.0 42.0 Right Wrist 0 Output: Urine 440 800 Urethral (Swift) 440 800 Stool 100 Emesis 0 Other: # Bowel Movements 1 1 - Physical Exam Head: Positive for: Atraumatic, Normocephalic Mouth: Positive for: Moist Mucous Membranes Nose (Internal): Positive for: No Active Bleeding Neck: Negative for: Meningeal Signs, MIDLINE TENDERNESS Respiratory/Chest: Positive for: Good Air Exchange, Other (intubated). Negative for: Accessory Muscle Use Cardiovascular: Positive for: Regular Rate and Rhythm, Normal S1, S2, Tachycardic, Rub Abdomen: Positive for: Normal Bowel Sounds. Negative for: Tenderness, Distention, Peritoneal Signs Lower Extremity: Positive for: Normal Inspection - Medications Active Medications: Active Medications Generic Name Dose Route Start Last Admin Trade Name Freq PRN Reason Stop Dose Admin Albuterol/Ipratropium 3 ml 10/01/17 11:00 10/01/17 13:00 Duoneb 3 Mg/0.5 Mg (3 Ml) Ud INH 3 ml RQ4 [facility] Administration Aspirin 81 mg 09/30/17 13:29 10/01/17 10:18 Aspirin Chewable PO Not Given DAILY [facility] Clopidogrel Bisulfate 75 mg 09/26/17 10:00 10/01/17 10:19 Plavix PO Not Given DAILY [facility] Docusate Sodium 100 mg 09/27/17 14:00 10/01/17 13:02 Colace PO Not Given TID [facility] Enoxaparin Sodium 40 mg 09/26/17 10:00 10/01/17 10:44 Lovenox SC 40 mg DAILY [facility] Administration Famotidine 20 mg 09/27/17 22:00 10/01/17 10:43 Pepcid IVP 20 mg Q12 [facility] Administration Furosemide 20 mg 09/30/17 20:15 10/01/17 10:42 Lasix IVP 20 mg BID [facility] Administration Guaifenesin 200 mg 09/29/17 12:15 Robitussin PO Q4H PRN Cough and congestion Hydralazine HCl 10 mg 10/01/17 13:29 10/01/17 14:02 Apresoline IVP 10 mg Q2H PRN Administration Systolic Blood Pressure Hydralazine HCl 50 mg 10/01/17 14:35 Apresoline PO Q8 [facility] Meropenem 500 mg/ Sodium 100 mls @ 100 mls/hr 09/28/17 14:00 10/01/17 13:57 Chloride IVPB 100 mls/hr Q8 [facility] Administration Vancomycin/Sodium Chloride 1 gm in 200 mls @ 133.333 mls/hr 09/28/17 13:00 13:56 Vancomycin 1 Gm/Ns 200 Ml IVPB 10/03/17 13:01 133.333 mls/hr Q24H [facility] Administration Moxifloxacin HCl 400 mg in 250 mls @ 167 mls/hr 09/28/17 17:00 09/30/17 17:32 Avelox Iv 400mg/250ml Ns IVPB 167 mls/hr Q24H [facility] Administration Fluconazole 100 mls @ 100 mls/hr 09/30/17 18:00 09/30/17 20:31 Diflucan Iv 200 Mg/100 Ml Ns IVPB 100 mls/hr Q24H [facility] Administration Verapamil HCl 40 mg/ Sodium 100 mls @ 12.5 mls/hr 09/30/17 17:30 10/01/17 06: 00 Chloride IV 12.5 mls/hr .Q8H PRN Administration Protocol 5 MG/HR Nitroglycerin/Dextrose 50 mg in 250 mls @ 1.5 mls/hr 10/01/17 13:30 10/01/17 14:30 Nitroglycerin 50 Mg/250 Ml D5w IV 15 mcg/min .Q24H [facility] 4.5 mls/hr Protocol Titration 5 MCG/MIN Insulin Aspart 0 unit 10/01/17 11:00 10/01/17 12:00 Novolog SC 2 unit Q4H [facility] Administration Protocol Methylprednisolone 40 mg 10/01/17 11:00 10/01/17 11:19 Solu-Medrol IVP 40 mg Q6H [facility] Administration Verapamil HCl 5 mg 09/30/17 12:44 Verapamil Inj IVP Q6H PRN Heart rate Verapamil HCl 180 mg 10/01/17 11:00 10/01/17 12:11 Calan Sr Tab PO Not Given DAILY [facility] - Patient Studies Lab Studies: Microbiology Studies 09/25/17 18:10 Blood Culture - Final Blood-Venous NO GROWTH AFTER 5 DAYS Gram Stain - Final TEST NOT PERFORMED 09/25/17 18:10 Blood Culture - Final Blood-Venous NO GROWTH AFTER 5 DAYS 09/28/17 11:57 Blood Culture - Preliminary Blood NO GROWTH AFTER 48 HOURS 09/28/17 11:57 Blood Culture - Preliminary Blood NO GROWTH AFTER 48 HOURS 09/28/17 11:57 Gram Stain - Final Trachasp Sputum Culture - Final Yeast Species Lab Studies 10/01/17 10/01/17 10/01/17 Range/Units Unknown 11:37 07:33 WBC 7.8 (4.8-10.8) K/uL RBC 2.88 L (4.40-5.90) Mil/uL Hgb 8.6 L (12.0-18.0) g/dL Hct 25.5 L (35.0-51.0) % MCV 88.3 (80.0-94.0) fL MCH 29.7 (27.0-31.0) pg MCHC 33.6 (33.0-37.0) g/dL RDW 14.4 (11.5-14.5) % Plt Count 216 (130-400) K/uL MPV 9.5 (7.2-11.7) fL Neut % (Auto) 89.1 H (50.0-75.0) % Lymph % (Auto) 7.8 L (20.0-40.0) % [place] % (Auto) 2.8 (0.0-10.0) % Eos % (Auto) 0.2 (0.0-4.0) % Baso % (Auto) 0.1 (0.0-2.0) % Neut # (Auto) 6.9 (1.8-7.0) K/uL Lymph # (Auto) 0.6 L (1.0-4.3) K/uL [place] # (Auto) 0.2 (0.0-0.8) K/uL Eos # (Auto) 0.0 (0.0-0.7) K/uL Baso # (Auto) 0.0 (0.0-0.2) K/uL Neutrophils % (Manual) 90 H (50-75) % Band Neutrophils % 1 (0-2) % Lymphocytes % (Manual) 7 L (20-40) % Monocytes % (Manual) 2 (0-10) % Platelet Estimate Normal (NORMAL) Anisocytosis (manual) Slight Ovalocytes Slight [place] Cells Slight Sodium (132-148) mmol/L Potassium (3.6-5.2) mmol/L Chloride (98-107) mmol/L Carbon Dioxide (22-30) mmol/L Anion Gap (10-20) BUN (9-20) mg/dL Creatinine (0.8-1.5) mg/dL Est GFR ( Amer) Est GFR (Non-Af Amer) POC Glucose (mg/dL) 195 H (65-110) mg/dL Random Glucose (75-110) mg/dL Calcium (8.6-10.4) mg/dl Phosphorus (2.5-4.5) mg/dL Magnesium (1.6-2.3) mg/dL Total Bilirubin (0.2-1.3) mg/dL AST (17-59) U/L ALT (21-72) U/L Alkaline Phosphatase (38-126) U/L NT-Pro-B Natriuret Pep (0-900) pg/mL Total Protein (6.3-8.3) g/dL Albumin (3.5-5.0) g/dL Globulin (2.2-3.9) gm/dL Albumin/Globulin Ratio (1.0-2.1) Procalcitonin 1.15 H (0.19-0.49) NG/ML 10/01/17 10/01/17 09/30/17 Range/Units 06:18 06:08 23:52 WBC (4.8-10.8) K/uL RBC (4.40-5.90) Mil/uL Hgb (12.0-18.0) g/dL Hct (35.0-51.0) % MCV (80.0-94.0) fL MCH (27.0-31.0) pg MCHC (33.0-37.0) g/dL RDW (11.5-14.5) % Plt Count (130-400) K/uL MPV (7.2-11.7) fL Neut % (Auto) (50.0-75.0) % Lymph % (Auto) (20.0-40.0) % [place] % (Auto) (0.0-10.0) % Eos % (Auto) (0.0-4.0) % Baso % (Auto) (0.0-2.0) % Neut # (Auto) (1.8-7.0) K/uL Lymph # (Auto) (1.0-4.3) K/uL [place] # (Auto) (0.0-0.8) K/uL Eos # (Auto) (0.0-0.7) K/uL Baso # (Auto) (0.0-0.2) K/uL Neutrophils % (Manual) (50-75) % Band Neutrophils % (0-2) % Lymphocytes % (Manual) (20-40) % Monocytes % (Manual) (0-10) % Platelet Estimate (NORMAL) Anisocytosis (manual) Ovalocytes [place] Cells Sodium 150 H (132-148) mmol/L Potassium 3.6 (3.6-5.2) mmol/L Chloride 116 H (98-107) mmol/L Carbon Dioxide 20 L (22-30) mmol/L Anion Gap 17 (10-20) BUN 39 H (9-20) mg/dL Creatinine 1.0 (0.8-1.5) mg/dL Est GFR ( Amer) > 60 Est GFR (Non-Af Amer) > 60 POC Glucose (mg/dL) 288 H 349 H (65-110) mg/dL Random Glucose 300 H (75-110) mg/dL Calcium 8.6 (8.6-10.4) mg/dl Phosphorus 3.2 (2.5-4.5) mg/dL Magnesium 2.7 H (1.6-2.3) mg/dL Total Bilirubin 0.6 (0.2-1.3) mg/dL AST 17 D (17-59) U/L ALT 25 (21-72) U/L Alkaline Phosphatase 61 (38-126) U/L NT-Pro-B Natriuret Pep 73501 H (0-900) pg/mL Total Protein 6.5 (6.3-8.3) g/dL Albumin 3.1 L (3.5-5.0) g/dL Globulin 3.4 (2.2-3.9) gm/dL Albumin/Globulin Ratio 0.9 L (1.0-2.1) Procalcitonin (0.19-0.49) NG/ML 09/30/17 Range/Units 17:37 WBC (4.8-10.8) K/uL RBC (4.40-5.90) Mil/uL Hgb (12.0-18.0) g/dL Hct (35.0-51.0) % MCV (80.0-94.0) fL MCH (27.0-31.0) pg MCHC (33.0-37.0) g/dL RDW (11.5-14.5) % Plt Count (130-400) K/uL MPV (7.2-11.7) fL Neut % (Auto) (50.0-75.0) % Lymph % (Auto) (20.0-40.0) % [place] % (Auto) (0.0-10.0) % Eos % (Auto) (0.0-4.0) % Baso % (Auto) (0.0-2.0) % Neut # (Auto) (1.8-7.0) K/uL Lymph # (Auto) (1.0-4.3) K/uL [place] # (Auto) (0.0-0.8) K/uL Eos # (Auto) (0.0-0.7) K/uL Baso # (Auto) (0.0-0.2) K/uL Neutrophils % (Manual) (50-75) % Band Neutrophils % (0-2) % Lymphocytes % (Manual) (20-40) % Monocytes % (Manual) (0-10) % Platelet Estimate (NORMAL) Anisocytosis (manual) Ovalocytes [place]ak Cells Sodium (132-148) mmol/L Potassium (3.6-5.2) mmol/L Chloride (98-107) mmol/L Carbon Dioxide (22-30) mmol/L Anion Gap (10-20) BUN (9-20) mg/dL Creatinine (0.8-1.5) mg/dL Est GFR ( Amer) Est GFR (Non-Af Amer) POC Glucose (mg/dL) 336 H (65-110) mg/dL Random Glucose (75-110) mg/dL Calcium (8.6-10.4) mg/dl Phosphorus (2.5-4.5) mg/dL Magnesium (1.6-2.3) mg/dL Total Bilirubin (0.2-1.3) mg/dL AST (17-59) U/L ALT (21-72) U/L Alkaline Phosphatase (38-126) U/L NT-Pro-B Natriuret Pep (0-900) pg/mL Total Protein (6.3-8.3) g/dL Albumin (3.5-5.0) g/dL Globulin (2.2-3.9) gm/dL Albumin/Globulin Ratio (1.0-2.1) Procalcitonin (0.19-0.49) NG/ML Laboratory Results - last 24 hr 09/30/17 09/30/17 10/01/17 17:37 23:52 06:08 WBC RBC Hgb Hct MCV MCH MCHC RDW Plt Count MPV Neut % (Auto) Lymph % (Auto) [place] % (Auto) Eos % (Auto) Baso % (Auto) Neut # (Auto) Lymph # (Auto) [place] # (Auto) Eos # (Auto) Baso # (Auto) Neutrophils % (Manual) Band Neutrophils % Lymphocytes % (Manual) Monocytes % (Manual) Platelet Estimate Anisocytosis (manual) Ovalocytes [place] Cells Sodium Potassium Chloride Carbon Dioxide Anion Gap BUN Creatinine Est GFR ( Amer) Est GFR (Non-Af Amer) POC Glucose (mg/dL) 336 H 349 H 288 H Random Glucose Calcium Phosphorus Magnesium Total Bilirubin AST ALT Alkaline Phosphatase NT-Pro-B Natriuret Pep Total Protein Albumin Globulin Albumin/Globulin Ratio Procalcitonin 10/01/17 10/01/17 10/01/17 06:18 07:33 11:37 WBC 7.8 RBC 2.88 L Hgb 8.6 L Hct 25.5 L MCV 88.3 MCH 29.7 MCHC 33.6 RDW 14.4 Plt Count 216 MPV 9.5 Neut % (Auto) 89.1 H Lymph % (Auto) 7.8 L [place] % (Auto) 2.8 Eos % (Auto) 0.2 Baso % (Auto) 0.1 Neut # (Auto) 6.9 Lymph # (Auto) 0.6 L [place] # (Auto) 0.2 Eos # (Auto) 0.0 Baso # (Auto) 0.0 Neutrophils % (Manual) 90 H Band Neutrophils % 1 Lymphocytes % (Manual) 7 L Monocytes % (Manual) 2 Platelet Estimate Normal Anisocytosis (manual) Slight Ovalocytes Slight [place] Cells Slight Sodium 150 H Potassium 3.6 Chloride 116 H Carbon Dioxide 20 L Anion Gap 17 BUN 39 H Creatinine 1.0 Est GFR ( Amer) > 60 Est GFR (Non-Af Amer) > 60 POC Glucose (mg/dL) 195 H Random Glucose 300 H Calcium 8.6 Phosphorus 3.2 Magnesium 2.7 H Total Bilirubin 0.6 AST 17 D ALT 25 Alkaline Phosphatase 61 NT-Pro-B Natriuret Pep 93882 H Total Protein 6.5 Albumin 3.1 L Globulin 3.4 Albumin/Globulin Ratio 0.9 L Procalcitonin 10/01/17 Unknown WBC RBC Hgb Hct MCV MCH MCHC RDW Plt Count MPV Neut % (Auto) Lymph % (Auto) [place] % (Auto) Eos % (Auto) Baso % (Auto) Neut # (Auto) Lymph # (Auto) [place] # (Auto) Eos # (Auto) Baso # (Auto) Neutrophils % (Manual) Band Neutrophils % Lymphocytes % (Manual) Monocytes % (Manual) Platelet Estimate Anisocytosis (manual) Ovalocytes [place] Cells Sodium Potassium Chloride Carbon Dioxide Anion Gap BUN Creatinine Est GFR ( Amer) Est GFR (Non-Af Amer) POC Glucose (mg/dL) Random Glucose Calcium Phosphorus Magnesium Total Bilirubin AST ALT Alkaline Phosphatase NT-Pro-B Natriuret Pep Total Protein Albumin Globulin Albumin/Globulin Ratio Procalcitonin 1.15 H Fingerstick Blood Sugar Results: 195 Critical Care Progress Note - Nutrition Nutrition: Nutrition Category Date Time Status Heart Healthy Diet [DIET] Diets 09/30/17 Dinner Active Assessment/Plan - Assessment and Plan (Free Text) Assessment: Hypoxic respiratory failure: likly combination of reactive lung disease with pulmonary HTN 2nd liekly diastolic heart failure, continue bi-pap, patient failed nasal canula within 2 minutes of being placed on nasal canula, continue nebulizers and Iv solumedrol (patient brings in a bottle of prednisone previously provided by his PMD) -Diastolic heart failure: using verapmil as AV kody keo as patient had wheezing (avoid beta keo), continue negative balance -RLL lobar pneumonia/atlectasis: 2nd aspiration 2nd diazepam (patient takes for sleeping), complete abx regimen, Id follow up -pulmonary toilet with mechanical percussion/vest percussion -echo: not officially read -HTN: continue combination of hydralazine/nitro to control BP (avoid acei in light of renal failure -check blood sugar and ISs aspart -continue DVT/PUD ppx -Patient remains critical and will benefti from negative balance , BP control and bronchodialtors -today patient free of wheezing -cc time 40 minutes -continue to monitor -d/w patient's and family (physician radiologist) - Date & Time Date: 10/01/17 Time: 15:53
[2017-10-01] MEDS: Moxifloxacin IV 400mg/250ml NS 400 MG/250 ML BAG IVPB SCH (16:59)
[2017-10-01] MEDS: Fluconazole IV 200mg/100 ml NS 100 ML IVPB SCH (17:56)
--- NOTE | 2017-10-01 17:57 | CP.PCM.PN ---
Subjective - Date & Time of Evaluation Date of Evaluation: 10/01/17 Time of Evaluation: 18:00 - Subjective Subjective: Patient tolerated extubation yesterday, and was on bi-pap. Wheezing resolved. SVT controlled he is doing well, afberile, he is anxious lenard any sob, cp pt is on calnsr Objective - Vital Signs/Intake and Output Vital Signs (last 24 hours): Temp Pulse Resp BP Pulse Ox 98.7 F 78 34 H 158/79 H 96 10/01/17 08:00 10/01/17 16:07 10/01/17 15:00 10/01/17 17:12 10/01/17 15:00 Intake and Output: 10/01/17 10/01/17 06:59 18:59 Intake Total 304.5 104.5 Output Total 1000 1300 Balance -695.5 -1195.5 - Medications Medications: Current Medications Albuterol/Ipratropium (Duoneb 3 Mg/0.5 Mg (3 Ml) Ud) 3 ml INH RQ4 [facility] Last Admin: 10/01/17 16:07 Dose: 3 ml Aspirin (Aspirin Chewable) 81 mg PO DAILY [facility] Last Admin: 10/01/17 10:18 Dose: Not Given Clopidogrel Bisulfate (Plavix) 75 mg PO DAILY [facility] Last Admin: 10/01/17 10:19 Dose: Not Given Docusate Sodium (Colace) 100 mg PO TID [facility] Last Admin: 10/01/17 17:10 Dose: Not Given Enoxaparin Sodium (Lovenox) 40 mg SC DAILY [facility] Last Admin: 10/01/17 10:44 Dose: 40 mg Famotidine (Pepcid) 20 mg IVP Q12 [facility] Last Admin: 10/01/17 10:43 Dose: 20 mg Furosemide (Lasix) 20 mg IVP BID [facility] Last Admin: 10/01/17 17:12 Dose: 20 mg Guaifenesin (Robitussin) 200 mg PO Q4H PRN PRN Reason: Cough and congestion Hydralazine HCl (Apresoline) 10 mg IVP Q2H PRN PRN Reason: Systolic Blood Pressure Last Admin: 10/01/17 14:02 Dose: 10 mg Hydralazine HCl (Apresoline) 50 mg PO Q8 [facility] Meropenem 500 mg/ Sodium (Chloride) 100 mls @ 100 mls/hr IVPB Q8 [facility] Last Admin: 10/01/17 13:57 Dose: 100 mls/hr Vancomycin/Sodium Chloride (Vancomycin 1 Gm/Ns 200 Ml) 1 gm in 200 mls @ 133.333 mls/hr IVPB Q24H [facility] Stop: 10/03/17 13:01 Last Admin: 10/01/17 13:56 Dose: 133.333 mls/hr Moxifloxacin HCl (Avelox Iv 400mg/250ml Ns) 400 mg in 250 mls @ 167 mls/hr IVPB Q24H [facility] Last Admin: 10/01/17 16:59 Dose: 167 mls/hr Fluconazole (Diflucan Iv 200 Mg/100 Ml Ns) 100 mls @ 100 mls/hr IVPB Q24H [facility] Last Admin: 09/30/17 20:31 Dose: 100 mls/hr Verapamil HCl 40 mg/ Sodium (Chloride) 100 mls @ 12.5 mls/hr IV .Q8H PRN; 5 MG/ HR PRN Reason: Protocol Last Admin: 10/01/17 06:00 Dose: 12.5 mls/hr Nitroglycerin/Dextrose (Nitroglycerin 50 Mg/250 Ml D5w) 50 mg in 250 mls @ 1.5 mls/hr IV .Q24H [facility]; 5 MCG/MIN PRN Reason: Protocol Last Titration: 10/01/17 14:30 Dose: 15 mcg/min, 4.5 mls/hr Potassium Chloride (Potassium Chloride 10 Meq/100 Ml) 10 meq in 100 mls @ 100 mls/hr IVPB Q1H [facility] Stop: 10/01/17 18:59 Last Admin: 10/01/17 16:58 Dose: 100 mls/hr Insulin Aspart (Novolog) 0 unit SC Q4H [facility] PRN Reason: Protocol Last Admin: 10/01/17 15:40 Dose: 2 unit Methylprednisolone (Solu-Medrol) 40 mg IVP Q6H [facility] Last Admin: 10/01/17 17:00 Dose: 40 mg Verapamil HCl (Verapamil Inj) 5 mg IVP Q6H PRN PRN Reason: Heart rate Verapamil HCl (Calan Sr Tab) 180 mg PO DAILY [facility] Last Admin: 10/01/17 12:11 Dose: Not Given - Labs Labs: 10/01/17 07:33 10/01/17 06:18 PT 13.0 SECONDS (9.7-12.2) H 09/25/17 15:35 INR 1.2 09/25/17 15:35 APTT 33 SECONDS (21-34) 09/25/17 15:35 - Constitutional Appears: No Acute Distress - Head Exam Head Exam: ATRAUMATIC, NORMAL INSPECTION, NORMOCEPHALIC - Eye Exam Eye Exam: EOMI, Normal appearance, PERRL Pupil Exam: NORMAL ACCOMODATION, PERRL - Respiratory Exam Respiratory Exam: Decreased Breath Sounds, Rales, Rhonchi - Cardiovascular Exam Cardiovascular Exam: REGULAR RHYTHM, +S1, +S2. absent: Murmur - GI/Abdominal Exam GI & Abdominal Exam: Soft, Normal Bowel Sounds. absent: Tenderness Assessment and Plan (1) Pneumonia Status: Acute (2) Respiratory failure requiring intubation Status: Acute (3) Syncope Status: Acute
[2017-10-01] MEDS ORDERED: Verapamil 40 MG in Sodium Chloride 0.9% 84 ML IV PRN (20:50)
--- NOTE | 2017-10-01 22:20 | CP.PCM.PN ---
Subjective - Date & Time of Evaluation Date of Evaluation: 10/01/17 Time of Evaluation: 10:10 - Subjective Subjective: Patient seen and evaluated On BiPAP Improved breathing Continue IV Lasix 20 bid Objective - Vital Signs/Intake and Output Vital Signs (last 24 hours): Temp Pulse Resp BP Pulse Ox 97.8 F 104 H 29 H 153/79 H 100 10/01/17 20:00 10/01/17 21:00 10/01/17 21:00 10/01/17 21:01 10/01/17 21:00 Intake and Output: 10/01/17 10/02/17 18:59 06:59 Intake Total 1085.0 200.5 Output Total 2300 Balance -1215.0 200.5 - Medications Medications: Current Medications Albuterol/Ipratropium (Duoneb 3 Mg/0.5 Mg (3 Ml) Ud) 3 ml INH RQ4 [facility] Last Admin: 10/01/17 20:16 Dose: 3 ml Aspirin (Aspirin Chewable) 81 mg PO DAILY [facility] Last Admin: 10/01/17 10:18 Dose: Not Given Clopidogrel Bisulfate (Plavix) 75 mg PO DAILY [facility] Last Admin: 10/01/17 10:19 Dose: Not Given Docusate Sodium (Colace) 100 mg PO TID [facility] Last Admin: 10/01/17 17:10 Dose: Not Given Enoxaparin Sodium (Lovenox) 40 mg SC DAILY [facility] Last Admin: 10/01/17 10:44 Dose: 40 mg Famotidine (Pepcid) 20 mg IVP Q12 [facility] Last Admin: 10/01/17 10:43 Dose: 20 mg Furosemide (Lasix) 20 mg IVP BID [facility] Last Admin: 10/01/17 17:12 Dose: 20 mg Guaifenesin (Robitussin) 200 mg PO Q4H PRN PRN Reason: Cough and congestion Hydralazine HCl (Apresoline) 10 mg IVP Q2H PRN PRN Reason: Systolic Blood Pressure Last Admin: 10/01/17 14:02 Dose: 10 mg Hydralazine HCl (Apresoline) 50 mg PO Q8 [facility] Meropenem 500 mg/ Sodium (Chloride) 100 mls @ 100 mls/hr IVPB Q8 [facility] Last Admin: 10/01/17 13:57 Dose: 100 mls/hr Vancomycin/Sodium Chloride (Vancomycin 1 Gm/Ns 200 Ml) 1 gm in 200 mls @ 133.333 mls/hr IVPB Q24H [facility] Stop: 10/03/17 13:01 Last Admin: 10/01/17 13:56 Dose: 133.333 mls/hr Moxifloxacin HCl (Avelox Iv 400mg/250ml Ns) 400 mg in 250 mls @ 167 mls/hr IVPB Q24H [facility] Last Admin: 10/01/17 16:59 Dose: 167 mls/hr Fluconazole (Diflucan Iv 200 Mg/100 Ml Ns) 100 mls @ 100 mls/hr IVPB Q24H [facility] Last Admin: 10/01/17 17:56 Dose: 100 mls/hr Nitroglycerin/Dextrose (Nitroglycerin 50 Mg/250 Ml D5w) 50 mg in 250 mls @ 1.5 mls/hr IV .Q24H [facility]; 5 MCG/MIN PRN Reason: Protocol Last Titration: 10/01/17 20:00 Dose: 20 mcg/min, 6 mls/hr Verapamil HCl 40 mg/ Sodium (Chloride) 100 mls @ 25 mls/hr IV .Q4H PRN; Protocol; 10 MG/HR PRN Reason: Heart rate Dexmedetomidine HCl 200 mcg/ (Sodium Chloride) 50 mls @ 3.75 mls/hr IV TITR PRN ; Protocol; 0.2 MCG/KG/HR PRN Reason: Anxiety Insulin Aspart (Novolog) 0 unit SC Q4H [facility] PRN Reason: Protocol Last Admin: 10/01/17 19:31 Dose: Not Given Methylprednisolone (Solu-Medrol) 40 mg IVP Q6H [facility] Last Admin: 10/01/17 17:00 Dose: 40 mg Verapamil HCl (Verapamil Inj) 5 mg IVP Q6H PRN PRN Reason: Heart rate Verapamil HCl (Calan Sr Tab) 180 mg PO DAILY [facility] Last Admin: 10/01/17 12:11 Dose: Not Given - Labs Labs: 10/01/17 07:33 10/01/17 06:18 PT 13.0 SECONDS (9.7-12.2) H 09/25/17 15:35 INR 1.2 09/25/17 15:35 APTT 33 SECONDS (21-34) 09/25/17 15:35
[2017-10-01] MEDS: Dexmedetomidine Hydrochloride 200 MCG in Sodium Chloride 0.9% 48 ML IV PRN (22:30)
[2017-10-02] MEDS: Albuterol-Ipratrop 3 mg / 0.5 (3 ml) UD INH SCH ×6 (00:59→19:26)
[2017-10-02] MEDS: (Novolog) Insulin Aspart, Recombinant 100 u/ml 10 ml vial SC SCH ×6 (02:50→23:31)
[2017-10-02] MEDS: Verapamil 40 MG in Sodium Chloride 0.9% 84 ML IV PRN (02:50)
[2017-10-02] MEDS: Meropenem 500 MG in Sodium Chloride 0.9% 100 ML IVPB SCH ×3 (06:00→21:28)
[2017-10-02] MEDS: MethylPREDNISolone 40 mg Vial IVP SCH (06:00)
[2017-10-02 06:10] LABS: ABG ALLEN TEST POS; ARTERIAL BLOOD GAS HCO3 25.6 mmol/L (21-28); ARTERIAL BLOOD GAS O2 SAT 96.2 % (95-98); ARTERIAL BLOOD GAS PCO2 32 mm/Hg (35-45); ARTERIAL BLOOD GAS PH 7.48 (7.35-7.45); ARTERIAL BLOOD GAS PO2 73 mm/Hg (80-100); ARTERIAL BLOOD GAS TCO2 24.8 mmol/L (22-28)
[2017-10-02 06:17] LABS: BASO % 0.2 % (0.0-2.0); EOS % 0.1 % (0.0-4.0); HEMOGLOBIN 9.3 g/dL (12.0-18.0); LYMPH # 0.9 K/uL (1.0-4.3); LYMPH % 7.2 % (20.0-40.0); MEAN CELL VOLUME 88.2 fL (80.0-94.0); MEAN CORPUSCULAR HEMOGLOBIN 29.6 pg (27.0-31.0); MEAN CORPUSCULAR HGB CONC 33.6 g/dL (33.0-37.0); MEAN PLATELET VOLUME 9.5 fL (7.2-11.7); MONO # 0.4 K/uL (0.0-0.8); MONO % 2.9 % (0.0-10.0); NEUT # 10.9 K/uL (1.8-7.0); NEUT % 89.6 % (50.0-75.0); PLATELET COUNT 284 K/uL (130-400); RBC 3.13 Mil/uL (4.40-5.90); RED CELL DISTRIBUTION WIDTH 14.3 % (11.5-14.5); WHITE BLOOD COUNT 12.1 K/uL (4.8-10.8)
[2017-10-02 06:33] LABS: ALB/GLOB RATIO 0.9 (1.0-2.1); ALBUMIN 3.3 g/dL (3.5-5.0); ALT/SGPT 23 U/L (21-72); AST/SGOT 14 U/L (17-59); BLOOD UREA NITROGEN 45 mg/dL (9-20); CALCIUM 8.7 mg/dl (8.6-10.4); GFR AFRICAN-AMERICAN > 60; GFR NON-AFRICAN AMERICAN > 60
[2017-10-02] MEDS: Dexmedetomidine Hydrochloride 200 MCG in Sodium Chloride 0.9% 48 ML IV PRN ×2 (07:05→16:30)
--- NOTE | 2017-10-02 09:31 | RAD ---
HISTORY: RLL COMPARISON: No prior. FINDINGS: LUNGS: Pulmonary vascular congestion. Right lower lobe atelectasis/consolidation. PLEURA: New small bilateral pleural effusions. No pneumothorax apparent. CARDIOVASCULAR: Atherosclerotic aortic calcifications. Cardiomediastinal with stably enlarged. OSSEOUS STRUCTURES: Unchanged. VISUALIZED UPPER ABDOMEN: Normal. OTHER FINDINGS: None. IMPRESSION: New small bilateral pleural effusions. No other significant interval change.
[2017-10-02] MEDS: Enoxaparin 40 mg Syringe SC SCH (09:42)
[2017-10-02] MEDS: Verapamil 180 mg ER Tab PO SCH (09:43)
[2017-10-02 10:32] LABS: ANISOCYTOSIS SLIGHT; BANDS 5 % (0-2); LYMPHOCYTE 8 % (20-40); MONOCYTE 3 % (0-10); NEUTROPHIL 84 % (50-75); OVALOCYTES SLIGHT; PLATELET ESTIMATE NORMAL (NORMAL); TOTAL CELLS COUNTED 100
[2017-10-02 10:34] LABS: TEARDROP CELLS SLIGHT; TOXIC GRANULATION PRESENT
[2017-10-02] MEDS ORDERED: Albumin Human 5% (12.5 gm/250 ml) IV ONE (11:45)
[2017-10-02] MEDS: Vancomycin 1 gm/NS 200 ml 1 GM/200 ML BAG IVPB SCH (12:13)
--- NOTE | 2017-10-02 15:13 | CP.PCM.PN ---
Subjective - Date & Time of Evaluation Date of Evaluation: 10/02/17 Time of Evaluation: 08:00 - Subjective Subjective: remains on BiPap awake alert + SOB but no phlegm no hemoptysis no fever Procalcitonin is elevated all cultures neg + RLL infiltrate Objective - Vital Signs/Intake and Output Vital Signs (last 24 hours): Temp Pulse Resp BP Pulse Ox 97.6 F 63 8 L 113/61 98 10/02/17 12:00 10/02/17 14:01 10/02/17 14:01 10/02/17 14:00 10/02/17 14:00 Intake and Output: 10/02/17 10/02/17 06:59 18:59 Intake Total 872.6 838.8 Output Total 1750 Balance -877.4 838.8 - Medications Medications: Current Medications Albuterol/Ipratropium (Duoneb 3 Mg/0.5 Mg (3 Ml) Ud) 3 ml INH RQ4 [facility] Last Admin: 10/02/17 11:09 Dose: 3 ml Aspirin (Aspirin Chewable) 81 mg PO DAILY [facility] Last Admin: 10/02/17 09:42 Dose: 81 mg Clopidogrel Bisulfate (Plavix) 75 mg PO DAILY [facility] Last Admin: 10/02/17 09:42 Dose: 75 mg Docusate Sodium (Colace) 100 mg PO TID [facility] Last Admin: 10/02/17 09:38 Dose: Not Given Enoxaparin Sodium (Lovenox) 40 mg SC DAILY [facility] Last Admin: 10/02/17 09:42 Dose: 40 mg Famotidine (Pepcid) 20 mg IVP Q12 [facility] Last Admin: 10/02/17 09:42 Dose: 20 mg Furosemide (Lasix) 40 mg IVP Q12H [facility] Last Admin: 10/02/17 11:53 Dose: 40 mg Guaifenesin (Robitussin) 200 mg PO Q4H PRN PRN Reason: Cough and congestion Hydralazine HCl (Apresoline) 10 mg IVP Q2H PRN PRN Reason: Systolic Blood Pressure Last Admin: 10/01/17 14:02 Dose: 10 mg Hydralazine HCl (Apresoline) 50 mg PO Q8 [facility] Last Admin: 10/02/17 06:10 Dose: 50 mg Meropenem 500 mg/ Sodium (Chloride) 100 mls @ 100 mls/hr IVPB Q8 [facility] Last Admin: 10/02/17 06:00 Dose: 100 mls/hr Vancomycin/Sodium Chloride (Vancomycin 1 Gm/Ns 200 Ml) 1 gm in 200 mls @ 133.333 mls/hr IVPB Q24H [facility] Stop: 10/03/17 13:01 Last Admin: 10/02/17 12:13 Dose: 133.333 mls/hr Moxifloxacin HCl (Avelox Iv 400mg/250ml Ns) 400 mg in 250 mls @ 167 mls/hr IVPB Q24H [facility] Last Admin: 10/01/17 16:59 Dose: 167 mls/hr Fluconazole (Diflucan Iv 200 Mg/100 Ml Ns) 100 mls @ 100 mls/hr IVPB Q24H [facility] Last Admin: 10/01/17 17:56 Dose: 100 mls/hr Verapamil HCl 40 mg/ Sodium (Chloride) 100 mls @ 25 mls/hr IV .Q4H PRN; Protocol; 10 MG/HR PRN Reason: Heart rate Last Admin: 10/02/17 02:50 Dose: 25 mls/hr Dexmedetomidine HCl 200 mcg/ (Sodium Chloride) 50 mls @ 3.75 mls/hr IV TITR PRN ; Protocol; 0.2 MCG/KG/HR PRN Reason: Anxiety Last Admin: 10/02/17 07:05 Dose: 0.3 mcg/kg/hr, 5.63 mls/hr Insulin Aspart (Novolog) 0 unit SC Q4H [facility] PRN Reason: Protocol Last Admin: 10/02/17 11:53 Dose: 3 unit Verapamil HCl (Verapamil Inj) 5 mg IVP Q6H PRN PRN Reason: Heart rate Verapamil HCl (Calan Sr Tab) 180 mg PO DAILY [facility] Last Admin: 10/02/17 09:43 Dose: 180 mg - Labs Labs: 10/02/17 06:11 10/02/17 06:08 PT 13.0 SECONDS (9.7-12.2) H 09/25/17 15:35 INR 1.2 09/25/17 15:35 APTT 33 SECONDS (21-34) 09/25/17 15:35 - Constitutional Appears: Non-toxic, Chronically Ill - Head Exam Head Exam: NORMOCEPHALIC - Eye Exam Eye Exam: PERRL. absent: Scleral icterus - ENT Exam ENT Exam: Mucous Membranes Dry - Neck Exam Neck Exam: absent: Lymphadenopathy - Respiratory Exam Respiratory Exam: Decreased Breath Sounds, Rales, Rhonchi - Cardiovascular Exam Cardiovascular Exam: REGULAR RHYTHM, +S1, +S2 - GI/Abdominal Exam GI & Abdominal Exam: Distended, Soft. absent: Tenderness - Rectal Exam Rectal Exam: Deferred - Exam Exam: NORMAL INSPECTION - Extremities Exam Extremities Exam: absent: Pedal Edema - Back Exam Back Exam: absent: CVA tenderness (L), CVA tenderness (R) - Neurological Exam Neurological Exam: Alert, Awake, CN II-XII Intact, Oriented x3 - Psychiatric Exam Psychiatric exam: Depressed - Skin Skin Exam: Dry Assessment and Plan (1) Pneumonia Status: Acute (2) Respiratory failure requiring intubation Status: Acute (3) Ischemic stroke Status: Acute (4) Syncope Status: Acute - Assessment and Plan (Free Text) Assessment: pt is covered for atypicals, MRSA, Gram neg and fungus all cultures neg thus far too ill for brochoscopy or ARLETTE Procalcitonin is elevated poor prognosis
--- NOTE | 2017-10-02 16:13 | CP.CCUPN ---
CCU Subjective - Physician Review Events Since Last Encounter (Free Text): 10/02/17 15:53 Patient appears clinically improved. Breathing well on BIPAP, but wants to eat. CCU Objective - Vital Signs / Intake & Output Vital Signs (Last 4 hours): Vital Signs Temp Pulse Resp BP Pulse Ox 10/02/17 15:01 64 7 L 98 10/02/17 15:00 69 21 122/68 98 10/02/17 14:01 63 8 L 10/02/17 14:00 68 20 113/61 98 10/02/17 13:03 76 17 99 10/02/17 13:00 79 20 113/61 98 10/02/17 12:01 77 17 98 10/02/17 12:00 97.6 F 81 19 143/92 H 97 Intake and Output (Last 8hrs): Intake & Output 10/02/17 10/02/17 10/02/17 06:59 14:59 22:59 Intake Total 477.3 838.8 5.6 Output Total 1050 Balance -572.7 838.8 5.6 Weight 151 lb 160 lb 6.4 oz Intake: IV 15 35 Intake, IV Amount 402.3 803.8 5.6 Right Antecubital 200 100 Right Antecubital Y-Port 54.3 44.8 5.6 Right Distal Port 48 9 Antecubital Right Wrist 100 650 Oral 60 Output: Urine 1050 Urethral (Swift) 1050 Other: # Bowel Movements 1 - Physical Exam Head: Positive for: Atraumatic, Normocephalic Mouth: Positive for: Moist Mucous Membranes Nose (Internal): Positive for: No Active Bleeding Neck: Negative for: Meningeal Signs, MIDLINE TENDERNESS Respiratory/Chest: Positive for: Good Air Exchange, Wheezes. Negative for: Accessory Muscle Use Cardiovascular: Positive for: Regular Rate and Rhythm, Normal S1, S2, Tachycardic, Rub Abdomen: Positive for: Normal Bowel Sounds. Negative for: Tenderness, Distention, Peritoneal Signs Lower Extremity: Positive for: Normal Inspection - Medications Active Medications: Active Medications Generic Name Dose Route Start Last Admin Trade Name Freq PRN Reason Stop Dose Admin Albuterol/Ipratropium 3 ml 10/01/17 11:00 10/02/17 11:09 Duoneb 3 Mg/0.5 Mg (3 Ml) Ud INH 3 ml RQ4 [facility] Administration Aspirin 81 mg 09/30/17 13:29 10/02/17 09:42 Aspirin Chewable PO 81 mg DAILY [facility] Administration Clopidogrel Bisulfate 75 mg 09/26/17 10:00 10/02/17 09:42 Plavix PO 75 mg DAILY [facility] Administration Docusate Sodium 100 mg 09/27/17 14:00 10/02/17 09:38 Colace PO Not Given TID [facility] Enoxaparin Sodium 40 mg 09/26/17 10:00 10/02/17 09:42 Lovenox SC 40 mg DAILY [facility] Administration Famotidine 20 mg 09/27/17 22:00 10/02/17 09:42 Pepcid IVP 20 mg Q12 [facility] Administration Furosemide 40 mg 10/02/17 11:30 10/02/17 11:53 Lasix IVP 40 mg Q12H [facility] Administration Guaifenesin 200 mg 09/29/17 12:15 Robitussin PO Q4H PRN Cough and congestion Hydralazine HCl 10 mg 10/01/17 13:29 10/01/17 14:02 Apresoline IVP 10 mg Q2H PRN Administration Systolic Blood Pressure Hydralazine HCl 50 mg 10/01/17 14:35 10/02/17 06:10 Apresoline PO 50 mg Q8 [facility] Administration Meropenem 500 mg/ Sodium 100 mls @ 100 mls/hr 09/28/17 14:00 10/02/17 06:00 Chloride IVPB 100 mls/hr Q8 [facility] Administration Vancomycin/Sodium Chloride 1 gm in 200 mls @ 133.333 mls/hr 09/28/17 13:00 12:13 Vancomycin 1 Gm/Ns 200 Ml IVPB 10/03/17 13:01 133.333 mls/hr Q24H [facility] Administration Moxifloxacin HCl 400 mg in 250 mls @ 167 mls/hr 09/28/17 17:00 10/01/17 16:59 Avelox Iv 400mg/250ml Ns IVPB 167 mls/hr Q24H [facility] Administration Fluconazole 100 mls @ 100 mls/hr 09/30/17 18:00 10/01/17 17:56 Diflucan Iv 200 Mg/100 Ml Ns IVPB 100 mls/hr Q24H [facility] Administration Verapamil HCl 40 mg/ Sodium 100 mls @ 25 mls/hr 10/01/17 21:03 10/02/17 02:50 Chloride IV 25 mls/hr .Q4H PRN Administration Heart rate Protocol 10 MG/HR Dexmedetomidine HCl 200 mcg/ 50 mls @ 3.75 mls/hr 10/01/17 22:03 10/02/17 07: 05 Sodium Chloride IV 0.3 mcg/kg/hr TITR PRN 5.63 mls/hr Anxiety Administration Protocol 0.2 MCG/KG/HR Insulin Aspart 0 unit 10/01/17 11:00 10/02/17 11:53 Novolog SC 3 unit Q4H [facility] Administration Protocol Fluticasone/Salmeterol 1 puff 10/02/17 20:00 Advair Diskus 500/50 INH RQ12 [facility] Verapamil HCl 5 mg 09/30/17 12:44 Verapamil Inj IVP Q6H PRN Heart rate Verapamil HCl 180 mg 10/01/17 11:00 10/02/17 09:43 Calan Sr Tab PO 180 mg DAILY [facility] Administration - Patient Studies Lab Studies: Microbiology Studies 09/28/17 11:57 Blood Culture - Preliminary Blood NO GROWTH AFTER 3 DAYS 09/28/17 11:57 Blood Culture - Preliminary Blood NO GROWTH AFTER 3 DAYS 09/25/17 18:10 Blood Culture - Final Blood-Venous NO GROWTH AFTER 5 DAYS Gram Stain - Final TEST NOT PERFORMED 09/25/17 18:10 Blood Culture - Final Blood-Venous NO GROWTH AFTER 5 DAYS Lab Studies 10/02/17 10/02/17 10/02/17 Range/Units 11:13 06:11 06:08 WBC 12.1 H D (4.8-10.8) K/uL RBC 3.13 L (4.40-5.90) Mil/uL Hgb 9.3 L (12.0-18.0) g/dL Hct 27.6 L (35.0-51.0) % MCV 88.2 (80.0-94.0) fL MCH 29.6 (27.0-31.0) pg MCHC 33.6 (33.0-37.0) g/dL RDW 14.3 (11.5-14.5) % Plt Count 284 (130-400) K/uL MPV 9.5 (7.2-11.7) fL Neut % (Auto) 89.6 H (50.0-75.0) % Lymph % (Auto) 7.2 L (20.0-40.0) % Gosper % (Auto) 2.9 (0.0-10.0) % Eos % (Auto) 0.1 (0.0-4.0) % Baso % (Auto) 0.2 (0.0-2.0) % Neut # (Auto) 10.9 H (1.8-7.0) K/uL Lymph # (Auto) 0.9 L (1.0-4.3) K/uL Gosper # (Auto) 0.4 (0.0-0.8) K/uL Eos # (Auto) 0.0 (0.0-0.7) K/uL Baso # (Auto) 0.0 (0.0-0.2) K/uL Neutrophils % (Manual) 84 H (50-75) % Band Neutrophils % 5 H (0-2) % Lymphocytes % (Manual) 8 L (20-40) % Monocytes % (Manual) 3 (0-10) % Toxic Granulation Present Platelet Estimate Normal (NORMAL) Anisocytosis (manual) Slight Tear Drop Cells Slight Ovalocytes Slight Puncture Site pCO2 (35-45) mm/Hg pO2 (80-100) mm/Hg HCO3 (21-28) mmol/L ABG pH (7.35-7.45) ABG Total CO2 (22-28) mmol/L ABG O2 Saturation (95-98) % ABG Base Excess (-2.0-3.0) mmol/L Tre Test ABG Potassium (3.6-5.2) mmol/L A-a O2 Difference mm/Hg Respiratory Index Sodium 152 H (132-148) mmol/l Chloride 114 H (98-107) mmol/L Glucose (75-110) mg/dl Lactate (0.7-2.1) mmol/L Vent Mode FiO2 % Inspiratory BiPAP Expiratory BiPAP Potassium 3.4 L (3.6-5.2) mmol/L Carbon Dioxide 24 (22-30) mmol/L Anion Gap 17 (10-20) BUN 45 H (9-20) mg/dL Creatinine 1.1 (0.8-1.5) mg/dL Est GFR ( Amer) > 60 Est GFR (Non-Af Amer) > 60 POC Glucose (mg/dL) 219 H (65-110) mg/dL Random Glucose 273 H (75-110) mg/dL Calcium 8.7 (8.6-10.4) mg/dl Phosphorus 3.7 (2.5-4.5) mg/dL Magnesium 2.4 H (1.6-2.3) mg/dL Total Bilirubin 0.8 (0.2-1.3) mg/dL AST 14 L (17-59) U/L ALT 23 (21-72) U/L Alkaline Phosphatase 66 (38-126) U/L Total Protein 7.1 (6.3-8.3) g/dL Albumin 3.3 L (3.5-5.0) g/dL Globulin 3.8 (2.2-3.9) gm/dL Albumin/Globulin Ratio 0.9 L (1.0-2.1) Arterial Blood Potassium (3.6-5.2) mmol/L Acetylchol Rcpt Bind Ab 10/02/17 10/02/17 10/02/17 Range/Units 05:31 05:02 02:40 WBC (4.8-10.8) K/uL RBC (4.40-5.90) Mil/uL Hgb (12.0-18.0) g/dL Hct (35.0-51.0) % MCV (80.0-94.0) fL MCH (27.0-31.0) pg MCHC (33.0-37.0) g/dL RDW (11.5-14.5) % Plt Count (130-400) K/uL MPV (7.2-11.7) fL Neut % (Auto) (50.0-75.0) % Lymph % (Auto) (20.0-40.0) % Gosper % (Auto) (0.0-10.0) % Eos % (Auto) (0.0-4.0) % Baso % (Auto) (0.0-2.0) % Neut # (Auto) (1.8-7.0) K/uL Lymph # (Auto) (1.0-4.3) K/uL Gosper # (Auto) (0.0-0.8) K/uL Eos # (Auto) (0.0-0.7) K/uL Baso # (Auto) (0.0-0.2) K/uL Neutrophils % (Manual) (50-75) % Band Neutrophils % (0-2) % Lymphocytes % (Manual) (20-40) % Monocytes % (Manual) (0-10) % Toxic Granulation Platelet Estimate (NORMAL) Anisocytosis (manual) Tear Drop Cells Ovalocytes Puncture Site Rr pCO2 32 L (35-45) mm/Hg pO2 73 L (80-100) mm/Hg HCO3 25.6 (21-28) mmol/L ABG pH 7.48 H (7.35-7.45) ABG Total CO2 24.8 (22-28) mmol/L ABG O2 Saturation 96.2 (95-98) % ABG Base Excess 0.9 (-2.0-3.0) mmol/L Tre Test Pos ABG Potassium 3.3 L (3.6-5.2) mmol/L A-a O2 Difference 101.0 mm/Hg Respiratory Index 1.4 Sodium 151.0 H (132-148) mmol/l Chloride 117.0 H (98-107) mmol/L Glucose 293 H (75-110) mg/dl Lactate 1.3 (0.7-2.1) mmol/L Vent Mode Bipap FiO2 30.0 % Inspiratory BiPAP 14 Expiratory BiPAP 7 Potassium (3.6-5.2) mmol/L Carbon Dioxide (22-30) mmol/L Anion Gap (10-20) BUN (9-20) mg/dL Creatinine (0.8-1.5) mg/dL Est GFR ( Amer) Est GFR (Non-Af Amer) POC Glucose (mg/dL) 251 H 250 H (65-110) mg/dL Random Glucose (75-110) mg/dL Calcium (8.6-10.4) mg/dl Phosphorus (2.5-4.5) mg/dL Magnesium (1.6-2.3) mg/dL Total Bilirubin (0.2-1.3) mg/dL AST (17-59) U/L ALT (21-72) U/L Alkaline Phosphatase (38-126) U/L Total Protein (6.3-8.3) g/dL Albumin (3.5-5.0) g/dL Globulin (2.2-3.9) gm/dL Albumin/Globulin Ratio (1.0-2.1) Arterial Blood Potassium 3.3 L (3.6-5.2) mmol/L Acetylchol Rcpt Bind Ab 10/01/17 10/01/17 10/01/17 Range/Units 22:43 19:24 07:57 WBC (4.8-10.8) K/uL RBC (4.40-5.90) Mil/uL Hgb (12.0-18.0) g/dL Hct (35.0-51.0) % MCV (80.0-94.0) fL MCH (27.0-31.0) pg MCHC (33.0-37.0) g/dL RDW (11.5-14.5) % Plt Count (130-400) K/uL MPV (7.2-11.7) fL Neut % (Auto) (50.0-75.0) % Lymph % (Auto) (20.0-40.0) % Gosper % (Auto) (0.0-10.0) % Eos % (Auto) (0.0-4.0) % Baso % (Auto) (0.0-2.0) % Neut # (Auto) (1.8-7.0) K/uL Lymph # (Auto) (1.0-4.3) K/uL Gosper # (Auto) (0.0-0.8) K/uL Eos # (Auto) (0.0-0.7) K/uL Baso # (Auto) (0.0-0.2) K/uL Neutrophils % (Manual) (50-75) % Band Neutrophils % (0-2) % Lymphocytes % (Manual) (20-40) % Monocytes % (Manual) (0-10) % Toxic Granulation Platelet Estimate (NORMAL) Anisocytosis (manual) Tear Drop Cells Ovalocytes Puncture Site pCO2 (35-45) mm/Hg pO2 (80-100) mm/Hg HCO3 (21-28) mmol/L ABG pH (7.35-7.45) ABG Total CO2 (22-28) mmol/L ABG O2 Saturation (95-98) % ABG Base Excess (-2.0-3.0) mmol/L Tre Test ABG Potassium (3.6-5.2) mmol/L A-a O2 Difference mm/Hg Respiratory Index Sodium (132-148) mmol/l Chloride (98-107) mmol/L Glucose (75-110) mg/dl Lactate (0.7-2.1) mmol/L Vent Mode FiO2 % Inspiratory BiPAP Expiratory BiPAP Potassium (3.6-5.2) mmol/L Carbon Dioxide (22-30) mmol/L Anion Gap (10-20) BUN (9-20) mg/dL Creatinine (0.8-1.5) mg/dL Est GFR ( Amer) Est GFR (Non-Af Amer) POC Glucose (mg/dL) 232 H 189 H (65-110) mg/dL Random Glucose (75-110) mg/dL Calcium (8.6-10.4) mg/dl Phosphorus (2.5-4.5) mg/dL Magnesium (1.6-2.3) mg/dL Total Bilirubin (0.2-1.3) mg/dL AST (17-59) U/L ALT (21-72) U/L Alkaline Phosphatase (38-126) U/L Total Protein (6.3-8.3) g/dL Albumin (3.5-5.0) g/dL Globulin (2.2-3.9) gm/dL Albumin/Globulin Ratio (1.0-2.1) Arterial Blood Potassium (3.6-5.2) mmol/L Acetylchol Rcpt Bind Ab TNP Laboratory Results - last 24 hr 10/01/17 10/01/17 10/01/17 07:57 19:24 22:43 WBC RBC Hgb Hct MCV MCH MCHC RDW Plt Count MPV Neut % (Auto) Lymph % (Auto) Gosper % (Auto) Eos % (Auto) Baso % (Auto) Neut # (Auto) Lymph # (Auto) Gosper # (Auto) Eos # (Auto) Baso # (Auto) Neutrophils % (Manual) Band Neutrophils % Lymphocytes % (Manual) Monocytes % (Manual) Toxic Granulation Platelet Estimate Anisocytosis (manual) Tear Drop Cells Ovalocytes Puncture Site pCO2 pO2 HCO3 ABG pH ABG Total CO2 ABG O2 Saturation ABG Base Excess Tre Test ABG Potassium A-a O2 Difference Respiratory Index Sodium Chloride Glucose Lactate Vent Mode FiO2 Inspiratory BiPAP Expiratory BiPAP Potassium Carbon Dioxide Anion Gap BUN Creatinine Est GFR ( Amer) Est GFR (Non-Af Amer) POC Glucose (mg/dL) 189 H 232 H Random Glucose Calcium Phosphorus Magnesium Total Bilirubin AST ALT Alkaline Phosphatase Total Protein Albumin Globulin Albumin/Globulin Ratio Arterial Blood Potassium Acetylchol Rcpt Bind Ab TNP 10/02/17 10/02/17 10/02/17 02:40 05:02 05:31 WBC RBC Hgb Hct MCV MCH MCHC RDW Plt Count MPV Neut % (Auto) Lymph % (Auto) Gosper % (Auto) Eos % (Auto) Baso % (Auto) Neut # (Auto) Lymph # (Auto) Gosper # (Auto) Eos # (Auto) Baso # (Auto) Neutrophils % (Manual) Band Neutrophils % Lymphocytes % (Manual) Monocytes % (Manual) Toxic Granulation Platelet Estimate Anisocytosis (manual) Tear Drop Cells Ovalocytes Puncture Site Rr pCO2 32 L pO2 73 L HCO3 25.6 ABG pH 7.48 H ABG Total CO2 24.8 ABG O2 Saturation 96.2 ABG Base Excess 0.9 Tre Test Pos ABG Potassium 3.3 L A-a O2 Difference 101.0 Respiratory Index 1.4 Sodium 151.0 H Chloride 117.0 H Glucose 293 H Lactate 1.3 Vent Mode Bipap FiO2 30.0 Inspiratory BiPAP 14 Expiratory BiPAP 7 Potassium Carbon Dioxide Anion Gap BUN Creatinine Est GFR ( Amer) Est GFR (Non-Af Amer) POC Glucose (mg/dL) 250 H 251 H Random Glucose Calcium Phosphorus Magnesium Total Bilirubin AST ALT Alkaline Phosphatase Total Protein Albumin Globulin Albumin/Globulin Ratio Arterial Blood Potassium 3.3 L Acetylchol Rcpt Bind Ab 10/02/17 10/02/17 10/02/17 06:08 06:11 11:13 WBC 12.1 H D RBC 3.13 L Hgb 9.3 L Hct 27.6 L MCV 88.2 MCH 29.6 MCHC 33.6 RDW 14.3 Plt Count 284 MPV 9.5 Neut % (Auto) 89.6 H Lymph % (Auto) 7.2 L Gosper % (Auto) 2.9 Eos % (Auto) 0.1 Baso % (Auto) 0.2 Neut # (Auto) 10.9 H Lymph # (Auto) 0.9 L Gosper # (Auto) 0.4 Eos # (Auto) 0.0 Baso # (Auto) 0.0 Neutrophils % (Manual) 84 H Band Neutrophils % 5 H Lymphocytes % (Manual) 8 L Monocytes % (Manual) 3 Toxic Granulation Present Platelet Estimate Normal Anisocytosis (manual) Slight Tear Drop Cells Slight Ovalocytes Slight Puncture Site pCO2 pO2 HCO3 ABG pH ABG Total CO2 ABG O2 Saturation ABG Base Excess Tre Test ABG Potassium A-a O2 Difference Respiratory Index Sodium 152 H Chloride 114 H Glucose Lactate Vent Mode FiO2 Inspiratory BiPAP Expiratory BiPAP Potassium 3.4 L Carbon Dioxide 24 Anion Gap 17 BUN 45 H Creatinine 1.1 Est GFR ( Amer) > 60 Est GFR (Non-Af Amer) > 60 POC Glucose (mg/dL) 219 H Random Glucose 273 H Calcium 8.7 Phosphorus 3.7 Magnesium 2.4 H Total Bilirubin 0.8 AST 14 L ALT 23 Alkaline Phosphatase 66 Total Protein 7.1 Albumin 3.3 L Globulin 3.8 Albumin/Globulin Ratio 0.9 L Arterial Blood Potassium Acetylchol Rcpt Bind Ab Fingerstick Blood Sugar Results: 219 Review of Systems - Review of Systems All systems: reviewed and no additional remarkable complaints except (no complaints) Critical Care Progress Note - Nutrition Nutrition: Nutrition Category Date Time Status Heart Healthy Diet [DIET] Diets 09/30/17 Dinner Active Assessment/Plan (1) Acute congestive heart failure Assessment and plan: Pulm: patient is breathing well on BIPAP, CXR shows increased fluid overload with atelecatsis. Increased diuretic, chest pt, duonebs and upright seated positioning. CV: continue hydralazine and verapamil for HTN. Hem: continue ASA. Renal: hypernatremia from diuresis, but still need to continue diuretics because of pulmonary edema. adding albumin drip to draw fluid intravascularly. Endo: [facility] for coverage ID: treatment for pneumonia, on Vancomycin, Meropenem, and Moxacillin. GI proph - pepcid DVT proph - lovenox Full code Critical Care time 35 minutes Current Visit: Yes Status: Acute
[2017-10-02] MEDS: Moxifloxacin IV 400mg/250ml NS 400 MG/250 ML BAG IVPB SCH (16:34)
[2017-10-02] MEDS: Fluconazole IV 200mg/100 ml NS 100 ML IVPB SCH (17:06)
[2017-10-02] MEDS: Fluticasone-Salmeterol 500-50mcg Diskus INH SCH (19:26)
--- NOTE | 2017-10-02 20:51 | CP.PCM.PN ---
Subjective - Date & Time of Evaluation Date of Evaluation: 10/02/17 Time of Evaluation: 10:15 - Subjective Subjective: Diastolic CHF (EF 45-50%) Aspiration pneumonia [place] IV Lasix Clinically much improved Objective - Vital Signs/Intake and Output Vital Signs (last 24 hours): Temp Pulse Resp BP Pulse Ox 97.5 F L 66 17 125/62 100 10/02/17 16:00 10/02/17 19:01 10/02/17 19:01 10/02/17 19:00 10/02/17 19:01 Intake and Output: 10/02/17 10/03/17 18:59 06:59 Intake Total 1311.2 5.6 Output Total 1060 Balance 251.2 5.6 - Medications Medications: Current Medications Albuterol/Ipratropium (Duoneb 3 Mg/0.5 Mg (3 Ml) Ud) 3 ml INH RQ4 [facility] Last Admin: 10/02/17 19:26 Dose: 3 ml Aspirin (Aspirin Chewable) 81 mg PO DAILY [facility] Last Admin: 10/02/17 09:42 Dose: 81 mg Clopidogrel Bisulfate (Plavix) 75 mg PO DAILY [facility] Last Admin: 10/02/17 09:42 Dose: 75 mg Docusate Sodium (Colace) 100 mg PO TID [facility] Last Admin: 10/02/17 17:06 Dose: Not Given Enoxaparin Sodium (Lovenox) 40 mg SC DAILY [facility] Last Admin: 10/02/17 09:42 Dose: 40 mg Famotidine (Pepcid) 20 mg IVP Q12 [facility] Last Admin: 10/02/17 09:42 Dose: 20 mg Furosemide (Lasix) 40 mg IVP Q12H [facility] Last Admin: 10/02/17 11:53 Dose: 40 mg Guaifenesin (Robitussin) 200 mg PO Q4H PRN PRN Reason: Cough and congestion Hydralazine HCl (Apresoline) 10 mg IVP Q2H PRN PRN Reason: Systolic Blood Pressure Last Admin: 10/01/17 14:02 Dose: 10 mg Hydralazine HCl (Apresoline) 50 mg PO Q8 [facility] Last Admin: 10/02/17 15:00 Dose: 50 mg Meropenem 500 mg/ Sodium (Chloride) 100 mls @ 100 mls/hr IVPB Q8 [facility] Last Admin: 10/02/17 15:00 Dose: 100 mls/hr Vancomycin/Sodium Chloride (Vancomycin 1 Gm/Ns 200 Ml) 1 gm in 200 mls @ 133.333 mls/hr IVPB Q24H [facility] Stop: 10/03/17 13:01 Last Admin: 10/02/17 12:13 Dose: 133.333 mls/hr Moxifloxacin HCl (Avelox Iv 400mg/250ml Ns) 400 mg in 250 mls @ 167 mls/hr IVPB Q24H [facility] Last Admin: 10/02/17 16:34 Dose: 167 mls/hr Fluconazole (Diflucan Iv 200 Mg/100 Ml Ns) 100 mls @ 100 mls/hr IVPB Q24H [facility] Last Admin: 10/02/17 17:06 Dose: 100 mls/hr Dexmedetomidine HCl 200 mcg/ (Sodium Chloride) 50 mls @ 3.75 mls/hr IV TITR PRN ; Protocol; 0.2 MCG/KG/HR PRN Reason: Anxiety Last Admin: 10/02/17 16:30 Dose: 0.3 mcg/kg/hr, 5.63 mls/hr Insulin Aspart (Novolog) 0 unit SC Q6 [facility] PRN Reason: Protocol Fluticasone/Salmeterol (Advair Diskus 500/50) 1 puff INH RQ12 [facility] Last Admin: 10/02/17 19:26 Dose: 1 puff Verapamil HCl (Verapamil Inj) 5 mg IVP Q6H PRN PRN Reason: Heart rate Verapamil HCl (Calan Sr Tab) 180 mg PO DAILY [facility] Last Admin: 10/02/17 09:43 Dose: 180 mg - Labs Labs: 10/02/17 06:11 10/02/17 06:08 PT 13.0 SECONDS (9.7-12.2) H 09/25/17 15:35 INR 1.2 09/25/17 15:35 APTT 33 SECONDS (21-34) 09/25/17 15:35
--- NOTE | 2017-10-02 22:08 | CP.PCM.PN ---
Subjective - Date & Time of Evaluation Date of Evaluation: 10/02/17 Time of Evaluation: 17:35 - Subjective Subjective: Pt seen & evalauted at bedside remains on BiPap awake alert + SOB but no phlegm no hemoptysis no fever Procalcitonin is elevated all cultures neg + RLL infiltrate Objective - Vital Signs/Intake and Output Vital Signs (last 24 hours): Temp Pulse Resp BP Pulse Ox 97.5 F L 66 17 125/62 100 10/02/17 16:00 10/02/17 19:01 10/02/17 19:01 10/02/17 19:00 10/02/17 19:01 Intake and Output: 10/02/17 10/03/17 18:59 06:59 Intake Total 1311.2 5.6 Output Total 1060 Balance 251.2 5.6 - Medications Medications: Current Medications Albuterol/Ipratropium (Duoneb 3 Mg/0.5 Mg (3 Ml) Ud) 3 ml INH RQ4 [facility] Last Admin: 10/02/17 19:26 Dose: 3 ml Aspirin (Aspirin Chewable) 81 mg PO DAILY [facility] Last Admin: 10/02/17 09:42 Dose: 81 mg Clopidogrel Bisulfate (Plavix) 75 mg PO DAILY [facility] Last Admin: 10/02/17 09:42 Dose: 75 mg Docusate Sodium (Colace) 100 mg PO TID [facility] Last Admin: 10/02/17 17:06 Dose: Not Given Enoxaparin Sodium (Lovenox) 40 mg SC DAILY [facility] Last Admin: 10/02/17 09:42 Dose: 40 mg Famotidine (Pepcid) 20 mg IVP Q12 [facility] Last Admin: 10/02/17 21:28 Dose: 20 mg Furosemide (Lasix) 40 mg IVP Q12H [facility] Last Admin: 10/02/17 11:53 Dose: 40 mg Guaifenesin (Robitussin) 200 mg PO Q4H PRN PRN Reason: Cough and congestion Hydralazine HCl (Apresoline) 10 mg IVP Q2H PRN PRN Reason: Systolic Blood Pressure Last Admin: 10/01/17 14:02 Dose: 10 mg Hydralazine HCl (Apresoline) 50 mg PO Q8 [facility] Last Admin: 10/02/17 21:28 Dose: 50 mg Meropenem 500 mg/ Sodium (Chloride) 100 mls @ 100 mls/hr IVPB Q8 [facility] Last Admin: 10/02/17 21:28 Dose: 100 mls/hr Vancomycin/Sodium Chloride (Vancomycin 1 Gm/Ns 200 Ml) 1 gm in 200 mls @ 133.333 mls/hr IVPB Q24H [facility] Stop: 10/03/17 13:01 Last Admin: 10/02/17 12:13 Dose: 133.333 mls/hr Moxifloxacin HCl (Avelox Iv 400mg/250ml Ns) 400 mg in 250 mls @ 167 mls/hr IVPB Q24H [facility] Last Admin: 10/02/17 16:34 Dose: 167 mls/hr Fluconazole (Diflucan Iv 200 Mg/100 Ml Ns) 100 mls @ 100 mls/hr IVPB Q24H [facility] Last Admin: 10/02/17 17:06 Dose: 100 mls/hr Dexmedetomidine HCl 200 mcg/ (Sodium Chloride) 50 mls @ 3.75 mls/hr IV TITR PRN ; Protocol; 0.2 MCG/KG/HR PRN Reason: Anxiety Last Admin: 10/02/17 16:30 Dose: 0.3 mcg/kg/hr, 5.63 mls/hr Insulin Aspart (Novolog) 0 unit SC Q6 [facility] PRN Reason: Protocol Fluticasone/Salmeterol (Advair Diskus 500/50) 1 puff INH RQ12 [facility] Last Admin: 10/02/17 19:26 Dose: 1 puff Verapamil HCl (Verapamil Inj) 5 mg IVP Q6H PRN PRN Reason: Heart rate Verapamil HCl (Calan Sr Tab) 180 mg PO DAILY [facility] Last Admin: 10/02/17 09:43 Dose: 180 mg - Labs Labs: 10/02/17 06:11 10/02/17 06:08 PT 13.0 SECONDS (9.7-12.2) H 09/25/17 15:35 INR 1.2 09/25/17 15:35 APTT 33 SECONDS (21-34) 09/25/17 15:35 Assessment and Plan (1) Pneumonia Status: Acute (2) Respiratory failure requiring intubation Status: Acute (3) Syncope Status: Acute
[2017-10-03] MEDS: (Novolog) Insulin Aspart, Recombinant 100 u/ml 10 ml vial SC SCH ×3 (00:13→22:00)
[2017-10-03] MEDS: Albuterol-Ipratrop 3 mg / 0.5 (3 ml) UD INH SCH ×7 (01:04→23:56)
[2017-10-03] MEDS: Meropenem 500 MG in Sodium Chloride 0.9% 100 ML IVPB SCH (05:11)
[2017-10-03 07:00] LABS: BASO % 0.1 % (0.0-2.0); HEMOGLOBIN 10.2 g/dL (12.0-18.0); LYMPH # 0.9 K/uL (1.0-4.3); LYMPH % 8.1 % (20.0-40.0); MEAN CELL VOLUME 88.2 fL (80.0-94.0); MEAN CORPUSCULAR HEMOGLOBIN 29.4 pg (27.0-31.0); MEAN CORPUSCULAR HGB CONC 33.3 g/dL (33.0-37.0); MEAN PLATELET VOLUME 9.1 fL (7.2-11.7); MONO # 0.5 K/uL (0.0-0.8); MONO % 4.5 % (0.0-10.0); NEUT # 10.2 K/uL (1.8-7.0); NEUT % 87.3 % (50.0-75.0); PLATELET COUNT 312 K/uL (130-400); RBC 3.46 Mil/uL (4.40-5.90); RED CELL DISTRIBUTION WIDTH 14.3 % (11.5-14.5); WHITE BLOOD COUNT 11.7 K/uL (4.8-10.8)
[2017-10-03 07:17] LABS: ALB/GLOB RATIO 0.9 (1.0-2.1); ALBUMIN 3.4 g/dL (3.5-5.0); ALT/SGPT 23 U/L (21-72); AST/SGOT 18 U/L (17-59); BLOOD UREA NITROGEN 53 mg/dL (9-20); GFR AFRICAN-AMERICAN > 60; GFR NON-AFRICAN AMERICAN > 60
[2017-10-03] MEDS: Fluticasone-Salmeterol 500-50mcg Diskus INH SCH ×2 (07:40→19:48)
[2017-10-03 08:58] LABS: ANISOCYTOSIS SLIGHT; HYPOCHROMIC SLIGHT; LYMPHOCYTE 8 % (20-40); MONOCYTE 4 % (0-10); NEUTROPHIL 88 % (50-75); PLATELET ESTIMATE NORMAL (NORMAL); POIKILOCYTOSIS SLIGHT; TOTAL CELLS COUNTED 100
--- NOTE | 2017-10-03 10:31 | CP.CCUPN ---
CCU Subjective - Physician Review Subjective (Free Text): 09/26/17 11:33 Patient seen and examined at bedside intubated, sedated Tube feeds to be started cardio consult for rowan 09/27/17 13:02 Patient seen and examined at bedside CPAP trial today, tolerated for 3.5 hours 09/28/17 13:55 CPAP trial today for over 6 hours today. Pneumonia on CXR not resolving, severe sepsis Consulted ID and added Merrem and Vanco 09/29/17 13:33 patient seen and examined at bedside added moxiflox 09/30/17 12:43 Patient extubated went into SVT Controlled with verapamil On BiPAP 10/03/17 10:30 Tolerating diet OOB to chair today discontinue mendoza PT/OT today likely transfer to tele later today CCU Objective - Vital Signs / Intake & Output Vital Signs (Last 4 hours): Vital Signs Pulse Resp BP Pulse Ox 10/03/17 07:01 158/77 H 10/03/17 07:00 102 H 12 100 Intake and Output (Last 8hrs): Intake & Output 10/02/17 10/03/17 10/03/17 22:59 06:59 14:59 Intake Total 594.8 122.4 0 Output Total 675 1180 Balance -80.2 -1057.6 0 Intake: IV 50 Intake, IV Amount 544.8 122.4 0 Right Antecubital 100 100 Right Antecubital Y-Port 44.8 22.4 0 Right Wrist 400 Output: Urine 675 1180 Urethral (Mendoza) 675 1180 - Physical Exam Head: Positive for: Atraumatic, Normocephalic Mouth: Positive for: Moist Mucous Membranes Nose (Internal): Positive for: No Active Bleeding Neck: Negative for: Meningeal Signs, MIDLINE TENDERNESS Respiratory/Chest: Positive for: Good Air Exchange, Wheezes. Negative for: Accessory Muscle Use Cardiovascular: Positive for: Regular Rate and Rhythm, Normal S1, S2, Tachycardic, Rub Abdomen: Positive for: Normal Bowel Sounds. Negative for: Tenderness, Distention, Peritoneal Signs Lower Extremity: Positive for: Normal Inspection - Medications Active Medications: Active Medications Generic Name Dose Route Start Last Admin Trade Name Freq PRN Reason Stop Dose Admin Albuterol/Ipratropium 3 ml 10/01/17 11:00 10/03/17 07:40 Duoneb 3 Mg/0.5 Mg (3 Ml) Ud INH 3 ml RQ4 [facility] Administration Aspirin 81 mg 09/30/17 13:29 10/02/17 09:42 Aspirin Chewable PO 81 mg DAILY [facility] Administration Carvedilol 6.25 mg 10/03/17 10:00 Coreg PO BID [facility] Clopidogrel Bisulfate 75 mg 09/26/17 10:00 10/02/17 09:42 Plavix PO 75 mg DAILY [facility] Administration Docusate Sodium 100 mg 09/27/17 14:00 10/02/17 17:06 Colace PO Not Given TID [facility] Enoxaparin Sodium 40 mg 09/26/17 10:00 10/02/17 09:42 Lovenox SC 40 mg DAILY [facility] Administration Famotidine 20 mg 09/27/17 22:00 10/02/17 21:28 Pepcid IVP 20 mg Q12 [facility] Administration Furosemide 40 mg 10/03/17 10:00 Lasix PO BID [facility] Guaifenesin 200 mg 09/29/17 12:15 Robitussin PO Q4H PRN Cough and congestion Vancomycin/Sodium Chloride 1 gm in 200 mls @ 133.333 mls/hr 09/28/17 13:00 12:13 Vancomycin 1 Gm/Ns 200 Ml IVPB 10/03/17 13:01 133.333 mls/hr Q24H [facility] Administration Moxifloxacin HCl 400 mg in 250 mls @ 167 mls/hr 09/28/17 17:00 10/02/17 16:34 Avelox Iv 400mg/250ml Ns IVPB 167 mls/hr Q24H [facility] Administration Fluconazole 100 mls @ 100 mls/hr 09/30/17 18:00 10/02/17 17:06 Diflucan Iv 200 Mg/100 Ml Ns IVPB 100 mls/hr Q24H [facility] Administration Insulin Aspart 0 unit 10/03/17 00:00 10/03/17 05:31 Novolog SC 3 unit Q6 [facility] Administration Protocol Fluticasone/Salmeterol 1 puff 10/02/17 20:00 10/03/17 07:40 Advair Diskus 500/50 INH 1 puff RQ12 [facility] Administration Verapamil HCl 5 mg 09/30/17 12:44 Verapamil Inj IVP Q6H PRN Heart rate Verapamil HCl 180 mg 10/01/17 11:00 10/02/17 09:43 Calan Sr Tab PO 180 mg DAILY [facility] Administration - Patient Studies Lab Studies: Microbiology Studies 09/28/17 11:57 Blood Culture - Preliminary Blood NO GROWTH AFTER 4 DAYS 09/28/17 11:57 Blood Culture - Preliminary Blood NO GROWTH AFTER 4 DAYS Lab Studies 10/03/17 10/03/17 10/03/17 Range/Units 06:54 06:54 05:25 WBC 11.7 H (4.8-10.8) K/uL RBC 3.46 L (4.40-5.90) Mil/uL Hgb 10.2 L (12.0-18.0) g/dL Hct 30.5 L (35.0-51.0) % MCV 88.2 (80.0-94.0) fL MCH 29.4 (27.0-31.0) pg MCHC 33.3 (33.0-37.0) g/dL RDW 14.3 (11.5-14.5) % Plt Count 312 (130-400) K/uL MPV 9.1 (7.2-11.7) fL Neut % (Auto) 87.3 H (50.0-75.0) % Lymph % (Auto) 8.1 L (20.0-40.0) % Kaufman % (Auto) 4.5 (0.0-10.0) % Eos % (Auto) 0.0 (0.0-4.0) % Baso % (Auto) 0.1 (0.0-2.0) % Neut # (Auto) 10.2 H (1.8-7.0) K/uL Lymph # (Auto) 0.9 L (1.0-4.3) K/uL Kaufman # (Auto) 0.5 (0.0-0.8) K/uL Eos # (Auto) 0.0 (0.0-0.7) K/uL Baso # (Auto) 0.0 (0.0-0.2) K/uL Neutrophils % (Manual) 88 H (50-75) % Band Neutrophils % (0-2) % Lymphocytes % (Manual) 8 L (20-40) % Monocytes % (Manual) 4 (0-10) % Toxic Granulation Platelet Estimate Normal (NORMAL) Hypochromasia (manual) Slight Poikilocytosis (manual Slight Anisocytosis (manual) Slight Tear Drop Cells Ovalocytes Sodium 153 H (132-148) mmol/L Potassium 3.6 (3.6-5.2) mmol/L Chloride 114 H (98-107) mmol/L Carbon Dioxide 24 (22-30) mmol/L Anion Gap 19 (10-20) BUN 53 H (9-20) mg/dL Creatinine 1.1 (0.8-1.5) mg/dL Est GFR ( Amer) > 60 Est GFR (Non-Af Amer) > 60 POC Glucose (mg/dL) 204 H (65-110) mg/dL Random Glucose 221 H (75-110) mg/dL Calcium 9.0 (8.6-10.4) mg/dl Phosphorus 4.4 (2.5-4.5) mg/dL Magnesium 2.2 (1.6-2.3) mg/dL Total Bilirubin 0.7 (0.2-1.3) mg/dL AST 18 (17-59) U/L ALT 23 (21-72) U/L Alkaline Phosphatase 69 (38-126) U/L Total Protein 7.2 (6.3-8.3) g/dL Albumin 3.4 L (3.5-5.0) g/dL Globulin 3.8 (2.2-3.9) gm/dL Albumin/Globulin Ratio 0.9 L (1.0-2.1) 10/02/17 10/02/17 10/02/17 Range/Units 23:48 18:33 16:14 WBC (4.8-10.8) K/uL RBC (4.40-5.90) Mil/uL Hgb (12.0-18.0) g/dL Hct (35.0-51.0) % MCV (80.0-94.0) fL MCH (27.0-31.0) pg MCHC (33.0-37.0) g/dL RDW (11.5-14.5) % Plt Count (130-400) K/uL MPV (7.2-11.7) fL Neut % (Auto) (50.0-75.0) % Lymph % (Auto) (20.0-40.0) % Kaufman % (Auto) (0.0-10.0) % Eos % (Auto) (0.0-4.0) % Baso % (Auto) (0.0-2.0) % Neut # (Auto) (1.8-7.0) K/uL Lymph # (Auto) (1.0-4.3) K/uL Kaufman # (Auto) (0.0-0.8) K/uL Eos # (Auto) (0.0-0.7) K/uL Baso # (Auto) (0.0-0.2) K/uL Neutrophils % (Manual) (50-75) % Band Neutrophils % (0-2) % Lymphocytes % (Manual) (20-40) % Monocytes % (Manual) (0-10) % Toxic Granulation Platelet Estimate (NORMAL) Hypochromasia (manual) Poikilocytosis (manual Anisocytosis (manual) Tear Drop Cells Ovalocytes Sodium (132-148) mmol/L Potassium (3.6-5.2) mmol/L Chloride (98-107) mmol/L Carbon Dioxide (22-30) mmol/L Anion Gap (10-20) BUN (9-20) mg/dL Creatinine (0.8-1.5) mg/dL Est GFR ( Amer) Est GFR (Non-Af Amer) POC Glucose (mg/dL) 187 H 237 H 265 H (65-110) mg/dL Random Glucose (75-110) mg/dL Calcium (8.6-10.4) mg/dl Phosphorus (2.5-4.5) mg/dL Magnesium (1.6-2.3) mg/dL Total Bilirubin (0.2-1.3) mg/dL AST (17-59) U/L ALT (21-72) U/L Alkaline Phosphatase (38-126) U/L Total Protein (6.3-8.3) g/dL Albumin (3.5-5.0) g/dL Globulin (2.2-3.9) gm/dL Albumin/Globulin Ratio (1.0-2.1) 10/02/17 10/02/17 Range/Units 11:13 06:11 WBC (4.8-10.8) K/uL RBC (4.40-5.90) Mil/uL Hgb (12.0-18.0) g/dL Hct (35.0-51.0) % MCV (80.0-94.0) fL MCH (27.0-31.0) pg MCHC (33.0-37.0) g/dL RDW (11.5-14.5) % Plt Count (130-400) K/uL MPV (7.2-11.7) fL Neut % (Auto) (50.0-75.0) % Lymph % (Auto) (20.0-40.0) % Kaufman % (Auto) (0.0-10.0) % Eos % (Auto) (0.0-4.0) % Baso % (Auto) (0.0-2.0) % Neut # (Auto) (1.8-7.0) K/uL Lymph # (Auto) (1.0-4.3) K/uL Kaufman # (Auto) (0.0-0.8) K/uL Eos # (Auto) (0.0-0.7) K/uL Baso # (Auto) (0.0-0.2) K/uL Neutrophils % (Manual) 84 H (50-75) % Band Neutrophils % 5 H (0-2) % Lymphocytes % (Manual) 8 L (20-40) % Monocytes % (Manual) 3 (0-10) % Toxic Granulation Present Platelet Estimate Normal (NORMAL) Hypochromasia (manual) Poikilocytosis (manual Anisocytosis (manual) Slight Tear Drop Cells Slight Ovalocytes Slight Sodium (132-148) mmol/L Potassium (3.6-5.2) mmol/L Chloride (98-107) mmol/L Carbon Dioxide (22-30) mmol/L Anion Gap (10-20) BUN (9-20) mg/dL Creatinine (0.8-1.5) mg/dL Est GFR ( Amer) Est GFR (Non-Af Amer) POC Glucose (mg/dL) 219 H (65-110) mg/dL Random Glucose (75-110) mg/dL Calcium (8.6-10.4) mg/dl Phosphorus (2.5-4.5) mg/dL Magnesium (1.6-2.3) mg/dL Total Bilirubin (0.2-1.3) mg/dL AST (17-59) U/L ALT (21-72) U/L Alkaline Phosphatase (38-126) U/L Total Protein (6.3-8.3) g/dL Albumin (3.5-5.0) g/dL Globulin (2.2-3.9) gm/dL Albumin/Globulin Ratio (1.0-2.1) Laboratory Results - last 24 hr 10/02/17 10/02/17 10/02/17 06:11 11:13 16:14 WBC RBC Hgb Hct MCV MCH MCHC RDW Plt Count MPV Neut % (Auto) Lymph % (Auto) Kaufman % (Auto) Eos % (Auto) Baso % (Auto) Neut # (Auto) Lymph # (Auto) Kaufman # (Auto) Eos # (Auto) Baso # (Auto) Neutrophils % (Manual) 84 H Band Neutrophils % 5 H Lymphocytes % (Manual) 8 L Monocytes % (Manual) 3 Toxic Granulation Present Platelet Estimate Normal Hypochromasia (manual) Poikilocytosis (manual Anisocytosis (manual) Slight Tear Drop Cells Slight Ovalocytes Slight Sodium Potassium Chloride Carbon Dioxide Anion Gap BUN Creatinine Est GFR ( Amer) Est GFR (Non-Af Amer) POC Glucose (mg/dL) 219 H 265 H Random Glucose Calcium Phosphorus Magnesium Total Bilirubin AST ALT Alkaline Phosphatase Total Protein Albumin Globulin Albumin/Globulin Ratio 10/02/17 10/02/17 10/03/17 18:33 23:48 05:25 WBC RBC Hgb Hct MCV MCH MCHC RDW Plt Count MPV Neut % (Auto) Lymph % (Auto) Kaufman % (Auto) Eos % (Auto) Baso % (Auto) Neut # (Auto) Lymph # (Auto) Kaufman # (Auto) Eos # (Auto) Baso # (Auto) Neutrophils % (Manual) Band Neutrophils % Lymphocytes % (Manual) Monocytes % (Manual) Toxic Granulation Platelet Estimate Hypochromasia (manual) Poikilocytosis (manual Anisocytosis (manual) Tear Drop Cells Ovalocytes Sodium Potassium Chloride Carbon Dioxide Anion Gap BUN Creatinine Est GFR ( Amer) Est GFR (Non-Af Amer) POC Glucose (mg/dL) 237 H 187 H 204 H Random Glucose Calcium Phosphorus Magnesium Total Bilirubin AST ALT Alkaline Phosphatase Total Protein Albumin Globulin Albumin/Globulin Ratio 10/03/17 10/03/17 06:54 06:54 WBC 11.7 H RBC 3.46 L Hgb 10.2 L Hct 30.5 L MCV 88.2 MCH 29.4 MCHC 33.3 RDW 14.3 Plt Count 312 MPV 9.1 Neut % (Auto) 87.3 H Lymph % (Auto) 8.1 L Kaufman % (Auto) 4.5 Eos % (Auto) 0.0 Baso % (Auto) 0.1 Neut # (Auto) 10.2 H Lymph # (Auto) 0.9 L Kaufman # (Auto) 0.5 Eos # (Auto) 0.0 Baso # (Auto) 0.0 Neutrophils % (Manual) 88 H Band Neutrophils % Lymphocytes % (Manual) 8 L Monocytes % (Manual) 4 Toxic Granulation Platelet Estimate Normal Hypochromasia (manual) Slight Poikilocytosis (manual Slight Anisocytosis (manual) Slight Tear Drop Cells Ovalocytes Sodium 153 H Potassium 3.6 Chloride 114 H Carbon Dioxide 24 Anion Gap 19 BUN 53 H Creatinine 1.1 Est GFR ( Amer) > 60 Est GFR (Non-Af Amer) > 60 POC Glucose (mg/dL) Random Glucose 221 H Calcium 9.0 Phosphorus 4.4 Magnesium 2.2 Total Bilirubin 0.7 AST 18 ALT 23 Alkaline Phosphatase 69 Total Protein 7.2 Albumin 3.4 L Globulin 3.8 Albumin/Globulin Ratio 0.9 L Fingerstick Blood Sugar Results: 207 Critical Care Progress Note - Nutrition Nutrition: Nutrition Category Date Time Status Heart Healthy Diet [DIET] Diets 09/30/17 Dinner Active Assessment/Plan - Assessment and Plan (Free Text) Assessment: 71M Aspiration Pneumonia, Bradycardia with episodes of syncope Plan: Neuro: No sedation, no acute issues Cardio: Coreg for tachycardia, Verapamil QD and PRN Pulm: Aspiration pneumonia, vanco, moxiflox, ID (Mangia). Decreased Lasix to PO 40 BID. On NC Renal: Decreased Lasix to PO 40 BID GI: No acute issues. [facility] Endo: accuchecks, ISS PPX: Protonix/lovenox
[2017-10-03] MEDS: Enoxaparin 40 mg Syringe SC SCH (10:46)
[2017-10-03] MEDS: Verapamil 180 mg ER Tab PO SCH (10:48)
--- NOTE | 2017-10-03 12:57 | CP.PCM.PN ---
Subjective - Date & Time of Evaluation Date of Evaluation: 10/03/17 Time of Evaluation: 07:00 - Subjective Subjective: events noted rx in progress cultures all neg consider de-escalation of antibiotics Objective - Vital Signs/Intake and Output Vital Signs (last 24 hours): Temp Pulse Resp BP Pulse Ox 97.4 F L 102 H 12 133/75 100 10/03/17 00:00 10/03/17 07:00 10/03/17 07:00 10/03/17 10:45 10/03/17 07:00 Intake and Output: 10/03/17 10/03/17 06:59 18:59 Intake Total 244.8 0 Output Total 1430 Balance -1185.2 0 - Medications Medications: Current Medications Albuterol/Ipratropium (Duoneb 3 Mg/0.5 Mg (3 Ml) Ud) 3 ml INH RQ4 [facility] Last Admin: 10/03/17 07:40 Dose: 3 ml Aspirin (Aspirin Chewable) 81 mg PO DAILY [facility] Last Admin: 10/03/17 10:45 Dose: 81 mg Carvedilol (Coreg) 6.25 mg PO BID [facility] Last Admin: 10/03/17 10:45 Dose: 6.25 mg Clopidogrel Bisulfate (Plavix) 75 mg PO DAILY [facility] Last Admin: 10/03/17 10:45 Dose: 75 mg Docusate Sodium (Colace) 100 mg PO TID [facility] Last Admin: 10/03/17 10:45 Dose: Not Given Enoxaparin Sodium (Lovenox) 40 mg SC DAILY [facility] Last Admin: 10/03/17 10:46 Dose: 40 mg Famotidine (Pepcid) 20 mg IVP Q12 [facility] Last Admin: 10/03/17 10:47 Dose: 20 mg Furosemide (Lasix) 40 mg PO BID [facility] Last Admin: 10/03/17 10:45 Dose: 40 mg Guaifenesin (Robitussin) 200 mg PO Q4H PRN PRN Reason: Cough and congestion Vancomycin/Sodium Chloride (Vancomycin 1 Gm/Ns 200 Ml) 1 gm in 200 mls @ 133.333 mls/hr IVPB Q24H [facility] Stop: 10/03/17 13:01 Last Admin: 10/02/17 12:13 Dose: 133.333 mls/hr Moxifloxacin HCl (Avelox Iv 400mg/250ml Ns) 400 mg in 250 mls @ 167 mls/hr IVPB Q24H [facility] Last Admin: 10/02/17 16:34 Dose: 167 mls/hr Fluconazole (Diflucan Iv 200 Mg/100 Ml Ns) 100 mls @ 100 mls/hr IVPB Q24H [facility] Last Admin: 10/02/17 17:06 Dose: 100 mls/hr Insulin Aspart (Novolog) 0 unit SC Q6 [facility] PRN Reason: Protocol Last Admin: 10/03/17 05:31 Dose: 3 unit Fluticasone/Salmeterol (Advair Diskus 500/50) 1 puff INH RQ12 [facility] Last Admin: 10/03/17 07:40 Dose: 1 puff Verapamil HCl (Verapamil Inj) 5 mg IVP Q6H PRN PRN Reason: Heart rate Verapamil HCl (Calan Sr Tab) 180 mg PO DAILY [facility] Last Admin: 10/03/17 10:48 Dose: 180 mg - Labs Labs: 10/03/17 06:54 10/03/17 06:54 PT 13.0 SECONDS (9.7-12.2) H 09/25/17 15:35 INR 1.2 09/25/17 15:35 APTT 33 SECONDS (21-34) 09/25/17 15:35 - Constitutional Appears: Confused - Head Exam Head Exam: NORMOCEPHALIC - Eye Exam Eye Exam: absent: Scleral icterus - ENT Exam ENT Exam: Mucous Membranes Dry - Neck Exam Neck Exam: absent: Lymphadenopathy - Respiratory Exam Respiratory Exam: Decreased Breath Sounds - Cardiovascular Exam Cardiovascular Exam: REGULAR RHYTHM - GI/Abdominal Exam GI & Abdominal Exam: Distended Assessment and Plan (1) Pneumonia Status: Acute (2) Respiratory failure requiring intubation Status: Acute (3) Ischemic stroke Status: Acute (4) Syncope Status: Acute
[2017-10-03] MEDS: Vancomycin 1 gm/NS 200 ml 1 GM/200 ML BAG IVPB SCH (17:09)
[2017-10-03] MEDS: Moxifloxacin IV 400mg/250ml NS 400 MG/250 ML BAG IVPB SCH (17:19)
[2017-10-03] MEDS: Fluconazole IV 200mg/100 ml NS 100 ML IVPB SCH (18:19)
--- NOTE | 2017-10-03 22:56 | CP.PCM.PN ---
Subjective - Date & Time of Evaluation Date of Evaluation: 10/03/17 Time of Evaluation: 15:10 - Subjective Subjective: Patient seen and evaluated Breathing better Denies dyspnea and chest pain Objective - Vital Signs/Intake and Output Vital Signs (last 24 hours): Temp Pulse Resp BP Pulse Ox 97.4 F L 82 19 129/73 100 10/03/17 00:00 10/03/17 21:02 10/03/17 21:02 10/03/17 21:02 10/03/17 21:02 Intake and Output: 10/03/17 10/04/17 18:59 06:59 Intake Total 400 50 Output Total 1000 250 Balance -600 -200 - Medications Medications: Current Medications Albuterol/Ipratropium (Duoneb 3 Mg/0.5 Mg (3 Ml) Ud) 3 ml INH RQ4 [facility] Last Admin: 10/03/17 19:49 Dose: 3 ml Aspirin (Aspirin Chewable) 81 mg PO DAILY [facility] Last Admin: 10/03/17 10:45 Dose: 81 mg Carvedilol (Coreg) 6.25 mg PO BID [facility] Last Admin: 10/03/17 18:20 Dose: 6.25 mg Clopidogrel Bisulfate (Plavix) 75 mg PO DAILY [facility] Last Admin: 10/03/17 10:45 Dose: 75 mg Docusate Sodium (Colace) 100 mg PO TID [facility] Last Admin: 10/03/17 18:20 Dose: 100 mg Enoxaparin Sodium (Lovenox) 40 mg SC DAILY [facility] Last Admin: 10/03/17 10:46 Dose: 40 mg Famotidine (Pepcid) 20 mg IVP Q12 [facility] Last Admin: 10/03/17 22:00 Dose: 20 mg Furosemide (Lasix) 40 mg PO BID [facility] Last Admin: 10/03/17 18:19 Dose: 40 mg Guaifenesin (Robitussin) 200 mg PO Q4H PRN PRN Reason: Cough and congestion Moxifloxacin HCl (Avelox Iv 400mg/250ml Ns) 400 mg in 250 mls @ 167 mls/hr IVPB Q24H [facility] Last Admin: 10/03/17 17:19 Dose: 167 mls/hr Fluconazole (Diflucan Iv 200 Mg/100 Ml Ns) 100 mls @ 100 mls/hr IVPB Q24H [facility] Last Admin: 10/03/17 18:19 Dose: 100 mls/hr Insulin Aspart (Novolog) 0 unit SC ACHS [facility] PRN Reason: Protocol Last Admin: 10/03/17 22:00 Dose: 2 unit Fluticasone/Salmeterol (Advair Diskus 500/50) 1 puff INH RQ12 [facility] Last Admin: 10/03/17 19:48 Dose: 1 puff Verapamil HCl (Verapamil Inj) 5 mg IVP Q6H PRN PRN Reason: Heart rate Verapamil HCl (Calan Sr Tab) 180 mg PO DAILY [facility] Last Admin: 10/03/17 10:48 Dose: 180 mg - Labs Labs: 10/03/17 06:54 10/03/17 06:54 PT 13.0 SECONDS (9.7-12.2) H 09/25/17 15:35 INR 1.2 09/25/17 15:35 APTT 33 SECONDS (21-34) 09/25/17 15:35
--- NOTE | 2017-10-03 23:38 | CP.PCM.PN ---
Subjective - Date & Time of Evaluation Date of Evaluation: 10/03/17 Time of Evaluation: 19:00 - Subjective Subjective: Pt is improving, on BIPAP, he is more alert, less short of breath Objective - Vital Signs/Intake and Output Vital Signs (last 24 hours): Temp Pulse Resp BP Pulse Ox 97.4 F L 82 19 129/73 100 10/03/17 00:00 10/03/17 21:02 10/03/17 21:02 10/03/17 21:02 10/03/17 21:02 Intake and Output: 10/03/17 10/04/17 18:59 06:59 Intake Total 400 50 Output Total 1000 250 Balance -600 -200 - Medications Medications: Current Medications Albuterol/Ipratropium (Duoneb 3 Mg/0.5 Mg (3 Ml) Ud) 3 ml INH RQ4 [facility] Last Admin: 10/03/17 19:49 Dose: 3 ml Aspirin (Aspirin Chewable) 81 mg PO DAILY [facility] Last Admin: 10/03/17 10:45 Dose: 81 mg Carvedilol (Coreg) 6.25 mg PO BID [facility] Last Admin: 10/03/17 18:20 Dose: 6.25 mg Clopidogrel Bisulfate (Plavix) 75 mg PO DAILY [facility] Last Admin: 10/03/17 10:45 Dose: 75 mg Docusate Sodium (Colace) 100 mg PO TID [facility] Last Admin: 10/03/17 18:20 Dose: 100 mg Enoxaparin Sodium (Lovenox) 40 mg SC DAILY [facility] Last Admin: 10/03/17 10:46 Dose: 40 mg Famotidine (Pepcid) 20 mg IVP Q12 [facility] Last Admin: 10/03/17 22:00 Dose: 20 mg Furosemide (Lasix) 40 mg PO BID [facility] Last Admin: 10/03/17 18:19 Dose: 40 mg Guaifenesin (Robitussin) 200 mg PO Q4H PRN PRN Reason: Cough and congestion Moxifloxacin HCl (Avelox Iv 400mg/250ml Ns) 400 mg in 250 mls @ 167 mls/hr IVPB Q24H [facility] Last Admin: 10/03/17 17:19 Dose: 167 mls/hr Fluconazole (Diflucan Iv 200 Mg/100 Ml Ns) 100 mls @ 100 mls/hr IVPB Q24H [facility] Last Admin: 10/03/17 18:19 Dose: 100 mls/hr Insulin Aspart (Novolog) 0 unit SC ACHS [facility] PRN Reason: Protocol Last Admin: 10/03/17 22:00 Dose: 2 unit Fluticasone/Salmeterol (Advair Diskus 500/50) 1 puff INH RQ12 [facility] Last Admin: 10/03/17 19:48 Dose: 1 puff Verapamil HCl (Verapamil Inj) 5 mg IVP Q6H PRN PRN Reason: Heart rate Verapamil HCl (Calan Sr Tab) 180 mg PO DAILY [facility] Last Admin: 10/03/17 10:48 Dose: 180 mg - Labs Labs: 10/03/17 06:54 10/03/17 06:54 PT 13.0 SECONDS (9.7-12.2) H 09/25/17 15:35 INR 1.2 09/25/17 15:35 APTT 33 SECONDS (21-34) 09/25/17 15:35 - Constitutional Appears: No Acute Distress - Head Exam Head Exam: ATRAUMATIC, NORMAL INSPECTION, NORMOCEPHALIC - Eye Exam Eye Exam: EOMI, Normal appearance, PERRL Pupil Exam: NORMAL ACCOMODATION, PERRL - Respiratory Exam Respiratory Exam: Decreased Breath Sounds, Rales, Rhonchi - Cardiovascular Exam Cardiovascular Exam: REGULAR RHYTHM, +S1, +S2. absent: Murmur - GI/Abdominal Exam GI & Abdominal Exam: Soft, Normal Bowel Sounds. absent: Tenderness - Neurological Exam Neurological Exam: Alert, Awake, CN II-XII Intact, Normal Gait, Oriented x3 Assessment and Plan (1) Pneumonia Status: Acute (2) Respiratory failure requiring intubation Status: Acute (3) Syncope Status: Acute
[2017-10-04] MEDS: Albuterol-Ipratrop 3 mg / 0.5 (3 ml) UD INH SCH ×5 (03:08→19:14)
[2017-10-04] MEDS: Fluticasone-Salmeterol 500-50mcg Diskus INH SCH ×2 (07:35→19:14)
[2017-10-04] MEDS: (Novolog) Insulin Aspart, Recombinant 100 u/ml 10 ml vial SC SCH ×4 (09:36→21:24)
[2017-10-04] MEDS: Enoxaparin 40 mg Syringe SC SCH (09:38)
[2017-10-04] MEDS: Verapamil 180 mg ER Tab PO SCH (10:00)
--- NOTE | 2017-10-04 12:27 | CP.PCM.PN ---
Subjective - Date & Time of Evaluation Date of Evaluation: 10/04/17 Time of Evaluation: 09:00 - Subjective Subjective: improving less sob Objective - Vital Signs/Intake and Output Vital Signs (last 24 hours): Temp Pulse Resp BP Pulse Ox 98.2 F 93 H 14 150/80 100 10/04/17 00:00 10/04/17 02:00 10/04/17 02:00 10/04/17 09:38 10/04/17 01:00 Intake and Output: 10/04/17 10/04/17 06:59 18:59 Intake Total 450 Output Total 1000 Balance -550 - Medications Medications: Current Medications Albuterol/Ipratropium (Duoneb 3 Mg/0.5 Mg (3 Ml) Ud) 3 ml INH RQ4 [facility] Last Admin: 10/04/17 07:35 Dose: 3 ml Aspirin (Aspirin Chewable) 81 mg PO DAILY [facility] Last Admin: 10/04/17 09:47 Dose: 81 mg Carvedilol (Coreg) 6.25 mg PO BID [facility] Last Admin: 10/04/17 09:37 Dose: 6.25 mg Clopidogrel Bisulfate (Plavix) 75 mg PO DAILY [facility] Last Admin: 10/04/17 09:37 Dose: 75 mg Docusate Sodium (Colace) 100 mg PO TID [facility] Last Admin: 10/04/17 09:37 Dose: 100 mg Enoxaparin Sodium (Lovenox) 40 mg SC DAILY [facility] Last Admin: 10/04/17 09:38 Dose: 40 mg Famotidine (Pepcid) 20 mg IVP Q12 [facility] Last Admin: 10/04/17 09:39 Dose: 20 mg Furosemide (Lasix) 40 mg PO BID [facility] Last Admin: 10/04/17 09:38 Dose: 40 mg Guaifenesin (Robitussin) 200 mg PO Q4H PRN PRN Reason: Cough and congestion Moxifloxacin HCl (Avelox Iv 400mg/250ml Ns) 400 mg in 250 mls @ 167 mls/hr IVPB Q24H [facility] Last Admin: 10/03/17 17:19 Dose: 167 mls/hr Fluconazole (Diflucan Iv 200 Mg/100 Ml Ns) 100 mls @ 100 mls/hr IVPB Q24H [facility] Last Admin: 10/03/17 18:19 Dose: 100 mls/hr Insulin Aspart (Novolog) 0 unit SC ACHS [place] PRN Reason: Protocol Last Admin: 10/04/17 11:32 Dose: 8 unit Fluticasone/Salmeterol (Advair Diskus 500/50) 1 puff INH RQ12 [facility] Last Admin: 10/04/17 07:35 Dose: 1 puff Verapamil HCl (Verapamil Inj) 5 mg IVP Q6H PRN PRN Reason: Heart rate Verapamil HCl (Calan Sr Tab) 180 mg PO DAILY [facility] Last Admin: 10/03/17 10:48 Dose: 180 mg - Labs Labs: 10/03/17 06:54 10/03/17 06:54 PT 13.0 SECONDS (9.7-12.2) H 09/25/17 15:35 INR 1.2 09/25/17 15:35 APTT 33 SECONDS (21-34) 09/25/17 15:35 Assessment and Plan (1) Pneumonia Status: Acute (2) Respiratory failure requiring intubation Status: Acute (3) Ischemic stroke Status: Acute (4) Syncope Status: Acute
[2017-10-04] MEDS: Moxifloxacin IV 400mg/250ml NS 400 MG/250 ML BAG IVPB SCH (16:33)
[2017-10-04] MEDS: Fluconazole IV 200mg/100 ml NS 100 ML IVPB SCH (17:03)
--- NOTE | 2017-10-04 23:33 | CP.PCM.PN ---
Subjective - Date & Time of Evaluation Date of Evaluation: 10/04/17 Time of Evaluation: 18:00 - Subjective Subjective: PT SEEN AND EXAMINED AT BEDSIDE Objective - Vital Signs/Intake and Output Vital Signs (last 24 hours): Temp Pulse Resp BP Pulse Ox 98.2 F 79 14 119/62 100 10/04/17 00:00 10/04/17 18:00 10/04/17 02:00 10/04/17 17:02 10/04/17 01:00 Intake and Output: 10/04/17 10/05/17 18:59 06:59 Intake Total 1000 490 Output Total 1050 475 Balance -50 15 - Medications Medications: Current Medications Albuterol/Ipratropium (Duoneb 3 Mg/0.5 Mg (3 Ml) Ud) 3 ml INH RQ4 [facility] Last Admin: 10/04/17 19:14 Dose: 3 ml Aspirin (Aspirin Chewable) 81 mg PO DAILY [facility] Last Admin: 10/04/17 09:47 Dose: 81 mg Carvedilol (Coreg) 6.25 mg PO BID [facility] Last Admin: 10/04/17 17:02 Dose: 6.25 mg Clopidogrel Bisulfate (Plavix) 75 mg PO DAILY [facility] Last Admin: 10/04/17 09:37 Dose: 75 mg Docusate Sodium (Colace) 100 mg PO TID [facility] Last Admin: 10/04/17 17:03 Dose: 100 mg Enoxaparin Sodium (Lovenox) 40 mg SC DAILY [facility] Last Admin: 10/04/17 09:38 Dose: 40 mg Famotidine (Pepcid) 20 mg IVP Q12 [facility] Last Admin: 10/04/17 21:27 Dose: 20 mg Furosemide (Lasix) 40 mg PO BID [facility] Last Admin: 10/04/17 17:02 Dose: 40 mg Guaifenesin (Robitussin) 200 mg PO Q4H PRN PRN Reason: Cough and congestion Moxifloxacin HCl (Avelox Iv 400mg/250ml Ns) 400 mg in 250 mls @ 167 mls/hr IVPB Q24H [facility] Last Admin: 10/04/17 16:33 Dose: 167 mls/hr Fluconazole (Diflucan Iv 200 Mg/100 Ml Ns) 100 mls @ 100 mls/hr IVPB Q24H [facility] Last Admin: 10/04/17 17:03 Dose: 100 mls/hr Insulin Aspart (Novolog) 0 unit SC ACHS [facility] PRN Reason: Protocol Last Admin: 10/04/17 21:24 Dose: Not Given Fluticasone/Salmeterol (Advair Diskus 500/50) 1 puff INH RQ12 [facility] Last Admin: 10/04/17 19:14 Dose: 1 puff Verapamil HCl (Verapamil Inj) 5 mg IVP Q6H PRN PRN Reason: Heart rate Verapamil HCl (Calan Sr Tab) 180 mg PO DAILY [facility] Last Admin: 10/04/17 10:00 Dose: 180 mg - Labs Labs: 10/03/17 06:54 10/03/17 06:54 PT 13.0 SECONDS (9.7-12.2) H 09/25/17 15:35 INR 1.2 09/25/17 15:35 APTT 33 SECONDS (21-34) 09/25/17 15:35 Assessment and Plan (1) Pneumonia Status: Acute (2) Respiratory failure requiring intubation Status: Acute (3) Syncope Status: Acute
[2017-10-05] MEDS: Fluticasone-Salmeterol 500-50mcg Diskus INH SCH ×2 (07:52→20:36)
[2017-10-05] MEDS: Albuterol-Ipratrop 3 mg / 0.5 (3 ml) UD INH SCH ×4 (07:54→20:36)
[2017-10-05] MEDS: (Novolog) Insulin Aspart, Recombinant 100 u/ml 10 ml vial SC SCH ×4 (08:51→21:34)
[2017-10-05] MEDS: Enoxaparin 40 mg Syringe SC SCH (09:42)
[2017-10-05] MEDS: Verapamil 180 mg ER Tab PO SCH (09:42)
[2017-10-05] MEDS: Fluconazole IV 200mg/100 ml NS 100 ML IVPB SCH (17:48)
[2017-10-05] MEDS: Moxifloxacin IV 400mg/250ml NS 400 MG/250 ML BAG IVPB SCH (19:21)
--- NOTE | 2017-10-06 00:32 | CP.PCM.PN ---
Subjective - Date & Time of Evaluation Date of Evaluation: 10/05/17 Time of Evaluation: 16:00 - Subjective Subjective: She was transferred to my service today. Patient is currently sitting up, patient at bedside. No cough. Doing well. Vital signs reviewed No neck vein distention noted Chest good air entry bilaterally, no wheezing or rales noted CVS regular heart sound, no murmur noted Abdomen soft, nontender. Extremities no pedal edema [employer] alert awake oriented -3, no functional neurological deficit No recent labs Labs ordered tomorrow Assessment and recommendation: 71-year-old male hypertension hyperlipidemia admitted with a severe pneumonia intubated and extubated. Patient is doing well. Waiting for placement Objective - Vital Signs/Intake and Output Vital Signs (last 24 hours): Temp Pulse Resp BP Pulse Ox 98.2 F 82 18 162/87 H 97 10/05/17 15:43 10/05/17 16:05 10/05/17 15:43 10/05/17 17:47 10/05/17 15:43 - Medications Medications: Current Medications Albuterol/Ipratropium (Duoneb 3 Mg/0.5 Mg (3 Ml) Ud) 3 ml INH RQ4 [facility] Last Admin: 10/05/17 20:36 Dose: 3 ml Aspirin (Aspirin Chewable) 81 mg PO DAILY [facility] Last Admin: 10/05/17 09:41 Dose: 81 mg Carvedilol (Coreg) 6.25 mg PO BID [facility] Last Admin: 10/05/17 17:47 Dose: 6.25 mg Clopidogrel Bisulfate (Plavix) 75 mg PO DAILY [facility] Last Admin: 10/05/17 09:41 Dose: 75 mg Docusate Sodium (Colace) 100 mg PO TID [facility] Last Admin: 10/05/17 17:46 Dose: 100 mg Enoxaparin Sodium (Lovenox) 40 mg SC DAILY [facility] Last Admin: 10/05/17 09:42 Dose: 40 mg Famotidine (Pepcid) 20 mg IVP Q12 [facility] Last Admin: 10/05/17 21:44 Dose: 20 mg Furosemide (Lasix) 40 mg PO BID [facility] Last Admin: 10/05/17 17:47 Dose: 40 mg Guaifenesin (Robitussin) 200 mg PO Q4H PRN PRN Reason: Cough and congestion Moxifloxacin HCl (Avelox Iv 400mg/250ml Ns) 400 mg in 250 mls @ 167 mls/hr IVPB Q24H [facility] Last Admin: 10/05/17 19:21 Dose: 167 mls/hr Fluconazole (Diflucan Iv 200 Mg/100 Ml Ns) 100 mls @ 100 mls/hr IVPB Q24H [facility] Last Admin: 10/05/17 17:48 Dose: 100 mls/hr Insulin Aspart (Novolog) 0 unit SC ACHS [facility] PRN Reason: Protocol Last Admin: 10/05/17 21:34 Dose: Not Given Fluticasone/Salmeterol (Advair Diskus 500/50) 1 puff INH RQ12 [facility] Last Admin: 10/05/17 20:36 Dose: 1 puff Verapamil HCl (Verapamil Inj) 5 mg IVP Q6H PRN PRN Reason: Heart rate Verapamil HCl (Calan Sr Tab) 180 mg PO DAILY [facility] Last Admin: 10/05/17 09:42 Dose: 180 mg - Labs Labs: 10/03/17 06:54 10/03/17 06:54 PT 13.0 SECONDS (9.7-12.2) H 09/25/17 15:35 INR 1.2 09/25/17 15:35 APTT 33 SECONDS (21-34) 09/25/17 15:35
[2017-10-06] MEDS: Albuterol-Ipratrop 3 mg / 0.5 (3 ml) UD INH SCH ×4 (01:03→11:23)
--- NOTE | 2017-10-06 01:55 | CP.PCM.PN ---
Subjective - Date & Time of Evaluation Date of Evaluation: 10/05/17 Time of Evaluation: 14:05 - Subjective Subjective: Patient seen and evaluated No chest pain or dyspnea Objective - Vital Signs/Intake and Output Vital Signs (last 24 hours): Temp Pulse Resp BP Pulse Ox 98.4 F 77 20 144/62 95 10/05/17 23:40 10/05/17 23:40 10/05/17 23:40 10/05/17 23:40 10/05/17 23:40 - Medications Medications: Current Medications Albuterol/Ipratropium (Duoneb 3 Mg/0.5 Mg (3 Ml) Ud) 3 ml INH RQ4 [facility] Last Admin: 10/06/17 01:03 Dose: 3 ml Aspirin (Aspirin Chewable) 81 mg PO DAILY [facility] Last Admin: 10/05/17 09:41 Dose: 81 mg Carvedilol (Coreg) 6.25 mg PO BID [facility] Last Admin: 10/05/17 17:47 Dose: 6.25 mg Clopidogrel Bisulfate (Plavix) 75 mg PO DAILY [facility] Last Admin: 10/05/17 09:41 Dose: 75 mg Docusate Sodium (Colace) 100 mg PO TID [facility] Last Admin: 10/05/17 17:46 Dose: 100 mg Enoxaparin Sodium (Lovenox) 40 mg SC DAILY [facility] Last Admin: 10/05/17 09:42 Dose: 40 mg Famotidine (Pepcid) 20 mg IVP Q12 [facility] Last Admin: 10/05/17 21:44 Dose: 20 mg Furosemide (Lasix) 40 mg PO BID [facility] Last Admin: 10/05/17 17:47 Dose: 40 mg Guaifenesin (Robitussin) 200 mg PO Q4H PRN PRN Reason: Cough and congestion Moxifloxacin HCl (Avelox Iv 400mg/250ml Ns) 400 mg in 250 mls @ 167 mls/hr IVPB Q24H [facility] Last Admin: 10/05/17 19:21 Dose: 167 mls/hr Fluconazole (Diflucan Iv 200 Mg/100 Ml Ns) 100 mls @ 100 mls/hr IVPB Q24H [facility] Last Admin: 10/05/17 17:48 Dose: 100 mls/hr Insulin Aspart (Novolog) 0 unit SC ACHS [facility] PRN Reason: Protocol Last Admin: 10/05/17 21:34 Dose: Not Given Fluticasone/Salmeterol (Advair Diskus 500/50) 1 puff INH RQ12 [facility] Last Admin: 10/05/17 20:36 Dose: 1 puff Verapamil HCl (Verapamil Inj) 5 mg IVP Q6H PRN PRN Reason: Heart rate Verapamil HCl (Calan Sr Tab) 180 mg PO DAILY [facility] Last Admin: 10/05/17 09:42 Dose: 180 mg - Labs Labs: 10/03/17 06:54 10/03/17 06:54 PT 13.0 SECONDS (9.7-12.2) H 09/25/17 15:35 INR 1.2 09/25/17 15:35 APTT 33 SECONDS (21-34) 09/25/17 15:35
[2017-10-06] MEDS ORDERED: Labetalol 25mg/5ml Syringe IVP STA (05:11)
[2017-10-06 06:56] LABS: BASO % 0.1 % (0.0-2.0); EOS # 0.2 K/uL (0.0-0.7); EOS % 2.4 % (0.0-4.0); HEMOGLOBIN 11.5 g/dL (12.0-18.0); LYMPH # 1.6 K/uL (1.0-4.3); LYMPH % 18.8 % (20.0-40.0); MEAN CELL VOLUME 86.1 fL (80.0-94.0); MEAN CORPUSCULAR HEMOGLOBIN 29.3 pg (27.0-31.0); MEAN CORPUSCULAR HGB CONC 34.1 g/dL (33.0-37.0); MEAN PLATELET VOLUME 9.1 fL (7.2-11.7); MONO # 0.4 K/uL (0.0-0.8); NEUT # 6.2 K/uL (1.8-7.0); NEUT % 73.7 % (50.0-75.0); RBC 3.91 Mil/uL (4.40-5.90); RED CELL DISTRIBUTION WIDTH 13.6 % (11.5-14.5); WHITE BLOOD COUNT 8.4 K/uL (4.8-10.8)
[2017-10-06 07:27] LABS: ALB/GLOB RATIO 0.9 (1.0-2.1); ALBUMIN 3.2 g/dL (3.5-5.0); ALT/SGPT 26 U/L (21-72); AST/SGOT 18 U/L (17-59); BLOOD UREA NITROGEN 32 mg/dL (9-20); CALCIUM 8.6 mg/dl (8.6-10.4); GFR AFRICAN-AMERICAN > 60; GFR NON-AFRICAN AMERICAN > 60
[2017-10-06] MEDS: (Novolog) Insulin Aspart, Recombinant 100 u/ml 10 ml vial SC SCH ×3 (08:26→17:44)
[2017-10-06] MEDS: Verapamil 180 mg ER Tab PO SCH (09:03)
[2017-10-06] MEDS: Enoxaparin 40 mg Syringe SC SCH (09:06)
[2017-10-06] MEDS: Fluticasone-Salmeterol 500-50mcg Diskus INH SCH (09:22)
[2017-10-06 10:54] LABS: ACETYLCHOLINE REC BIND AB <0.30 nmol/L (<=0.30)
[2017-10-06 11:02] VITALS: PULSE 83; RESP 20; TEMP 98.7; O2SAT 98
[2017-10-06 11:28] VITALS: BP 164/74
[2017-10-06] MEDS ORDERED: Potassium Chloride 20 mEq ER Tab PO ONE (12:15)
[2017-10-06] MEDS ORDERED: Fluconazole IV 200mg/100 ml NS 100 ML IVPB ONE (12:45)
[2017-10-06] MEDS ORDERED: Moxifloxacin IV 400mg/250ml NS 400 MG/250 ML BAG IVPB ONE (14:00)
--- NOTE | 2017-10-06 14:19 | PCM.HF ---
Heart Failure Core Measure - Heart Failure Ejection Fraction: 40 % or Greater LELIA Inhibitor Prescribed: No Contraindication/Reason for not providing: EF>45 Beta-Conchita Prescribed: Carvedilol Angiotensin II Receptor Conchita Prescribed: No Contraindication/Reason for not providing: ef>45 AnticoagulationTherapy for Atrial Fibrillation/Atrialflutter: No Contraindication/Reason for not providing: no hx of a fib Aldosterone Antagonist Prescribed: No Contraindication/Reason for not providing: ef>45 Hydralazine Nitrate Prescribed: Yes Implantable Cardioverter Defibrillator Therapy: No Contraindication/Reason for not providing: ef.45 Cardiac Resynchronization Therapy Prescribed: No Contraindication/Reason for not providing: EF.45 - Follow up Will be discharged to: Custodial Facility ([facility]) Follow Up Date (must be within 7 days from discharge): 10/08/17 Follow Up Time: 09:00
--- NOTE | 2017-10-06 14:21 | CP.PCM.PN ---
Subjective - Date & Time of Evaluation Date of Evaluation: 10/06/17 Time of Evaluation: 12:25 - Subjective Subjective: Patient seen today awake, alert, ox3, denies any chest pain, sob, dizziness, cough No overnigh t events reported by RN Objective - Vital Signs/Intake and Output Vital Signs (last 24 hours): Temp Pulse Resp BP Pulse Ox 98.7 F 83 20 164/74 H 98 10/06/17 11:27 10/06/17 11:27 10/06/17 11:27 10/06/17 11:27 10/06/17 11:27 Intake and Output: 10/06/17 10/06/17 06:59 18:59 Intake Total 240 Balance 240 - Medications Medications: Current Medications Albuterol/Ipratropium (Duoneb 3 Mg/0.5 Mg (3 Ml) Ud) 3 ml INH RQ4 [facility] Last Admin: 10/06/17 11:23 Dose: 3 ml Aspirin (Aspirin Chewable) 81 mg PO DAILY [facility] Last Admin: 10/06/17 09:03 Dose: 81 mg Carvedilol (Coreg) 6.25 mg PO BID [facility] Last Admin: 10/06/17 09:05 Dose: 6.25 mg Clopidogrel Bisulfate (Plavix) 75 mg PO DAILY [facility] Last Admin: 10/06/17 09:03 Dose: 75 mg Docusate Sodium (Colace) 100 mg PO TID [facility] Last Admin: 10/06/17 09:03 Dose: 100 mg Enoxaparin Sodium (Lovenox) 40 mg SC DAILY [facility] Last Admin: 10/06/17 09:06 Dose: 40 mg Famotidine (Pepcid) 20 mg PO DAILY [facility] Last Admin: 10/06/17 09:08 Dose: 20 mg Furosemide (Lasix) 40 mg PO DAILY [facility] Last Admin: 10/06/17 09:05 Dose: 40 mg Moxifloxacin HCl (Avelox Iv 400mg/250ml Ns) 400 mg in 250 mls @ 167 mls/hr IVPB ONCE ONE Stop: 10/06/17 15:29 Insulin Aspart (Novolog) 0 unit SC ACHS [facility] PRN Reason: Protocol Last Admin: 10/06/17 12:32 Dose: 4 unit Fluticasone/Salmeterol (Advair Diskus 500/50) 1 puff INH RQ12 [facility] Last Admin: 10/06/17 09:22 Dose: Not Given Verapamil HCl (Calan Sr Tab) 180 mg PO DAILY [facility] Last Admin: 10/06/17 09:03 Dose: 180 mg - Labs Labs: 10/06/17 06:47 10/06/17 06:47 PT 13.0 SECONDS (9.7-12.2) H 09/25/17 15:35 INR 1.2 09/25/17 15:35 APTT 33 SECONDS (21-34) 09/25/17 15:35 - Constitutional Appears: Well, No Acute Distress - ENT Exam ENT Exam: Mucous Membranes Moist - Respiratory Exam Respiratory Exam: Clear to Ausculation Bilateral, NORMAL BREATHING PATTERN - Cardiovascular Exam Cardiovascular Exam: REGULAR RHYTHM, +S1, +S2 - Neurological Exam Neurological Exam: Alert, Awake, Oriented x3 Assessment and Plan - Assessment and Plan (Free Text) Assessment: A/P 71-year-old male with pmx of hypertension and diabetes ,CAD admitted with syncope/ hypoxia/ pneumonia s/p intubation and extubation spo2 - 96% on room air trach - yeast positive - on diflucan since 09/30/17 Urine culture and blood culture - Negative recent CXR- New small bilateral pleural effusions. No other significant interval change. Patient accepted at [facility] for rehab , and family in agreement D/W DR. Garrido . stable for discharge to [facility] today D/W at bed luz maria e
--- NOTE | 2017-10-06 17:22 | CP.PCM.PN ---
Subjective - Date & Time of Evaluation Date of Evaluation: 10/06/17 Time of Evaluation: 08:00 - Subjective Subjective: improving pneumonia no fever less cough cont rx as per dr gunter Objective - Vital Signs/Intake and Output Vital Signs (last 24 hours): Temp Pulse Resp BP Pulse Ox 98.7 F 83 20 164/74 H 98 10/06/17 11:27 10/06/17 11:27 10/06/17 11:27 10/06/17 11:27 10/06/17 11:27 Intake and Output: 10/06/17 10/06/17 06:59 18:59 Intake Total 240 Balance 240 - Medications Medications: Current Medications Albuterol/Ipratropium (Duoneb 3 Mg/0.5 Mg (3 Ml) Ud) 3 ml INH RQ4 [facility] Last Admin: 10/06/17 11:23 Dose: 3 ml Aspirin (Aspirin Chewable) 81 mg PO DAILY [facility] Last Admin: 10/06/17 09:03 Dose: 81 mg Carvedilol (Coreg) 6.25 mg PO BID [facility] Last Admin: 10/06/17 09:05 Dose: 6.25 mg Clopidogrel Bisulfate (Plavix) 75 mg PO DAILY [facility] Last Admin: 10/06/17 09:03 Dose: 75 mg Docusate Sodium (Colace) 100 mg PO TID [facility] Last Admin: 10/06/17 09:03 Dose: 100 mg Enoxaparin Sodium (Lovenox) 40 mg SC DAILY [facility] Last Admin: 10/06/17 09:06 Dose: 40 mg Famotidine (Pepcid) 20 mg PO DAILY [facility] Last Admin: 10/06/17 09:08 Dose: 20 mg Furosemide (Lasix) 40 mg PO DAILY [facility] Last Admin: 10/06/17 09:05 Dose: 40 mg Insulin Aspart (Novolog) 0 unit SC [facility] PRN Reason: Protocol Last Admin: 10/06/17 12:32 Dose: 4 unit Fluticasone/Salmeterol (Advair Diskus 500/50) 1 puff INH RQ12 [facility] Last Admin: 10/06/17 09:22 Dose: Not Given Verapamil HCl (Calan Sr Tab) 180 mg PO DAILY [facility] Last Admin: 10/06/17 09:03 Dose: 180 mg - Labs Labs: 10/06/17 06:47 10/06/17 06:47 PT 13.0 SECONDS (9.7-12.2) H 09/25/17 15:35 INR 1.2 09/25/17 15:35 APTT 33 SECONDS (21-34) 09/25/17 15:35 - Constitutional Appears: Non-toxic, Chronically Ill - Head Exam Head Exam: NORMOCEPHALIC - Eye Exam Eye Exam: absent: Scleral icterus - ENT Exam ENT Exam: Mucous Membranes Dry - Neck Exam Neck Exam: absent: Lymphadenopathy - Respiratory Exam Respiratory Exam: Decreased Breath Sounds, Rhonchi - Cardiovascular Exam Cardiovascular Exam: REGULAR RHYTHM, +S1, +S2 - GI/Abdominal Exam GI & Abdominal Exam: Distended - Rectal Exam Rectal Exam: Deferred - Exam Exam: NORMAL INSPECTION Assessment and Plan (1) Pneumonia Status: Acute (2) Respiratory failure requiring intubation Status: Acute (3) Ischemic stroke Status: Acute (4) Syncope Status: Acute - Assessment and Plan (Free Text) Assessment: cont iv rx
--- NOTE | 2017-10-07 10:42 | CARD ---
APPROVED REPORT EXAM: Two-dimensional and M-mode echocardiogram with Doppler and color Doppler. Other Information Quality : GoodRhythm : INDICATION Syncope Bradycardia 2D DIMENSIONS IVSd1.0 (0.7-1.1cm)LVDd4.4 (3.9-5.9cm) PWd1.1 (0.7-1.1cm)LVDs3.3 (2.5-4.0cm) FS (%) 26.0 %LVEF (%)51.3 (>50%) M-Mode DIMENSIONS Left Atrium (MM)4.16 (2.5-4.0cm)Aortic Root3.13 (2.2-3.7cm) Aortic Cusp Exc.1.85 (1.5-2.0cm) Mitral Valve MV E [id number]/sMV A Kcmiymrf32.7cm/s Tricuspid Valve TR Peak [id number]/sTR Peak [id number] <Conclusion> Left ventricle: thickness: normal; size: normal;anteroapical hypokinesis overall ejection fraction: 50%: diastolic filling pressures: elevated Mitral valve: annulus: MAC: leaflets: calcific thickening: excursion: normal; no significant trans-mitral gradient: mild incompetence: left atrium: dilated Aortic valve: leaflets:calcific thickeningl: excursion: normal; no significant trans-aortic gradient: No significant incompetence: aortic root: normal Right sided Structures: Pulmonary valve: normal; no significant incompetence; Tricuspid valve: normal; no significant incompetence: Intra-cardiac hemodynamics: pulmonary systolic pressures: 46 mmHg; central venous pressures: normal No pericardial effusion
== END 2017-10-06 18:47 | DRG 208 ==
LOC: C.ER 14:38 → C.9E 17:05 → C.9I 20:14 → C.6T 10-04 23:14
PROVIDERS: ADMIT Internal Medicine; ATTEND Internal Medicine
PROC: 5A1945Z Respiratory Ventilation, 24-96 Consecutive Hours (ICD-10-PCS; principal; 2017-09-25)
PROC: 0BH17EZ Insertion of Endotracheal Airway into Trachea, Via Natural or Artificial Opening (ICD-10-PCS; 2017-09-25)
PROC: 5A09457 Assistance with Respiratory Ventilation, 24-96 Consecutive Hours, Continuous Positive Airway Pressure (ICD-10-PCS; 2017-09-30)
DX: J69.0 Pneumonitis due to inhalation of food and vomit (principal); J96.91 Respiratory failure, unspecified with hypoxia; I50.30 Unspecified diastolic (congestive) heart failure; I47.1 Supraventricular tachycardia; E87.0 Hyperosmolality and hypernatremia; I11.0 Hypertensive heart disease with heart failure; I25.10 Atherosclerotic heart disease of native coronary artery without angina pectoris; E10.9 Type 1 diabetes mellitus without complications; G40.89 Other seizures; I27.20 Pulmonary hypertension, unspecified; I65.23 Occlusion and stenosis of bilateral carotid arteries; R55 Syncope and collapse; E78.5 Hyperlipidemia, unspecified; Z86.73 Personal history of transient ischemic attack (TIA), and cerebral infarction without residual deficits; Z79.4 Long term (current) use of insulin; Z95.1 Presence of aortocoronary bypass graft